=== PATIENT | female | born 1955 | race Hispanic/Latino ===

== ENCOUNTER 2017-08-10 16:08 | Inpatient (IN) | payer OTHER ==
[2017-08-10 16:08] VITALS: BMI 25.1
[2017-08-10] MEDS ORDERED: Aspirin 325 mg EC Tablets PO STA (16:49)
[2017-08-10 17:14] LABS: BASO # 0.1 K/uL (0.0-0.2); BASO % 0.9 % (0.0-2.0); EOS # 0.3 K/uL (0.0-0.7); EOS % 2.8 % (0.0-4.0); LYMPH # 1.7 K/uL (1.0-4.3); LYMPH % 15.8 % (20.0-40.0); MEAN CELL VOLUME 82.1 fL (81.0-99.0); MEAN CORPUSCULAR HEMOGLOBIN 26.8 pg (27.0-31.0); MEAN CORPUSCULAR HGB CONC 32.6 g/dL (33.0-37.0); MEAN PLATELET VOLUME 8.1 fL (7.2-11.7); MONO # 0.7 K/uL (0.0-0.8); MONO % 6.4 % (0.0-10.0); NEUT # 7.9 K/uL (1.8-7.0); NEUT % 74.1 % (50.0-75.0); NRBC % 0.4 % (0.0-2.0); RBC 4.12 Mil/uL (3.80-5.20); RED CELL DISTRIBUTION WIDTH 15.6 % (11.5-14.5); WHITE BLOOD COUNT 10.7 K/uL (4.8-10.8)
[2017-08-10 17:26] LABS: ALB/GLOB RATIO 1.1 (1.0-2.1); ALBUMIN 3.9 g/dL (3.5-5.0); ALT/SGPT 27 U/L (9-52); AST/SGOT 24 U/L (14-36); BLOOD UREA NITROGEN 12 mg/dL (7-17); CALCIUM 9.2 mg/dl (8.6-10.4); GFR AFRICAN-AMERICAN > 60; GFR NON-AFRICAN AMERICAN > 60
[2017-08-10 17:31] LABS: INR 1.3; PROTHROMBIN TIME 14.6 SECONDS (9.7-12.2)
[2017-08-10 17:37] LABS: B-TYPE NATRIURETIC PEPTIDE 214 pg/mL (0-900)
--- NOTE | 2017-08-10 18:01 | RAD ---
PROCEDURE: CHEST RADIOGRAPH, 1 VIEW HISTORY: SOB, chest pain COMPARISON: None available. FINDINGS: LUNGS: Compressive atelectasis primarily affecting both lower lobes and to lesser extent right middle lobe and lingula. PLEURA: Bilateral pleural effusions left substantially larger than right. CARDIOVASCULAR: Cardiomegaly. Venous access catheter may be coursing through at an aberrant left subclavian vein with the tip in the right subclavian vein. OSSEOUS STRUCTURES: No significant abnormalities. VISUALIZED UPPER ABDOMEN: Normal. OTHER FINDINGS: None. IMPRESSION: Recently placed venous access catheter tip identified at the junction of what may be an aberrant left subclavian vein with tip in the right subclavian vein. No pneumothorax identified. Bilateral pleural effusions left larger than right and associated compressive atelectasis.
[2017-08-10] MEDS ORDERED: Iodixanol 320 mg/ml 150 ml Bottle IV ONE (18:18)
--- NOTE | 2017-08-10 19:52 | CT ---
EXAM: CT Angiography Chest With Intravenous Contrast CLINICAL HISTORY: 61 years old, female; Pain and signs and symptoms; Shortness of breath; Chest pain; Left-sided chest pain; Additional info: Cp/sob, h/o breast ca. R/O pe TECHNIQUE: Axial computed tomographic angiography images of the chest with intravenous contrast using pulmonary embolism protocol. All CT scans at this facility use one or more dose reduction techniques, viz.: automated exposure control; ma/kV adjustment per patient size (including targeted exams where dose is matched to indication; i.e. head); or iterative reconstruction technique. MIP reconstructed images were created and reviewed. Coronal and sagittal reformatted images were created and reviewed. CONTRAST: 100 mL of visipaque 320 administered intravenously. COMPARISON: No relevant prior studies available. FINDINGS: Pulmonary arteries: Unremarkable. No pulmonary embolism. Aorta: No acute findings. No thoracic aortic aneurysm. Lungs: Complete atelectasis left lower lobe. Partial atelectasis right lower lobe. No mass. Pleural space: Large bilateral pleural effusions. No pneumothorax. Heart: Large pericardial effusion. This measures up to 3.5 CM in thickness. This may be impeding cardiac output. Bones/joints: No acute fracture. No dislocation. Soft tissues: Unremarkable. Lymph nodes: Unremarkable. No enlarged lymph nodes. Adrenals: 2.5 CM low density left adrenal mass. Tubes, lines and devices: Left chest wall port. IMPRESSION: 1. Large pericardial effusion. This measures up to 3.5 CM in thickness. This may be impeding cardiac output. 2. No acute pulmonary embolism. 3. Large bilateral pleural effusions with associated compressive atelectasis. 4. Remainder of findings as above.
--- NOTE | 2017-08-10 20:52 | C.PDOC ---
Time Seen by Provider: 08/10/17 16:40 Chief Complaint (Nursing): Shortness Of Breath History Per: Patient Onset/Duration Of Symptoms: Days (few) Current Symptoms Are (Timing): Worse Severity: Moderate Associated Symptoms: Chest Pain Additional History Per: Prior Records Past Medical History Reviewed: Historical Data, Nursing Documentation, Vital Signs Vital Signs: Last Vital Signs Temp 97.8 F 08/10/17 16:39 Pulse 107 H 08/10/17 19:17 Resp 48 H 08/10/17 19:22 BP 118/69 08/10/17 19:17 Pulse Ox 99 08/10/17 19:22 - Medical History PMH: Malignancy (Breast) Family History: States: Unknown Family Hx - Social History Hx Tobacco Use: Yes Hx Alcohol Use: No Hx Substance Use: No Review Of Systems Except As Marked, All Systems Reviewed And Found Negative. Constitutional: Negative for: Fever Cardiovascular: Positive for: Chest Pain Respiratory: Positive for: Cough, Shortness of Breath. Negative for: Hemoptysis Gastrointestinal: Negative for: Vomiting, Abdominal Pain Musculoskeletal: Negative for: Neck Pain Skin: Negative for: Rash Neurological: Negative for: Weakness, Numbness Physical Exam - Physical Exam Appears: Non-toxic, In Acute Distress (mild) Skin: Normal Color, Warm, Dry, No Rash Head: Atraumatic, Normacephalic Eye(s): bilateral: PERRL, EOMI Neck: Normal ROM, Supple Cardiovascular: Rhythm Regular Respiratory: Decreased Breath Sounds, No Accessory Muscle Use Gastrointestinal/Abdominal: Soft, No Tenderness Back: No CVA Tenderness Extremity: Normal ROM Neurological/Psych: Oriented x3, Normal Speech, Normal Motor, Normal Sensation ED Course And Treatment - Laboratory Results Result Diagrams: 08/10/17 17:09 08/10/17 17:09 Lab Interpretation: No Acute Changes ECG: Interpreted By Me, Viewed By Me ECG Rhythm: Sinus Tachycardia, Nonspecific Changes ECG Interpretation: Abnormal Rate From EC O2 Sat by Pulse Oximetry: 85 (on RA) Pulse Ox Interpretation: Abnormal Interpretation Of Abnormal: Hypoxia on RA - Radiology CXR: Viewed By Me, Read By Radiologist CXR Interpretation: Yes: Other (b/l Pleural effusions) - CT Scan/US CTA of chest Other Rad Studies (CT/US): Read By Radiologist, Radiology Report Reviewed CT/US Interpretation: IMPRESSION: 1. Large pericardial effusion. This measures up to 3.5 CM in thickness. This. may be impeding cardiac output. 2. No acute pulmonary embolism. 3. Large bilateral pleural effusions with associated compressive atelectasis. 4. Remainder of findings as above. Progress Note: I spoke to medical or surgical instrument maker Dr. Mittal. She will contact Dr. Cerda immediately for a STAT thoracic surgery consult. - Physician Consult Information Physician Contacted: Blayne Quiroz Outcome Of Conversation: He will consult. Dr. Nunez was also contacted for Cardiology consult. Progress - Interventions Interventions:: Observation, Oxygen - Data Reviewed Data Reviewed: Lab, Diagnostic imaging, EKG, Old records - Patient Status Patient status: Partially improved, Critical - Critical Care Citical Care: Excluding Proc Time Critical Care Time: 60 minutes - Continuity of Care Discussed patient case with:: Patient, Family-HIPPA compliant, ED Nurse, On- call PMD-pt unassigned Discussed pt. case with healthcare management consultant/specialty: Cardiology, Pulmonary/Crit. Care - Patient Plan Patient Plan: Admission, ICU Disposition Discussed With DrViviana: Mario Qureshi Comment: He accepted pt on his service. Doctor Will See Patient In The: Hospital Counseled Patient/Family Regarding: Studies Performed, Diagnosis - Disposition Disposition: HOSPITALIZED Disposition Time: 20:55 Condition: CRITICAL - Clinical Impression Clinical Impression: Pericardial effusion, Pleural effusion, bilateral, Hypoxia
--- NOTE | 2017-08-10 21:03 | CP.PCM.CON ---
History of Present Illness - History of Present Illness History of Present Illness: CT surgery consult note for Dr. Duncan Mittal, PGY-1 Pt S & E at bedside. 61F w/PMH sig for Right breast CA on Arimidex since Dec 2015 consulted for pericardial effusion & pleural effusions. Pt reports SOB x 1 wk. Admits to occasional Left sided chest pain, especially with deep inspiration, GERONIMO, recent wt gain of 15lbs, occasional chills, occasional emesis (food stuff, nb, nb). Denies ever having prior episodes of similar. recent illness, changes in bowel or bladder habits, other complaints. In ED- CTA positive for B/L pleural effusions, large pericardial effusion PMH: Right sided breast CA on Arimidex (12/2015), DM, HLD, Asthma PSH: Breast bx, LIJ portacath insertion, ganglion cyst excision of R hand, R knee foreign body excision All: NKDA SH: Admits to tobacco use - average is 20 yrs 1 ppd; rare ETOH use, denies illicit drug use PMD: Dr. Pastrana Outpt onc: Dr. Piyush Peoples Review of Systems - Review of Systems All systems: reviewed and no additional remarkable complaints except - Constitutional Constitutional: Headache (occasional), Weight Gain (15 lbs). absent: Chills, Fever - EENT Eyes: Blurred Vision, Change in Vision Ears: absent: Dizziness Nose/Mouth/Throat: absent: Sore Throat - Cardiovascular Cardiovascular: Chest Pain (occasional), Chest Pain with Activity, Dyspnea on Exertion. absent: Palpitations - Respiratory Respiratory: Dyspnea on Exertion. absent: Cough - Gastrointestinal Gastrointestinal: Vomiting. absent: Abdominal Pain, Change in Bowel Habits, Change in Stool Character, Constipation, Diarrhea, Nausea - Genitourinary Genitourinary: absent: Change in Urinary Stream, Difficulty Urinating, Dysuria - Musculoskeletal Musculoskeletal: absent: Back Pain, Numbness, Tingling - Neurological Neurological: absent: Numbness, Tingling - Psychiatric Psychiatric: Anxiety Past Patient History - Infectious Disease Hx of Infectious Diseases: None - Past Social History Smoking Status: Light Smoker < 10 Cigarettes Daily - HEMATOLOGICAL/ONCOLOGICAL Hx Cancer: Yes (breast) Hx Chemotherapy: Yes - PSYCHIATRIC Hx Substance Use: No - SURGICAL HISTORY Hx Surgeries: No - ANESTHESIA Hx Anesthesia: No Meds Allergies/Adverse Reactions: Allergies Allergy/AdvReac Type Severity Reaction Status Date / Time No Known Allergies Allergy Verified 08/10/17 16:22 Physical Exam - Constitutional Appears: Non-toxic, No Acute Distress - Head Exam Head Exam: ATRAUMATIC, NORMAL INSPECTION, NORMOCEPHALIC - Eye Exam Eye Exam: EOMI, Normal appearance - ENT Exam ENT Exam: Mucous Membranes Moist, Normal Exam - Neck Exam Neck exam: Positive for: Full Rom, Normal Inspection Additional comments: palpable portacath in LIJ - Respiratory Exam Respiratory Exam: Accessory Muscle Use, Decreased Breath Sounds, Wheezes, NORMAL BREATHING PATTERN. absent: Chest Wall Tenderness, Clear to Auscultation Bilateral, Rales, Rhonchi, Stridor Additional comments: B/L breath sounds absent from bases - Cardiovascular Exam Cardiovascular Exam: Tachycardia Additional comments: distant, muffled heart sounds - GI/Abdominal Exam GI & Abdominal Exam: Normal Bowel Sounds, Soft. absent: Distended, Firm, Guarding, Tenderness - Extremities Exam Extremities exam: Negative for: normal inspection (RUE with swelling), pedal edema, tenderness - Neurological Exam Neurological exam: Alert, CN II-XII Intact, Oriented x3 - Psychiatric Exam Psychiatric exam: Normal Affect, Normal Mood - Skin Skin Exam: Dry, Intact, Normal Color, Warm Results - Vital Signs Recent Vital Signs: Last Vital Signs Temp 97.8 F 08/10/17 16:39 Pulse 107 H 08/10/17 19:17 Resp 48 H 08/10/17 19:22 BP 118/69 08/10/17 19:17 Pulse Ox 99 08/10/17 19:22 - Labs Result Diagrams: 08/10/17 17:09 08/10/17 17:09 Labs: Laboratory Results - last 24 hr 08/10/17 08/10/17 08/10/17 17:09 17:09 17:09 WBC 10.7 RBC 4.12 Hgb 11.0 D Hct 33.8 L MCV 82.1 MCH 26.8 L MCHC 32.6 L RDW 15.6 H Plt Count 397 MPV 8.1 Neut % (Auto) 74.1 Lymph % (Auto) 15.8 L [place] % (Auto) 6.4 Eos % (Auto) 2.8 Baso % (Auto) 0.9 Neut # (Auto) 7.9 H Lymph # (Auto) 1.7 [place] # (Auto) 0.7 Eos # (Auto) 0.3 Baso # (Auto) 0.1 PT 14.6 H INR 1.3 APTT 29 D-Dimer, Quantitative 678 H Sodium 137 Potassium 4.3 Chloride 101 Carbon Dioxide 21 L Anion Gap 19 BUN 12 Creatinine 0.7 Est GFR ( Amer) > 60 Est GFR (Non-Af Amer) > 60 Random Glucose 268 H Calcium 9.2 Magnesium 2.0 Total Bilirubin 0.5 AST 24 ALT 27 Alkaline Phosphatase 112 Troponin I < 0.0120 NT-Pro-B Natriuret Pep 214 Total Protein 7.3 Albumin 3.9 Globulin 3.5 Albumin/Globulin Ratio 1.1 Assessment & Plan - Assessment and Plan (Free Text) Assessment: 61F w/PMH sig for breast CA on hormone therapy with B/L pleural effusions & pericardial effusion Plan: ' Respiratory support Plan for OR in AM NPO pMN Hold anticoagulation starting at 2am Consent in chart Further mgmt as per primary and ICU teams MITESH attending [place], PGY-1 - Date & Time Date: 08/10/17 Time: 23:19
--- NOTE | 2017-08-10 21:59 | CP.PCM.HP ---
Past Patient History - Infectious Disease Hx of Infectious Diseases: None - Past Social History Smoking Status: Light Smoker < 10 Cigarettes Daily - HEMATOLOGICAL/ONCOLOGICAL Hx Cancer: Yes (breast) Hx Chemotherapy: Yes - PSYCHIATRIC Hx Substance Use: No - SURGICAL HISTORY Hx Surgeries: No - ANESTHESIA Hx Anesthesia: No Meds Allergies/Adverse Reactions: Allergies Allergy/AdvReac Type Severity Reaction Status Date / Time No Known Allergies Allergy Verified 08/10/17 16:22 Physical Exam - Constitutional Appears: Well - Head Exam Head Exam: ATRAUMATIC, NORMAL INSPECTION, NORMOCEPHALIC - Eye Exam Eye Exam: EOMI, Normal appearance, PERRL Pupil Exam: NORMAL ACCOMODATION, PERRL - ENT Exam ENT Exam: Mucous Membranes Moist, Normal Exam - Neck Exam Neck exam: Positive for: Normal Inspection - Respiratory Exam Respiratory Exam: Decreased Breath Sounds - Cardiovascular Exam Cardiovascular Exam: REGULAR RHYTHM, +S1, +S2 - GI/Abdominal Exam GI & Abdominal Exam: Diminished Bowel Sounds, Soft - Rectal Exam Rectal Exam: Deferred Results - Vital Signs Recent Vital Signs: Last Vital Signs Temp 97.8 F 08/10/17 16:39 Pulse 107 H 08/10/17 19:17 Resp 48 H 08/10/17 19:22 BP 118/69 08/10/17 19:17 Pulse Ox 85 L 08/10/17 20:55 - Labs Result Diagrams: 08/10/17 17:09 08/10/17 17:09 Labs: Laboratory Results - last 24 hr 08/10/17 08/10/17 08/10/17 17:09 17:09 17:09 WBC 10.7 RBC 4.12 Hgb 11.0 D Hct 33.8 L MCV 82.1 MCH 26.8 L MCHC 32.6 L RDW 15.6 H Plt Count 397 MPV 8.1 Neut % (Auto) 74.1 Lymph % (Auto) 15.8 L [place] % (Auto) 6.4 Eos % (Auto) 2.8 Baso % (Auto) 0.9 Neut # (Auto) 7.9 H Lymph # (Auto) 1.7 [place] # (Auto) 0.7 Eos # (Auto) 0.3 Baso # (Auto) 0.1 PT 14.6 H INR 1.3 APTT 29 D-Dimer, Quantitative 678 H Sodium 137 Potassium 4.3 Chloride 101 Carbon Dioxide 21 L Anion Gap 19 BUN 12 Creatinine 0.7 Est GFR ( Amer) > 60 Est GFR (Non-Af Amer) > 60 Random Glucose 268 H Calcium 9.2 Magnesium 2.0 Total Bilirubin 0.5 AST 24 ALT 27 Alkaline Phosphatase 112 Troponin I < 0.0120 NT-Pro-B Natriuret Pep 214 Total Protein 7.3 Albumin 3.9 Globulin 3.5 Albumin/Globulin Ratio 1.1
--- NOTE | 2017-08-10 23:35 | CP.PCM.CON ---
History of Present Illness - History of Present Illness History of Present Illness: 61F with h/o Right breast CA on Arimidex since Dec 2015,DM,hyperlipidemia, asthma admitted with c/o worsening exertional difficulty breathing x 3 days and Left sided chest pain, especially with deep inspiration, recent wt gain of 15lbs In ED- CTA positive for B/L pleural effusions, large pericardial effusion Right upper extremity swelling x 1 month ,seen in [facility],had MRI done and was told to "apply ice".Not seen oncologist for about 2 months h/o Right sided breast Ca was recommended chemotherapy which patient refused. PSH: Breast bx, LIJ portacath insertion, ganglion cyst excision of R hand, R knee foreign body excision Review of Systems - Review of Systems Systems not reviewed;Unavailable: Respiratory Distress - Constitutional Constitutional: Fatigue, Weight Gain. absent: Anorexia, Chills, Fever - EENT Eyes: absent: Change in Vision, Pain Ears: absent: Decreased Hearing, Dizziness Nose/Mouth/Throat: absent: Nasal Congestion, Hoarsness, Sore Throat - Breasts Breasts: Change in Shape, Mass, Swelling - Cardiovascular Cardiovascular: Chest Pain. absent: Edema, Palpitations, Pedal Edema - Respiratory Respiratory: Cough, Dyspnea, Pain with Coughing Additional comments: dry cough - Gastrointestinal Gastrointestinal: absent: Abdominal Pain, Change in Bowel Habits, Nausea, Vomiting - Genitourinary Genitourinary: absent: Difficulty Urinating, Dysuria - Musculoskeletal Musculoskeletal: absent: Joint Swelling, Neck Pain - Integumentary Integumentary: absent: Bleeding Lesions, Jaundice - Neurological Neurological: absent: Dizziness, Focal Weakness - Endocrine Endocrine: absent: Palpitations, Polydipsia, Polyuria - Hematologic/Lymphatic Hematologic: absent: Easy Bleeding Past Patient History - Infectious Disease Hx of Infectious Diseases: None - Past Social History Smoking Status: Light Smoker < 10 Cigarettes Daily Alcohol: Social Drugs: Denies Home Situation {Lives}: With Family - HEMATOLOGICAL/ONCOLOGICAL Hx Cancer: Yes (breast) Hx Chemotherapy: Yes - PSYCHIATRIC Hx Substance Use: No - SURGICAL HISTORY Hx Surgeries: No - ANESTHESIA Hx Anesthesia: No Meds Allergies/Adverse Reactions: Allergies Allergy/AdvReac Type Severity Reaction Status Date / Time No Known Allergies Allergy Verified 08/10/17 16:22 Physical Exam - Constitutional Appears: No Acute Distress - Head Exam Head Exam: ATRAUMATIC, NORMAL INSPECTION, NORMOCEPHALIC - Eye Exam Eye Exam: EOMI, Normal appearance, PERRL - ENT Exam ENT Exam: Mucous Membranes Moist, Normal Exam - Neck Exam Neck exam: Positive for: Normal Inspection Additional comments: left neck palpable catheter - Respiratory Exam Respiratory Exam: Decreased Breath Sounds. absent: Chest Wall Tenderness Additional comments: decreased breath sounds in bases left chest portacath + - Cardiovascular Exam Cardiovascular Exam: REGULAR RHYTHM. absent: JVD - GI/Abdominal Exam GI & Abdominal Exam: Normal Bowel Sounds, Soft. absent: Tenderness - Extremities Exam Extremities exam: Positive for: pedal pulses present. Negative for: calf tenderness Additional comments: right upper extremity swelling + - Back Exam Back exam: NORMAL INSPECTION - Neurological Exam Neurological exam: Alert, CN II-XII Intact, Oriented x3 - Skin Skin Exam: Normal Color, Warm Additional comments: right breast nipple inverted ,firm,palpable mass + Results - Vital Signs Recent Vital Signs: Last Vital Signs Temp 97.8 F 08/10/17 16:39 Pulse 107 H 08/10/17 19:17 Resp 48 H 08/10/17 19:22 BP 118/69 08/10/17 19:17 Pulse Ox 85 L 08/10/17 20:55 - Labs Result Diagrams: 08/10/17 17:09 08/10/17 17:09 Labs: Laboratory Results - last 24 hr 08/10/17 08/10/17 08/10/17 17:09 17:09 17:09 WBC 10.7 RBC 4.12 Hgb 11.0 D Hct 33.8 L MCV 82.1 MCH 26.8 L MCHC 32.6 L RDW 15.6 H Plt Count 397 MPV 8.1 Neut % (Auto) 74.1 Lymph % (Auto) 15.8 L [place] % (Auto) 6.4 Eos % (Auto) 2.8 Baso % (Auto) 0.9 Neut # (Auto) 7.9 H Lymph # (Auto) 1.7 [place] # (Auto) 0.7 Eos # (Auto) 0.3 Baso # (Auto) 0.1 PT 14.6 H INR 1.3 APTT 29 D-Dimer, Quantitative 678 H Sodium 137 Potassium 4.3 Chloride 101 Carbon Dioxide 21 L Anion Gap 19 BUN 12 Creatinine 0.7 Est GFR ( Amer) > 60 Est GFR (Non-Af Amer) > 60 Random Glucose 268 H Calcium 9.2 Magnesium 2.0 Total Bilirubin 0.5 AST 24 ALT 27 Alkaline Phosphatase 112 Troponin I < 0.0120 NT-Pro-B Natriuret Pep 214 Total Protein 7.3 Albumin 3.9 Globulin 3.5 Albumin/Globulin Ratio 1.1 - EKG Data EKG Interpreted by: Myself EKG shows normal: Sinus rhythm Rate: Tachycardia - Imaging and Cardiology CT scan - chest Status: Image reviewed by me, Report reviewed by me Chest x-ray Status: Image reviewed by me, Report reviewed by me Assessment & Plan - Assessment and Plan (Free Text) Assessment: 1.Bilateral Pleural and Pericardial effusion in patient with breast carcinoma for surgical procedure O2 2.Breast Ca on meds 3.DM on meds 4.Hyperlipidemia
[2017-08-11] MEDS: Tramadol 25 mg PO PRN (00:13)
[2017-08-11] MEDS: (Novolin R) Insulin Human Regular 100 units/ml vial SC SCH ×4 (00:50→18:19)
[2017-08-11] MEDS ORDERED: DiphenhydrAMINE 50 mg/ml Inj IVP STA (02:34)
[2017-08-11 07:21] LABS: ALB/GLOB RATIO 1.1 (1.0-2.1); ALBUMIN 3.6 g/dL (3.5-5.0); ALT/SGPT 30 U/L (9-52); AST/SGOT 23 U/L (14-36); BLOOD UREA NITROGEN 15 mg/dL (7-17); GFR AFRICAN-AMERICAN > 60; GFR NON-AFRICAN AMERICAN > 60
[2017-08-11 07:33] LABS: BASO # 0.1 K/uL (0.0-0.2); BASO % 0.7 % (0.0-2.0); EOS # 0.3 K/uL (0.0-0.7); EOS % 3.3 % (0.0-4.0); HEMOGLOBIN 10.1 g/dL (11.0-16.0); LYMPH # 1.7 K/uL (1.0-4.3); MEAN CELL VOLUME 81.6 fL (81.0-99.0); MEAN CORPUSCULAR HEMOGLOBIN 26.8 pg (27.0-31.0); MEAN CORPUSCULAR HGB CONC 32.9 g/dL (33.0-37.0); MEAN PLATELET VOLUME 8.4 fL (7.2-11.7); MONO # 0.7 K/uL (0.0-0.8); MONO % 6.6 % (0.0-10.0); NEUT # 7.3 K/uL (1.8-7.0); NEUT % 72.4 % (50.0-75.0); RBC 3.77 Mil/uL (3.80-5.20); RED CELL DISTRIBUTION WIDTH 15.5 % (11.5-14.5); WHITE BLOOD COUNT 10.1 K/uL (4.8-10.8)
[2017-08-11] MEDS: Pantoprazole 40 mg EC Tab PO SCH (10:20)
[2017-08-11] MEDS ORDERED: Etomidate 20 mg/10ml Inj IV ONE (10:52)
[2017-08-11] MEDS ORDERED: Midazolam 2 MG/2 ML VIAL ONE (10:53)
[2017-08-11] MEDS ORDERED: ePHEDrine 50 mg/ml Inj ONE (10:54)
[2017-08-11] MEDS ORDERED: Phenylephrine 10 mg/ml Inj ONE (10:54)
[2017-08-11] MEDS ORDERED: Ketamine 50 mg/ml Inj (10 ml) ONE (11:00)
[2017-08-11] MEDS ORDERED: Succinylcholine Chloride 20 mg/ml Syr (5 ml) IV ONE (11:08)
[2017-08-11] MEDS ORDERED: ceFAZolin 1 gm in NS 1 GM/100 ML BAG IVPB ONE (11:16)
--- NOTE | 2017-08-11 11:37 | CP.CCUPN ---
<Brent Parker - Last Filed: 08/11/17 15:33> CCU Subjective - Physician Review Subjective (Free Text): 08/11/17 11:32 Patient seen and examined at bedside. Patient reports some pleuritic chest discomfort and some shortness of breath. No other complaints at this time. She is resting and anticipating surgery. CCU Objective - Vital Signs / Intake & Output Vital Signs (Last 4 hours): Vital Signs Temp Pulse Resp BP Pulse Ox 08/11/17 10:06 109 H 160/115 H 96 08/11/17 10:00 97.5 F L 103 H 85 L 08/11/17 09:05 98 H 112/85 90 L 08/11/17 09:00 97 H 90 L 08/11/17 08:05 100 H 31 H 98/80 L 97 08/11/17 08:00 104 H 28 H 93 L Intake and Output (Last 8hrs): Intake & Output 08/10/17 08/11/17 08/11/17 22:59 06:59 14:59 Intake Total 200 0 Output Total 300 200 Balance -100 -200 Weight 150 lb 163 lb 8 oz Intake: Oral 200 0 Output: Urine 300 200 Urine, Voided 300 200 Emesis 0 Other: Voiding Method Bedside Commode # Bowel Movements 0 - Physical Exam Head: Positive for: Atraumatic, Normocephalic Pupils: Positive for: PERRL Extroacular Muscles: Positive for: EOMI Conjunctiva: Positive for: Normal Mouth: Positive for: Dry Neck: Positive for: Normal Range of Motion Respiratory/Chest: Positive for: Decreased Breath Sounds, Other (portacath). Negative for: Wheezes, Rales, Rhonchi Cardiovascular: Positive for: Normal S1, S2, Muffled Abdomen: Positive for: Normal Bowel Sounds. Negative for: Tenderness Upper Extremity: Positive for: Edema Lower Extremity: Positive for: Normal Inspection Neurological: Positive for: GCS=15 Skin: Positive for: Warm, Dry Psychiatric: Positive for: Alert, Oriented x 3 - Medications Active Medications: Active Medications Generic Name Dose Route Start Last Admin Trade Name Freq PRN Reason Stop Dose Admin Insulin Human Regular 0 unit 08/11/17 00:15 08/11/17 05:43 Novolin R SC Not Given Q6 COUNT INCLUDES THE [facility] Protocol Pantoprazole Sodium 40 mg 08/11/17 10:00 08/11/17 10:20 Protonix Ec Tab PO Not Given DAILY NELIDA Tramadol HCl 25 mg 08/10/17 23:56 08/11/17 00:13 Ultram PO 25 mg TID PRN Administration Pain, severe (8-10) - Patient Studies Lab Studies: Lab Studies 08/11/17 08/11/17 08/11/17 Range/Units 07:21 05:37 05:30 WBC 10.1 (4.8-10.8) K/uL RBC 3.77 L (3.80-5.20) Mil/uL Hgb 10.1 L (11.0-16.0) g/dL Hct 30.8 L (34.0-47.0) % MCV 81.6 (81.0-99.0) fL MCH 26.8 L (27.0-31.0) pg MCHC 32.9 L (33.0-37.0) g/dL RDW 15.5 H (11.5-14.5) % Plt Count 331 (130-400) K/uL MPV 8.4 (7.2-11.7) fL Neut % (Auto) 72.4 (50.0-75.0) % Lymph % (Auto) 17.0 L (20.0-40.0) % Maverick % (Auto) 6.6 (0.0-10.0) % Eos % (Auto) 3.3 (0.0-4.0) % Baso % (Auto) 0.7 (0.0-2.0) % Neut # (Auto) 7.3 H (1.8-7.0) K/uL Lymph # (Auto) 1.7 (1.0-4.3) K/uL Maverick # (Auto) 0.7 (0.0-0.8) K/uL Eos # (Auto) 0.3 (0.0-0.7) K/uL Baso # (Auto) 0.1 (0.0-0.2) K/uL PT (9.7-12.2) SECONDS INR APTT (21-34) SECONDS D-Dimer, Quantitative (0-243) ng/mlDDU Sodium 140 (132-148) mmol/L Potassium 4.0 (3.6-5.2) mmol/L Chloride 103 (98-107) mmol/L Carbon Dioxide 24 (22-30) mmol/L Anion Gap 17 (10-20) BUN 15 (7-17) mg/dL Creatinine 0.7 (0.7-1.2) mg/dL Est GFR ( Amer) > 60 Est GFR (Non-Af Amer) > 60 POC Glucose (mg/dL) 181 H (65-110) mg/dL Random Glucose 176 H (65-105) mg/dL Calcium 9.0 (8.6-10.4) mg/dl Phosphorus 4.0 (2.5-4.5) mg/dL Magnesium 2.1 (1.6-2.3) mg/dL Total Bilirubin 0.5 (0.2-1.3) mg/dL AST 23 (14-36) U/L ALT 30 (9-52) U/L Alkaline Phosphatase 114 (38-126) U/L Troponin I (0.00-0.120) ng/mL NT-Pro-B Natriuret Pep (0-900) pg/mL Total Protein 7.0 (6.3-8.3) g/dL Albumin 3.6 (3.5-5.0) g/dL Globulin 3.4 (2.2-3.9) gm/dL Albumin/Globulin Ratio 1.1 (1.0-2.1) 08/11/17 08/10/17 08/10/17 Range/Units 00:05 17:09 17:09 WBC (4.8-10.8) K/uL RBC (3.80-5.20) Mil/uL Hgb (11.0-16.0) g/dL Hct (34.0-47.0) % MCV (81.0-99.0) fL MCH (27.0-31.0) pg MCHC (33.0-37.0) g/dL RDW (11.5-14.5) % Plt Count (130-400) K/uL MPV (7.2-11.7) fL Neut % (Auto) (50.0-75.0) % Lymph % (Auto) (20.0-40.0) % Maverick % (Auto) (0.0-10.0) % Eos % (Auto) (0.0-4.0) % Baso % (Auto) (0.0-2.0) % Neut # (Auto) (1.8-7.0) K/uL Lymph # (Auto) (1.0-4.3) K/uL Maverick # (Auto) (0.0-0.8) K/uL Eos # (Auto) (0.0-0.7) K/uL Baso # (Auto) (0.0-0.2) K/uL PT 14.6 H (9.7-12.2) SECONDS INR 1.3 APTT 29 (21-34) SECONDS D-Dimer, Quantitative 678 H (0-243) ng/mlDDU Sodium 137 (132-148) mmol/L Potassium 4.3 (3.6-5.2) mmol/L Chloride 101 (98-107) mmol/L Carbon Dioxide 21 L (22-30) mmol/L Anion Gap 19 (10-20) BUN 12 (7-17) mg/dL Creatinine 0.7 (0.7-1.2) mg/dL Est GFR ( Amer) > 60 Est GFR (Non-Af Amer) > 60 POC Glucose (mg/dL) 256 H (65-110) mg/dL Random Glucose 268 H (65-105) mg/dL Calcium 9.2 (8.6-10.4) mg/dl Phosphorus (2.5-4.5) mg/dL Magnesium 2.0 (1.6-2.3) mg/dL Total Bilirubin 0.5 (0.2-1.3) mg/dL AST 24 (14-36) U/L ALT 27 (9-52) U/L Alkaline Phosphatase 112 (38-126) U/L Troponin I < 0.0120 (0.00-0.120) ng/mL NT-Pro-B Natriuret Pep 214 (0-900) pg/mL Total Protein 7.3 (6.3-8.3) g/dL Albumin 3.9 (3.5-5.0) g/dL Globulin 3.5 (2.2-3.9) gm/dL Albumin/Globulin Ratio 1.1 (1.0-2.1) 08/10/17 Range/Units 17:09 WBC 10.7 (4.8-10.8) K/uL RBC 4.12 (3.80-5.20) Mil/uL Hgb 11.0 D (11.0-16.0) g/dL Hct 33.8 L (34.0-47.0) % MCV 82.1 (81.0-99.0) fL MCH 26.8 L (27.0-31.0) pg MCHC 32.6 L (33.0-37.0) g/dL RDW 15.6 H (11.5-14.5) % Plt Count 397 (130-400) K/uL MPV 8.1 (7.2-11.7) fL Neut % (Auto) 74.1 (50.0-75.0) % Lymph % (Auto) 15.8 L (20.0-40.0) % Maverick % (Auto) 6.4 (0.0-10.0) % Eos % (Auto) 2.8 (0.0-4.0) % Baso % (Auto) 0.9 (0.0-2.0) % Neut # (Auto) 7.9 H (1.8-7.0) K/uL Lymph # (Auto) 1.7 (1.0-4.3) K/uL Maverick # (Auto) 0.7 (0.0-0.8) K/uL Eos # (Auto) 0.3 (0.0-0.7) K/uL Baso # (Auto) 0.1 (0.0-0.2) K/uL PT (9.7-12.2) SECONDS INR APTT (21-34) SECONDS D-Dimer, Quantitative (0-243) ng/mlDDU Sodium (132-148) mmol/L Potassium (3.6-5.2) mmol/L Chloride (98-107) mmol/L Carbon Dioxide (22-30) mmol/L Anion Gap (10-20) BUN (7-17) mg/dL Creatinine (0.7-1.2) mg/dL Est GFR ( Amer) Est GFR (Non-Af Amer) POC Glucose (mg/dL) (65-110) mg/dL Random Glucose (65-105) mg/dL Calcium (8.6-10.4) mg/dl Phosphorus (2.5-4.5) mg/dL Magnesium (1.6-2.3) mg/dL Total Bilirubin (0.2-1.3) mg/dL AST (14-36) U/L ALT (9-52) U/L Alkaline Phosphatase (38-126) U/L Troponin I (0.00-0.120) ng/mL NT-Pro-B Natriuret Pep (0-900) pg/mL Total Protein (6.3-8.3) g/dL Albumin (3.5-5.0) g/dL Globulin (2.2-3.9) gm/dL Albumin/Globulin Ratio (1.0-2.1) Laboratory Results - last 24 hr 08/10/17 08/10/17 08/10/17 17:09 17:09 17:09 WBC 10.7 RBC 4.12 Hgb 11.0 D Hct 33.8 L MCV 82.1 MCH 26.8 L MCHC 32.6 L RDW 15.6 H Plt Count 397 MPV 8.1 Neut % (Auto) 74.1 Lymph % (Auto) 15.8 L Maverick % (Auto) 6.4 Eos % (Auto) 2.8 Baso % (Auto) 0.9 Neut # (Auto) 7.9 H Lymph # (Auto) 1.7 Maverick # (Auto) 0.7 Eos # (Auto) 0.3 Baso # (Auto) 0.1 PT 14.6 H INR 1.3 APTT 29 D-Dimer, Quantitative 678 H Sodium 137 Potassium 4.3 Chloride 101 Carbon Dioxide 21 L Anion Gap 19 BUN 12 Creatinine 0.7 Est GFR ( Amer) > 60 Est GFR (Non-Af Amer) > 60 POC Glucose (mg/dL) Random Glucose 268 H Calcium 9.2 Phosphorus Magnesium 2.0 Total Bilirubin 0.5 AST 24 ALT 27 Alkaline Phosphatase 112 Troponin I < 0.0120 NT-Pro-B Natriuret Pep 214 Total Protein 7.3 Albumin 3.9 Globulin 3.5 Albumin/Globulin Ratio 1.1 08/11/17 08/11/17 08/11/17 00:05 05:30 05:37 WBC RBC Hgb Hct MCV MCH MCHC RDW Plt Count MPV Neut % (Auto) Lymph % (Auto) Maverick % (Auto) Eos % (Auto) Baso % (Auto) Neut # (Auto) Lymph # (Auto) Maverick # (Auto) Eos # (Auto) Baso # (Auto) PT INR APTT D-Dimer, Quantitative Sodium 140 Potassium 4.0 Chloride 103 Carbon Dioxide 24 Anion Gap 17 BUN 15 Creatinine 0.7 Est GFR ( Amer) > 60 Est GFR (Non-Af Amer) > 60 POC Glucose (mg/dL) 256 H 181 H Random Glucose 176 H Calcium 9.0 Phosphorus 4.0 Magnesium 2.1 Total Bilirubin 0.5 AST 23 ALT 30 Alkaline Phosphatase 114 Troponin I NT-Pro-B Natriuret Pep Total Protein 7.0 Albumin 3.6 Globulin 3.4 Albumin/Globulin Ratio 1.1 08/11/17 07:21 WBC 10.1 RBC 3.77 L Hgb 10.1 L Hct 30.8 L MCV 81.6 MCH 26.8 L MCHC 32.9 L RDW 15.5 H Plt Count 331 MPV 8.4 Neut % (Auto) 72.4 Lymph % (Auto) 17.0 L Maverick % (Auto) 6.6 Eos % (Auto) 3.3 Baso % (Auto) 0.7 Neut # (Auto) 7.3 H Lymph # (Auto) 1.7 Maverick # (Auto) 0.7 Eos # (Auto) 0.3 Baso # (Auto) 0.1 PT INR APTT D-Dimer, Quantitative Sodium Potassium Chloride Carbon Dioxide Anion Gap BUN Creatinine Est GFR ( Amer) Est GFR (Non-Af Amer) POC Glucose (mg/dL) Random Glucose Calcium Phosphorus Magnesium Total Bilirubin AST ALT Alkaline Phosphatase Troponin I NT-Pro-B Natriuret Pep Total Protein Albumin Globulin Albumin/Globulin Ratio EKG/Cardiology Studies: Cardiology / EKG Studies 08/10/17 16:17 EKG [ELECTROCARDIOGRAM] Stat Comment: Mode Of Transportation: BED Reason For Exam: cp Critical Care Progress Note - Nutrition Nutrition: Nutrition Category Date Time Status NPO Diet [DIET] Diets 08/11/17 Breakfast Active Assessment/Plan - Assessment and Plan (Free Text) Assessment: This is a 61 year old female with PMHx breast CA presenting for shortness of breath. This is likely due to both the pericardial and the bilateral pleural effusions. Neuro Sedated on Diprivan drip Cardio Patient underwent pericardial window in the OR 4/11/18 f/u ECHO f/u fluid studies Pulm Currently intubated and sedated on PRVC FiO2 60%, PEEP 5, TV 450mL Likely for extubation tomorrow f/u fluid studies GI NPO diet Protonix 40 mg IV daily Endocrine Regular ISS Q6H Accuchecks Infectious Diseases Received Ancef in the OR Only one more dose of Ancef tonight per surgery Heme/onc Monitor H/H f/u Ultrasound for edematous arm Dispo: ICU care Seen and discussed with Dr. Quiroz <Blayne Quiroz S - Last Filed: 08/11/17 16:06> CCU Objective - Vital Signs / Intake & Output Vital Signs (Last 4 hours): Vital Signs Temp Pulse Resp BP Pulse Ox 08/11/17 15:00 98.4 F 109 H 12 100 08/11/17 14:45 109 H 14 100 08/11/17 14:39 108 H 15 105/73 100 08/11/17 14:30 98 F 108 H 13 100 08/11/17 14:24 107 H 12 108/72 100 08/11/17 14:15 107 H 14 100 08/11/17 14:09 107 H 13 108/71 100 08/11/17 14:00 98.2 F 107 H 13 100 08/11/17 13:54 106 H 14 109/68 100 08/11/17 13:45 106 H 13 100 08/11/17 13:40 97.8 F 08/11/17 13:39 108 H 14 93/69 L 100 08/11/17 13:30 111 H 12 100 08/11/17 13:25 97.6 F 08/11/17 13:24 111 H 13 110/75 100 08/11/17 13:15 109 H 14 100 08/11/17 13:10 97.6 F 08/11/17 13:09 108 H 12 109/74 100 08/11/17 13:00 105 H 14 100 08/11/17 12:55 97.6 F 08/11/17 12:54 107 H 17 94/70 L 100 08/11/17 12:49 105 H 13 97/64 L 100 08/11/17 12:46 103 H 12 Intake and Output (Last 8hrs): Intake & Output 08/11/17 08/11/17 08/11/17 06:59 14:59 22:59 Intake Total 200 802.2 Output Total 300 430 Balance -100 372.2 Weight 163 lb 8 oz Intake: IV 800 Intake, IV Amount 2.2 Left Forearm 2.2 Oral 200 0 Output: Urine 300 430 Urethral ([place]) 230 Urine, Voided 300 200 Emesis 0 Other: Voiding Method Bedside Commode # Bowel Movements 0 - Medications Active Medications: Active Medications Generic Name Dose Route Start Last Admin Trade Name Freq PRN Reason Stop Dose Admin Propofol 1,000 mg in 100 mls @ 2.225 mls/hr 08/11/17 13:30 08/11/17 13:59 Diprivan IV 5 mcg/kg/min .Q24H PRN 2.225 mls/hr TITRATE PER MD ORDER Administration Protocol 5 MCG/KG/MIN Insulin Human Regular 0 unit 08/11/17 00:15 08/11/17 05:43 Novolin R SC Not Given Q6 NELIDA Protocol Morphine Sulfate 2 mg 08/11/17 13:41 08/11/17 15:34 Morphine IV 2 mg Q4H PRN Administration Pain, moderate (4-7) Pantoprazole Sodium 40 mg 08/11/17 10:00 08/11/17 10:20 Protonix Ec Tab PO Not Given DAILY NELIDA Tramadol HCl 25 mg 08/10/17 23:56 08/11/17 00:13 Ultram PO 25 mg TID PRN Administration Pain, severe (8-10) - Patient Studies Lab Studies: Lab Studies 08/11/17 08/11/17 08/11/17 Range/Units 15:41 07:21 05:37 WBC 10.1 (4.8-10.8) K/uL RBC 3.77 L (3.80-5.20) Mil/uL Hgb 10.1 L (11.0-16.0) g/dL Hct 30.8 L (34.0-47.0) % MCV 81.6 (81.0-99.0) fL MCH 26.8 L (27.0-31.0) pg MCHC 32.9 L (33.0-37.0) g/dL RDW 15.5 H (11.5-14.5) % Plt Count 331 (130-400) K/uL MPV 8.4 (7.2-11.7) fL Neut % (Auto) 72.4 (50.0-75.0) % Lymph % (Auto) 17.0 L (20.0-40.0) % Maverick % (Auto) 6.6 (0.0-10.0) % Eos % (Auto) 3.3 (0.0-4.0) % Baso % (Auto) 0.7 (0.0-2.0) % Neut # (Auto) 7.3 H (1.8-7.0) K/uL Lymph # (Auto) 1.7 (1.0-4.3) K/uL Maverick # (Auto) 0.7 (0.0-0.8) K/uL Eos # (Auto) 0.3 (0.0-0.7) K/uL Baso # (Auto) 0.1 (0.0-0.2) K/uL PT (9.7-12.2) SECONDS INR APTT (21-34) SECONDS D-Dimer, Quantitative (0-243) ng/mlDDU Puncture Site Dede pCO2 44 (35-45) mm/Hg pO2 219 H (80-100) mm/Hg HCO3 24.4 (21-28) mmol/L ABG pH 7.36 (7.35-7.45) ABG Total CO2 26.3 (22-28) mmol/L ABG O2 Saturation 100.0 H (95-98) % ABG Base Excess -0.8 (-2.0-3.0) mmol/L Marc Test Na ABG Potassium 3.9 (3.6-5.2) mmol/L A-a O2 Difference 439.0 mm/Hg Respiratory Index 2.0 Glucose 175 H (65-105) mg/dl Lactate 0.9 (0.7-2.1) mmol/L Vent Mode Prvc Mechanical Rate 12 FiO2 100.0 % Tidal Volume 450 PEEP 5 Sodium 139.0 (132-148) mmol/L Potassium (3.6-5.2) mmol/L Chloride 107.0 (98-107) mmol/L Carbon Dioxide (22-30) mmol/L Anion Gap (10-20) BUN (7-17) mg/dL Creatinine (0.7-1.2) mg/dL Est GFR ( Amer) Est GFR (Non-Af Amer) POC Glucose (mg/dL) 181 H (65-110) mg/dL Random Glucose (65-105) mg/dL Calcium (8.6-10.4) mg/dl Phosphorus (2.5-4.5) mg/dL Magnesium (1.6-2.3) mg/dL Total Bilirubin (0.2-1.3) mg/dL AST (14-36) U/L ALT (9-52) U/L Alkaline Phosphatase (38-126) U/L Troponin I (0.00-0.120) ng/mL NT-Pro-B Natriuret Pep (0-900) pg/mL Total Protein (6.3-8.3) g/dL Albumin (3.5-5.0) g/dL Globulin (2.2-3.9) gm/dL Albumin/Globulin Ratio (1.0-2.1) Arterial Blood Potassium 3.9 (3.6-5.2) mmol/L 08/11/17 08/11/17 08/10/17 Range/Units 05:30 00:05 17:09 WBC (4.8-10.8) K/uL RBC (3.80-5.20) Mil/uL Hgb (11.0-16.0) g/dL Hct (34.0-47.0) % MCV (81.0-99.0) fL MCH (27.0-31.0) pg MCHC (33.0-37.0) g/dL RDW (11.5-14.5) % Plt Count (130-400) K/uL MPV (7.2-11.7) fL Neut % (Auto) (50.0-75.0) % Lymph % (Auto) (20.0-40.0) % Maverick % (Auto) (0.0-10.0) % Eos % (Auto) (0.0-4.0) % Baso % (Auto) (0.0-2.0) % Neut # (Auto) (1.8-7.0) K/uL Lymph # (Auto) (1.0-4.3) K/uL Maverick # (Auto) (0.0-0.8) K/uL Eos # (Auto) (0.0-0.7) K/uL Baso # (Auto) (0.0-0.2) K/uL PT (9.7-12.2) SECONDS INR APTT (21-34) SECONDS D-Dimer, Quantitative (0-243) ng/mlDDU Puncture Site pCO2 (35-45) mm/Hg pO2 (80-100) mm/Hg HCO3 (21-28) mmol/L ABG pH (7.35-7.45) ABG Total CO2 (22-28) mmol/L ABG O2 Saturation (95-98) % ABG Base Excess (-2.0-3.0) mmol/L Marc Test ABG Potassium (3.6-5.2) mmol/L A-a O2 Difference mm/Hg Respiratory Index Glucose (65-105) mg/dl Lactate (0.7-2.1) mmol/L Vent Mode Mechanical Rate FiO2 % Tidal Volume PEEP Sodium 140 137 (132-148) mmol/L Potassium 4.0 4.3 (3.6-5.2) mmol/L Chloride 103 101 (98-107) mmol/L Carbon Dioxide 24 21 L (22-30) mmol/L Anion Gap 17 19 (10-20) BUN 15 12 (7-17) mg/dL Creatinine 0.7 0.7 (0.7-1.2) mg/dL Est GFR ( Amer) > 60 > 60 Est GFR (Non-Af Amer) > 60 > 60 POC Glucose (mg/dL) 256 H (65-110) mg/dL Random Glucose 176 H 268 H (65-105) mg/dL Calcium 9.0 9.2 (8.6-10.4) mg/dl Phosphorus 4.0 (2.5-4.5) mg/dL Magnesium 2.1 2.0 (1.6-2.3) mg/dL Total Bilirubin 0.5 0.5 (0.2-1.3) mg/dL AST 23 24 (14-36) U/L ALT 30 27 (9-52) U/L Alkaline Phosphatase 114 112 (38-126) U/L Troponin I < 0.0120 (0.00-0.120) ng/mL NT-Pro-B Natriuret Pep 214 (0-900) pg/mL Total Protein 7.0 7.3 (6.3-8.3) g/dL Albumin 3.6 3.9 (3.5-5.0) g/dL Globulin 3.4 3.5 (2.2-3.9) gm/dL Albumin/Globulin Ratio 1.1 1.1 (1.0-2.1) Arterial Blood Potassium (3.6-5.2) mmol/L 08/10/17 08/10/17 Range/Units 17:09 17:09 WBC 10.7 (4.8-10.8) K/uL RBC 4.12 (3.80-5.20) Mil/uL Hgb 11.0 D (11.0-16.0) g/dL Hct 33.8 L (34.0-47.0) % MCV 82.1 (81.0-99.0) fL MCH 26.8 L (27.0-31.0) pg MCHC 32.6 L (33.0-37.0) g/dL RDW 15.6 H (11.5-14.5) % Plt Count 397 (130-400) K/uL MPV 8.1 (7.2-11.7) fL Neut % (Auto) 74.1 (50.0-75.0) % Lymph % (Auto) 15.8 L (20.0-40.0) % Maverick % (Auto) 6.4 (0.0-10.0) % Eos % (Auto) 2.8 (0.0-4.0) % Baso % (Auto) 0.9 (0.0-2.0) % Neut # (Auto) 7.9 H (1.8-7.0) K/uL Lymph # (Auto) 1.7 (1.0-4.3) K/uL [place] # (Auto) 0.7 (0.0-0.8) K/uL Eos # (Auto) 0.3 (0.0-0.7) K/uL Baso # (Auto) 0.1 (0.0-0.2) K/uL PT 14.6 H (9.7-12.2) SECONDS INR 1.3 APTT 29 (21-34) SECONDS D-Dimer, Quantitative 678 H (0-243) ng/mlDDU Puncture Site pCO2 (35-45) mm/Hg pO2 (80-100) mm/Hg HCO3 (21-28) mmol/L ABG pH (7.35-7.45) ABG Total CO2 (22-28) mmol/L ABG O2 Saturation (95-98) % ABG Base Excess (-2.0-3.0) mmol/L Marc Test ABG Potassium (3.6-5.2) mmol/L A-a O2 Difference mm/Hg Respiratory Index Glucose (65-105) mg/dl Lactate (0.7-2.1) mmol/L Vent Mode Mechanical Rate FiO2 % Tidal Volume PEEP Sodium (132-148) mmol/L Potassium (3.6-5.2) mmol/L Chloride (98-107) mmol/L Carbon Dioxide (22-30) mmol/L Anion Gap (10-20) BUN (7-17) mg/dL Creatinine (0.7-1.2) mg/dL Est GFR ( Amer) Est GFR (Non-Af Amer) POC Glucose (mg/dL) (65-110) mg/dL Random Glucose (65-105) mg/dL Calcium (8.6-10.4) mg/dl Phosphorus (2.5-4.5) mg/dL Magnesium (1.6-2.3) mg/dL Total Bilirubin (0.2-1.3) mg/dL AST (14-36) U/L ALT (9-52) U/L Alkaline Phosphatase (38-126) U/L Troponin I (0.00-0.120) ng/mL NT-Pro-B Natriuret Pep (0-900) pg/mL Total Protein (6.3-8.3) g/dL Albumin (3.5-5.0) g/dL Globulin (2.2-3.9) gm/dL Albumin/Globulin Ratio (1.0-2.1) Arterial Blood Potassium (3.6-5.2) mmol/L Laboratory Results - last 24 hr 08/10/17 08/10/17 08/10/17 17:09 17:09 17:09 WBC 10.7 RBC 4.12 Hgb 11.0 D Hct 33.8 L MCV 82.1 MCH 26.8 L MCHC 32.6 L RDW 15.6 H Plt Count 397 MPV 8.1 Neut % (Auto) 74.1 Lymph % (Auto) 15.8 L [place] % (Auto) 6.4 Eos % (Auto) 2.8 Baso % (Auto) 0.9 Neut # (Auto) 7.9 H Lymph # (Auto) 1.7 [place] # (Auto) 0.7 Eos # (Auto) 0.3 Baso # (Auto) 0.1 PT 14.6 H INR 1.3 APTT 29 D-Dimer, Quantitative 678 H Puncture Site pCO2 pO2 HCO3 ABG pH ABG Total CO2 ABG O2 Saturation ABG Base Excess Marc Test ABG Potassium A-a O2 Difference Respiratory Index Glucose Lactate Vent Mode Mechanical Rate FiO2 Tidal Volume PEEP Sodium 137 Potassium 4.3 Chloride 101 Carbon Dioxide 21 L Anion Gap 19 BUN 12 Creatinine 0.7 Est GFR ( Amer) > 60 Est GFR (Non-Af Amer) > 60 POC Glucose (mg/dL) Random Glucose 268 H Calcium 9.2 Phosphorus Magnesium 2.0 Total Bilirubin 0.5 AST 24 ALT 27 Alkaline Phosphatase 112 Troponin I < 0.0120 NT-Pro-B Natriuret Pep 214 Total Protein 7.3 Albumin 3.9 Globulin 3.5 Albumin/Globulin Ratio 1.1 Arterial Blood Potassium 08/11/17 08/11/17 08/11/17 00:05 05:30 05:37 WBC RBC Hgb Hct MCV MCH MCHC RDW Plt Count MPV Neut % (Auto) Lymph % (Auto) [place] % (Auto) Eos % (Auto) Baso % (Auto) Neut # (Auto) Lymph # (Auto) [place] # (Auto) Eos # (Auto) Baso # (Auto) PT INR APTT D-Dimer, Quantitative Puncture Site pCO2 pO2 HCO3 ABG pH ABG Total CO2 ABG O2 Saturation ABG Base Excess Marc Test ABG Potassium A-a O2 Difference Respiratory Index Glucose Lactate Vent Mode Mechanical Rate FiO2 Tidal Volume PEEP Sodium 140 Potassium 4.0 Chloride 103 Carbon Dioxide 24 Anion Gap 17 BUN 15 Creatinine 0.7 Est GFR ( Amer) > 60 Est GFR (Non-Af Amer) > 60 POC Glucose (mg/dL) 256 H 181 H Random Glucose 176 H Calcium 9.0 Phosphorus 4.0 Magnesium 2.1 Total Bilirubin 0.5 AST 23 ALT 30 Alkaline Phosphatase 114 Troponin I NT-Pro-B Natriuret Pep Total Protein 7.0 Albumin 3.6 Globulin 3.4 Albumin/Globulin Ratio 1.1 Arterial Blood Potassium 08/11/17 08/11/17 07:21 15:41 WBC 10.1 RBC 3.77 L Hgb 10.1 L Hct 30.8 L MCV 81.6 MCH 26.8 L MCHC 32.9 L RDW 15.5 H Plt Count 331 MPV 8.4 Neut % (Auto) 72.4 Lymph % (Auto) 17.0 L [place] % (Auto) 6.6 Eos % (Auto) 3.3 Baso % (Auto) 0.7 Neut # (Auto) 7.3 H Lymph # (Auto) 1.7 [place] # (Auto) 0.7 Eos # (Auto) 0.3 Baso # (Auto) 0.1 PT INR APTT D-Dimer, Quantitative Puncture Site [place] pCO2 44 pO2 219 H HCO3 24.4 ABG pH 7.36 ABG Total CO2 26.3 ABG O2 Saturation 100.0 H ABG Base Excess -0.8 Marc Test Na ABG Potassium 3.9 A-a O2 Difference 439.0 Respiratory Index 2.0 Glucose 175 H Lactate 0.9 Vent Mode Prvc Mechanical Rate 12 FiO2 100.0 Tidal Volume 450 PEEP 5 Sodium 139.0 Potassium Chloride 107.0 Carbon Dioxide Anion Gap BUN Creatinine Est GFR ( Amer) Est GFR (Non-Af Amer) POC Glucose (mg/dL) Random Glucose Calcium Phosphorus Magnesium Total Bilirubin AST ALT Alkaline Phosphatase Troponin I NT-Pro-B Natriuret Pep Total Protein Albumin Globulin Albumin/Globulin Ratio Arterial Blood Potassium 3.9 EKG/Cardiology Studies: Cardiology / EKG Studies 08/10/17 16:17 EKG [ELECTROCARDIOGRAM] Stat Comment: Mode Of Transportation: BED Reason For Exam: cp Critical Care Progress Note - Nutrition Nutrition: Nutrition Category Date Time Status NPO Diet [DIET] Diets 08/11/17 Breakfast Active Attending/Attestation - Attestation I have personally seen and examined this patient.: Yes I have fully participated in the care of the patient.: Yes I have reviewed all pertinent clinical information: Yes Notes (Text): 08/11/17 16:04 patient seen and examined in the intensive care unit. 61-year-old female with history of breast cancer admitted with shortness of breath. CAT scan of chest consistent with large pericardial and pleural effusions. Status post pericardial window and bilateral chest tube drainage of pleural effusion. Patient transferred to ICu post op on ventilator support. Continue sedation Fluid analysis including cytology Follow-up ABG wean as tolerated \Analgesics
[2017-08-11] MEDS ORDERED: Esmolol 100 mg/10ml Inj IV ONE (12:20)
--- NOTE | 2017-08-11 12:51 | PCM.SURG1 ---
Surgeon's Initial Post Op Note - Surgeon's Notes Surgeon: Dr. Cerda Tooling Specialist: Dr. Lemus PGY3; Garrett Peters OMS III Type of Anesthesia: General Endo Anesthesia Administered By: Janice Pre-Operative Diagnosis: Pericardial Effusion, B/L Pleural effusions Operative Findings: same Post-Operative Diagnosis: same Operation Performed: Anterior Thoracotomy, Pericardial Window, Insertion of B/L Chest tubes Specimen/Specimens Removed: Pericardium, Pleural Fluid Estimated Blood Loss: EBL {In ML}: 10 Blood Products Given: N/A Drains Used: Chest Tubes Post-Op Condition: Good Date of Surgery/Procedure: 08/11/17 Time of Surgery/Procedure: 12:51
--- NOTE | 2017-08-11 13:17 | RAD ---
HISTORY: post op pericardial window, b/l chest tubes COMPARISON: Chest radiograph dated 08/10/2017. FINDINGS: LUNGS: No active pulmonary disease. PLEURA: Near complete resolution of bilateral pleural effusions. No pneumothorax apparent. CARDIOVASCULAR: Cardiomediastinal silhouette stably enlarged. OSSEOUS STRUCTURES: No significant abnormalities. VISUALIZED UPPER ABDOMEN: Normal. OTHER FINDINGS: Interval left-sided thoracotomy with new bilateral large-bore chest tubes. New endotracheal tube with tip between clavicles and mayi. Left internal jugular access chest port, unchanged. IMPRESSION: Interval left-sided thoracotomy with new bilateral large bore chest tubes and near complete resolution of bilateral pleural effusions. No appreciable pneumothorax. New endotracheal tube in satisfactory position. No other significant interval change.
[2017-08-11] MEDS ORDERED: HYDROmorphone 1 mg/ml ISec IVP STA (13:23)
[2017-08-11] MEDS ORDERED: HYDROmorphone 1 mg/ml ISec IVP PRN (13:26)
[2017-08-11] MEDS ORDERED: Propofol 10 mg/ml Inj (100 ml) IV SCH (13:30)
[2017-08-11] MEDS: Propofol 10 mg/ml 1,000 MG/100 ML VIAL IV PRN ×2 (13:59→20:44)
--- NOTE | 2017-08-11 14:03 | CP.PCM.CON ---
History of Present Illness - History of Present Illness History of Present Illness: 61 y/o woman who presented with SOB and weight gain with sharp chest pains L. chest She has hx of R. breast CA : per family denies hx of chemo or radiation but has been on arimidex She was found to have large pericardial effusion on CT chest along with pleural effusion: which was drained via chest tube and pericardial window. PMHX: R. Breast Ca, smoker, DM Cardiac HX: denies any hx of CAD/cardiac problems Functional capacity: limited due to generalized weakness Review of Systems - Review of Systems Systems not reviewed;Unavailable: Acuity of Condition (hemodynamically stable, intubated, alert and responds to questions) Past Patient History - Infectious Disease Hx of Infectious Diseases: None - Past Medical History & Family History Past Medical History?: Yes - Past Social History Smoking Status: Light Smoker < 10 Cigarettes Daily Alcohol: Social Drugs: Denies Home Situation {Lives}: With Family - CARDIAC Hx Cardiac Disorders: Yes Hx Hypercholesterolemia: Yes - PULMONARY Hx Respiratory Disorders: Yes Hx Asthma: Yes - NEUROLOGICAL Hx Neurological Disorder: Yes - HEENT Hx HEENT Problems: Yes - RENAL Hx Chronic Kidney Disease: Yes - ENDOCRINE/METABOLIC Hx Endocrine Disorders: Yes Hx Diabetes Mellitus Type 2: Yes - HEMATOLOGICAL/ONCOLOGICAL Hx Cancer: Yes (breast) Hx Chemotherapy: Yes - INTEGUMENTARY Hx Dermatological Problems: No - MUSCULOSKELETAL/RHEUMATOLOGICAL Hx Falls: Yes - GASTROINTESTINAL Hx Gastrointestinal Disorders: No - GENITOURINARY/GYNECOLOGICAL Hx Genitourinary Disorders: No - PSYCHIATRIC Hx Substance Use: No - SURGICAL HISTORY Hx Surgeries: No - ANESTHESIA Hx Anesthesia: No Meds Allergies/Adverse Reactions: Allergies Allergy/AdvReac Type Severity Reaction Status Date / Time No Known Allergies Allergy Verified 08/10/17 16:22 - Medications Medications: Current Medications Propofol (Diprivan) 1,000 mg in 100 mls @ 2.225 mls/hr IV .Q24H PRN; Protocol; 5 MCG/KG/MIN PRN Reason: TITRATE PER MD ORDER Insulin Human Regular (Novolin R) 0 unit SC Q6 NELIDA PRN Reason: Protocol Last Admin: 08/11/17 05:43 Dose: Not Given Morphine Sulfate (Morphine) 2 mg IV Q4H PRN PRN Reason: Pain, moderate (4-7) Pantoprazole Sodium (Protonix Ec Tab) 40 mg PO DAILY NELIDA Last Admin: 08/11/17 10:20 Dose: Not Given Tramadol HCl (Ultram) 25 mg PO TID PRN PRN Reason: Pain, severe (8-10) Last Admin: 08/11/17 00:13 Dose: 25 mg Physical Exam - Constitutional Appears: Chronically Ill (Intubated, awke and responds to questions, follows commands) - Head Exam Head Exam: ATRAUMATIC, NORMAL INSPECTION, NORMOCEPHALIC - Eye Exam Eye Exam: EOMI, Normal appearance, PERRL - Neck Exam Neck exam: Positive for: Normal Inspection - Respiratory Exam Respiratory Exam: Decreased Breath Sounds, NORMAL BREATHING PATTERN - Cardiovascular Exam Cardiovascular Exam: absent: Systolic Murmur - GI/Abdominal Exam GI & Abdominal Exam: Soft. absent: Tenderness - Extremities Exam Extremities exam: Negative for: pedal edema - Neurological Exam Neurological exam: Alert - Skin Skin Exam: Normal Color, Warm Results - Vital Signs Recent Vital Signs: Last Vital Signs Temp 97.5 F L 08/11/17 10:00 Pulse 109 H 08/11/17 10:06 Resp 31 H 08/11/17 08:05 BP 160/115 H 08/11/17 10:06 Pulse Ox 96 08/11/17 10:06 - Labs Result Diagrams: 08/11/17 07:21 08/11/17 05:30 Labs: Laboratory Results - last 24 hr 08/10/17 08/10/17 08/10/17 17:09 17:09 17:09 WBC 10.7 RBC 4.12 Hgb 11.0 D Hct 33.8 L MCV 82.1 MCH 26.8 L MCHC 32.6 L RDW 15.6 H Plt Count 397 MPV 8.1 Neut % (Auto) 74.1 Lymph % (Auto) 15.8 L [place] % (Auto) 6.4 Eos % (Auto) 2.8 Baso % (Auto) 0.9 Neut # (Auto) 7.9 H Lymph # (Auto) 1.7 [place] # (Auto) 0.7 Eos # (Auto) 0.3 Baso # (Auto) 0.1 PT 14.6 H INR 1.3 APTT 29 D-Dimer, Quantitative 678 H Sodium 137 Potassium 4.3 Chloride 101 Carbon Dioxide 21 L Anion Gap 19 BUN 12 Creatinine 0.7 Est GFR ( Amer) > 60 Est GFR (Non-Af Amer) > 60 POC Glucose (mg/dL) Random Glucose 268 H Calcium 9.2 Phosphorus Magnesium 2.0 Total Bilirubin 0.5 AST 24 ALT 27 Alkaline Phosphatase 112 Troponin I < 0.0120 NT-Pro-B Natriuret Pep 214 Total Protein 7.3 Albumin 3.9 Globulin 3.5 Albumin/Globulin Ratio 1.1 08/11/17 08/11/17 08/11/17 00:05 05:30 05:37 WBC RBC Hgb Hct MCV MCH MCHC RDW Plt Count MPV Neut % (Auto) Lymph % (Auto) [place] % (Auto) Eos % (Auto) Baso % (Auto) Neut # (Auto) Lymph # (Auto) [place] # (Auto) Eos # (Auto) Baso # (Auto) PT INR APTT D-Dimer, Quantitative Sodium 140 Potassium 4.0 Chloride 103 Carbon Dioxide 24 Anion Gap 17 BUN 15 Creatinine 0.7 Est GFR ( Amer) > 60 Est GFR (Non-Af Amer) > 60 POC Glucose (mg/dL) 256 H 181 H Random Glucose 176 H Calcium 9.0 Phosphorus 4.0 Magnesium 2.1 Total Bilirubin 0.5 AST 23 ALT 30 Alkaline Phosphatase 114 Troponin I NT-Pro-B Natriuret Pep Total Protein 7.0 Albumin 3.6 Globulin 3.4 Albumin/Globulin Ratio 1.1 08/11/17 07:21 WBC 10.1 RBC 3.77 L Hgb 10.1 L Hct 30.8 L MCV 81.6 MCH 26.8 L MCHC 32.9 L RDW 15.5 H Plt Count 331 MPV 8.4 Neut % (Auto) 72.4 Lymph % (Auto) 17.0 L [place] % (Auto) 6.6 Eos % (Auto) 3.3 Baso % (Auto) 0.7 Neut # (Auto) 7.3 H Lymph # (Auto) 1.7 [place] # (Auto) 0.7 Eos # (Auto) 0.3 Baso # (Auto) 0.1 PT INR APTT D-Dimer, Quantitative Sodium Potassium Chloride Carbon Dioxide Anion Gap BUN Creatinine Est GFR ( Amer) Est GFR (Non-Af Amer) POC Glucose (mg/dL) Random Glucose Calcium Phosphorus Magnesium Total Bilirubin AST ALT Alkaline Phosphatase Troponin I NT-Pro-B Natriuret Pep Total Protein Albumin Globulin Albumin/Globulin Ratio - EKG Data EKG Interpreted by: Myself Rate: Tachycardia (no acute ischemic changes) Assessment & Plan - Assessment and Plan (Free Text) Assessment: SOB, hypoxia, lethargy > Large perical effusion on CT chest, B/L large pleural effusions > EKG initial: sinus tach, low voltage, non-specific ST changes > hx of R. breast CA Now s/p chest tube and pericardial window with drains: f/u cytology BP: upper 100's systolic Lab: Mild anemia, normal creat, elevated sugars Continue to monitor drainage f/u 2D echo Supportive care, DM control, DVT prophylaxis
[2017-08-11] MEDS: Morphine 4 MG/ML VIAL IV PRN (15:34)
[2017-08-11 15:44] LABS: ARTERIAL BLOOD GAS HCO3 24.4 mmol/L (21-28); ARTERIAL BLOOD GAS PCO2 44 mm/Hg (35-45); ARTERIAL BLOOD GAS PH 7.36 (7.35-7.45); ARTERIAL BLOOD GAS PO2 219 mm/Hg (80-100); ARTERIAL BLOOD GAS TCO2 26.3 mmol/L (22-28)
[2017-08-11 16:26] LABS: BODY FLUID TYPE PLEURAL
[2017-08-11 16:32] LABS: BF GROSS APPEARANCE CLOUDY (CLEAR)
[2017-08-11 18:24] LABS: BODY FLUID MONO/MACROPHAGE 5 % (0-0)
[2017-08-11 18:44] LABS: URINE BACTERIA RARE (<OCC); URINE BILIRUBIN NEGATIVE (NEGATIVE); URINE BLOOD NEGATIVE (NEGATIVE); URINE CLARITY Clear (Clear); URINE COLOR Yellow (YELLOW); URINE GLUCOSE (UA) 1+ mg/dL (Normal); URINE LEUKOCYTE ESTERASE NEG Leu/uL (Negative); URINE PROTEIN 2+ mg/dL (NEGATIVE); URINE UROBILINOGEN NORMAL mg/dL (0.2-1.0)
[2017-08-11] MEDS ORDERED: ceFAZolin IV 1 gm in Dextrose 1 GM/50 ML BAG IVPB ONE (19:00)
[2017-08-11] MEDS: ceFAZolin IV 1 gm in Dextrose 1 GM/50 ML BAG IVPB ONE (19:00)
--- NOTE | 2017-08-11 19:13 | CP.PCM.PN ---
Subjective - Date & Time of Evaluation Date of Evaluation: 08/11/17 Time of Evaluation: 10:00 - Subjective Subjective: clinically same Objective - Vital Signs/Intake and Output Vital Signs (last 24 hours): Temp Pulse Resp BP Pulse Ox 98.4 F 105 H 13 89/60 L 99 08/11/17 15:00 08/11/17 18:43 08/11/17 18:43 08/11/17 18:43 08/11/17 18:43 Intake and Output: 08/11/17 08/12/17 18:59 06:59 Intake Total 872.1 Output Total 2150 Balance -1277.9 - Medications Medications: Current Medications Propofol (Diprivan) 1,000 mg in 100 mls @ 2.225 mls/hr IV .Q24H PRN; Protocol; 5 MCG/KG/MIN PRN Reason: TITRATE PER MD ORDER Last Titration: 08/11/17 15:35 Dose: 30 mcg/kg/min, 13.349 mls/hr Cefazolin Sodium/Dextrose (Ancef Iv 1 Gm Duplex) 1 gm in 50 mls @ 100 mls/hr IVPB ONCE ONE PRN Reason: Protocol Stop: 08/11/17 19:29 Insulin Human Regular (Novolin R) 0 unit SC Q6 NELIDA PRN Reason: Protocol Last Admin: 08/11/17 18:19 Dose: Not Given Morphine Sulfate (Morphine) 2 mg IV Q4H PRN PRN Reason: Pain, moderate (4-7) Last Admin: 08/11/17 15:34 Dose: 2 mg Pantoprazole Sodium (Protonix Ec Tab) 40 mg PO DAILY [facility] Last Admin: 08/11/17 10:20 Dose: Not Given Tramadol HCl (Ultram) 25 mg PO TID PRN PRN Reason: Pain, severe (8-10) Last Admin: 08/11/17 00:13 Dose: 25 mg - Labs Labs: 08/11/17 07:21 08/11/17 05:30 PT 14.6 SECONDS (9.7-12.2) H 08/10/17 17:09 INR 1.3 08/10/17 17:09 APTT 29 SECONDS (21-34) 08/10/17 17:09 - Constitutional Appears: Well - Head Exam Head Exam: ATRAUMATIC, NORMAL INSPECTION, NORMOCEPHALIC - Eye Exam Eye Exam: EOMI, Normal appearance, PERRL Pupil Exam: NORMAL ACCOMODATION, PERRL - ENT Exam ENT Exam: Mucous Membranes Moist, Normal Exam - Neck Exam Neck Exam: Full ROM, Normal Inspection. absent: Lymphadenopathy - Respiratory Exam Respiratory Exam: Decreased Breath Sounds - Cardiovascular Exam Cardiovascular Exam: REGULAR RHYTHM, +S1, +S2 - GI/Abdominal Exam GI & Abdominal Exam: Soft, Diminished Bowel Sounds - Rectal Exam Rectal Exam: Deferred
[2017-08-11] MEDS: Sodium Chloride 0.9% 1,000 ML IV SCH (20:48)
--- NOTE | 2017-08-11 20:50 | CARD ---
APPROVED REPORT EKG Measurement Heart [id number] <Conclusion> Sinus tachycardia with premature supraventricular complexes Low voltage QRS Nonspecific T wave abnormality Abnormal ECG
--- NOTE | 2017-08-11 23:20 | OP ---
PROCEDURE DATE: 08/11/2017 PREOPERATIVE DIAGNOSIS: Pericardial effusion and tamponade, also pleural effusion. PROCEDURE: Left thoracotomy and pericardial window, drainage of pleural fluid and pericardial fluid. ANESTHESIA: General. BUSINESS RISK CONSULTANT: Haritha Lemus. REFERRING DOCTOR: Dr. Sean Qureshi. INDICATIONS FOR SURGERY: This is a 61-year-old who came into the emergency room with shortness of breath. She had a history of breast cancer from about a year and half earlier. CAT scan demonstrated a large pericardial effusion, early tamponade, large bilateral pleural effusion. I had a long discussion with her and her family to improve her shortness of breath. She opted for surgery and agreed. FINDINGS: She had about a 1100 mL of left and right pleural fluids, each individually and about 600 mL of bloody pericardial fluid. All of this was sent for cytology culture and gram stain. DESCRIPTION OF PROCEDURE: Upon induction, we draped and prepped and then induced the patient with anesthesia in order to avoid severe hypertension. At the time of the induction after draping, we made a small left anterior thoracotomy, entered the chest under direct vision and then opened up the pericardium, evacuated about 600 mL of blood. The blood pressure improved at that time. We took out probably 3 x 3 cm portion of pericardium with good hemostasis, about 1100 mL of pleural fluid. Once the hemostasis was under control, chest tube was placed in the left and then we also placed a separate chest tube in the right under direct vision. The wound was closed in three layers, and the patient was sent to recovery room. Christopher Cerda MD MTDNorman
[2017-08-12] MEDS: (Novolin R) Insulin Human Regular 100 units/ml vial SC SCH ×5 (00:01→23:47)
[2017-08-12 00:32] LABS: BASO % 0.5 % (0.0-2.0); EOS % 0.2 % (0.0-4.0); HEMOGLOBIN 9.5 g/dL (11.0-16.0); LYMPH # 0.9 K/uL (1.0-4.3); MEAN CELL VOLUME 81.1 fL (81.0-99.0); MEAN CORPUSCULAR HEMOGLOBIN 27.2 pg (27.0-31.0); MEAN CORPUSCULAR HGB CONC 33.5 g/dL (33.0-37.0); MEAN PLATELET VOLUME 8.4 fL (7.2-11.7); MONO # 0.5 K/uL (0.0-0.8); MONO % 5.3 % (0.0-10.0); NEUT # 8.3 K/uL (1.8-7.0); PLATELET COUNT 304 K/uL (130-400); RBC 3.49 Mil/uL (3.80-5.20); RED CELL DISTRIBUTION WIDTH 15.4 % (11.5-14.5); WHITE BLOOD COUNT 9.8 K/uL (4.8-10.8)
[2017-08-12 00:55] LABS: ALBUMIN 2.8 g/dL (3.5-5.0); ALT/SGPT 22 U/L (9-52); AST/SGOT 21 U/L (14-36); BLOOD UREA NITROGEN 12 mg/dL (7-17); GFR AFRICAN-AMERICAN > 60; GFR NON-AFRICAN AMERICAN > 60
[2017-08-12 01:17] LABS: BANDS 3 % (0-2); LYMPHOCYTE 8 % (20-40); MONOCYTE 8 % (0-10); NEUTROPHIL 81 % (50-75); PLATELET ESTIMATE NORMAL (NORMAL); TOTAL CELLS COUNTED 100
[2017-08-12] MEDS: Propofol 10 mg/ml 1,000 MG/100 ML VIAL IV PRN ×2 (03:26→08:05)
[2017-08-12 04:13] LABS: URINE AMORPHOUS SEDIMENT OCC /ul (<OCC); URINE BILIRUBIN NEGATIVE (NEGATIVE); URINE BLOOD NEGATIVE (NEGATIVE); URINE CLARITY Turbid (Clear); URINE COLOR Yellow (YELLOW); URINE GLUCOSE (UA) NORMAL (Normal); URINE LEUKOCYTE ESTERASE TRACE Leu/uL (Negative); URINE PROTEIN NEGATIVE (NEGATIVE); URINE UROBILINOGEN NORMAL mg/dL (0.2-1.0)
[2017-08-12 05:44] LABS: ARTERIAL BLOOD GAS HCO3 26.4 mmol/L (21-28); ARTERIAL BLOOD GAS HEMOGLOBIN 9.9 g/dL (11.7-17.4); ARTERIAL BLOOD GAS O2 SAT 99.1 % (95-98); ARTERIAL BLOOD GAS PCO2 35 mm/Hg (35-45); ARTERIAL BLOOD GAS PH 7.47 (7.35-7.45); ARTERIAL BLOOD GAS PO2 94 mm/Hg (80-100); ARTERIAL BLOOD GAS TCO2 26.6 mmol/L (22-28)
[2017-08-12 06:08] LABS: BASO # 0.1 K/uL (0.0-0.2); BASO % 0.6 % (0.0-2.0); EOS # 0.1 K/uL (0.0-0.7); EOS % 1.1 % (0.0-4.0); HEMOGLOBIN 9.6 g/dL (11.0-16.0); LYMPH # 1.5 K/uL (1.0-4.3); LYMPH % 15.3 % (20.0-40.0); MEAN CELL VOLUME 81.3 fL (81.0-99.0); MEAN CORPUSCULAR HEMOGLOBIN 26.4 pg (27.0-31.0); MEAN CORPUSCULAR HGB CONC 32.4 g/dL (33.0-37.0); MEAN PLATELET VOLUME 8.4 fL (7.2-11.7); MONO # 0.7 K/uL (0.0-0.8); MONO % 6.5 % (0.0-10.0); NEUT # 7.8 K/uL (1.8-7.0); NEUT % 76.5 % (50.0-75.0); RBC 3.64 Mil/uL (3.80-5.20); RED CELL DISTRIBUTION WIDTH 15.6 % (11.5-14.5); WHITE BLOOD COUNT 10.2 K/uL (4.8-10.8)
[2017-08-12 06:31] LABS: ALBUMIN 2.8 g/dL (3.5-5.0); ALT/SGPT 27 U/L (9-52); AST/SGOT 21 U/L (14-36); BLOOD UREA NITROGEN 11 mg/dL (7-17); CALCIUM 8.2 mg/dl (8.6-10.4); GFR AFRICAN-AMERICAN > 60; GFR NON-AFRICAN AMERICAN > 60
[2017-08-12] MEDS: Sodium Chloride 0.9% 1,000 ML IV SCH ×3 (06:42→21:53)
--- NOTE | 2017-08-12 07:57 | CP.PCM.PN ---
Subjective - Date & Time of Evaluation Date of Evaluation: 08/12/17 Time of Evaluation: 07:20 - Subjective Subjective: CT surgery progress note for Dr. Duncan Mittal, PGY-1 Pt S & E at bedside. Pt intubated, sedated. PRVC RR 12, TV 450, PEEP 5, 60% FiO2. Per nursing, pt with temp overnight, Tmax 102.3- was berrios cultured. CT with 2L out serosanguinous output since placement. Objective - Vital Signs/Intake and Output Vital Signs (last 24 hours): Temp Pulse Resp BP Pulse Ox 100.2 F H 95 H 12 107/56 L 99 08/12/17 05:00 08/12/17 07:00 08/12/17 07:00 08/12/17 07:00 08/12/17 07:00 Intake and Output: 08/12/17 08/12/17 06:59 18:59 Intake Total 1418.2 117.8 Output Total 940 60 Balance 478.2 57.8 - Medications Medications: Current Medications Propofol (Diprivan) 1,000 mg in 100 mls @ 2.225 mls/hr IV .Q24H PRN; Protocol; 5 MCG/KG/MIN PRN Reason: TITRATE PER MD ORDER Last Titration: 08/12/17 06:19 Dose: 40 mcg/kg/min, 17.799 mls/hr Sodium Chloride (Sodium Chloride 0.9%) 1,000 mls @ 100 mls/hr IV .Q10H [facility] Last Admin: 08/12/17 06:42 Dose: 100 mls/hr Insulin Human Regular (Novolin R) 0 unit SC Q6 NELIDA PRN Reason: Protocol Last Admin: 08/12/17 06:02 Dose: Not Given Morphine Sulfate (Morphine) 2 mg IV Q4H PRN PRN Reason: Pain, moderate (4-7) Last Admin: 08/11/17 15:34 Dose: 2 mg Pantoprazole Sodium (Protonix Ec Tab) 40 mg PO DAILY [facility] Last Admin: 08/11/17 10:20 Dose: Not Given Pantoprazole Sodium (Protonix Inj) 40 mg IVP DAILY [facility] Tramadol HCl (Ultram) 25 mg PO TID PRN PRN Reason: Pain, severe (8-10) Last Admin: 08/11/17 00:13 Dose: 25 mg - Labs Labs: 08/12/17 06:04 08/12/17 06:03 PT 14.6 SECONDS (9.7-12.2) H 08/10/17 17:09 INR 1.3 08/10/17 17:09 APTT 29 SECONDS (21-34) 08/10/17 17:09 - Constitutional Appears: Non-toxic, No Acute Distress - Head Exam Head Exam: ATRAUMATIC, NORMAL INSPECTION, NORMOCEPHALIC - Eye Exam Eye Exam: EOMI - ENT Exam ENT Exam: Mucous Membranes Dry (ET tube in place) - Neck Exam Neck Exam: Full ROM - Respiratory Exam Respiratory Exam: NORMAL BREATHING PATTERN. absent: Respiratory Distress Additional comments: B/L chest tubes in place, Left sided chest tube dressing saturated with sanguinous strike through. Hsaran in place in inframammary line of left breast - Cardiovascular Exam Cardiovascular Exam: REGULAR RHYTHM, +S1, +S2 - GI/Abdominal Exam GI & Abdominal Exam: Soft - Extremities Exam Extremities Exam: Normal Inspection - Neurological Exam Neurological Exam: absent: Alert, Awake, Oriented x3 Additional comments: intubated, sedated - Psychiatric Exam Additional comments: unable to assess - Skin Skin Exam: Dry, Intact, Normal Color, Warm Assessment and Plan - Assessment and Plan (Free Text) Assessment: 61F POD #1 s/p Anterior Thoracotomy, Pericardial Window, Insertion of B/L Chest tubes Plan: Monitor CT output Dressing changed FU berrios cultures Extubate when meets criteria DW attending [place], PGY-1
[2017-08-12] MEDS: Morphine 4 MG/ML VIAL IV PRN ×3 (08:05→19:35)
--- NOTE | 2017-08-12 08:48 | RAD ---
Chest x-ray single frontal view History: Intubation. Comparison: 08/11/2017 Findings: Endotracheal tube extending into the mid thoracic trachea. Left central venous catheter tip extending to the confluence of the right SVC/brachiocephalic junction. Surgical clips project over the left upper abdomen. Tubing projects over medial left alex thorax and at lateral aspect of the right lung base. Small left pleural effusion with adjacent left basilar consolidative changes. Mild venous congestion. Biapical pleural thickening. Degenerative changes in the spine. Impression: Endotracheal tube extending into the mid thoracic trachea. Left central venous catheter tip extending to the confluence of the right SVC/brachiocephalic junction. Surgical clips project over the left upper abdomen. Tubing projects over medial left alex thorax and at lateral aspect of the right lung base. Small left pleural effusion with adjacent left basilar consolidative changes. Mild venous congestion. Biapical pleural thickening. Degenerative changes in the spine.
[2017-08-12] MEDS ORDERED: Dexmedetomidine Hydrochloride 200 MCG in Sodium Chloride 0.9% 48 ML IV PRN ×2 (08:57→08:59)
[2017-08-12] MEDS: Pantoprazole 40 mg EC Tab PO SCH (11:24)
--- NOTE | 2017-08-12 11:32 | CP.CCUPN ---
<Brent Parker - Last Filed: 08/12/17 16:04> CCU Subjective - Physician Review Subjective (Free Text): 08/11/17 11:32 Patient seen and examined at bedside. Patient reports some pleuritic chest discomfort and some shortness of breath. No other complaints at this time. She is resting and anticipating surgery. 08/12/17 11:29 Patient seen and examined. Patient is intubated and sedated on Diprivan early this morning. Per staff, overnight the patient was febrile with Tmax 102.3. CCU Objective - Vital Signs / Intake & Output Vital Signs (Last 4 hours): Vital Signs Temp Pulse Resp BP Pulse Ox 08/12/17 11:00 101 H 27 H 97 08/12/17 10:00 99 H 12 99 08/12/17 09:00 108 H 35 H 97 08/12/17 08:00 104 H 43 H 98 08/12/17 07:45 122/61 08/12/17 07:30 100.3 F H Intake and Output (Last 8hrs): Intake & Output 08/11/17 08/12/17 08/12/17 22:59 06:59 14:59 Intake Total 416.9 1064.0 550.8 Output Total 2180 545 360 Balance -1763.1 519.0 190.8 Weight 160 lb 6.4 oz Intake: IV 115 140 40 Intake, IV Amount 301.9 924.0 510.8 Left Antecubital 7.4 Left Forearm 101.9 124.0 53.4 Left Forearm Y site 200 800 450 Oral 0 0 Output: Chest Tube Drainage 1580 140 80 Bilateral Upper Anterior 1580 140 80 Chest Urine 600 405 280 Urethral ([place]) 600 405 280 Stool 0 0 0 Emesis 0 0 Other: # Bowel Movements 0 - Physical Exam Head: Positive for: Atraumatic, Normocephalic Pupils: Positive for: PERRL Conjunctiva: Positive for: Normal Mouth: Positive for: Moist Mucous Membranes Neck: Positive for: Normal Range of Motion, Other (Intubated) Respiratory/Chest: Positive for: Clear to Auscultation, Other (Intubated. portacath in place. Two chest tubes). Negative for: Wheezes, Rales, Rhonchi Cardiovascular: Positive for: Normal S1, S2, Muffled Abdomen: Positive for: Normal Bowel Sounds. Negative for: Tenderness Upper Extremity: Positive for: Edema Lower Extremity: Positive for: Normal Inspection Neurological: Positive for: Other (Intubated and sedated) Skin: Positive for: Warm, Dry Psychiatric: Positive for: Alert, Oriented x 3 - Medications Active Medications: Active Medications Generic Name Dose Route Start Last Admin Trade Name Freq PRN Reason Stop Dose Admin Dexmedetomidine HCl 200 mcg/ 50 mls @ 3.63 mls/hr 08/12/17 08:57 08/12/17 09: 35 Sodium Chloride IV 0.2 mcg/kg/hr TITR PRN 3.63 mls/hr Until an adequate response is Administration Protocol 0.2 MCG/KG/HR Sodium Chloride 1,000 mls @ 50 mls/hr 08/12/17 09:00 Sodium Chloride 0.9% IV .Q20H [facility] Insulin Human Regular 0 unit 08/11/17 00:15 08/12/17 06:02 Novolin R SC Not Given Q6 [facility] Protocol Morphine Sulfate 2 mg 08/11/17 13:41 08/12/17 08:05 Morphine IV 2 mg Q4H PRN Administration Pain, moderate (4-7) Pantoprazole Sodium 40 mg 08/11/17 10:00 08/11/17 10:20 Protonix Ec Tab PO Not Given DAILY [facility] Pantoprazole Sodium 40 mg 08/12/17 10:00 Protonix Inj IVP DAILY [facility] Tramadol HCl 25 mg 08/10/17 23:56 08/11/17 00:13 Ultram PO 25 mg TID PRN Administration Pain, severe (8-10) - Patient Studies Lab Studies: Microbiology Studies 08/11/17 10:10 Gram Stain - Final Pleural Fluid Body Fluid Culture - Preliminary NO GROWTH AFTER 24 HOURS 08/11/17 13:41 Urine Culture - Final Urine,[place] No Growth (<1,000 CFU/ML) Lab Studies 08/12/17 08/12/17 08/12/17 Range/Units 06:04 06:03 05:41 WBC 10.2 (4.8-10.8) K/uL RBC 3.64 L (3.80-5.20) Mil/uL Hgb 9.6 L (11.0-16.0) g/dL Hct 29.6 L (34.0-47.0) % MCV 81.3 (81.0-99.0) fL MCH 26.4 L (27.0-31.0) pg MCHC 32.4 L (33.0-37.0) g/dL RDW 15.6 H (11.5-14.5) % Plt Count 299 (130-400) K/uL MPV 8.4 (7.2-11.7) fL Neut % (Auto) 76.5 H (50.0-75.0) % Lymph % (Auto) 15.3 L (20.0-40.0) % [place] % (Auto) 6.5 (0.0-10.0) % Eos % (Auto) 1.1 (0.0-4.0) % Baso % (Auto) 0.6 (0.0-2.0) % Neut # (Auto) 7.8 H (1.8-7.0) K/uL Lymph # (Auto) 1.5 (1.0-4.3) K/uL [place] # (Auto) 0.7 (0.0-0.8) K/uL Eos # (Auto) 0.1 (0.0-0.7) K/uL Baso # (Auto) 0.1 (0.0-0.2) K/uL Neutrophils % (Manual) (50-75) % Band Neutrophils % (0-2) % Lymphocytes % (Manual) (20-40) % Monocytes % (Manual) (0-10) % Platelet Estimate (NORMAL) Puncture Site pCO2 (35-45) mm/Hg pO2 (80-100) mm/Hg HCO3 (21-28) mmol/L ABG pH (7.35-7.45) ABG Total CO2 (22-28) mmol/L ABG O2 Saturation (95-98) % ABG Base Excess (-2.0-3.0) mmol/L ABG Hemoglobin (11.7-17.4) g/dL ABG Carboxyhemoglobin (0.5-1.5) % POC ABG HHb (Measured) (0.0-5.0) % ABG Methemoglobin (0.0-3.0) % Marc Test ABG Potassium (3.6-5.2) mmol/L A-a O2 Difference mm/Hg Respiratory Index Hgb O2 Saturation (95.0-98.0) % Sodium 140 (132-148) mmol/l Chloride 106 (98-107) mmol/L Glucose (65-105) mg/dl Lactate (0.7-2.1) mmol/L Vent Mode Mechanical Rate FiO2 % Tidal Volume PEEP Potassium 3.9 (3.6-5.2) mmol/L Carbon Dioxide 24 (22-30) mmol/L Anion Gap 14 (10-20) BUN 11 (7-17) mg/dL Creatinine 0.6 L (0.7-1.2) mg/dL Est GFR ( Amer) > 60 Est GFR (Non-Af Amer) > 60 POC Glucose (mg/dL) 116 H (65-110) mg/dL Random Glucose 124 H (65-105) mg/dL Calcium 8.2 L (8.6-10.4) mg/dl Phosphorus 3.9 (2.5-4.5) mg/dL Magnesium 2.0 (1.6-2.3) mg/dL Total Bilirubin 0.6 (0.2-1.3) mg/dL AST 21 (14-36) U/L ALT 27 (9-52) U/L Alkaline Phosphatase 91 (38-126) U/L Total Protein 5.7 L (6.3-8.3) g/dL Albumin 2.8 L (3.5-5.0) g/dL Globulin 2.9 (2.2-3.9) gm/dL Albumin/Globulin Ratio 1.0 (1.0-2.1) Arterial Blood Potassium (3.6-5.2) mmol/L Urine Color (YELLOW) Urine Clarity (Clear) Urine pH (5.0-8.0) Ur Specific [place] (1.003-1.030) Urine Protein (NEGATIVE) mg/dL Urine Glucose (UA) (Normal) mg/dL Urine Ketones (NEGATIVE) mg/dL Urine Blood (NEGATIVE) Urine Nitrate (NEGATIVE) Urine Bilirubin (NEGATIVE) Urine Urobilinogen (0.2-1.0) mg/dL Ur Leukocyte Esterase (Negative) [place]/uL Urine WBC (Auto) (0-5) /hpf Urine RBC (Auto) (0-3) /hpf Amorphous Sediment (<OCC) /ul Urine Bacteria (<OCC) Fluid Source Fluid Appearance (CLEAR) Fluid WBC (0.0-300.0) /mm3 Fluid RBC (0.0-0.0) /mm3 Fluid Tot Cell Count Fluid Neutrophils (0-0) % Fluid Lymphocytes (0-0) % Fld Monocyte/Macrophag (0-0) % Fluid Comment 08/12/17 08/12/17 08/12/17 Range/Units 05:33 04:04 00:15 WBC (4.8-10.8) K/uL RBC (3.80-5.20) Mil/uL Hgb (11.0-16.0) g/dL Hct (34.0-47.0) % MCV (81.0-99.0) fL MCH (27.0-31.0) pg MCHC (33.0-37.0) g/dL RDW (11.5-14.5) % Plt Count (130-400) K/uL MPV (7.2-11.7) fL Neut % (Auto) (50.0-75.0) % Lymph % (Auto) (20.0-40.0) % [place] % (Auto) (0.0-10.0) % Eos % (Auto) (0.0-4.0) % Baso % (Auto) (0.0-2.0) % Neut # (Auto) (1.8-7.0) K/uL Lymph # (Auto) (1.0-4.3) K/uL [place] # (Auto) (0.0-0.8) K/uL Eos # (Auto) (0.0-0.7) K/uL Baso # (Auto) (0.0-0.2) K/uL Neutrophils % (Manual) (50-75) % Band Neutrophils % (0-2) % Lymphocytes % (Manual) (20-40) % Monocytes % (Manual) (0-10) % Platelet Estimate (NORMAL) Puncture Site [place] pCO2 35 (35-45) mm/Hg pO2 94 (80-100) mm/Hg HCO3 26.4 (21-28) mmol/L ABG pH 7.47 H (7.35-7.45) ABG Total CO2 26.6 (22-28) mmol/L ABG O2 Saturation 99.1 H (95-98) % ABG Base Excess 1.9 (-2.0-3.0) mmol/L ABG Hemoglobin 9.9 L (11.7-17.4) g/dL ABG Carboxyhemoglobin 2.0 H (0.5-1.5) % POC ABG HHb (Measured) 0.9 (0.0-5.0) % ABG Methemoglobin 1.1 (0.0-3.0) % Marc Test Na ABG Potassium (3.6-5.2) mmol/L A-a O2 Difference 290.0 mm/Hg Respiratory Index 3.1 Hgb O2 Saturation 96.0 (95.0-98.0) % Sodium 140 (132-148) mmol/l Chloride 106 (98-107) mmol/L Glucose (65-105) mg/dl Lactate (0.7-2.1) mmol/L Vent Mode Prvc Mechanical Rate 12 FiO2 60.0 % Tidal Volume 450 PEEP 5 Potassium 3.9 (3.6-5.2) mmol/L Carbon Dioxide 25 (22-30) mmol/L Anion Gap 13 (10-20) BUN 12 (7-17) mg/dL Creatinine 0.6 L (0.7-1.2) mg/dL Est GFR ( Amer) > 60 Est GFR (Non-Af Amer) > 60 POC Glucose (mg/dL) (65-110) mg/dL Random Glucose 137 H (65-105) mg/dL Calcium 8.0 L (8.6-10.4) mg/dl Phosphorus 4.0 (2.5-4.5) mg/dL Magnesium 1.9 (1.6-2.3) mg/dL Total Bilirubin 0.5 (0.2-1.3) mg/dL AST 21 (14-36) U/L ALT 22 (9-52) U/L Alkaline Phosphatase 97 (38-126) U/L Total Protein 5.6 L (6.3-8.3) g/dL Albumin 2.8 L D (3.5-5.0) g/dL Globulin 2.8 (2.2-3.9) gm/dL Albumin/Globulin Ratio 1.0 (1.0-2.1) Arterial Blood Potassium (3.6-5.2) mmol/L Urine Color Yellow (YELLOW) Urine Clarity Turbid (Clear) Urine pH 5.0 (5.0-8.0) Ur Specific [place] 1.023 (1.003-1.030) Urine Protein Negative (NEGATIVE) mg/dL Urine Glucose (UA) Normal (Normal) mg/dL Urine Ketones Trace (NEGATIVE) mg/dL Urine Blood Negative (NEGATIVE) Urine Nitrate Negative (NEGATIVE) Urine Bilirubin Negative (NEGATIVE) Urine Urobilinogen Normal (0.2-1.0) mg/dL Ur Leukocyte Esterase Trace (Negative) [place]/uL Urine WBC (Auto) 3 (0-5) /hpf Urine RBC (Auto) 2 (0-3) /hpf Amorphous Sediment Occ H (<OCC) /ul Urine Bacteria (<OCC) Fluid Source Fluid Appearance (CLEAR) Fluid WBC (0.0-300.0) /mm3 Fluid RBC (0.0-0.0) /mm3 Fluid Tot Cell Count Fluid Neutrophils (0-0) % Fluid Lymphocytes (0-0) % Fld Monocyte/Macrophag (0-0) % Fluid Comment 08/12/17 08/11/17 08/11/17 Range/Units 00:15 23:35 23:33 WBC 9.8 (4.8-10.8) K/uL RBC 3.49 L (3.80-5.20) Mil/uL Hgb 9.5 L (11.0-16.0) g/dL Hct 28.3 L (34.0-47.0) % MCV 81.1 (81.0-99.0) fL MCH 27.2 (27.0-31.0) pg MCHC 33.5 (33.0-37.0) g/dL RDW 15.4 H (11.5-14.5) % Plt Count 304 (130-400) K/uL MPV 8.4 (7.2-11.7) fL Neut % (Auto) 85.0 H (50.0-75.0) % Lymph % (Auto) 9.0 L (20.0-40.0) % [place] % (Auto) 5.3 (0.0-10.0) % Eos % (Auto) 0.2 (0.0-4.0) % Baso % (Auto) 0.5 (0.0-2.0) % Neut # (Auto) 8.3 H (1.8-7.0) K/uL Lymph # (Auto) 0.9 L (1.0-4.3) K/uL [place] # (Auto) 0.5 (0.0-0.8) K/uL Eos # (Auto) 0.0 (0.0-0.7) K/uL Baso # (Auto) 0.0 (0.0-0.2) K/uL Neutrophils % (Manual) 81 H (50-75) % Band Neutrophils % 3 H (0-2) % Lymphocytes % (Manual) 8 L (20-40) % Monocytes % (Manual) 8 (0-10) % Platelet Estimate Normal (NORMAL) Puncture Site pCO2 (35-45) mm/Hg pO2 (80-100) mm/Hg HCO3 (21-28) mmol/L ABG pH (7.35-7.45) ABG Total CO2 (22-28) mmol/L ABG O2 Saturation (95-98) % ABG Base Excess (-2.0-3.0) mmol/L ABG Hemoglobin (11.7-17.4) g/dL ABG Carboxyhemoglobin (0.5-1.5) % POC ABG HHb (Measured) (0.0-5.0) % ABG Methemoglobin (0.0-3.0) % Marc Test ABG Potassium (3.6-5.2) mmol/L A-a O2 Difference mm/Hg Respiratory Index Hgb O2 Saturation (95.0-98.0) % Sodium (132-148) mmol/l Chloride (98-107) mmol/L Glucose (65-105) mg/dl Lactate (0.7-2.1) mmol/L Vent Mode Mechanical Rate FiO2 % Tidal Volume PEEP Potassium (3.6-5.2) mmol/L Carbon Dioxide (22-30) mmol/L Anion Gap (10-20) BUN (7-17) mg/dL Creatinine (0.7-1.2) mg/dL Est GFR ( Amer) Est GFR (Non-Af Amer) POC Glucose (mg/dL) 154 H 56 L (65-110) mg/dL Random Glucose (65-105) mg/dL Calcium (8.6-10.4) mg/dl Phosphorus (2.5-4.5) mg/dL Magnesium (1.6-2.3) mg/dL Total Bilirubin (0.2-1.3) mg/dL AST (14-36) U/L ALT (9-52) U/L Alkaline Phosphatase (38-126) U/L Total Protein (6.3-8.3) g/dL Albumin (3.5-5.0) g/dL Globulin (2.2-3.9) gm/dL Albumin/Globulin Ratio (1.0-2.1) Arterial Blood Potassium (3.6-5.2) mmol/L Urine Color (YELLOW) Urine Clarity (Clear) Urine pH (5.0-8.0) Ur Specific [place] (1.003-1.030) Urine Protein (NEGATIVE) mg/dL Urine Glucose (UA) (Normal) mg/dL Urine Ketones (NEGATIVE) mg/dL Urine Blood (NEGATIVE) Urine Nitrate (NEGATIVE) Urine Bilirubin (NEGATIVE) Urine Urobilinogen (0.2-1.0) mg/dL Ur Leukocyte Esterase (Negative) [place]/uL Urine WBC (Auto) (0-5) /hpf Urine RBC (Auto) (0-3) /hpf Amorphous Sediment (<OCC) /ul Urine Bacteria (<OCC) Fluid Source Fluid Appearance (CLEAR) Fluid WBC (0.0-300.0) /mm3 Fluid RBC (0.0-0.0) /mm3 Fluid Tot Cell Count Fluid Neutrophils (0-0) % Fluid Lymphocytes (0-0) % Fld Monocyte/Macrophag (0-0) % Fluid Comment 08/11/17 08/11/17 08/11/17 Range/Units 18:25 17:39 16:26 WBC (4.8-10.8) K/uL RBC (3.80-5.20) Mil/uL Hgb (11.0-16.0) g/dL Hct (34.0-47.0) % MCV (81.0-99.0) fL MCH (27.0-31.0) pg MCHC (33.0-37.0) g/dL RDW (11.5-14.5) % Plt Count (130-400) K/uL MPV (7.2-11.7) fL Neut % (Auto) (50.0-75.0) % Lymph % (Auto) (20.0-40.0) % [place] % (Auto) (0.0-10.0) % Eos % (Auto) (0.0-4.0) % Baso % (Auto) (0.0-2.0) % Neut # (Auto) (1.8-7.0) K/uL Lymph # (Auto) (1.0-4.3) K/uL [place] # (Auto) (0.0-0.8) K/uL Eos # (Auto) (0.0-0.7) K/uL Baso # (Auto) (0.0-0.2) K/uL Neutrophils % (Manual) (50-75) % Band Neutrophils % (0-2) % Lymphocytes % (Manual) (20-40) % Monocytes % (Manual) (0-10) % Platelet Estimate (NORMAL) Puncture Site pCO2 (35-45) mm/Hg pO2 (80-100) mm/Hg HCO3 (21-28) mmol/L ABG pH (7.35-7.45) ABG Total CO2 (22-28) mmol/L ABG O2 Saturation (95-98) % ABG Base Excess (-2.0-3.0) mmol/L ABG Hemoglobin (11.7-17.4) g/dL ABG Carboxyhemoglobin (0.5-1.5) % POC ABG HHb (Measured) (0.0-5.0) % ABG Methemoglobin (0.0-3.0) % Marc Test ABG Potassium (3.6-5.2) mmol/L A-a O2 Difference mm/Hg Respiratory Index Hgb O2 Saturation (95.0-98.0) % Sodium (132-148) mmol/l Chloride (98-107) mmol/L Glucose (65-105) mg/dl Lactate (0.7-2.1) mmol/L Vent Mode Mechanical Rate FiO2 % Tidal Volume PEEP Potassium (3.6-5.2) mmol/L Carbon Dioxide (22-30) mmol/L Anion Gap (10-20) BUN (7-17) mg/dL Creatinine (0.7-1.2) mg/dL Est GFR ( Amer) Est GFR (Non-Af Amer) POC Glucose (mg/dL) 158 H (65-110) mg/dL Random Glucose (65-105) mg/dL Calcium (8.6-10.4) mg/dl Phosphorus (2.5-4.5) mg/dL Magnesium (1.6-2.3) mg/dL Total Bilirubin (0.2-1.3) mg/dL AST (14-36) U/L ALT (9-52) U/L Alkaline Phosphatase (38-126) U/L Total Protein (6.3-8.3) g/dL Albumin (3.5-5.0) g/dL Globulin (2.2-3.9) gm/dL Albumin/Globulin Ratio (1.0-2.1) Arterial Blood Potassium (3.6-5.2) mmol/L Urine Color Yellow (YELLOW) Urine Clarity Clear (Clear) Urine pH 5.0 (5.0-8.0) Ur Specific [place] 1.041 H (1.003-1.030) Urine Protein 2+ H (NEGATIVE) mg/dL Urine Glucose (UA) 1+ (Normal) mg/dL Urine Ketones Negative (NEGATIVE) mg/dL Urine Blood Negative (NEGATIVE) Urine Nitrate Negative (NEGATIVE) Urine Bilirubin Negative (NEGATIVE) Urine Urobilinogen Normal (0.2-1.0) mg/dL Ur Leukocyte Esterase Neg (Negative) [place]/uL Urine WBC (Auto) 1 (0-5) /hpf Urine RBC (Auto) 2 (0-3) /hpf Amorphous Sediment (<OCC) /ul Urine Bacteria Rare (<OCC) Fluid Source Pleural Fluid Appearance Cloudy (CLEAR) Fluid WBC 2435.0 H (0.0-300.0) /mm3 Fluid RBC 57455.0 H (0.0-0.0) /mm3 Fluid Tot Cell Count TEST NOT PERFORMED Fluid Neutrophils 68.0 H (0-0) % Fluid Lymphocytes 27.0 H (0-0) % Fld Monocyte/Macrophag 5 H (0-0) % Fluid Comment 08/11/17 Range/Units 15:41 WBC (4.8-10.8) K/uL RBC (3.80-5.20) Mil/uL Hgb (11.0-16.0) g/dL Hct (34.0-47.0) % MCV (81.0-99.0) fL MCH (27.0-31.0) pg MCHC (33.0-37.0) g/dL RDW (11.5-14.5) % Plt Count (130-400) K/uL MPV (7.2-11.7) fL Neut % (Auto) (50.0-75.0) % Lymph % (Auto) (20.0-40.0) % [place] % (Auto) (0.0-10.0) % Eos % (Auto) (0.0-4.0) % Baso % (Auto) (0.0-2.0) % Neut # (Auto) (1.8-7.0) K/uL Lymph # (Auto) (1.0-4.3) K/uL [place] # (Auto) (0.0-0.8) K/uL Eos # (Auto) (0.0-0.7) K/uL Baso # (Auto) (0.0-0.2) K/uL Neutrophils % (Manual) (50-75) % Band Neutrophils % (0-2) % Lymphocytes % (Manual) (20-40) % Monocytes % (Manual) (0-10) % Platelet Estimate (NORMAL) Puncture Site [place] pCO2 44 (35-45) mm/Hg pO2 219 H (80-100) mm/Hg HCO3 24.4 (21-28) mmol/L ABG pH 7.36 (7.35-7.45) ABG Total CO2 26.3 (22-28) mmol/L ABG O2 Saturation 100.0 H (95-98) % ABG Base Excess -0.8 (-2.0-3.0) mmol/L ABG Hemoglobin (11.7-17.4) g/dL ABG Carboxyhemoglobin (0.5-1.5) % POC ABG HHb (Measured) (0.0-5.0) % ABG Methemoglobin (0.0-3.0) % Marc Test Na ABG Potassium 3.9 (3.6-5.2) mmol/L A-a O2 Difference 439.0 mm/Hg Respiratory Index 2.0 Hgb O2 Saturation (95.0-98.0) % Sodium 139.0 (132-148) mmol/l Chloride 107.0 (98-107) mmol/L Glucose 175 H (65-105) mg/dl Lactate 0.9 (0.7-2.1) mmol/L Vent Mode Prvc Mechanical Rate 12 FiO2 100.0 % Tidal Volume 450 PEEP 5 Potassium (3.6-5.2) mmol/L Carbon Dioxide (22-30) mmol/L Anion Gap (10-20) BUN (7-17) mg/dL Creatinine (0.7-1.2) mg/dL Est GFR ( Amer) Est GFR (Non-Af Amer) POC Glucose (mg/dL) (65-110) mg/dL Random Glucose (65-105) mg/dL Calcium (8.6-10.4) mg/dl Phosphorus (2.5-4.5) mg/dL Magnesium (1.6-2.3) mg/dL Total Bilirubin (0.2-1.3) mg/dL AST (14-36) U/L ALT (9-52) U/L Alkaline Phosphatase (38-126) U/L Total Protein (6.3-8.3) g/dL Albumin (3.5-5.0) g/dL Globulin (2.2-3.9) gm/dL Albumin/Globulin Ratio (1.0-2.1) Arterial Blood Potassium 3.9 (3.6-5.2) mmol/L Urine Color (YELLOW) Urine Clarity (Clear) Urine pH (5.0-8.0) Ur Specific [place] (1.003-1.030) Urine Protein (NEGATIVE) mg/dL Urine Glucose (UA) (Normal) mg/dL Urine Ketones (NEGATIVE) mg/dL Urine Blood (NEGATIVE) Urine Nitrate (NEGATIVE) Urine Bilirubin (NEGATIVE) Urine Urobilinogen (0.2-1.0) mg/dL Ur Leukocyte Esterase (Negative) [place]/uL Urine WBC (Auto) (0-5) /hpf Urine RBC (Auto) (0-3) /hpf Amorphous Sediment (<OCC) /ul Urine Bacteria (<OCC) Fluid Source Fluid Appearance (CLEAR) Fluid WBC (0.0-300.0) /mm3 Fluid RBC (0.0-0.0) /mm3 Fluid Tot Cell Count Fluid Neutrophils (0-0) % Fluid Lymphocytes (0-0) % Fld Monocyte/Macrophag (0-0) % Fluid Comment Laboratory Results - last 24 hr 08/11/17 08/11/17 08/11/17 15:41 16:26 17:39 WBC RBC Hgb Hct MCV MCH MCHC RDW Plt Count MPV Neut % (Auto) Lymph % (Auto) [place] % (Auto) Eos % (Auto) Baso % (Auto) Neut # (Auto) Lymph # (Auto) [place] # (Auto) Eos # (Auto) Baso # (Auto) Neutrophils % (Manual) Band Neutrophils % Lymphocytes % (Manual) Monocytes % (Manual) Platelet Estimate Puncture Site [place] pCO2 44 pO2 219 H HCO3 24.4 ABG pH 7.36 ABG Total CO2 26.3 ABG O2 Saturation 100.0 H ABG Base Excess -0.8 ABG Hemoglobin ABG Carboxyhemoglobin POC ABG HHb (Measured) ABG Methemoglobin Marc Test Na ABG Potassium 3.9 A-a O2 Difference 439.0 Respiratory Index 2.0 Hgb O2 Saturation Sodium 139.0 Chloride 107.0 Glucose 175 H Lactate 0.9 Vent Mode Prvc Mechanical Rate 12 FiO2 100.0 Tidal Volume 450 PEEP 5 Potassium Carbon Dioxide Anion Gap BUN Creatinine Est GFR ( Amer) Est GFR (Non-Af Amer) POC Glucose (mg/dL) 158 H Random Glucose Calcium Phosphorus Magnesium Total Bilirubin AST ALT Alkaline Phosphatase Total Protein Albumin Globulin Albumin/Globulin Ratio Arterial Blood Potassium 3.9 Urine Color Urine Clarity Urine pH Ur Specific [place] Urine Protein Urine Glucose (UA) Urine Ketones Urine Blood Urine Nitrate Urine Bilirubin Urine Urobilinogen Ur Leukocyte Esterase Urine WBC (Auto) Urine RBC (Auto) Amorphous Sediment Urine Bacteria Fluid Source Pleural Fluid Appearance Cloudy Fluid WBC 2435.0 H Fluid [place] 41046.0 H Fluid Tot Cell Count TEST NOT PERFORMED Fluid Neutrophils 68.0 H Fluid Lymphocytes 27.0 H Fld Monocyte/Macrophag 5 H Fluid Comment 08/11/17 08/11/17 08/11/17 18:25 23:33 23:35 WBC RBC Hgb Hct MCV MCH MCHC RDW Plt Count MPV Neut % (Auto) Lymph % (Auto) [place] % (Auto) Eos % (Auto) Baso % (Auto) Neut # (Auto) Lymph # (Auto) [place] # (Auto) Eos # (Auto) Baso # (Auto) Neutrophils % (Manual) Band Neutrophils % Lymphocytes % (Manual) Monocytes % (Manual) Platelet Estimate Puncture Site pCO2 pO2 HCO3 ABG pH ABG Total CO2 ABG O2 Saturation ABG Base Excess ABG Hemoglobin ABG Carboxyhemoglobin POC ABG HHb (Measured) ABG Methemoglobin Marc Test ABG Potassium A-a O2 Difference Respiratory Index Hgb O2 Saturation Sodium Chloride Glucose Lactate Vent Mode Mechanical Rate FiO2 Tidal Volume PEEP Potassium Carbon Dioxide Anion Gap BUN Creatinine Est GFR ( Amer) Est GFR (Non-Af Amer) POC Glucose (mg/dL) 56 L 154 H Random Glucose Calcium Phosphorus Magnesium Total Bilirubin AST ALT Alkaline Phosphatase Total Protein Albumin Globulin Albumin/Globulin Ratio Arterial Blood Potassium Urine Color Yellow Urine Clarity Clear Urine pH 5.0 Ur Specific [place] 1.041 H Urine Protein 2+ H Urine Glucose (UA) 1+ Urine Ketones Negative Urine Blood Negative Urine Nitrate Negative Urine Bilirubin Negative Urine Urobilinogen Normal Ur Leukocyte Esterase Neg Urine WBC (Auto) 1 Urine RBC (Auto) 2 Amorphous Sediment Urine Bacteria Rare Fluid Source Fluid Appearance Fluid WBC Fluid RBC Fluid Tot Cell Count Fluid Neutrophils Fluid Lymphocytes Fld Monocyte/Macrophag Fluid Comment 08/12/17 08/12/17 08/12/17 00:15 00:15 04:04 WBC 9.8 RBC 3.49 L Hgb 9.5 L Hct 28.3 L MCV 81.1 MCH 27.2 MCHC 33.5 RDW 15.4 H Plt Count 304 MPV 8.4 Neut % (Auto) 85.0 H Lymph % (Auto) 9.0 L [place] % (Auto) 5.3 Eos % (Auto) 0.2 Baso % (Auto) 0.5 Neut # (Auto) 8.3 H Lymph # (Auto) 0.9 L [place] # (Auto) 0.5 Eos # (Auto) 0.0 Baso # (Auto) 0.0 Neutrophils % (Manual) 81 H Band Neutrophils % 3 H Lymphocytes % (Manual) 8 L Monocytes % (Manual) 8 Platelet Estimate Normal Puncture Site pCO2 pO2 HCO3 ABG pH ABG Total CO2 ABG O2 Saturation ABG Base Excess ABG Hemoglobin ABG Carboxyhemoglobin POC ABG HHb (Measured) ABG Methemoglobin Marc Test ABG Potassium A-a O2 Difference Respiratory Index Hgb O2 Saturation Sodium 140 Chloride 106 Glucose Lactate Vent Mode Mechanical Rate FiO2 Tidal Volume PEEP Potassium 3.9 Carbon Dioxide 25 Anion Gap 13 BUN 12 Creatinine 0.6 L Est GFR ( Amer) > 60 Est GFR (Non-Af Amer) > 60 POC Glucose (mg/dL) Random Glucose 137 H Calcium 8.0 L Phosphorus 4.0 Magnesium 1.9 Total Bilirubin 0.5 AST 21 ALT 22 Alkaline Phosphatase 97 Total Protein 5.6 L Albumin 2.8 L D Globulin 2.8 Albumin/Globulin Ratio 1.0 Arterial Blood Potassium Urine Color Yellow Urine Clarity Turbid Urine pH 5.0 Ur Specific [place] 1.023 Urine Protein Negative Urine Glucose (UA) Normal Urine Ketones Trace Urine Blood Negative Urine Nitrate Negative Urine Bilirubin Negative Urine Urobilinogen Normal Ur Leukocyte Esterase Trace Urine WBC (Auto) 3 Urine RBC (Auto) 2 Amorphous Sediment Occ H Urine Bacteria Fluid Source Fluid Appearance Fluid WBC Fluid RBC Fluid Tot Cell Count Fluid Neutrophils Fluid Lymphocytes Fld Monocyte/Macrophag Fluid Comment 08/12/17 08/12/17 08/12/17 05:33 05:41 06:03 WBC RBC Hgb Hct MCV MCH MCHC RDW Plt Count MPV Neut % (Auto) Lymph % (Auto) [place] % (Auto) Eos % (Auto) Baso % (Auto) Neut # (Auto) Lymph # (Auto) [place] # (Auto) Eos # (Auto) Baso # (Auto) Neutrophils % (Manual) Band Neutrophils % Lymphocytes % (Manual) Monocytes % (Manual) Platelet Estimate Puncture Site Dede pCO2 35 pO2 94 HCO3 26.4 ABG pH 7.47 H ABG Total CO2 26.6 ABG O2 Saturation 99.1 H ABG Base Excess 1.9 ABG Hemoglobin 9.9 L ABG Carboxyhemoglobin 2.0 H POC ABG HHb (Measured) 0.9 ABG Methemoglobin 1.1 Marc Test Na ABG Potassium A-a O2 Difference 290.0 Respiratory Index 3.1 Hgb O2 Saturation 96.0 Sodium 140 Chloride 106 Glucose Lactate Vent Mode Prvc Mechanical Rate 12 FiO2 60.0 Tidal Volume 450 PEEP 5 Potassium 3.9 Carbon Dioxide 24 Anion Gap 14 BUN 11 Creatinine 0.6 L Est GFR ( Amer) > 60 Est GFR (Non-Af Amer) > 60 POC Glucose (mg/dL) 116 H Random Glucose 124 H Calcium 8.2 L Phosphorus 3.9 Magnesium 2.0 Total Bilirubin 0.6 AST 21 ALT 27 Alkaline Phosphatase 91 Total Protein 5.7 L Albumin 2.8 L Globulin 2.9 Albumin/Globulin Ratio 1.0 Arterial Blood Potassium Urine Color Urine Clarity Urine pH Ur Specific [place] Urine Protein Urine Glucose (UA) Urine Ketones Urine Blood Urine Nitrate Urine Bilirubin Urine Urobilinogen Ur Leukocyte Esterase Urine WBC (Auto) Urine RBC (Auto) Amorphous Sediment Urine Bacteria Fluid Source Fluid Appearance Fluid WBC Fluid RBC Fluid Tot Cell Count Fluid Neutrophils Fluid Lymphocytes Fld Monocyte/Macrophag Fluid Comment 08/12/17 06:04 WBC 10.2 RBC 3.64 L Hgb 9.6 L Hct 29.6 L MCV 81.3 MCH 26.4 L MCHC 32.4 L RDW 15.6 H Plt Count 299 MPV 8.4 Neut % (Auto) 76.5 H Lymph % (Auto) 15.3 L [place] % (Auto) 6.5 Eos % (Auto) 1.1 Baso % (Auto) 0.6 Neut # (Auto) 7.8 H Lymph # (Auto) 1.5 [place] # (Auto) 0.7 Eos # (Auto) 0.1 Baso # (Auto) 0.1 Neutrophils % (Manual) Band Neutrophils % Lymphocytes % (Manual) Monocytes % (Manual) Platelet Estimate Puncture Site pCO2 pO2 HCO3 ABG pH ABG Total CO2 ABG O2 Saturation ABG Base Excess ABG Hemoglobin ABG Carboxyhemoglobin POC ABG HHb (Measured) ABG Methemoglobin Marc Test ABG Potassium A-a O2 Difference Respiratory Index Hgb O2 Saturation Sodium Chloride Glucose Lactate Vent Mode Mechanical Rate FiO2 Tidal Volume PEEP Potassium Carbon Dioxide Anion Gap BUN Creatinine Est GFR ( Amer) Est GFR (Non-Af Amer) POC Glucose (mg/dL) Random Glucose Calcium Phosphorus Magnesium Total Bilirubin AST ALT Alkaline Phosphatase Total Protein Albumin Globulin Albumin/Globulin Ratio Arterial Blood Potassium Urine Color Urine Clarity Urine pH Ur Specific [place] Urine Protein Urine Glucose (UA) Urine Ketones Urine Blood Urine Nitrate Urine Bilirubin Urine Urobilinogen Ur Leukocyte Esterase Urine WBC (Auto) Urine RBC (Auto) Amorphous Sediment Urine Bacteria Fluid Source Fluid Appearance Fluid WBC Fluid RBC Fluid Tot Cell Count Fluid Neutrophils Fluid Lymphocytes Fld Monocyte/Macrophag Fluid Comment Fingerstick Blood Sugar Results: 156 Critical Care Progress Note - Nutrition Nutrition: Nutrition Category Date Time Status NPO Diet [DIET] Diets 08/11/17 Breakfast Active Assessment/Plan - Assessment and Plan (Free Text) Assessment: This is a 61 year old female with PMHx breast CA presenting for shortness of breath. This is likely due to both the pericardial and the bilateral pleural effusions. Patient is POD #1 from pericardial window. Neuro Sedated. Propofol discontinued and replaced with Precedex drip. Team was weaning off of sedation for hopeful extubation later in the day; however, the patient self extubated. Cardio Patient underwent pericardial window in the OR 08/11/17 f/u ECHO Pulm Intubated and sedated on PRVC FiO2 60%, PEEP 5, TV 450mL Self extubated today f/u fluid studies GI NPO diet Protonix 40 mg IV daily Endocrine Regular ISS Q6H Accuchecks Infectious Diseases Fevers likely inflammatory from post op Cultures negative so far Heme/onc Monitor H/H Ultrasound for edematous arm negative Psychiatry Psychiatry consulted for severe agitation Per recommendations, the following was started: Haldol 2 mg IM Q6 and Benadryl 25 mg IM Q6 prn agitation 1:1 sitter Seen and discussed with Dr. Worthington <Devon Worthington - Last Filed: 08/12/17 18:46> CCU Objective - Vital Signs / Intake & Output Vital Signs (Last 4 hours): Vital Signs Temp Pulse Resp BP Pulse Ox 08/12/17 17:00 107 H 25 H 97 08/12/17 16:51 100 H 28 H 86/45 L 96 08/12/17 16:37 142 H 25 H 96 08/12/17 16:35 123 H 26 H 96 08/12/17 16:33 109 H 33 H 91/43 L 08/12/17 16:31 119 H 30 H 95/41 L 96 08/12/17 16:30 105 H 31 H 100 08/12/17 16:00 105 H 19 96/58 L 96 08/12/17 15:54 111 H 26 H 96/58 L 97 08/12/17 15:45 113 H 23 84/46 L 96 08/12/17 15:30 118 H 22 94 L 08/12/17 15:00 99.4 F 119 H 18 94 L 08/12/17 14:47 114 H 22 126/73 96 08/12/17 14:30 114 H 40 H 99 Intake and Output (Last 8hrs): Intake & Output 08/12/17 08/12/17 08/12/17 06:59 14:59 22:59 Intake Total 1064.0 725.6 155.6 Output Total 545 330 135 Balance 519.0 395.6 20.6 Weight 160 lb 6.4 oz Intake: IV 140 48 Intake, IV Amount 924.0 677.6 155.6 Left Antecubital 24.2 5.6 Left Forearm 124.0 53.4 0 Left Forearm Y site 800 600 150 Oral 0 0 Output: Chest Tube Drainage 140 80 Bilateral Upper Anterior 140 80 Chest Urine 405 250 135 Urethral ([place]) 405 250 135 Stool 0 0 0 Emesis 0 0 - Medications Active Medications: Active Medications Generic Name Dose Route Start Last Admin Trade Name Freq PRN Reason Stop Dose Admin Acetaminophen 650 mg 08/12/17 11:42 08/12/17 12:17 Tylenol 650 Mg Supp NC 650 mg Q6 PRN Administration Fever >100.4 F Diphenhydramine HCl 25 mg 08/12/17 15:50 Benadryl IM Q6H PRN Agitation Haloperidol Lactate 2 mg 08/12/17 15:50 08/12/17 16:25 Haldol IM 2 mg Q6H PRN Administration Agitation Dexmedetomidine HCl 200 mcg/ 50 mls @ 3.63 mls/hr 08/12/17 08:57 08/12/17 11: 20 Sodium Chloride IV 0.3 mcg/kg/hr TITR PRN 5.45 mls/hr Until an adequate response is Titration Protocol 0.2 MCG/KG/HR Sodium Chloride 1,000 mls @ 50 mls/hr 08/12/17 09:00 08/12/17 11:00 Sodium Chloride 0.9% IV 50 mls/hr .Q20H NELIDA Administration Insulin Human Regular 0 unit 08/11/17 00:15 08/12/17 18:02 Novolin R SC Not Given Q6 NELIDA Protocol Morphine Sulfate 2 mg 08/11/17 13:41 08/12/17 11:49 Morphine IV 2 mg Q4H PRN Administration Pain, moderate (4-7) Pantoprazole Sodium 40 mg 08/13/17 10:00 Protonix Inj IVP DAILY NELIDA Tramadol HCl 25 mg 08/10/17 23:56 08/11/17 00:13 Ultram PO 25 mg TID PRN Administration Pain, severe (8-10) - Patient Studies Lab Studies: Microbiology Studies 08/10/17 23:18 MRSA Culture (Admit) - Final [place] MRSA NOT DETECTED 08/11/17 10:10 Gram Stain - Final Pleural Fluid Body Fluid Culture - Preliminary NO GROWTH AFTER 24 HOURS 08/11/17 13:41 Urine Culture - Final Urine,[place] No Growth (<1,000 CFU/ML) Lab Studies 08/12/17 08/12/17 08/12/17 Range/Units 17:59 15:20 11:33 WBC (4.8-10.8) K/uL RBC (3.80-5.20) Mil/uL Hgb (11.0-16.0) g/dL Hct (34.0-47.0) % MCV (81.0-99.0) fL MCH (27.0-31.0) pg MCHC (33.0-37.0) g/dL RDW (11.5-14.5) % Plt Count (130-400) K/uL MPV (7.2-11.7) fL Neut % (Auto) (50.0-75.0) % Lymph % (Auto) (20.0-40.0) % [place] % (Auto) (0.0-10.0) % Eos % (Auto) (0.0-4.0) % Baso % (Auto) (0.0-2.0) % Neut # (Auto) (1.8-7.0) K/uL Lymph # (Auto) (1.0-4.3) K/uL [place] # (Auto) (0.0-0.8) K/uL Eos # (Auto) (0.0-0.7) K/uL Baso # (Auto) (0.0-0.2) K/uL Neutrophils % (Manual) (50-75) % Band Neutrophils % (0-2) % Lymphocytes % (Manual) (20-40) % Monocytes % (Manual) (0-10) % Platelet Estimate (NORMAL) Puncture Site [place] pCO2 29 L (35-45) mm/Hg pO2 82 (80-100) mm/Hg HCO3 23.3 (21-28) mmol/L ABG pH 7.46 H (7.35-7.45) ABG Total CO2 21.5 L (22-28) mmol/L ABG O2 Saturation 98.4 H (95-98) % ABG Base Excess -2.1 L (-2.0-3.0) mmol/L ABG Hemoglobin (11.7-17.4) g/dL ABG Carboxyhemoglobin (0.5-1.5) % POC ABG HHb (Measured) (0.0-5.0) % ABG Methemoglobin (0.0-3.0) % Marc Test Na ABG Potassium 3.3 L (3.6-5.2) mmol/L A-a O2 Difference 238.0 mm/Hg Respiratory Index 2.9 Hgb O2 Saturation (95.0-98.0) % Glucose 125 H (65-105) mg/dl Lactate 1.3 (0.7-2.1) mmol/L Vent Mode Mechanical Rate FiO2 50.0 % Tidal Volume PEEP Sodium 141.0 (132-148) mmol/L Potassium (3.6-5.2) mmol/L Chloride 112.0 H (98-107) mmol/L Carbon Dioxide (22-30) mmol/L Anion Gap (10-20) BUN (7-17) mg/dL Creatinine (0.7-1.2) mg/dL Est GFR ( Amer) Est GFR (Non-Af Amer) POC Glucose (mg/dL) 131 H 124 H (65-110) mg/dL Random Glucose (65-105) mg/dL Calcium (8.6-10.4) mg/dl Phosphorus (2.5-4.5) mg/dL Magnesium (1.6-2.3) mg/dL Total Bilirubin (0.2-1.3) mg/dL AST (14-36) U/L ALT (9-52) U/L Alkaline Phosphatase (38-126) U/L Total Protein (6.3-8.3) g/dL Albumin (3.5-5.0) g/dL Globulin (2.2-3.9) gm/dL Albumin/Globulin Ratio (1.0-2.1) Procalcitonin (0.19-0.49) NG/ML Arterial Blood Potassium 3.3 L (3.6-5.2) mmol/L Urine Color (YELLOW) Urine Clarity (Clear) Urine pH (5.0-8.0) Ur Specific [place] (1.003-1.030) Urine Protein (NEGATIVE) mg/dL Urine Glucose (UA) (Normal) mg/dL Urine Ketones (NEGATIVE) mg/dL Urine Blood (NEGATIVE) Urine Nitrate (NEGATIVE) Urine Bilirubin (NEGATIVE) Urine Urobilinogen (0.2-1.0) mg/dL Ur Leukocyte Esterase (Negative) [place]ana/uL Urine WBC (Auto) (0-5) /hpf Urine RBC (Auto) (0-3) /hpf Amorphous Sediment (<OCC) /ul Urine Bacteria (<OCC) Fluid Tot Cell Count Fluid Neutrophils (0-0) % Fluid Lymphocytes (0-0) % Fld Monocyte/Macrophag (0-0) % Fluid Comment 08/12/17 08/12/17 08/12/17 Range/Units 06:04 06:03 05:41 WBC 10.2 (4.8-10.8) K/uL RBC 3.64 L (3.80-5.20) Mil/uL Hgb 9.6 L (11.0-16.0) g/dL Hct 29.6 L (34.0-47.0) % MCV 81.3 (81.0-99.0) fL MCH 26.4 L (27.0-31.0) pg MCHC 32.4 L (33.0-37.0) g/dL RDW 15.6 H (11.5-14.5) % Plt Count 299 (130-400) K/uL MPV 8.4 (7.2-11.7) fL Neut % (Auto) 76.5 H (50.0-75.0) % Lymph % (Auto) 15.3 L (20.0-40.0) % [place] % (Auto) 6.5 (0.0-10.0) % Eos % (Auto) 1.1 (0.0-4.0) % Baso % (Auto) 0.6 (0.0-2.0) % Neut # (Auto) 7.8 H (1.8-7.0) K/uL Lymph # (Auto) 1.5 (1.0-4.3) K/uL [place] # (Auto) 0.7 (0.0-0.8) K/uL Eos # (Auto) 0.1 (0.0-0.7) K/uL Baso # (Auto) 0.1 (0.0-0.2) K/uL Neutrophils % (Manual) (50-75) % Band Neutrophils % (0-2) % Lymphocytes % (Manual) (20-40) % Monocytes % (Manual) (0-10) % Platelet Estimate (NORMAL) Puncture Site pCO2 (35-45) mm/Hg pO2 (80-100) mm/Hg HCO3 (21-28) mmol/L ABG pH (7.35-7.45) ABG Total CO2 (22-28) mmol/L ABG O2 Saturation (95-98) % ABG Base Excess (-2.0-3.0) mmol/L ABG Hemoglobin (11.7-17.4) g/dL ABG Carboxyhemoglobin (0.5-1.5) % POC ABG HHb (Measured) (0.0-5.0) % ABG Methemoglobin (0.0-3.0) % Marc Test ABG Potassium (3.6-5.2) mmol/L A-a O2 Difference mm/Hg Respiratory Index Hgb O2 Saturation (95.0-98.0) % Glucose (65-105) mg/dl Lactate (0.7-2.1) mmol/L Vent Mode Mechanical Rate FiO2 % Tidal Volume PEEP Sodium 140 (132-148) mmol/L Potassium 3.9 (3.6-5.2) mmol/L Chloride 106 (98-107) mmol/L Carbon Dioxide 24 (22-30) mmol/L Anion Gap 14 (10-20) BUN 11 (7-17) mg/dL Creatinine 0.6 L (0.7-1.2) mg/dL Est GFR ( Amer) > 60 Est GFR (Non-Af Amer) > 60 POC Glucose (mg/dL) 116 H (65-110) mg/dL Random Glucose 124 H (65-105) mg/dL Calcium 8.2 L (8.6-10.4) mg/dl Phosphorus 3.9 (2.5-4.5) mg/dL Magnesium 2.0 (1.6-2.3) mg/dL Total Bilirubin 0.6 (0.2-1.3) mg/dL AST 21 (14-36) U/L ALT 27 (9-52) U/L Alkaline Phosphatase 91 (38-126) U/L Total Protein 5.7 L (6.3-8.3) g/dL Albumin 2.8 L (3.5-5.0) g/dL Globulin 2.9 (2.2-3.9) gm/dL Albumin/Globulin Ratio 1.0 (1.0-2.1) Procalcitonin (0.19-0.49) NG/ML Arterial Blood Potassium (3.6-5.2) mmol/L Urine Color (YELLOW) Urine Clarity (Clear) Urine pH (5.0-8.0) Ur Specific [place] (1.003-1.030) Urine Protein (NEGATIVE) mg/dL Urine Glucose (UA) (Normal) mg/dL Urine Ketones (NEGATIVE) mg/dL Urine Blood (NEGATIVE) Urine Nitrate (NEGATIVE) Urine Bilirubin (NEGATIVE) Urine Urobilinogen (0.2-1.0) mg/dL Ur Leukocyte Esterase (Negative) [place]/uL Urine WBC (Auto) (0-5) /hpf Urine RBC (Auto) (0-3) /hpf Amorphous Sediment (<OCC) /ul Urine Bacteria (<OCC) Fluid Tot Cell Count Fluid Neutrophils (0-0) % Fluid Lymphocytes (0-0) % Fld Monocyte/Macrophag (0-0) % Fluid Comment 08/12/17 08/12/17 08/12/17 Range/Units 05:33 04:04 00:15 WBC (4.8-10.8) K/uL RBC (3.80-5.20) Mil/uL Hgb (11.0-16.0) g/dL Hct (34.0-47.0) % MCV (81.0-99.0) fL MCH (27.0-31.0) pg MCHC (33.0-37.0) g/dL RDW (11.5-14.5) % Plt Count (130-400) K/uL MPV (7.2-11.7) fL Neut % (Auto) (50.0-75.0) % Lymph % (Auto) (20.0-40.0) % [place] % (Auto) (0.0-10.0) % Eos % (Auto) (0.0-4.0) % Baso % (Auto) (0.0-2.0) % Neut # (Auto) (1.8-7.0) K/uL Lymph # (Auto) (1.0-4.3) K/uL [place] # (Auto) (0.0-0.8) K/uL Eos # (Auto) (0.0-0.7) K/uL Baso # (Auto) (0.0-0.2) K/uL Neutrophils % (Manual) (50-75) % Band Neutrophils % (0-2) % Lymphocytes % (Manual) (20-40) % Monocytes % (Manual) (0-10) % Platelet Estimate (NORMAL) Puncture Site [place] pCO2 35 (35-45) mm/Hg pO2 94 (80-100) mm/Hg HCO3 26.4 (21-28) mmol/L ABG pH 7.47 H (7.35-7.45) ABG Total CO2 26.6 (22-28) mmol/L ABG O2 Saturation 99.1 H (95-98) % ABG Base Excess 1.9 (-2.0-3.0) mmol/L ABG Hemoglobin 9.9 L (11.7-17.4) g/dL ABG Carboxyhemoglobin 2.0 H (0.5-1.5) % POC ABG HHb (Measured) 0.9 (0.0-5.0) % ABG Methemoglobin 1.1 (0.0-3.0) % Marc Test Na ABG Potassium (3.6-5.2) mmol/L A-a O2 Difference 290.0 mm/Hg Respiratory Index 3.1 Hgb O2 Saturation 96.0 (95.0-98.0) % Glucose (65-105) mg/dl Lactate (0.7-2.1) mmol/L Vent Mode Prvc Mechanical Rate 12 FiO2 60.0 % Tidal Volume 450 PEEP 5 Sodium 140 (132-148) mmol/L Potassium 3.9 (3.6-5.2) mmol/L Chloride 106 (98-107) mmol/L Carbon Dioxide 25 (22-30) mmol/L Anion Gap 13 (10-20) BUN 12 (7-17) mg/dL Creatinine 0.6 L (0.7-1.2) mg/dL Est GFR ( Amer) > 60 Est GFR (Non-Af Amer) > 60 POC Glucose (mg/dL) (65-110) mg/dL Random Glucose 137 H (65-105) mg/dL Calcium 8.0 L (8.6-10.4) mg/dl Phosphorus 4.0 (2.5-4.5) mg/dL Magnesium 1.9 (1.6-2.3) mg/dL Total Bilirubin 0.5 (0.2-1.3) mg/dL AST 21 (14-36) U/L ALT 22 (9-52) U/L Alkaline Phosphatase 97 (38-126) U/L Total Protein 5.6 L (6.3-8.3) g/dL Albumin 2.8 L D (3.5-5.0) g/dL Globulin 2.8 (2.2-3.9) gm/dL Albumin/Globulin Ratio 1.0 (1.0-2.1) Procalcitonin (0.19-0.49) NG/ML Arterial Blood Potassium (3.6-5.2) mmol/L Urine Color Yellow (YELLOW) Urine Clarity Turbid (Clear) Urine pH 5.0 (5.0-8.0) Ur Specific [place] 1.023 (1.003-1.030) Urine Protein Negative (NEGATIVE) mg/dL Urine Glucose (UA) Normal (Normal) mg/dL Urine Ketones Trace (NEGATIVE) mg/dL Urine Blood Negative (NEGATIVE) Urine Nitrate Negative (NEGATIVE) Urine Bilirubin Negative (NEGATIVE) Urine Urobilinogen Normal (0.2-1.0) mg/dL Ur Leukocyte Esterase Trace (Negative) [place]/uL Urine WBC (Auto) 3 (0-5) /hpf Urine RBC (Auto) 2 (0-3) /hpf Amorphous Sediment Occ H (<OCC) /ul Urine Bacteria (<OCC) Fluid Tot Cell Count Fluid Neutrophils (0-0) % Fluid Lymphocytes (0-0) % Fld Monocyte/Macrophag (0-0) % Fluid Comment 08/12/17 08/12/17 08/11/17 Range/Units 00:15 00:15 23:35 WBC 9.8 (4.8-10.8) K/uL RBC 3.49 L (3.80-5.20) Mil/uL Hgb 9.5 L (11.0-16.0) g/dL Hct 28.3 L (34.0-47.0) % MCV 81.1 (81.0-99.0) fL MCH 27.2 (27.0-31.0) pg MCHC 33.5 (33.0-37.0) g/dL RDW 15.4 H (11.5-14.5) % Plt Count 304 (130-400) K/uL MPV 8.4 (7.2-11.7) fL Neut % (Auto) 85.0 H (50.0-75.0) % Lymph % (Auto) 9.0 L (20.0-40.0) % [place] % (Auto) 5.3 (0.0-10.0) % Eos % (Auto) 0.2 (0.0-4.0) % Baso % (Auto) 0.5 (0.0-2.0) % Neut # (Auto) 8.3 H (1.8-7.0) K/uL Lymph # (Auto) 0.9 L (1.0-4.3) K/uL [place] # (Auto) 0.5 (0.0-0.8) K/uL Eos # (Auto) 0.0 (0.0-0.7) K/uL Baso # (Auto) 0.0 (0.0-0.2) K/uL Neutrophils % (Manual) 81 H (50-75) % Band Neutrophils % 3 H (0-2) % Lymphocytes % (Manual) 8 L (20-40) % Monocytes % (Manual) 8 (0-10) % Platelet Estimate Normal (NORMAL) Puncture Site pCO2 (35-45) mm/Hg pO2 (80-100) mm/Hg HCO3 (21-28) mmol/L ABG pH (7.35-7.45) ABG Total CO2 (22-28) mmol/L ABG O2 Saturation (95-98) % ABG Base Excess (-2.0-3.0) mmol/L ABG Hemoglobin (11.7-17.4) g/dL ABG Carboxyhemoglobin (0.5-1.5) % POC ABG HHb (Measured) (0.0-5.0) % ABG Methemoglobin (0.0-3.0) % Marc Test ABG Potassium (3.6-5.2) mmol/L A-a O2 Difference mm/Hg Respiratory Index Hgb O2 Saturation (95.0-98.0) % Glucose (65-105) mg/dl Lactate (0.7-2.1) mmol/L Vent Mode Mechanical Rate FiO2 % Tidal Volume PEEP Sodium (132-148) mmol/L Potassium (3.6-5.2) mmol/L Chloride (98-107) mmol/L Carbon Dioxide (22-30) mmol/L Anion Gap (10-20) BUN (7-17) mg/dL Creatinine (0.7-1.2) mg/dL Est GFR ( Amer) Est GFR (Non-Af Amer) POC Glucose (mg/dL) 154 H (65-110) mg/dL Random Glucose (65-105) mg/dL Calcium (8.6-10.4) mg/dl Phosphorus (2.5-4.5) mg/dL Magnesium (1.6-2.3) mg/dL Total Bilirubin (0.2-1.3) mg/dL AST (14-36) U/L ALT (9-52) U/L Alkaline Phosphatase (38-126) U/L Total Protein (6.3-8.3) g/dL Albumin (3.5-5.0) g/dL Globulin (2.2-3.9) gm/dL Albumin/Globulin Ratio (1.0-2.1) Procalcitonin < 0.05 L (0.19-0.49) NG/ML Arterial Blood Potassium (3.6-5.2) mmol/L Urine Color (YELLOW) Urine Clarity (Clear) Urine pH (5.0-8.0) Ur Specific [place] (1.003-1.030) Urine Protein (NEGATIVE) mg/dL Urine Glucose (UA) (Normal) mg/dL Urine Ketones (NEGATIVE) mg/dL Urine Blood (NEGATIVE) Urine Nitrate (NEGATIVE) Urine Bilirubin (NEGATIVE) Urine Urobilinogen (0.2-1.0) mg/dL Ur Leukocyte Esterase (Negative) [place]/uL Urine WBC (Auto) (0-5) /hpf Urine RBC (Auto) (0-3) /hpf Amorphous Sediment (<OCC) /ul Urine Bacteria (<OCC) Fluid Tot Cell Count Fluid Neutrophils (0-0) % Fluid Lymphocytes (0-0) % Fld Monocyte/Macrophag (0-0) % Fluid Comment 08/11/17 08/11/17 08/11/17 Range/Units 23:33 18:25 16:26 WBC (4.8-10.8) K/uL RBC (3.80-5.20) Mil/uL Hgb (11.0-16.0) g/dL Hct (34.0-47.0) % MCV (81.0-99.0) fL MCH (27.0-31.0) pg MCHC (33.0-37.0) g/dL RDW (11.5-14.5) % Plt Count (130-400) K/uL MPV (7.2-11.7) fL Neut % (Auto) (50.0-75.0) % Lymph % (Auto) (20.0-40.0) % [place] % (Auto) (0.0-10.0) % Eos % (Auto) (0.0-4.0) % Baso % (Auto) (0.0-2.0) % Neut # (Auto) (1.8-7.0) K/uL Lymph # (Auto) (1.0-4.3) K/uL [place] # (Auto) (0.0-0.8) K/uL Eos # (Auto) (0.0-0.7) K/uL Baso # (Auto) (0.0-0.2) K/uL Neutrophils % (Manual) (50-75) % Band Neutrophils % (0-2) % Lymphocytes % (Manual) (20-40) % Monocytes % (Manual) (0-10) % Platelet Estimate (NORMAL) Puncture Site pCO2 (35-45) mm/Hg pO2 (80-100) mm/Hg HCO3 (21-28) mmol/L ABG pH (7.35-7.45) ABG Total CO2 (22-28) mmol/L ABG O2 Saturation (95-98) % ABG Base Excess (-2.0-3.0) mmol/L ABG Hemoglobin (11.7-17.4) g/dL ABG Carboxyhemoglobin (0.5-1.5) % POC ABG HHb (Measured) (0.0-5.0) % ABG Methemoglobin (0.0-3.0) % Marc Test ABG Potassium (3.6-5.2) mmol/L A-a O2 Difference mm/Hg Respiratory Index Hgb O2 Saturation (95.0-98.0) % Glucose (65-105) mg/dl Lactate (0.7-2.1) mmol/L Vent Mode Mechanical Rate FiO2 % Tidal Volume PEEP Sodium (132-148) mmol/L Potassium (3.6-5.2) mmol/L Chloride (98-107) mmol/L Carbon Dioxide (22-30) mmol/L Anion Gap (10-20) BUN (7-17) mg/dL Creatinine (0.7-1.2) mg/dL Est GFR ( Amer) Est GFR (Non-Af Amer) POC Glucose (mg/dL) 56 L (65-110) mg/dL Random Glucose (65-105) mg/dL Calcium (8.6-10.4) mg/dl Phosphorus (2.5-4.5) mg/dL Magnesium (1.6-2.3) mg/dL Total Bilirubin (0.2-1.3) mg/dL AST (14-36) U/L ALT (9-52) U/L Alkaline Phosphatase (38-126) U/L Total Protein (6.3-8.3) g/dL Albumin (3.5-5.0) g/dL Globulin (2.2-3.9) gm/dL Albumin/Globulin Ratio (1.0-2.1) Procalcitonin (0.19-0.49) NG/ML Arterial Blood Potassium (3.6-5.2) mmol/L Urine Color Yellow (YELLOW) Urine Clarity Clear (Clear) Urine pH 5.0 (5.0-8.0) Ur Specific [place] 1.041 H (1.003-1.030) Urine Protein 2+ H (NEGATIVE) mg/dL Urine Glucose (UA) 1+ (Normal) mg/dL Urine Ketones Negative (NEGATIVE) mg/dL Urine Blood Negative (NEGATIVE) Urine Nitrate Negative (NEGATIVE) Urine Bilirubin Negative (NEGATIVE) Urine Urobilinogen Normal (0.2-1.0) mg/dL Ur Leukocyte Esterase Neg (Negative) [place]/uL Urine WBC (Auto) 1 (0-5) /hpf Urine RBC (Auto) 2 (0-3) /hpf Amorphous Sediment (<OCC) /ul Urine Bacteria Rare (<OCC) Fluid Tot Cell Count TEST NOT PERFORMED Fluid Neutrophils 68.0 H (0-0) % Fluid Lymphocytes 27.0 H (0-0) % Fld Monocyte/Macrophag 5 H (0-0) % Fluid Comment Laboratory Results - last 24 hr 08/11/17 08/11/17 08/11/17 16:26 18:25 23:33 WBC RBC Hgb Hct MCV MCH MCHC RDW Plt Count MPV Neut % (Auto) Lymph % (Auto) [place] % (Auto) Eos % (Auto) Baso % (Auto) Neut # (Auto) Lymph # (Auto) [place] # (Auto) Eos # (Auto) Baso # (Auto) Neutrophils % (Manual) Band Neutrophils % Lymphocytes % (Manual) Monocytes % (Manual) Platelet Estimate Puncture Site pCO2 pO2 HCO3 ABG pH ABG Total CO2 ABG O2 Saturation ABG Base Excess ABG Hemoglobin ABG Carboxyhemoglobin POC ABG HHb (Measured) ABG Methemoglobin Marc Test ABG Potassium A-a O2 Difference Respiratory Index Hgb O2 Saturation Glucose Lactate Vent Mode Mechanical Rate FiO2 Tidal Volume PEEP Sodium Potassium Chloride Carbon Dioxide Anion Gap BUN Creatinine Est GFR ( Amer) Est GFR (Non-Af Amer) POC Glucose (mg/dL) 56 L Random Glucose Calcium Phosphorus Magnesium Total Bilirubin AST ALT Alkaline Phosphatase Total Protein Albumin Globulin Albumin/Globulin Ratio Procalcitonin Arterial Blood Potassium Urine Color Yellow Urine Clarity Clear Urine pH 5.0 Ur Specific [place] 1.041 H Urine Protein 2+ H Urine Glucose (UA) 1+ Urine Ketones Negative Urine Blood Negative Urine Nitrate Negative Urine Bilirubin Negative Urine Urobilinogen Normal Ur Leukocyte Esterase Neg Urine WBC (Auto) 1 Urine RBC (Auto) 2 Amorphous Sediment Urine Bacteria Rare Fluid Tot Cell Count TEST NOT PERFORMED Fluid Neutrophils 68.0 H Fluid Lymphocytes 27.0 H Fld Monocyte/Macrophag 5 H Fluid Comment 08/11/17 08/12/17 08/12/17 23:35 00:15 00:15 WBC 9.8 RBC 3.49 L Hgb 9.5 L Hct 28.3 L MCV 81.1 MCH 27.2 MCHC 33.5 RDW 15.4 H Plt Count 304 MPV 8.4 Neut % (Auto) 85.0 H Lymph % (Auto) 9.0 L [place] % (Auto) 5.3 Eos % (Auto) 0.2 Baso % (Auto) 0.5 Neut # (Auto) 8.3 H Lymph # (Auto) 0.9 L [place] # (Auto) 0.5 Eos # (Auto) 0.0 Baso # (Auto) 0.0 Neutrophils % (Manual) 81 H Band Neutrophils % 3 H Lymphocytes % (Manual) 8 L Monocytes % (Manual) 8 Platelet Estimate Normal Puncture Site pCO2 pO2 HCO3 ABG pH ABG Total CO2 ABG O2 Saturation ABG Base Excess ABG Hemoglobin ABG Carboxyhemoglobin POC ABG HHb (Measured) ABG Methemoglobin Marc Test ABG Potassium A-a O2 Difference Respiratory Index Hgb O2 Saturation Glucose Lactate Vent Mode Mechanical Rate FiO2 Tidal Volume PEEP Sodium Potassium Chloride Carbon Dioxide Anion Gap BUN Creatinine Est GFR ( Amer) Est GFR (Non-Af Amer) POC Glucose (mg/dL) 154 H Random Glucose Calcium Phosphorus Magnesium Total Bilirubin AST ALT Alkaline Phosphatase Total Protein Albumin Globulin Albumin/Globulin Ratio Procalcitonin < 0.05 L Arterial Blood Potassium Urine Color Urine Clarity Urine pH Ur Specific [place] Urine Protein Urine Glucose (UA) Urine Ketones Urine Blood Urine Nitrate Urine Bilirubin Urine Urobilinogen Ur Leukocyte Esterase Urine WBC (Auto) Urine RBC (Auto) Amorphous Sediment Urine Bacteria Fluid Tot Cell Count Fluid Neutrophils Fluid Lymphocytes Fld Monocyte/Macrophag Fluid Comment 08/12/17 08/12/17 08/12/17 00:15 04:04 05:33 WBC RBC Hgb Hct MCV MCH MCHC RDW Plt Count MPV Neut % (Auto) Lymph % (Auto) [place] % (Auto) Eos % (Auto) Baso % (Auto) Neut # (Auto) Lymph # (Auto) [place] # (Auto) Eos # (Auto) Baso # (Auto) Neutrophils % (Manual) Band Neutrophils % Lymphocytes % (Manual) Monocytes % (Manual) Platelet Estimate Puncture Site Dede pCO2 35 pO2 94 HCO3 26.4 ABG pH 7.47 H ABG Total CO2 26.6 ABG O2 Saturation 99.1 H ABG Base Excess 1.9 ABG Hemoglobin 9.9 L ABG Carboxyhemoglobin 2.0 H POC ABG HHb (Measured) 0.9 ABG Methemoglobin 1.1 Marc Test Na ABG Potassium A-a O2 Difference 290.0 Respiratory Index 3.1 Hgb O2 Saturation 96.0 Glucose Lactate Vent Mode Prvc Mechanical Rate 12 FiO2 60.0 Tidal Volume 450 PEEP 5 Sodium 140 Potassium 3.9 Chloride 106 Carbon Dioxide 25 Anion Gap 13 BUN 12 Creatinine 0.6 L Est GFR ( Amer) > 60 Est GFR (Non-Af Amer) > 60 POC Glucose (mg/dL) Random Glucose 137 H Calcium 8.0 L Phosphorus 4.0 Magnesium 1.9 Total Bilirubin 0.5 AST 21 ALT 22 Alkaline Phosphatase 97 Total Protein 5.6 L Albumin 2.8 L D Globulin 2.8 Albumin/Globulin Ratio 1.0 Procalcitonin Arterial Blood Potassium Urine Color Yellow Urine Clarity Turbid Urine pH 5.0 Ur Specific [place] 1.023 Urine Protein Negative Urine Glucose (UA) Normal Urine Ketones Trace Urine Blood Negative Urine Nitrate Negative Urine Bilirubin Negative Urine Urobilinogen Normal Ur Leukocyte Esterase Trace Urine WBC (Auto) 3 Urine RBC (Auto) 2 Amorphous Sediment Occ H Urine Bacteria Fluid Tot Cell Count Fluid Neutrophils Fluid Lymphocytes Fld Monocyte/Macrophag Fluid Comment 08/12/17 08/12/17 08/12/17 05:41 06:03 06:04 WBC 10.2 RBC 3.64 L Hgb 9.6 L Hct 29.6 L MCV 81.3 MCH 26.4 L MCHC 32.4 L RDW 15.6 H Plt Count 299 MPV 8.4 Neut % (Auto) 76.5 H Lymph % (Auto) 15.3 L [place] % (Auto) 6.5 Eos % (Auto) 1.1 Baso % (Auto) 0.6 Neut # (Auto) 7.8 H Lymph # (Auto) 1.5 [place] # (Auto) 0.7 Eos # (Auto) 0.1 Baso # (Auto) 0.1 Neutrophils % (Manual) Band Neutrophils % Lymphocytes % (Manual) Monocytes % (Manual) Platelet Estimate Puncture Site pCO2 pO2 HCO3 ABG pH ABG Total CO2 ABG O2 Saturation ABG Base Excess ABG Hemoglobin ABG Carboxyhemoglobin POC ABG HHb (Measured) ABG Methemoglobin Marc Test ABG Potassium A-a O2 Difference Respiratory Index Hgb O2 Saturation Glucose Lactate Vent Mode Mechanical Rate FiO2 Tidal Volume PEEP Sodium 140 Potassium 3.9 Chloride 106 Carbon Dioxide 24 Anion Gap 14 BUN 11 Creatinine 0.6 L Est GFR ( Amer) > 60 Est GFR (Non-Af Amer) > 60 POC Glucose (mg/dL) 116 H Random Glucose 124 H Calcium 8.2 L Phosphorus 3.9 Magnesium 2.0 Total Bilirubin 0.6 AST 21 ALT 27 Alkaline Phosphatase 91 Total Protein 5.7 L Albumin 2.8 L Globulin 2.9 Albumin/Globulin Ratio 1.0 Procalcitonin Arterial Blood Potassium Urine Color Urine Clarity Urine pH Ur Specific [place] Urine Protein Urine Glucose (UA) Urine Ketones Urine Blood Urine Nitrate Urine Bilirubin Urine Urobilinogen Ur Leukocyte Esterase Urine WBC (Auto) Urine RBC (Auto) Amorphous Sediment Urine Bacteria Fluid Tot Cell Count Fluid Neutrophils Fluid Lymphocytes Fld Monocyte/Macrophag Fluid Comment 08/12/17 08/12/17 08/12/17 11:33 15:20 17:59 WBC RBC Hgb Hct MCV MCH MCHC RDW Plt Count MPV Neut % (Auto) Lymph % (Auto) [place] % (Auto) Eos % (Auto) Baso % (Auto) Neut # (Auto) Lymph # (Auto) [place] # (Auto) Eos # (Auto) Baso # (Auto) Neutrophils % (Manual) Band Neutrophils % Lymphocytes % (Manual) Monocytes % (Manual) Platelet Estimate Puncture Site Dede pCO2 29 L pO2 82 HCO3 23.3 ABG pH 7.46 H ABG Total CO2 21.5 L ABG O2 Saturation 98.4 H ABG Base Excess -2.1 L ABG Hemoglobin ABG Carboxyhemoglobin POC ABG HHb (Measured) ABG Methemoglobin Marc Test Na ABG Potassium 3.3 L A-a O2 Difference 238.0 Respiratory Index 2.9 Hgb O2 Saturation Glucose 125 H Lactate 1.3 Vent Mode Mechanical Rate FiO2 50.0 Tidal Volume PEEP Sodium 141.0 Potassium Chloride 112.0 H Carbon Dioxide Anion Gap BUN Creatinine Est GFR ( Amer) Est GFR (Non-Af Amer) POC Glucose (mg/dL) 124 H 131 H Random Glucose Calcium Phosphorus Magnesium Total Bilirubin AST ALT Alkaline Phosphatase Total Protein Albumin Globulin Albumin/Globulin Ratio Procalcitonin Arterial Blood Potassium 3.3 L Urine Color Urine Clarity Urine pH Ur Specific [place] Urine Protein Urine Glucose (UA) Urine Ketones Urine Blood Urine Nitrate Urine Bilirubin Urine Urobilinogen Ur Leukocyte Esterase Urine WBC (Auto) Urine RBC (Auto) Amorphous Sediment Urine Bacteria Fluid Tot Cell Count Fluid Neutrophils Fluid Lymphocytes Fld Monocyte/Macrophag Fluid Comment Critical Care Progress Note - Nutrition Nutrition: Nutrition Category Date Time Status NPO Diet [DIET] Diets 08/11/17 Breakfast Active Attending/Attestation - Attestation I have personally seen and examined this patient.: Yes I have fully participated in the care of the patient.: Yes I have reviewed all pertinent clinical information: Yes Notes (Text): 08/12/17 18:23 Today: , August 12, 2017 The Patient was seen and examined at the bedside, Medical records reviewed, and management issues were discussed and formulated with the house staff. I have reviewed all the relevant clinical, laboratory, hemodynamic, radiographic data and medications Events reviewed Pain issues, skin care, head of the bed elevation, glycemic control were addressed. Agree with above resident's assessment and treatment plans of care as transcribed in Dr. Parker note. 61-year-old female with right breast Carcinoma, admitted to ICU yesterday following Anterior Thoracotomy, Pericardial Window, Insertion of B/L Chest tubes , was successfully extubated today, very anxious started on PRN Halodol and PRN Benadryl as per Psych recommendations Full code, GI/DVT PPX, monitor CT output. Total critical care time 41 minutes
[2017-08-12] MEDS ORDERED: Albuterol-Ipratrop 3 mg / 0.5 (3 ml) UD INH STA (14:52)
[2017-08-12 15:23] LABS: ARTERIAL BLOOD GAS HCO3 23.3 mmol/L (21-28); ARTERIAL BLOOD GAS O2 SAT 98.4 % (95-98); ARTERIAL BLOOD GAS PCO2 29 mm/Hg (35-45); ARTERIAL BLOOD GAS PH 7.46 (7.35-7.45); ARTERIAL BLOOD GAS PO2 82 mm/Hg (80-100); ARTERIAL BLOOD GAS TCO2 21.5 mmol/L (22-28)
[2017-08-12] MEDS ORDERED: DiphenhydrAMINE 50 mg/ml Inj IM PRN (15:50)
--- NOTE | 2017-08-12 17:50 | CP.PCM.CON ---
History of Present Illness - History of Present Illness History of Present Illness: reason for consultation: shortness of breath and bilateral pleural effusion 61-year-old female with right breast CA presented with one-week history off progressively worsening shortness of breath. CAT scan of the chest showed bilateral large pleural and pericardial effusion. Patient status post pericardial window and insertion off bilateral chest tubes. Postop patient was intubated and self extubated today. PMH: Right sided breast CA on Arimidex (12/2015), DM, HLD, Asthma PSH: Breast bx, LIJ portacath insertion, ganglion cyst excision of R hand, R knee foreign body excision All: NKDA SH: Admits to tobacco use - average is 20 yrs 1 ppd; rare ETOH use, denies illicit drug use Past Patient History - Infectious Disease Hx of Infectious Diseases: None - Past Medical History & Family History Past Medical History?: Yes - Past Social History Smoking Status: Light Smoker < 10 Cigarettes Daily Alcohol: Social Drugs: Denies Home Situation {Lives}: With Family - CARDIAC Hx Cardiac Disorders: Yes Hx Hypercholesterolemia: Yes - PULMONARY Hx Respiratory Disorders: Yes Hx Asthma: Yes - NEUROLOGICAL Hx Neurological Disorder: Yes - HEENT Hx HEENT Problems: Yes - RENAL Hx Chronic Kidney Disease: Yes - ENDOCRINE/METABOLIC Hx Endocrine Disorders: Yes Hx Diabetes Mellitus Type 2: Yes - HEMATOLOGICAL/ONCOLOGICAL Hx Cancer: Yes (breast) Hx Chemotherapy: Yes - INTEGUMENTARY Hx Dermatological Problems: No - MUSCULOSKELETAL/RHEUMATOLOGICAL Hx Falls: Yes - GASTROINTESTINAL Hx Gastrointestinal Disorders: No - GENITOURINARY/GYNECOLOGICAL Hx Genitourinary Disorders: No - PSYCHIATRIC Hx Substance Use: No - SURGICAL HISTORY Hx Surgeries: No - ANESTHESIA Hx Anesthesia: No Meds Allergies/Adverse Reactions: Allergies Allergy/AdvReac Type Severity Reaction Status Date / Time No Known Allergies Allergy Verified 08/10/17 16:22 - Medications Medications: Current Medications Acetaminophen (Tylenol 650 Mg Supp) 650 mg PA Q6 PRN PRN Reason: Fever >100.4 F Last Admin: 08/12/17 12:17 Dose: 650 mg Diphenhydramine HCl (Benadryl) 25 mg IM Q6H PRN PRN Reason: Agitation Haloperidol Lactate (Haldol) 2 mg IM Q6H PRN PRN Reason: Agitation Last Admin: 08/12/17 16:25 Dose: 2 mg Dexmedetomidine HCl 200 mcg/ (Sodium Chloride) 50 mls @ 3.63 mls/hr IV TITR PRN ; Protocol; 0.2 MCG/KG/HR PRN Reason: Until an adequate response is Last Titration: 08/12/17 11:20 Dose: 0.3 mcg/kg/hr, 5.45 mls/hr Sodium Chloride (Sodium Chloride 0.9%) 1,000 mls @ 50 mls/hr IV .Q20H NELIDA Last Admin: 08/12/17 11:00 Dose: 50 mls/hr Insulin Human Regular (Novolin R) 0 unit SC Q6 NELIDA PRN Reason: Protocol Last Admin: 08/12/17 11:52 Dose: Not Given Morphine Sulfate (Morphine) 2 mg IV Q4H PRN PRN Reason: Pain, moderate (4-7) Last Admin: 08/12/17 11:49 Dose: 2 mg Pantoprazole Sodium (Protonix Inj) 40 mg IVP DAILY NELIDA Tramadol HCl (Ultram) 25 mg PO TID PRN PRN Reason: Pain, severe (8-10) Last Admin: 08/11/17 00:13 Dose: 25 mg Physical Exam - Head Exam Head Exam: ATRAUMATIC, NORMOCEPHALIC - ENT Exam ENT Exam: Mucous Membranes Moist - Respiratory Exam Respiratory Exam: Decreased Breath Sounds - Cardiovascular Exam Cardiovascular Exam: REGULAR RHYTHM Results - Vital Signs Recent Vital Signs: Last Vital Signs Temp 99.4 F 08/12/17 15:00 Pulse 107 H 08/12/17 17:00 Resp 25 H 08/12/17 17:00 BP 86/45 L 08/12/17 16:51 Pulse Ox 97 08/12/17 17:00 - Labs Result Diagrams: 08/12/17 06:04 08/12/17 06:03 Labs: Laboratory Results - last 24 hr 08/11/17 08/11/17 08/11/17 16:26 18:25 23:33 WBC RBC Hgb Hct MCV MCH MCHC RDW Plt Count MPV Neut % (Auto) Lymph % (Auto) [place] % (Auto) Eos % (Auto) Baso % (Auto) Neut # (Auto) Lymph # (Auto) [place] # (Auto) Eos # (Auto) Baso # (Auto) Neutrophils % (Manual) Band Neutrophils % Lymphocytes % (Manual) Monocytes % (Manual) Platelet Estimate Puncture Site pCO2 pO2 HCO3 ABG pH ABG Total CO2 ABG O2 Saturation ABG Base Excess ABG Hemoglobin ABG Carboxyhemoglobin POC ABG HHb (Measured) ABG Methemoglobin Marc Test ABG Potassium A-a O2 Difference Respiratory Index Hgb O2 Saturation Glucose Lactate Vent Mode Mechanical Rate FiO2 Tidal Volume PEEP Sodium Potassium Chloride Carbon Dioxide Anion Gap BUN Creatinine Est GFR ( Amer) Est GFR (Non-Af Amer) POC Glucose (mg/dL) 56 L Random Glucose Calcium Phosphorus Magnesium Total Bilirubin AST ALT Alkaline Phosphatase Total Protein Albumin Globulin Albumin/Globulin Ratio Procalcitonin Arterial Blood Potassium Urine Color Yellow Urine Clarity Clear Urine pH 5.0 Ur Specific [place] 1.041 H Urine Protein 2+ H Urine Glucose (UA) 1+ Urine Ketones Negative Urine Blood Negative Urine Nitrate Negative Urine Bilirubin Negative Urine Urobilinogen Normal Ur Leukocyte Esterase Neg Urine WBC (Auto) 1 Urine RBC (Auto) 2 Amorphous Sediment Urine Bacteria Rare Fluid Tot Cell Count TEST NOT PERFORMED Fluid Neutrophils 68.0 H Fluid Lymphocytes 27.0 H Fld Monocyte/Macrophag 5 H Fluid Comment 08/11/17 08/12/17 08/12/17 23:35 00:15 00:15 WBC 9.8 RBC 3.49 L Hgb 9.5 L Hct 28.3 L MCV 81.1 MCH 27.2 MCHC 33.5 RDW 15.4 H Plt Count 304 MPV 8.4 Neut % (Auto) 85.0 H Lymph % (Auto) 9.0 L [place] % (Auto) 5.3 Eos % (Auto) 0.2 Baso % (Auto) 0.5 Neut # (Auto) 8.3 H Lymph # (Auto) 0.9 L [place] # (Auto) 0.5 Eos # (Auto) 0.0 Baso # (Auto) 0.0 Neutrophils % (Manual) 81 H Band Neutrophils % 3 H Lymphocytes % (Manual) 8 L Monocytes % (Manual) 8 Platelet Estimate Normal Puncture Site pCO2 pO2 HCO3 ABG pH ABG Total CO2 ABG O2 Saturation ABG Base Excess ABG Hemoglobin ABG Carboxyhemoglobin POC ABG HHb (Measured) ABG Methemoglobin Marc Test ABG Potassium A-a O2 Difference Respiratory Index Hgb O2 Saturation Glucose Lactate Vent Mode Mechanical Rate FiO2 Tidal Volume PEEP Sodium Potassium Chloride Carbon Dioxide Anion Gap BUN Creatinine Est GFR ( Amer) Est GFR (Non-Af Amer) POC Glucose (mg/dL) 154 H Random Glucose Calcium Phosphorus Magnesium Total Bilirubin AST ALT Alkaline Phosphatase Total Protein Albumin Globulin Albumin/Globulin Ratio Procalcitonin < 0.05 L Arterial Blood Potassium Urine Color Urine Clarity Urine pH Ur Specific [place] Urine Protein Urine Glucose (UA) Urine Ketones Urine Blood Urine Nitrate Urine Bilirubin Urine Urobilinogen Ur Leukocyte Esterase Urine WBC (Auto) Urine RBC (Auto) Amorphous Sediment Urine Bacteria Fluid Tot Cell Count Fluid Neutrophils Fluid Lymphocytes Fld Monocyte/Macrophag Fluid Comment 08/12/17 08/12/17 08/12/17 00:15 04:04 05:33 WBC RBC Hgb Hct MCV MCH MCHC RDW Plt Count MPV Neut % (Auto) Lymph % (Auto) [place] % (Auto) Eos % (Auto) Baso % (Auto) Neut # (Auto) Lymph # (Auto) [place] # (Auto) Eos # (Auto) Baso # (Auto) Neutrophils % (Manual) Band Neutrophils % Lymphocytes % (Manual) Monocytes % (Manual) Platelet Estimate Puncture Site Dede pCO2 35 pO2 94 HCO3 26.4 ABG pH 7.47 H ABG Total CO2 26.6 ABG O2 Saturation 99.1 H ABG Base Excess 1.9 ABG Hemoglobin 9.9 L ABG Carboxyhemoglobin 2.0 H POC ABG HHb (Measured) 0.9 ABG Methemoglobin 1.1 Marc Test Na ABG Potassium A-a O2 Difference 290.0 Respiratory Index 3.1 Hgb O2 Saturation 96.0 Glucose Lactate Vent Mode Prvc Mechanical Rate 12 FiO2 60.0 Tidal Volume 450 PEEP 5 Sodium 140 Potassium 3.9 Chloride 106 Carbon Dioxide 25 Anion Gap 13 BUN 12 Creatinine 0.6 L Est GFR ( Amer) > 60 Est GFR (Non-Af Amer) > 60 POC Glucose (mg/dL) Random Glucose 137 H Calcium 8.0 L Phosphorus 4.0 Magnesium 1.9 Total Bilirubin 0.5 AST 21 ALT 22 Alkaline Phosphatase 97 Total Protein 5.6 L Albumin 2.8 L D Globulin 2.8 Albumin/Globulin Ratio 1.0 Procalcitonin Arterial Blood Potassium Urine Color Yellow Urine Clarity Turbid Urine pH 5.0 Ur Specific [place] 1.023 Urine Protein Negative Urine Glucose (UA) Normal Urine Ketones Trace Urine Blood Negative Urine Nitrate Negative Urine Bilirubin Negative Urine Urobilinogen Normal Ur Leukocyte Esterase Trace Urine WBC (Auto) 3 Urine RBC (Auto) 2 Amorphous Sediment Occ H Urine Bacteria Fluid Tot Cell Count Fluid Neutrophils Fluid Lymphocytes Fld Monocyte/Macrophag Fluid Comment 08/12/17 08/12/17 08/12/17 05:41 06:03 06:04 WBC 10.2 RBC 3.64 L Hgb 9.6 L Hct 29.6 L MCV 81.3 MCH 26.4 L MCHC 32.4 L RDW 15.6 H Plt Count 299 MPV 8.4 Neut % (Auto) 76.5 H Lymph % (Auto) 15.3 L [place] % (Auto) 6.5 Eos % (Auto) 1.1 Baso % (Auto) 0.6 Neut # (Auto) 7.8 H Lymph # (Auto) 1.5 [place] # (Auto) 0.7 Eos # (Auto) 0.1 Baso # (Auto) 0.1 Neutrophils % (Manual) Band Neutrophils % Lymphocytes % (Manual) Monocytes % (Manual) Platelet Estimate Puncture Site pCO2 pO2 HCO3 ABG pH ABG Total CO2 ABG O2 Saturation ABG Base Excess ABG Hemoglobin ABG Carboxyhemoglobin POC ABG HHb (Measured) ABG Methemoglobin Marc Test ABG Potassium A-a O2 Difference Respiratory Index Hgb O2 Saturation Glucose Lactate Vent Mode Mechanical Rate FiO2 Tidal Volume PEEP Sodium 140 Potassium 3.9 Chloride 106 Carbon Dioxide 24 Anion Gap 14 BUN 11 Creatinine 0.6 L Est GFR ( Amer) > 60 Est GFR (Non-Af Amer) > 60 POC Glucose (mg/dL) 116 H Random Glucose 124 H Calcium 8.2 L Phosphorus 3.9 Magnesium 2.0 Total Bilirubin 0.6 AST 21 ALT 27 Alkaline Phosphatase 91 Total Protein 5.7 L Albumin 2.8 L Globulin 2.9 Albumin/Globulin Ratio 1.0 Procalcitonin Arterial Blood Potassium Urine Color Urine Clarity Urine pH Ur Specific [place] Urine Protein Urine Glucose (UA) Urine Ketones Urine Blood Urine Nitrate Urine Bilirubin Urine Urobilinogen Ur Leukocyte Esterase Urine WBC (Auto) Urine RBC (Auto) Amorphous Sediment Urine Bacteria Fluid Tot Cell Count Fluid Neutrophils Fluid Lymphocytes Fld Monocyte/Macrophag Fluid Comment 08/12/17 08/12/17 11:33 15:20 WBC RBC Hgb Hct MCV MCH MCHC RDW Plt Count MPV Neut % (Auto) Lymph % (Auto) [place] % (Auto) Eos % (Auto) Baso % (Auto) Neut # (Auto) Lymph # (Auto) [place] # (Auto) Eos # (Auto) Baso # (Auto) Neutrophils % (Manual) Band Neutrophils % Lymphocytes % (Manual) Monocytes % (Manual) Platelet Estimate Puncture Site [place] pCO2 29 L pO2 82 HCO3 23.3 ABG pH 7.46 H ABG Total CO2 21.5 L ABG O2 Saturation 98.4 H ABG Base Excess -2.1 L ABG Hemoglobin ABG Carboxyhemoglobin POC ABG HHb (Measured) ABG Methemoglobin Marc Test Na ABG Potassium 3.3 L A-a O2 Difference 238.0 Respiratory Index 2.9 Hgb O2 Saturation Glucose 125 H Lactate 1.3 Vent Mode Mechanical Rate FiO2 50.0 Tidal Volume PEEP Sodium 141.0 Potassium Chloride 112.0 H Carbon Dioxide Anion Gap BUN Creatinine Est GFR ( Amer) Est GFR (Non-Af Amer) POC Glucose (mg/dL) 124 H Random Glucose Calcium Phosphorus Magnesium Total Bilirubin AST ALT Alkaline Phosphatase Total Protein Albumin Globulin Albumin/Globulin Ratio Procalcitonin Arterial Blood Potassium 3.3 L Urine Color Urine Clarity Urine pH Ur Specific [place] Urine Protein Urine Glucose (UA) Urine Ketones Urine Blood Urine Nitrate Urine Bilirubin Urine Urobilinogen Ur Leukocyte Esterase Urine WBC (Auto) Urine RBC (Auto) Amorphous Sediment Urine Bacteria Fluid Tot Cell Count Fluid Neutrophils Fluid Lymphocytes Fld Monocyte/Macrophag Fluid Comment Assessment & Plan (1) Pleural effusion, bilateral Status: Acute Comment: status post drainage of bilateral pleural effusion and pericardial window. Followup culture and sensitivity and cytology of fluid. Continue to monitor in ICU. Will follow (2) Pericardial effusion Status: Acute
--- NOTE | 2017-08-12 18:44 | CP.PCM.PN ---
Subjective - Date & Time of Evaluation Date of Evaluation: 08/12/17 Time of Evaluation: 12:00 - Subjective Subjective: clinically same Objective - Vital Signs/Intake and Output Vital Signs (last 24 hours): Temp Pulse Resp BP Pulse Ox 99.4 F 107 H 25 H 86/45 L 97 08/12/17 15:00 08/12/17 17:00 08/12/17 17:00 08/12/17 16:51 08/12/17 17:00 Intake and Output: 08/12/17 08/12/17 06:59 18:59 Intake Total 1418.2 881.2 Output Total 940 465 Balance 478.2 416.2 - Medications Medications: Current Medications Acetaminophen (Tylenol 650 Mg Supp) 650 mg [place] Q6 PRN PRN Reason: Fever >100.4 F Last Admin: 08/12/17 12:17 Dose: 650 mg Diphenhydramine HCl (Benadryl) 25 mg IM Q6H PRN PRN Reason: Agitation Haloperidol Lactate (Haldol) 2 mg IM Q6H PRN PRN Reason: Agitation Last Admin: 08/12/17 16:25 Dose: 2 mg Dexmedetomidine HCl 200 mcg/ (Sodium Chloride) 50 mls @ 3.63 mls/hr IV TITR PRN ; Protocol; 0.2 MCG/KG/HR PRN Reason: Until an adequate response is Last Titration: 08/12/17 11:20 Dose: 0.3 mcg/kg/hr, 5.45 mls/hr Sodium Chloride (Sodium Chloride 0.9%) 1,000 mls @ 50 mls/hr IV .Q20H NELIDA Last Admin: 08/12/17 11:00 Dose: 50 mls/hr Insulin Human Regular (Novolin R) 0 unit SC Q6 NELIDA PRN Reason: Protocol Last Admin: 08/12/17 18:02 Dose: Not Given Morphine Sulfate (Morphine) 2 mg IV Q4H PRN PRN Reason: Pain, moderate (4-7) Last Admin: 08/12/17 11:49 Dose: 2 mg Pantoprazole Sodium (Protonix Inj) 40 mg IVP DAILY NELIDA Tramadol HCl (Ultram) 25 mg PO TID PRN PRN Reason: Pain, severe (8-10) Last Admin: 08/11/17 00:13 Dose: 25 mg - Labs Labs: 08/12/17 06:04 08/12/17 06:03 PT 14.6 SECONDS (9.7-12.2) H 08/10/17 17:09 INR 1.3 08/10/17 17:09 APTT 29 SECONDS (21-34) 08/10/17 17:09 - Constitutional Appears: Well - Head Exam Head Exam: ATRAUMATIC, NORMAL INSPECTION, NORMOCEPHALIC - Eye Exam Eye Exam: EOMI, Normal appearance, PERRL Pupil Exam: NORMAL ACCOMODATION, PERRL - ENT Exam ENT Exam: Mucous Membranes Moist, Normal Exam - Neck Exam Neck Exam: Full ROM, Normal Inspection. absent: Lymphadenopathy - Respiratory Exam Respiratory Exam: Decreased Breath Sounds - Cardiovascular Exam Cardiovascular Exam: REGULAR RHYTHM, +S1, +S2 - GI/Abdominal Exam GI & Abdominal Exam: Soft, Diminished Bowel Sounds - Rectal Exam Rectal Exam: Deferred
--- NOTE | 2017-08-12 19:23 | CP.PCM.PN ---
Subjective - Date & Time of Evaluation Date of Evaluation: 08/12/17 Time of Evaluation: 19:25 - Subjective Subjective: Awake, alert and oriented slight lethargy Extubated: s/p large pericardial effusion and large pleural effusion seen on CT chest --> s /p pericardial window and chest tube 08/11/17 No acute distress drains in place TELE: mild sinus tach BP: mild hypotension: ASX Objective - Vital Signs/Intake and Output Vital Signs (last 24 hours): Temp Pulse Resp BP Pulse Ox 99.8 F H 97 H 16 82/52 L 96 08/12/17 19:00 08/12/17 19:00 08/12/17 19:00 08/12/17 18:38 08/12/17 19:00 Intake and Output: 08/12/17 08/13/17 18:59 06:59 Intake Total 881.2 110 Output Total 465 180 Balance 416.2 -70 - Medications Medications: Current Medications Acetaminophen (Tylenol 650 Mg Supp) 650 mg NE Q6 PRN PRN Reason: Fever >100.4 F Last Admin: 08/12/17 12:17 Dose: 650 mg Diphenhydramine HCl (Benadryl) 25 mg IM Q6H PRN PRN Reason: Agitation Haloperidol Lactate (Haldol) 2 mg IM Q6H PRN PRN Reason: Agitation Last Admin: 08/12/17 16:25 Dose: 2 mg Dexmedetomidine HCl 200 mcg/ (Sodium Chloride) 50 mls @ 3.63 mls/hr IV TITR PRN ; Protocol; 0.2 MCG/KG/HR PRN Reason: Until an adequate response is Last Titration: 08/12/17 11:20 Dose: 0.3 mcg/kg/hr, 5.45 mls/hr Sodium Chloride (Sodium Chloride 0.9%) 1,000 mls @ 50 mls/hr IV .Q20H NELIDA Last Admin: 08/12/17 11:00 Dose: 50 mls/hr Insulin Human Regular (Novolin R) 0 unit SC Q6 NELIDA PRN Reason: Protocol Last Admin: 08/12/17 18:02 Dose: Not Given Morphine Sulfate (Morphine) 2 mg IV Q4H PRN PRN Reason: Pain, moderate (4-7) Last Admin: 08/12/17 11:49 Dose: 2 mg Pantoprazole Sodium (Protonix Inj) 40 mg IVP DAILY NELIDA Tramadol HCl (Ultram) 25 mg PO TID PRN PRN Reason: Pain, severe (8-10) Last Admin: 08/11/17 00:13 Dose: 25 mg - Labs Labs: 08/12/17 06:04 08/12/17 06:03 PT 14.6 SECONDS (9.7-12.2) H 08/10/17 17:09 INR 1.3 08/10/17 17:09 APTT 29 SECONDS (21-34) 08/10/17 17:09 - Constitutional Appears: No Acute Distress - Head Exam Head Exam: ATRAUMATIC, NORMAL INSPECTION, NORMOCEPHALIC - Eye Exam Eye Exam: EOMI, Normal appearance, PERRL - Respiratory Exam Respiratory Exam: NORMAL BREATHING PATTERN. absent: Wheezes - Cardiovascular Exam Cardiovascular Exam: Tachycardia, +S1, +S2. absent: JVD, Rubs, +S4, Murmur - Extremities Exam Extremities Exam: absent: Calf Tenderness, Pedal Edema Assessment and Plan - Assessment and Plan (Free Text) Assessment: Hx of R. Breast CA SOB, hypoxia, lethargy > Large perical effusion on CT chest, B/L large pleural effusions > EKG initial: sinus tach, low voltage, non-specific ST changes > hx of R. breast CA Now s/p chest tube and pericardial window with drains: f/u cytology BP: ASX mild hypotension Lab: Mild anemia, normal creat, elevated sugars Continue to monitor drainage f/u 2D echo Supportive care, DM control, DVT prophylaxis
[2017-08-12] MEDS: Vancomycin 1 gm/NS 200 ml 1 GM/200 ML BAG IVPB SCH (21:52)
[2017-08-12] MEDS ORDERED: Sodium Chloride 0.9% 1,000 ML IV ONE (22:07)
[2017-08-13] MEDS: Albuterol-Ipratrop 3 mg / 0.5 (3 ml) UD INH SCH ×2 (00:12→04:16)
[2017-08-13] MEDS ORDERED: Sodium Chloride 0.9% 1,000 ML IV ONE (00:50)
[2017-08-13] MEDS ORDERED: Metoprolol 1 mg/ml Inj IVP ONE (01:01)
[2017-08-13 01:20] LABS: VENOUS BLOOD GAS PCO2 40 mmHg (40-60); VENOUS BLOOD GAS PO2 35 mm/Hg (30-55); VENOUS BLOOD PH 7.37 (7.32-7.43)
[2017-08-13 01:40] LABS: BASO # 0.1 K/uL (0.0-0.2); BASO % 0.8 % (0.0-2.0); EOS # 0.1 K/uL (0.0-0.7); EOS % 1.7 % (0.0-4.0); HEMOGLOBIN 8.5 g/dL (11.0-16.0); LYMPH # 1.3 K/uL (1.0-4.3); LYMPH % 16.2 % (20.0-40.0); MEAN CELL VOLUME 81.8 fL (81.0-99.0); MEAN CORPUSCULAR HEMOGLOBIN 26.8 pg (27.0-31.0); MEAN CORPUSCULAR HGB CONC 32.7 g/dL (33.0-37.0); MEAN PLATELET VOLUME 8.3 fL (7.2-11.7); MONO # 0.6 K/uL (0.0-0.8); MONO % 7.8 % (0.0-10.0); NEUT # 5.9 K/uL (1.8-7.0); NEUT % 73.5 % (50.0-75.0); RBC 3.18 Mil/uL (3.80-5.20)
[2017-08-13 02:10] LABS: ALB/GLOB RATIO 0.9 (1.0-2.1); ALBUMIN 2.4 g/dL (3.5-5.0); ALT/SGPT 22 U/L (9-52); AST/SGOT 21 U/L (14-36); BLOOD UREA NITROGEN 10 mg/dL (7-17); CALCIUM 7.6 mg/dl (8.6-10.4); GFR AFRICAN-AMERICAN > 60; GFR NON-AFRICAN AMERICAN > 60
[2017-08-13] MEDS: Sodium Chloride 0.9% 1,000 ML IV SCH ×2 (04:02→21:02)
[2017-08-13] MEDS: Tramadol 25 mg PO PRN ×3 (04:42→19:19)
[2017-08-13] MEDS: (Novolin R) Insulin Human Regular 100 units/ml vial SC SCH ×5 (05:23→21:11)
[2017-08-13] MEDS ORDERED: Albumin Human 25% (12.5 gm/50 ml) IV ONE (05:39)
--- NOTE | 2017-08-13 06:00 | CP.PCM.PN ---
Subjective - Date & Time of Evaluation Date of Evaluation: 08/13/17 Time of Evaluation: 05:53 - Subjective Subjective: Patient had episode of tachycardia in range of 180-190 irregular, narrow complex without p waves, clinical diagnosis of afib with rvr, patient haldol, benadryl, duoneb discontinued. Started given clonazepam has h/o being on bzd for long time, and 2.5mg of metoprolol iv to reduce perioperative catecholamine release. Patient even prior to that has been having low output about 20ml/hr, BP has been range of 90/60, normal lactate, but febrile, has been started on empiric abx last evening, patient overnight received 3 lit ivf, albumin 25 gm ordered now. Objective - Vital Signs/Intake and Output Vital Signs (last 24 hours): Temp Pulse Resp BP Pulse Ox 98.4 F 89 22 94/55 L 98 08/13/17 00:08 08/13/17 05:00 08/13/17 05:00 08/13/17 05:00 08/13/17 05:00 Intake and Output: 08/12/17 08/13/17 18:59 06:59 Intake Total 881.2 2710 Output Total 465 480 Balance 416.2 2230 - Medications Medications: Current Medications Acetaminophen (Tylenol 650 Mg Supp) 650 mg [place] Q6 PRN PRN Reason: Fever >100.4 F Last Admin: 08/12/17 12:17 Dose: 650 mg Sodium Chloride (Sodium Chloride 0.9%) 1,000 mls @ 50 mls/hr IV .Q20H NELIDA Last Admin: 08/13/17 04:02 Dose: Not Given Ceftriaxone Sodium 1 gm/ (Sodium Chloride) 100 mls @ 100 mls/hr IVPB DAILY NELIDA PRN Reason: Protocol Vancomycin/Sodium Chloride (Vancomycin 1 Gm/Ns 200 Ml) 1 gm in 200 mls @ 133 mls/hr IVPB Q12H NELIDA PRN Reason: Protocol Stop: 08/17/17 21:31 Last Admin: 08/12/17 21:52 Dose: 133 mls/hr Insulin Human Regular (Novolin R) 0 unit SC ACHS NELIDA PRN Reason: Protocol Morphine Sulfate (Morphine) 2 mg IV Q4H PRN PRN Reason: Pain, moderate (4-7) Last Admin: 08/12/17 19:35 Dose: 2 mg Pantoprazole Sodium (Protonix Inj) 40 mg IVP DAILY NELIDA Tramadol HCl (Ultram) 25 mg PO TID PRN PRN Reason: Pain, severe (8-10) Last Admin: 08/13/17 04:42 Dose: 25 mg - Labs Labs: 08/13/17 01:33 08/13/17 01:33 PT 14.6 SECONDS (9.7-12.2) H 08/10/17 17:09 INR 1.3 08/10/17 17:09 APTT 29 SECONDS (21-34) 08/10/17 17:09
--- NOTE | 2017-08-13 07:57 | RAD ---
Chest x-ray single frontal view History: Postoperative evaluation. Comparison: 08/12/2017 Findings: Left chest wall port with tip extending to the confluence of the right brachiocephalic and SVC junction. Catheter tubing projects over the medial left mid lung zone and right lung base. Moderate left loculated pleural effusion. Confluent consolidative changes seen in the left mid to lower lung zone as well as the right lung base. Biapical pleural thickening with upper lobe granulomatous changes. Moderate to severe venous congestion. Right infrahilar consolidative changes. Surgical clips project over the upper abdomen. Cardiomegaly. Interval removal of an endotracheal tube. Right paratracheal prominence may represent prominent vasculature. Impression: Left chest wall port with tip extending to the confluence of the right brachiocephalic and SVC junction. Catheter tubing projects over the medial left mid lung zone and right lung base. Moderate left loculated pleural effusion. Confluent consolidative changes seen in the left mid to lower lung zone as well as the right lung base. Biapical pleural thickening with upper lobe granulomatous changes. Moderate to severe venous congestion. Right infrahilar consolidative changes. Surgical clips project over the upper abdomen. Cardiomegaly. Interval removal of an endotracheal tube. Right paratracheal prominence may represent prominent vasculature.
--- NOTE | 2017-08-13 09:11 | CP.PCM.PN ---
Subjective - Date & Time of Evaluation Date of Evaluation: 08/13/17 Time of Evaluation: 09:07 - Subjective Subjective: Thoracic Surgery - Dr. Cerda Pt S&E. Overnight pt had some confusion and was trying to remove tubes/lines so was placed on 1:1. She also had little-no urine output overnight in the [facility], nursing is going to bladder scan. This morning pt is AAOx3 and answering questions appropriately. She denies any SOB, admits to some pain from the incision/chest tubes. B/L CT in place to wall suction w/ 500cc/24hrs. Objective - Vital Signs/Intake and Output Vital Signs (last 24 hours): Temp Pulse Resp BP Pulse Ox 98.5 F 94 H 15 96/42 L 96 08/13/17 08:00 08/13/17 08:30 08/13/17 08:30 08/13/17 07:58 08/13/17 08:30 Intake and Output: 08/13/17 08/13/17 06:59 18:59 Intake Total 2760 350 Output Total 495 50 Balance 2265 300 - Medications Medications: Current Medications Acetaminophen (Tylenol 650 Mg Supp) 650 mg FL Q6 PRN PRN Reason: Fever >100.4 F Last Admin: 08/12/17 12:17 Dose: 650 mg Sodium Chloride (Sodium Chloride 0.9%) 1,000 mls @ 50 mls/hr IV .Q20H NELIDA Last Admin: 08/13/17 04:02 Dose: Not Given Ceftriaxone Sodium 1 gm/ (Sodium Chloride) 100 mls @ 100 mls/hr IVPB DAILY NELIDA PRN Reason: Protocol Vancomycin/Sodium Chloride (Vancomycin 1 Gm/Ns 200 Ml) 1 gm in 200 mls @ 133 mls/hr IVPB Q12H NELIDA PRN Reason: Protocol Stop: 08/17/17 21:31 Last Admin: 08/12/17 21:52 Dose: 133 mls/hr Insulin Human Regular (Novolin R) 0 unit SC ACHS NELIDA PRN Reason: Protocol Last Admin: 08/13/17 08:15 Dose: Not Given Morphine Sulfate (Morphine) 2 mg IV Q4H PRN PRN Reason: Pain, moderate (4-7) Last Admin: 08/12/17 19:35 Dose: 2 mg Pantoprazole Sodium (Protonix Inj) 40 mg IVP DAILY NELIDA Tramadol HCl (Ultram) 25 mg PO TID PRN PRN Reason: Pain, severe (8-10) Last Admin: 08/13/17 08:56 Dose: 25 mg - Labs Labs: 08/13/17 01:33 08/13/17 01:33 PT 14.6 SECONDS (9.7-12.2) H 08/10/17 17:09 INR 1.3 08/10/17 17:09 APTT 29 SECONDS (21-34) 08/10/17 17:09 - Constitutional Appears: No Acute Distress - Head Exam Head Exam: ATRAUMATIC, NORMAL INSPECTION, NORMOCEPHALIC - Eye Exam Eye Exam: Normal appearance - Respiratory Exam Respiratory Exam: NORMAL BREATHING PATTERN. absent: Respiratory Distress Additional comments: b/l CT in place to wall suction, 500cc serosanguinous drainage, Dressings changed C/D/I - Neurological Exam Neurological Exam: Alert, Oriented x3 - Psychiatric Exam Psychiatric exam: Normal Affect, Normal Mood - Skin Skin Exam: Dry, Intact Assessment and Plan - Assessment and Plan (Free Text) Assessment: 61F POD #2 s/p Anterior Thoracotomy, Pericardial Window, Insertion of B/L Chest tubes Plan: Monitor CT output Dressing changed Pain control F/U Bladder scan/Urine output Consider Lasix given venous congestion seen on CXR DW attending
[2017-08-13] MEDS ORDERED: Potassium Chloride 20 mEq ER Tab PO ONE (09:45)
[2017-08-13] MEDS: Enoxaparin 40 mg Syringe SC SCH (09:45)
[2017-08-13] MEDS: Vancomycin 1 gm/NS 200 ml 1 GM/200 ML BAG IVPB SCH ×2 (09:46→20:58)
[2017-08-13] MEDS ORDERED: Oxycodone/Acetaminophen 5/325 mg Tab PO ONE (11:21)
--- NOTE | 2017-08-13 11:37 | CP.CCUPN ---
<Brent Parker - Last Filed: 08/13/17 11:29> CCU Subjective - Physician Review Subjective (Free Text): 08/11/17 11:32 Patient seen and examined at bedside. Patient reports some pleuritic chest discomfort and some shortness of breath. No other complaints at this time. She is resting and anticipating surgery. 08/12/17 11:29 Patient seen and examined. Patient is intubated and sedated on Diprivan early this morning. Per staff, overnight the patient was febrile with Tmax 102.3. 08/13/17 11:29 Patient seen and examined. Patient reports feeling better this morning. Patient is not currently agitated. She does have some pleuritic chest pain that prevents her from taking a deep breath. Patient had episode of Afib with RVR overnight and was briefly hypotensive. She was given fluid resuscitation 3 liters and dose of albumin which improved her blood pressure. CCU Objective - Vital Signs / Intake & Output Vital Signs (Last 4 hours): Vital Signs Temp Pulse Resp BP Pulse Ox 08/13/17 10:32 95 H 12 93/51 L 97 08/13/17 10:30 96 H 20 08/13/17 10:00 95 H 22 97 08/13/17 09:55 93 H 21 93/39 L 97 08/13/17 09:30 97 H 30 H 98 08/13/17 09:00 99 H 33 H 97 08/13/17 08:55 99 H 22 105/44 L 97 08/13/17 08:30 94 H 15 96 08/13/17 08:00 98.5 F 92 H 38 H 90 L 08/13/17 07:58 94 H 19 96/42 L 89 L Intake and Output (Last 8hrs): Intake & Output 08/12/17 08/13/17 08/13/17 22:59 06:59 14:59 Intake Total 615.6 2300 950 Output Total 455 175 105 Balance 160.6 2125 845 Weight 165 lb 3.2 oz Intake: Intake, IV Amount 555.6 2300 500 Left Antecubital 5.6 300 Left Forearm 200 Left Forearm Y site 350 2300 200 Oral 60 450 Output: Chest Tube Drainage 180 Bilateral Upper Anterior 180 Chest Urine 275 175 105 Urethral ([place]) 275 175 105 Stool 0 Emesis 0 Other: # Bowel Movements 0 - Physical Exam Head: Positive for: Atraumatic, Normocephalic Pupils: Positive for: PERRL Extroacular Muscles: Positive for: EOMI Conjunctiva: Positive for: Normal Mouth: Positive for: Moist Mucous Membranes Neck: Positive for: Normal Range of Motion Respiratory/Chest: Positive for: Clear to Auscultation, Other (portacath in place. Two chest tubes). Negative for: Wheezes, Rales, Rhonchi Cardiovascular: Positive for: Regular Rate and Rhythm, Normal S1, S2 Abdomen: Positive for: Normal Bowel Sounds. Negative for: Tenderness Upper Extremity: Positive for: Edema Lower Extremity: Positive for: Normal Inspection Neurological: Positive for: GCS=15 Skin: Positive for: Warm, Dry Psychiatric: Positive for: Alert, Oriented x 3 - Medications Active Medications: Active Medications Generic Name Dose Route Start Last Admin Trade Name Freq PRN Reason Stop Dose Admin Acetaminophen 650 mg 08/12/17 11:42 08/12/17 12:17 Tylenol 650 Mg Supp NE 650 mg Q6 PRN Administration Fever >100.4 F Enoxaparin Sodium 40 mg 08/13/17 10:00 08/13/17 09:45 Lovenox SC 40 mg DAILY NELIDA Administration Sodium Chloride 1,000 mls @ 50 mls/hr 08/12/17 09:00 08/13/17 04:02 Sodium Chloride 0.9% IV Not Given .Q20H NELIDA Ceftriaxone Sodium 1 gm/ 100 mls @ 100 mls/hr 08/13/17 10:00 08/13/17 09:45 Sodium Chloride IVPB 100 mls/hr DAILY NELIDA Administration Protocol Vancomycin/Sodium Chloride 1 gm in 200 mls @ 133 mls/hr 08/12/17 21:30 09:46 Vancomycin 1 Gm/Ns 200 Ml IVPB 08/17/17 21:31 133 mls/hr Q12H NELIDA Administration Protocol Insulin Human Regular 0 unit 08/13/17 07:30 08/13/17 11:17 Novolin R SC Not Given ACHS NELIDA Protocol Morphine Sulfate 2 mg 08/11/17 13:41 08/12/17 19:35 Morphine IV 2 mg Q4H PRN Administration Pain, moderate (4-7) Tramadol HCl 25 mg 08/10/17 23:56 08/13/17 08:56 Ultram PO 25 mg TID PRN Administration Pain, severe (8-10) - Patient Studies Lab Studies: Microbiology Studies 08/11/17 23:17 Urine Culture - Final Urine,Catheterized No Growth (<1,000 CFU/ML) 08/11/17 23:15 Blood Culture - Preliminary Blood-Venous NO GROWTH AFTER 24 HOURS 08/11/17 23:15 Blood Culture - Preliminary Blood-Venous NO GROWTH AFTER 24 HOURS 08/11/17 23:17 Gram Stain - Final Trachasp 08/10/17 23:18 MRSA Culture (Admit) - Final Naris MRSA NOT DETECTED 08/11/17 10:10 Gram Stain - Final Pleural Fluid Body Fluid Culture - Preliminary NO GROWTH AFTER 24 HOURS 08/11/17 13:41 Urine Culture - Final Urine,[place] No Growth (<1,000 CFU/ML) Lab Studies 08/13/17 08/13/17 08/13/17 Range/Units 10:57 07:54 05:23 WBC (4.8-10.8) K/uL RBC (3.80-5.20) Mil/uL Hgb (11.0-16.0) g/dL Hct (34.0-47.0) % MCV (81.0-99.0) fL MCH (27.0-31.0) pg MCHC (33.0-37.0) g/dL RDW (11.5-14.5) % Plt Count (130-400) K/uL MPV (7.2-11.7) fL Neut % (Auto) (50.0-75.0) % Lymph % (Auto) (20.0-40.0) % [place] % (Auto) (0.0-10.0) % Eos % (Auto) (0.0-4.0) % Baso % (Auto) (0.0-2.0) % Neut # (Auto) (1.8-7.0) K/uL Lymph # (Auto) (1.0-4.3) K/uL [place] # (Auto) (0.0-0.8) K/uL Eos # (Auto) (0.0-0.7) K/uL Baso # (Auto) (0.0-0.2) K/uL Puncture Site pCO2 (35-45) mm/Hg pO2 (80-100) mm/Hg HCO3 (21-28) mmol/L ABG pH (7.35-7.45) ABG Total CO2 (22-28) mmol/L ABG O2 Saturation (95-98) % ABG Base Excess (-2.0-3.0) mmol/L Marc Test ABG Potassium (3.6-5.2) mmol/L VBG pH (7.32-7.43) VBG pCO2 (40-60) mmHg VBG HCO3 mmol/L VBG Total CO2 (22-28) mmol/L VBG O2 Sat (Calc) (40-65) % VBG Base Excess (0.0-2.0) mmol/L VBG Potassium (3.6-5.2) mmol/L A-a O2 Difference mm/Hg Respiratory Index Sodium (132-148) mmol/l Chloride (98-107) mmol/L Glucose (65-105) mg/dl Lactate (0.7-2.1) mmol/L Liter Flow FiO2 % Crit Value Called To Crit Value Called By Crit Value Read Back Blood Gas Notified Time Potassium (3.6-5.2) mmol/L Carbon Dioxide (22-30) mmol/L Anion Gap (10-20) BUN (7-17) mg/dL Creatinine (0.7-1.2) mg/dL Est GFR ( Amer) Est GFR (Non-Af Amer) POC Glucose (mg/dL) 133 H 135 H 88 (65-110) mg/dL Random Glucose (65-105) mg/dL Calcium (8.6-10.4) mg/dl Phosphorus (2.5-4.5) mg/dL Magnesium (1.6-2.3) mg/dL Total Bilirubin (0.2-1.3) mg/dL AST (14-36) U/L ALT (9-52) U/L Alkaline Phosphatase (38-126) U/L Total Protein (6.3-8.3) g/dL Albumin (3.5-5.0) g/dL Globulin (2.2-3.9) gm/dL Albumin/Globulin Ratio (1.0-2.1) Procalcitonin (0.19-0.49) NG/ML Cortisol AM Sample (4.46-22.7) ug/dL Arterial Blood Potassium (3.6-5.2) mmol/L Venous Blood Potassium (3.6-5.2) mmol/L 08/13/17 08/13/17 08/13/17 Range/Units 02:11 01:33 01:33 WBC 8.0 (4.8-10.8) K/uL RBC 3.18 L (3.80-5.20) Mil/uL Hgb 8.5 L (11.0-16.0) g/dL Hct 26.0 L (34.0-47.0) % MCV 81.8 (81.0-99.0) fL MCH 26.8 L (27.0-31.0) pg MCHC 32.7 L (33.0-37.0) g/dL RDW 15.0 H (11.5-14.5) % Plt Count 233 (130-400) K/uL MPV 8.3 (7.2-11.7) fL Neut % (Auto) 73.5 (50.0-75.0) % Lymph % (Auto) 16.2 L (20.0-40.0) % [place] % (Auto) 7.8 (0.0-10.0) % Eos % (Auto) 1.7 (0.0-4.0) % Baso % (Auto) 0.8 (0.0-2.0) % Neut # (Auto) 5.9 (1.8-7.0) K/uL Lymph # (Auto) 1.3 (1.0-4.3) K/uL [place] # (Auto) 0.6 (0.0-0.8) K/uL Eos # (Auto) 0.1 (0.0-0.7) K/uL Baso # (Auto) 0.1 (0.0-0.2) K/uL Puncture Site pCO2 (35-45) mm/Hg pO2 (80-100) mm/Hg HCO3 (21-28) mmol/L ABG pH (7.35-7.45) ABG Total CO2 (22-28) mmol/L ABG O2 Saturation (95-98) % ABG Base Excess (-2.0-3.0) mmol/L Marc Test ABG Potassium (3.6-5.2) mmol/L VBG pH (7.32-7.43) VBG pCO2 (40-60) mmHg VBG HCO3 mmol/L VBG Total CO2 (22-28) mmol/L VBG O2 Sat (Calc) (40-65) % VBG Base Excess (0.0-2.0) mmol/L VBG Potassium (3.6-5.2) mmol/L A-a O2 Difference mm/Hg Respiratory Index Sodium 144 (132-148) mmol/l Chloride 110 H (98-107) mmol/L Glucose (65-105) mg/dl Lactate (0.7-2.1) mmol/L Liter Flow FiO2 % Crit Value Called To Crit Value Called By Crit Value Read Back Blood Gas Notified Time Potassium 3.6 (3.6-5.2) mmol/L Carbon Dioxide 22 (22-30) mmol/L Anion Gap 15 (10-20) BUN 10 (7-17) mg/dL Creatinine 0.7 (0.7-1.2) mg/dL Est GFR ( Amer) > 60 Est GFR (Non-Af Amer) > 60 POC Glucose (mg/dL) (65-110) mg/dL Random Glucose 84 (65-105) mg/dL Calcium 7.6 L (8.6-10.4) mg/dl Phosphorus 2.8 (2.5-4.5) mg/dL Magnesium 2.0 (1.6-2.3) mg/dL Total Bilirubin 0.6 (0.2-1.3) mg/dL AST 21 (14-36) U/L ALT 22 (9-52) U/L Alkaline Phosphatase 80 (38-126) U/L Total Protein 5.1 L (6.3-8.3) g/dL Albumin 2.4 L (3.5-5.0) g/dL Globulin 2.7 (2.2-3.9) gm/dL Albumin/Globulin Ratio 0.9 L (1.0-2.1) Procalcitonin (0.19-0.49) NG/ML Cortisol AM Sample 12.8 (4.46-22.7) ug/dL Arterial Blood Potassium (3.6-5.2) mmol/L Venous Blood Potassium (3.6-5.2) mmol/L 08/13/17 08/12/17 08/12/17 Range/Units 01:12 23:31 22:38 WBC (4.8-10.8) K/uL RBC (3.80-5.20) Mil/uL Hgb (11.0-16.0) g/dL Hct (34.0-47.0) % MCV (81.0-99.0) fL MCH (27.0-31.0) pg MCHC (33.0-37.0) g/dL RDW (11.5-14.5) % Plt Count (130-400) K/uL MPV (7.2-11.7) fL Neut % (Auto) (50.0-75.0) % Lymph % (Auto) (20.0-40.0) % [place] % (Auto) (0.0-10.0) % Eos % (Auto) (0.0-4.0) % Baso % (Auto) (0.0-2.0) % Neut # (Auto) (1.8-7.0) K/uL Lymph # (Auto) (1.0-4.3) K/uL [place] # (Auto) (0.0-0.8) K/uL Eos # (Auto) (0.0-0.7) K/uL Baso # (Auto) (0.0-0.2) K/uL Puncture Site pCO2 (35-45) mm/Hg pO2 35 (80-100) mm/Hg HCO3 (21-28) mmol/L ABG pH (7.35-7.45) ABG Total CO2 (22-28) mmol/L ABG O2 Saturation (95-98) % ABG Base Excess (-2.0-3.0) mmol/L Marc Test ABG Potassium (3.6-5.2) mmol/L VBG pH 7.37 (7.32-7.43) VBG pCO2 40 (40-60) mmHg VBG HCO3 22.5 mmol/L VBG Total CO2 24.3 (22-28) mmol/L VBG O2 Sat (Calc) 72.0 H (40-65) % VBG Base Excess -2.0 L (0.0-2.0) mmol/L VBG Potassium 3.6 (3.6-5.2) mmol/L A-a O2 Difference mm/Hg Respiratory Index Sodium 141.0 (132-148) mmol/l Chloride 111.0 H (98-107) mmol/L Glucose 89 (65-105) mg/dl Lactate 1.1 (0.7-2.1) mmol/L Liter Flow 4.0 FiO2 % Crit Value Called To Dyan ruiz vocational horticulture instructor Crit Value Called By Dulce jones rt Crit Value Read Back Y Blood Gas Notified Time 120 Potassium (3.6-5.2) mmol/L Carbon Dioxide (22-30) mmol/L Anion Gap (10-20) BUN (7-17) mg/dL Creatinine (0.7-1.2) mg/dL Est GFR ( Amer) Est GFR (Non-Af Amer) POC Glucose (mg/dL) 86 90 (65-110) mg/dL Random Glucose (65-105) mg/dL Calcium (8.6-10.4) mg/dl Phosphorus (2.5-4.5) mg/dL Magnesium (1.6-2.3) mg/dL Total Bilirubin (0.2-1.3) mg/dL AST (14-36) U/L ALT (9-52) U/L Alkaline Phosphatase (38-126) U/L Total Protein (6.3-8.3) g/dL Albumin (3.5-5.0) g/dL Globulin (2.2-3.9) gm/dL Albumin/Globulin Ratio (1.0-2.1) Procalcitonin (0.19-0.49) NG/ML Cortisol AM Sample (4.46-22.7) ug/dL Arterial Blood Potassium (3.6-5.2) mmol/L Venous Blood Potassium 3.6 (3.6-5.2) mmol/L 08/12/17 08/12/17 08/12/17 Range/Units 17:59 15:20 11:33 WBC (4.8-10.8) K/uL RBC (3.80-5.20) Mil/uL Hgb (11.0-16.0) g/dL Hct (34.0-47.0) % MCV (81.0-99.0) fL MCH (27.0-31.0) pg MCHC (33.0-37.0) g/dL RDW (11.5-14.5) % Plt Count (130-400) K/uL MPV (7.2-11.7) fL Neut % (Auto) (50.0-75.0) % Lymph % (Auto) (20.0-40.0) % [place] % (Auto) (0.0-10.0) % Eos % (Auto) (0.0-4.0) % Baso % (Auto) (0.0-2.0) % Neut # (Auto) (1.8-7.0) K/uL Lymph # (Auto) (1.0-4.3) K/uL [place] # (Auto) (0.0-0.8) K/uL Eos # (Auto) (0.0-0.7) K/uL Baso # (Auto) (0.0-0.2) K/uL Puncture Site Olga pCO2 29 L (35-45) mm/Hg pO2 82 (80-100) mm/Hg HCO3 23.3 (21-28) mmol/L ABG pH 7.46 H (7.35-7.45) ABG Total CO2 21.5 L (22-28) mmol/L ABG O2 Saturation 98.4 H (95-98) % ABG Base Excess -2.1 L (-2.0-3.0) mmol/L Marc Test Na ABG Potassium 3.3 L (3.6-5.2) mmol/L VBG pH (7.32-7.43) VBG pCO2 (40-60) mmHg VBG HCO3 mmol/L VBG Total CO2 (22-28) mmol/L VBG O2 Sat (Calc) (40-65) % VBG Base Excess (0.0-2.0) mmol/L VBG Potassium (3.6-5.2) mmol/L A-a O2 Difference 238.0 mm/Hg Respiratory Index 2.9 Sodium 141.0 (132-148) mmol/l Chloride 112.0 H (98-107) mmol/L Glucose 125 H (65-105) mg/dl Lactate 1.3 (0.7-2.1) mmol/L Liter Flow FiO2 50.0 % Crit Value Called To Crit Value Called By Crit Value Read Back Blood Gas Notified Time Potassium (3.6-5.2) mmol/L Carbon Dioxide (22-30) mmol/L Anion Gap (10-20) BUN (7-17) mg/dL Creatinine (0.7-1.2) mg/dL Est GFR ( Amer) Est GFR (Non-Af Amer) POC Glucose (mg/dL) 131 H 124 H (65-110) mg/dL Random Glucose (65-105) mg/dL Calcium (8.6-10.4) mg/dl Phosphorus (2.5-4.5) mg/dL Magnesium (1.6-2.3) mg/dL Total Bilirubin (0.2-1.3) mg/dL AST (14-36) U/L ALT (9-52) U/L Alkaline Phosphatase (38-126) U/L Total Protein (6.3-8.3) g/dL Albumin (3.5-5.0) g/dL Globulin (2.2-3.9) gm/dL Albumin/Globulin Ratio (1.0-2.1) Procalcitonin (0.19-0.49) NG/ML Cortisol AM Sample (4.46-22.7) ug/dL Arterial Blood Potassium 3.3 L (3.6-5.2) mmol/L Venous Blood Potassium (3.6-5.2) mmol/L 08/12/17 Range/Units 00:15 WBC (4.8-10.8) K/uL RBC (3.80-5.20) Mil/uL Hgb (11.0-16.0) g/dL Hct (34.0-47.0) % MCV (81.0-99.0) fL MCH (27.0-31.0) pg MCHC (33.0-37.0) g/dL RDW (11.5-14.5) % Plt Count (130-400) K/uL MPV (7.2-11.7) fL Neut % (Auto) (50.0-75.0) % Lymph % (Auto) (20.0-40.0) % [place] % (Auto) (0.0-10.0) % Eos % (Auto) (0.0-4.0) % Baso % (Auto) (0.0-2.0) % Neut # (Auto) (1.8-7.0) K/uL Lymph # (Auto) (1.0-4.3) K/uL [place] # (Auto) (0.0-0.8) K/uL Eos # (Auto) (0.0-0.7) K/uL Baso # (Auto) (0.0-0.2) K/uL Puncture Site pCO2 (35-45) mm/Hg pO2 (80-100) mm/Hg HCO3 (21-28) mmol/L ABG pH (7.35-7.45) ABG Total CO2 (22-28) mmol/L ABG O2 Saturation (95-98) % ABG Base Excess (-2.0-3.0) mmol/L Marc Test ABG Potassium (3.6-5.2) mmol/L VBG pH (7.32-7.43) VBG pCO2 (40-60) mmHg VBG HCO3 mmol/L VBG Total CO2 (22-28) mmol/L VBG O2 Sat (Calc) (40-65) % VBG Base Excess (0.0-2.0) mmol/L VBG Potassium (3.6-5.2) mmol/L A-a O2 Difference mm/Hg Respiratory Index Sodium (132-148) mmol/l Chloride (98-107) mmol/L Glucose (65-105) mg/dl Lactate (0.7-2.1) mmol/L Liter Flow FiO2 % Crit Value Called To Crit Value Called By Crit Value Read Back Blood Gas Notified Time Potassium (3.6-5.2) mmol/L Carbon Dioxide (22-30) mmol/L Anion Gap (10-20) BUN (7-17) mg/dL Creatinine (0.7-1.2) mg/dL Est GFR ( Amer) Est GFR (Non-Af Amer) POC Glucose (mg/dL) (65-110) mg/dL Random Glucose (65-105) mg/dL Calcium (8.6-10.4) mg/dl Phosphorus (2.5-4.5) mg/dL Magnesium (1.6-2.3) mg/dL Total Bilirubin (0.2-1.3) mg/dL AST (14-36) U/L ALT (9-52) U/L Alkaline Phosphatase (38-126) U/L Total Protein (6.3-8.3) g/dL Albumin (3.5-5.0) g/dL Globulin (2.2-3.9) gm/dL Albumin/Globulin Ratio (1.0-2.1) Procalcitonin < 0.05 L (0.19-0.49) NG/ML Cortisol AM Sample (4.46-22.7) ug/dL Arterial Blood Potassium (3.6-5.2) mmol/L Venous Blood Potassium (3.6-5.2) mmol/L Laboratory Results - last 24 hr 08/12/17 08/12/17 08/12/17 00:15 11:33 15:20 WBC RBC Hgb Hct MCV MCH MCHC RDW Plt Count MPV Neut % (Auto) Lymph % (Auto) [place] % (Auto) Eos % (Auto) Baso % (Auto) Neut # (Auto) Lymph # (Auto) [place] # (Auto) Eos # (Auto) Baso # (Auto) Puncture Site Olga pCO2 29 L pO2 82 HCO3 23.3 ABG pH 7.46 H ABG Total CO2 21.5 L ABG O2 Saturation 98.4 H ABG Base Excess -2.1 L Marc Test Na ABG Potassium 3.3 L VBG pH VBG pCO2 VBG HCO3 VBG Total CO2 VBG O2 Sat (Calc) VBG Base Excess VBG Potassium A-a O2 Difference 238.0 Respiratory Index 2.9 Sodium 141.0 Chloride 112.0 H Glucose 125 H Lactate 1.3 Liter Flow FiO2 50.0 Crit Value Called To Crit Value Called By Crit Value Read Back Blood Gas Notified Time Potassium Carbon Dioxide Anion Gap BUN Creatinine Est GFR ( Amer) Est GFR (Non-Af Amer) POC Glucose (mg/dL) 124 H Random Glucose Calcium Phosphorus Magnesium Total Bilirubin AST ALT Alkaline Phosphatase Total Protein Albumin Globulin Albumin/Globulin Ratio Procalcitonin < 0.05 L Cortisol AM Sample Arterial Blood Potassium 3.3 L Venous Blood Potassium 08/12/17 08/12/17 08/12/17 17:59 22:38 23:31 WBC RBC Hgb Hct MCV MCH MCHC RDW Plt Count MPV Neut % (Auto) Lymph % (Auto) [place] % (Auto) Eos % (Auto) Baso % (Auto) Neut # (Auto) Lymph # (Auto) [place] # (Auto) Eos # (Auto) Baso # (Auto) Puncture Site pCO2 pO2 HCO3 ABG pH ABG Total CO2 ABG O2 Saturation ABG Base Excess Marc Test ABG Potassium VBG pH VBG pCO2 VBG HCO3 VBG Total CO2 VBG O2 Sat (Calc) VBG Base Excess VBG Potassium A-a O2 Difference Respiratory Index Sodium Chloride Glucose Lactate Liter Flow FiO2 Crit Value Called To Crit Value Called By Crit Value Read Back Blood Gas Notified Time Potassium Carbon Dioxide Anion Gap BUN Creatinine Est GFR ( Amer) Est GFR (Non-Af Amer) POC Glucose (mg/dL) 131 H 90 86 Random Glucose Calcium Phosphorus Magnesium Total Bilirubin AST ALT Alkaline Phosphatase Total Protein Albumin Globulin Albumin/Globulin Ratio Procalcitonin Cortisol AM Sample Arterial Blood Potassium Venous Blood Potassium 08/13/17 08/13/17 08/13/17 01:12 01:33 01:33 WBC 8.0 RBC 3.18 L Hgb 8.5 L Hct 26.0 L MCV 81.8 MCH 26.8 L MCHC 32.7 L RDW 15.0 H Plt Count 233 MPV 8.3 Neut % (Auto) 73.5 Lymph % (Auto) 16.2 L [place] % (Auto) 7.8 Eos % (Auto) 1.7 Baso % (Auto) 0.8 Neut # (Auto) 5.9 Lymph # (Auto) 1.3 [place] # (Auto) 0.6 Eos # (Auto) 0.1 Baso # (Auto) 0.1 Puncture Site pCO2 pO2 35 HCO3 ABG pH ABG Total CO2 ABG O2 Saturation ABG Base Excess Marc Test ABG Potassium VBG pH 7.37 VBG pCO2 40 VBG HCO3 22.5 VBG Total CO2 24.3 VBG O2 Sat (Calc) 72.0 H VBG Base Excess -2.0 L VBG Potassium 3.6 A-a O2 Difference Respiratory Index Sodium 141.0 144 Chloride 111.0 H 110 H Glucose 89 Lactate 1.1 Liter Flow 4.0 FiO2 Crit Value Called To Dyan ruiz vocational horticulture instructor Crit Value Called By Dulce robert rt Crit Value Read Back Y Blood Gas Notified Time 120 Potassium 3.6 Carbon Dioxide 22 Anion Gap 15 BUN 10 Creatinine 0.7 Est GFR ( Amer) > 60 Est GFR (Non-Af Amer) > 60 POC Glucose (mg/dL) Random Glucose 84 Calcium 7.6 L Phosphorus 2.8 Magnesium 2.0 Total Bilirubin 0.6 AST 21 ALT 22 Alkaline Phosphatase 80 Total Protein 5.1 L Albumin 2.4 L Globulin 2.7 Albumin/Globulin Ratio 0.9 L Procalcitonin Cortisol AM Sample Arterial Blood Potassium Venous Blood Potassium 3.6 08/13/17 08/13/17 08/13/17 02:11 05:23 07:54 WBC RBC Hgb Hct MCV MCH MCHC RDW Plt Count MPV Neut % (Auto) Lymph % (Auto) [place] % (Auto) Eos % (Auto) Baso % (Auto) Neut # (Auto) Lymph # (Auto) [place] # (Auto) Eos # (Auto) Baso # (Auto) Puncture Site pCO2 pO2 HCO3 ABG pH ABG Total CO2 ABG O2 Saturation ABG Base Excess Marc Test ABG Potassium VBG pH VBG pCO2 VBG HCO3 VBG Total CO2 VBG O2 Sat (Calc) VBG Base Excess VBG Potassium A-a O2 Difference Respiratory Index Sodium Chloride Glucose Lactate Liter Flow FiO2 Crit Value Called To Crit Value Called By Crit Value Read Back Blood Gas Notified Time Potassium Carbon Dioxide Anion Gap BUN Creatinine Est GFR ( Amer) Est GFR (Non-Af Amer) POC Glucose (mg/dL) 88 135 H Random Glucose Calcium Phosphorus Magnesium Total Bilirubin AST ALT Alkaline Phosphatase Total Protein Albumin Globulin Albumin/Globulin Ratio Procalcitonin Cortisol AM Sample 12.8 Arterial Blood Potassium Venous Blood Potassium 08/13/17 10:57 WBC RBC Hgb Hct MCV MCH MCHC RDW Plt Count MPV Neut % (Auto) Lymph % (Auto) [place] % (Auto) Eos % (Auto) Baso % (Auto) Neut # (Auto) Lymph # (Auto) [place] # (Auto) Eos # (Auto) Baso # (Auto) Puncture Site pCO2 pO2 HCO3 ABG pH ABG Total CO2 ABG O2 Saturation ABG Base Excess Marc Test ABG Potassium VBG pH VBG pCO2 VBG HCO3 VBG Total CO2 VBG O2 Sat (Calc) VBG Base Excess VBG Potassium A-a O2 Difference Respiratory Index Sodium Chloride Glucose Lactate Liter Flow FiO2 Crit Value Called To Crit Value Called By Crit Value Read Back Blood Gas Notified Time Potassium Carbon Dioxide Anion Gap BUN Creatinine Est GFR ( Amer) Est GFR (Non-Af Amer) POC Glucose (mg/dL) 133 H Random Glucose Calcium Phosphorus Magnesium Total Bilirubin AST ALT Alkaline Phosphatase Total Protein Albumin Globulin Albumin/Globulin Ratio Procalcitonin Cortisol AM Sample Arterial Blood Potassium Venous Blood Potassium EKG/Cardiology Studies: Cardiology / EKG Studies 08/13/17 09:16 EKG [ELECTROCARDIOGRAM] Routine Comment: Mode Of Transportation: Reason For Exam: afib Fingerstick Blood Sugar Results: 133 Critical Care Progress Note - Nutrition Nutrition: Nutrition Category Date Time Status Diabetic [Consistent Carbohydrate] [DIET] Diets 08/13/17 Breakfast Active Assessment/Plan - Assessment and Plan (Free Text) Assessment: This is a 61 year old female with PMHx breast CA presenting for shortness of breath. This is likely due to both the pericardial and the bilateral pleural effusions. Patient is POD #2 from pericardial window. Neuro Awake, Verbal Cardio Patient underwent pericardial window in the OR 08/11/17 f/u ECHO results Pulm Extubated on 08/12/17 Saturating well on Nasal Cannula Duoneb Q6 [facility] GI Diabetic Diet diet Endocrine Regular ISS ACHS-low dose Accuchecks Infectious Diseases Cultures negative so far Vancomycin 1 gm Q12 started 08/12/17 in the evening Rocephin 1 gm daily started 08/13/17 Heme/onc Monitor H/H Ultrasound for edematous arm negative Psychiatry Patient is less agitated today. Will DC 1:1 sitter Overnight, the haldol 2 mg IM Q6 and Benadryl 25 mg IM Q6 prn agitation were discontinued f/u further psychiatry recommendations Seen and discussed with Dr. Worthington <Devon Worthington M - Last Filed: 08/13/17 12:48> CCU Objective - Vital Signs / Intake & Output Vital Signs (Last 4 hours): Vital Signs Pulse Resp BP Pulse Ox 08/13/17 12:00 95 H 15 08/13/17 11:55 91 H 26 H 101/53 L 97 08/13/17 11:30 94 H 20 93 L 08/13/17 11:00 92 H 32 H 94 L 08/13/17 10:55 92 H 14 96/47 L 100 08/13/17 10:32 95 H 12 93/51 L 97 08/13/17 10:30 96 H 20 08/13/17 10:00 95 H 22 97 08/13/17 09:55 93 H 21 93/39 L 97 08/13/17 09:30 97 H 30 H 98 08/13/17 09:00 99 H 33 H 97 08/13/17 08:55 99 H 22 105/44 L 97 Intake and Output (Last 8hrs): Intake & Output 08/12/17 08/13/17 08/13/17 22:59 06:59 14:59 Intake Total 615.6 2300 1150 Output Total 455 175 170 Balance 160.6 2125 980 Weight 165 lb 3.2 oz Intake: Intake, IV Amount 555.6 2300 600 Left Antecubital 5.6 350 Left Forearm 200 Left Forearm Y site 350 2300 200 Left Hand 50 Oral 60 550 Output: Chest Tube Drainage 180 Bilateral Upper Anterior 180 Chest Urine 275 175 170 Urethral ([place]) 275 175 170 Stool 0 Emesis 0 Other: # Bowel Movements 0 - Medications Active Medications: Active Medications Generic Name Dose Route Start Last Admin Trade Name Freq PRN Reason Stop Dose Admin Acetaminophen 650 mg 08/12/17 11:42 08/12/17 12:17 Tylenol 650 Mg Supp NE 650 mg Q6 PRN Administration Fever >100.4 F Albuterol/Ipratropium 3 ml 08/13/17 14:00 Duoneb 3 Mg/0.5 Mg (3 Ml) Ud INH RQ6 NELIDA Enoxaparin Sodium 40 mg 08/13/17 10:00 08/13/17 09:45 Lovenox SC 40 mg DAILY NELIDA Administration Sodium Chloride 1,000 mls @ 50 mls/hr 08/12/17 09:00 08/13/17 04:02 Sodium Chloride 0.9% IV Not Given .Q20H N[facility]IDA Ceftriaxone Sodium 1 gm/ 100 mls @ 100 mls/hr 08/13/17 10:00 08/13/17 09:45 Sodium Chloride IVPB 100 mls/hr DAILY NELIDA Administration Protocol Vancomycin/Sodium Chloride 1 gm in 200 mls @ 133 mls/hr 08/12/17 21:30 09:46 Vancomycin 1 Gm/Ns 200 Ml IVPB 08/17/17 21:31 133 mls/hr Q12H [facility] Administration Protocol Insulin Human Regular 0 unit 08/13/17 07:30 08/13/17 11:17 Novolin R SC Not Given ACHS [facility] Protocol Lorazepam 1 mg 08/13/17 14:00 Ativan PO 08/14/17 11:00 BID [facility] Lorazepam 0.5 mg 08/15/17 10:00 Ativan PO 08/16/17 10:00 DAILY [facility] Morphine Sulfate 2 mg 08/11/17 13:41 08/12/17 19:35 Morphine IV 2 mg Q4H PRN Administration Pain, moderate (4-7) Tramadol HCl 25 mg 08/10/17 23:56 08/13/17 08:56 Ultram PO 25 mg TID PRN Administration Pain, severe (8-10) - Patient Studies Lab Studies: Microbiology Studies 08/11/17 10:10 Gram Stain - Final Pleural Fluid Body Fluid Culture - Preliminary NO GROWTH AFTER 2 DAYS 08/11/17 10:10 Anaerobic Culture - Final Pleural Fluid NO ANAEROBES ISOLATED. 08/11/17 23:17 Urine Culture - Final Urine,Catheterized No Growth (<1,000 CFU/ML) 08/11/17 23:15 Blood Culture - Preliminary Blood-Venous NO GROWTH AFTER 24 HOURS 08/11/17 23:15 Blood Culture - Preliminary Blood-Venous NO GROWTH AFTER 24 HOURS 08/11/17 23:17 Gram Stain - Final Trachasp 08/10/17 23:18 MRSA Culture (Admit) - Final [place] MRSA NOT DETECTED 08/11/17 13:41 Urine Culture - Final Urine,[place] No Growth (<1,000 CFU/ML) Lab Studies 08/13/17 08/13/17 08/13/17 Range/Units 10:57 07:54 05:23 WBC (4.8-10.8) K/uL RBC (3.80-5.20) Mil/uL Hgb (11.0-16.0) g/dL Hct (34.0-47.0) % MCV (81.0-99.0) fL MCH (27.0-31.0) pg MCHC (33.0-37.0) g/dL RDW (11.5-14.5) % Plt Count (130-400) K/uL MPV (7.2-11.7) fL Neut % (Auto) (50.0-75.0) % Lymph % (Auto) (20.0-40.0) % [place] % (Auto) (0.0-10.0) % Eos % (Auto) (0.0-4.0) % Baso % (Auto) (0.0-2.0) % Neut # (Auto) (1.8-7.0) K/uL Lymph # (Auto) (1.0-4.3) K/uL [place] # (Auto) (0.0-0.8) K/uL Eos # (Auto) (0.0-0.7) K/uL Baso # (Auto) (0.0-0.2) K/uL Puncture Site pCO2 (35-45) mm/Hg pO2 (80-100) mm/Hg HCO3 (21-28) mmol/L ABG pH (7.35-7.45) ABG Total CO2 (22-28) mmol/L ABG O2 Saturation (95-98) % ABG Base Excess (-2.0-3.0) mmol/L Amrc Test ABG Potassium (3.6-5.2) mmol/L VBG pH (7.32-7.43) VBG pCO2 (40-60) mmHg VBG HCO3 mmol/L VBG Total CO2 (22-28) mmol/L VBG O2 Sat (Calc) (40-65) % VBG Base Excess (0.0-2.0) mmol/L VBG Potassium (3.6-5.2) mmol/L A-a O2 Difference mm/Hg Respiratory Index Sodium (132-148) mmol/l Chloride (98-107) mmol/L Glucose (65-105) mg/dl Lactate (0.7-2.1) mmol/L Liter Flow FiO2 % Crit Value Called To Crit Value Called By Crit Value Read Back Blood Gas Notified Time Potassium (3.6-5.2) mmol/L Carbon Dioxide (22-30) mmol/L Anion Gap (10-20) BUN (7-17) mg/dL Creatinine (0.7-1.2) mg/dL Est GFR ( Amer) Est GFR (Non-Af Amer) POC Glucose (mg/dL) 133 H 135 H 88 (65-110) mg/dL Random Glucose (65-105) mg/dL Calcium (8.6-10.4) mg/dl Phosphorus (2.5-4.5) mg/dL Magnesium (1.6-2.3) mg/dL Total Bilirubin (0.2-1.3) mg/dL AST (14-36) U/L ALT (9-52) U/L Alkaline Phosphatase (38-126) U/L Total Protein (6.3-8.3) g/dL Albumin (3.5-5.0) g/dL Globulin (2.2-3.9) gm/dL Albumin/Globulin Ratio (1.0-2.1) Procalcitonin (0.19-0.49) NG/ML Cortisol AM Sample (4.46-22.7) ug/dL Arterial Blood Potassium (3.6-5.2) mmol/L Venous Blood Potassium (3.6-5.2) mmol/L 08/13/17 08/13/17 08/13/17 Range/Units 02:11 01:33 01:33 WBC 8.0 (4.8-10.8) K/uL RBC 3.18 L (3.80-5.20) Mil/uL Hgb 8.5 L (11.0-16.0) g/dL Hct 26.0 L (34.0-47.0) % MCV 81.8 (81.0-99.0) fL MCH 26.8 L (27.0-31.0) pg MCHC 32.7 L (33.0-37.0) g/dL RDW 15.0 H (11.5-14.5) % Plt Count 233 (130-400) K/uL MPV 8.3 (7.2-11.7) fL Neut % (Auto) 73.5 (50.0-75.0) % Lymph % (Auto) 16.2 L (20.0-40.0) % [place] % (Auto) 7.8 (0.0-10.0) % Eos % (Auto) 1.7 (0.0-4.0) % Baso % (Auto) 0.8 (0.0-2.0) % Neut # (Auto) 5.9 (1.8-7.0) K/uL Lymph # (Auto) 1.3 (1.0-4.3) K/uL [place] # (Auto) 0.6 (0.0-0.8) K/uL Eos # (Auto) 0.1 (0.0-0.7) K/uL Baso # (Auto) 0.1 (0.0-0.2) K/uL Puncture Site pCO2 (35-45) mm/Hg pO2 (80-100) mm/Hg HCO3 (21-28) mmol/L ABG pH (7.35-7.45) ABG Total CO2 (22-28) mmol/L ABG O2 Saturation (95-98) % ABG Base Excess (-2.0-3.0) mmol/L Marc Test ABG Potassium (3.6-5.2) mmol/L VBG pH (7.32-7.43) VBG pCO2 (40-60) mmHg VBG HCO3 mmol/L VBG Total CO2 (22-28) mmol/L VBG O2 Sat (Calc) (40-65) % VBG Base Excess (0.0-2.0) mmol/L VBG Potassium (3.6-5.2) mmol/L A-a O2 Difference mm/Hg Respiratory Index Sodium 144 (132-148) mmol/l Chloride 110 H (98-107) mmol/L Glucose (65-105) mg/dl Lactate (0.7-2.1) mmol/L Liter Flow FiO2 % Crit Value Called To Crit Value Called By Crit Value Read Back Blood Gas Notified Time Potassium 3.6 (3.6-5.2) mmol/L Carbon Dioxide 22 (22-30) mmol/L Anion Gap 15 (10-20) BUN 10 (7-17) mg/dL Creatinine 0.7 (0.7-1.2) mg/dL Est GFR ( Amer) > 60 Est GFR (Non-Af Amer) > 60 POC Glucose (mg/dL) (65-110) mg/dL Random Glucose 84 (65-105) mg/dL Calcium 7.6 L (8.6-10.4) mg/dl Phosphorus 2.8 (2.5-4.5) mg/dL Magnesium 2.0 (1.6-2.3) mg/dL Total Bilirubin 0.6 (0.2-1.3) mg/dL AST 21 (14-36) U/L ALT 22 (9-52) U/L Alkaline Phosphatase 80 (38-126) U/L Total Protein 5.1 L (6.3-8.3) g/dL Albumin 2.4 L (3.5-5.0) g/dL Globulin 2.7 (2.2-3.9) gm/dL Albumin/Globulin Ratio 0.9 L (1.0-2.1) Procalcitonin (0.19-0.49) NG/ML Cortisol AM Sample 12.8 (4.46-22.7) ug/dL Arterial Blood Potassium (3.6-5.2) mmol/L Venous Blood Potassium (3.6-5.2) mmol/L 08/13/17 08/12/17 08/12/17 Range/Units 01:12 23:31 22:38 WBC (4.8-10.8) K/uL RBC (3.80-5.20) Mil/uL Hgb (11.0-16.0) g/dL Hct (34.0-47.0) % MCV (81.0-99.0) fL MCH (27.0-31.0) pg MCHC (33.0-37.0) g/dL RDW (11.5-14.5) % Plt Count (130-400) K/uL MPV (7.2-11.7) fL Neut % (Auto) (50.0-75.0) % Lymph % (Auto) (20.0-40.0) % [place] % (Auto) (0.0-10.0) % Eos % (Auto) (0.0-4.0) % Baso % (Auto) (0.0-2.0) % Neut # (Auto) (1.8-7.0) K/uL Lymph # (Auto) (1.0-4.3) K/uL [place] # (Auto) (0.0-0.8) K/uL Eos # (Auto) (0.0-0.7) K/uL Baso # (Auto) (0.0-0.2) K/uL Puncture Site pCO2 (35-45) mm/Hg pO2 35 (80-100) mm/Hg HCO3 (21-28) mmol/L ABG pH (7.35-7.45) ABG Total CO2 (22-28) mmol/L ABG O2 Saturation (95-98) % ABG Base Excess (-2.0-3.0) mmol/L Marc Test ABG Potassium (3.6-5.2) mmol/L VBG pH 7.37 (7.32-7.43) VBG pCO2 40 (40-60) mmHg VBG HCO3 22.5 mmol/L VBG Total CO2 24.3 (22-28) mmol/L VBG O2 Sat (Calc) 72.0 H (40-65) % VBG Base Excess -2.0 L (0.0-2.0) mmol/L VBG Potassium 3.6 (3.6-5.2) mmol/L A-a O2 Difference mm/Hg Respiratory Index Sodium 141.0 (132-148) mmol/l Chloride 111.0 H (98-107) mmol/L Glucose 89 (65-105) mg/dl Lactate 1.1 (0.7-2.1) mmol/L Liter Flow 4.0 FiO2 % Crit Value Called To Dyan ruiz vocational horticulture instructor Crit Value Called By Dulce jones rt Crit Value Read Back Y Blood Gas Notified Time 120 Potassium (3.6-5.2) mmol/L Carbon Dioxide (22-30) mmol/L Anion Gap (10-20) BUN (7-17) mg/dL Creatinine (0.7-1.2) mg/dL Est GFR ( Amer) Est GFR (Non-Af Amer) POC Glucose (mg/dL) 86 90 (65-110) mg/dL Random Glucose (65-105) mg/dL Calcium (8.6-10.4) mg/dl Phosphorus (2.5-4.5) mg/dL Magnesium (1.6-2.3) mg/dL Total Bilirubin (0.2-1.3) mg/dL AST (14-36) U/L ALT (9-52) U/L Alkaline Phosphatase (38-126) U/L Total Protein (6.3-8.3) g/dL Albumin (3.5-5.0) g/dL Globulin (2.2-3.9) gm/dL Albumin/Globulin Ratio (1.0-2.1) Procalcitonin (0.19-0.49) NG/ML Cortisol AM Sample (4.46-22.7) ug/dL Arterial Blood Potassium (3.6-5.2) mmol/L Venous Blood Potassium 3.6 (3.6-5.2) mmol/L 08/12/17 08/12/17 08/12/17 Range/Units 17:59 15:20 00:15 WBC (4.8-10.8) K/uL RBC (3.80-5.20) Mil/uL Hgb (11.0-16.0) g/dL Hct (34.0-47.0) % MCV (81.0-99.0) fL MCH (27.0-31.0) pg MCHC (33.0-37.0) g/dL RDW (11.5-14.5) % Plt Count (130-400) K/uL MPV (7.2-11.7) fL Neut % (Auto) (50.0-75.0) % Lymph % (Auto) (20.0-40.0) % [place] % (Auto) (0.0-10.0) % Eos % (Auto) (0.0-4.0) % Baso % (Auto) (0.0-2.0) % Neut # (Auto) (1.8-7.0) K/uL Lymph # (Auto) (1.0-4.3) K/uL [place] # (Auto) (0.0-0.8) K/uL Eos # (Auto) (0.0-0.7) K/uL Baso # (Auto) (0.0-0.2) K/uL Puncture Site Dede pCO2 29 L (35-45) mm/Hg pO2 82 (80-100) mm/Hg HCO3 23.3 (21-28) mmol/L ABG pH 7.46 H (7.35-7.45) ABG Total CO2 21.5 L (22-28) mmol/L ABG O2 Saturation 98.4 H (95-98) % ABG Base Excess -2.1 L (-2.0-3.0) mmol/L Marc Test Na ABG Potassium 3.3 L (3.6-5.2) mmol/L VBG pH (7.32-7.43) VBG pCO2 (40-60) mmHg VBG HCO3 mmol/L VBG Total CO2 (22-28) mmol/L VBG O2 Sat (Calc) (40-65) % VBG Base Excess (0.0-2.0) mmol/L VBG Potassium (3.6-5.2) mmol/L A-a O2 Difference 238.0 mm/Hg Respiratory Index 2.9 Sodium 141.0 (132-148) mmol/l Chloride 112.0 H (98-107) mmol/L Glucose 125 H (65-105) mg/dl Lactate 1.3 (0.7-2.1) mmol/L Liter Flow FiO2 50.0 % Crit Value Called To Crit Value Called By Crit Value Read Back Blood Gas Notified Time Potassium (3.6-5.2) mmol/L Carbon Dioxide (22-30) mmol/L Anion Gap (10-20) BUN (7-17) mg/dL Creatinine (0.7-1.2) mg/dL Est GFR ( Amer) Est GFR (Non-Af Amer) POC Glucose (mg/dL) 131 H (65-110) mg/dL Random Glucose (65-105) mg/dL Calcium (8.6-10.4) mg/dl Phosphorus (2.5-4.5) mg/dL Magnesium (1.6-2.3) mg/dL Total Bilirubin (0.2-1.3) mg/dL AST (14-36) U/L ALT (9-52) U/L Alkaline Phosphatase (38-126) U/L Total Protein (6.3-8.3) g/dL Albumin (3.5-5.0) g/dL Globulin (2.2-3.9) gm/dL Albumin/Globulin Ratio (1.0-2.1) Procalcitonin < 0.05 L (0.19-0.49) NG/ML Cortisol AM Sample (4.46-22.7) ug/dL Arterial Blood Potassium 3.3 L (3.6-5.2) mmol/L Venous Blood Potassium (3.6-5.2) mmol/L Laboratory Results - last 24 hr 04/12/18 04/12/18 04/12/18 00:15 15:20 17:59 WBC RBC Hgb Hct MCV MCH MCHC RDW Plt Count MPV Neut % (Auto) Lymph % (Auto) [place] % (Auto) Eos % (Auto) Baso % (Auto) Neut # (Auto) Lymph # (Auto) [place] # (Auto) Eos # (Auto) Baso # (Auto) Puncture Site Dede pCO2 29 L pO2 82 HCO3 23.3 ABG pH 7.46 H ABG Total CO2 21.5 L ABG O2 Saturation 98.4 H ABG Base Excess -2.1 L Marc Test Na ABG Potassium 3.3 L VBG pH VBG pCO2 VBG HCO3 VBG Total CO2 VBG O2 Sat (Calc) VBG Base Excess VBG Potassium A-a O2 Difference 238.0 Respiratory Index 2.9 Sodium 141.0 Chloride 112.0 H Glucose 125 H Lactate 1.3 Liter Flow FiO2 50.0 Crit Value Called To Crit Value Called By Crit Value Read Back Blood Gas Notified Time Potassium Carbon Dioxide Anion Gap BUN Creatinine Est GFR ( Amer) Est GFR (Non-Af Amer) POC Glucose (mg/dL) 131 H Random Glucose Calcium Phosphorus Magnesium Total Bilirubin AST ALT Alkaline Phosphatase Total Protein Albumin Globulin Albumin/Globulin Ratio Procalcitonin < 0.05 L Cortisol AM Sample Arterial Blood Potassium 3.3 L Venous Blood Potassium 08/12/17 08/12/17 08/13/17 22:38 23:31 01:12 WBC RBC Hgb Hct MCV MCH MCHC RDW Plt Count MPV Neut % (Auto) Lymph % (Auto) [place] % (Auto) Eos % (Auto) Baso % (Auto) Neut # (Auto) Lymph # (Auto) [place] # (Auto) Eos # (Auto) Baso # (Auto) Puncture Site pCO2 pO2 35 HCO3 ABG pH ABG Total CO2 ABG O2 Saturation ABG Base Excess Marc Test ABG Potassium VBG pH 7.37 VBG pCO2 40 VBG HCO3 22.5 VBG Total CO2 24.3 VBG O2 Sat (Calc) 72.0 H VBG Base Excess -2.0 L VBG Potassium 3.6 A-a O2 Difference Respiratory Index Sodium 141.0 Chloride 111.0 H Glucose 89 Lactate 1.1 Liter Flow 4.0 FiO2 Crit Value Called To Arjune kalawar vocational horticulture instructor Crit Value Called By Dulce jones rt Crit Value Read Back Y Blood Gas Notified Time 120 Potassium Carbon Dioxide Anion Gap BUN Creatinine Est GFR ( Amer) Est GFR (Non-Af Amer) POC Glucose (mg/dL) 90 86 Random Glucose Calcium Phosphorus Magnesium Total Bilirubin AST ALT Alkaline Phosphatase Total Protein Albumin Globulin Albumin/Globulin Ratio Procalcitonin Cortisol AM Sample Arterial Blood Potassium Venous Blood Potassium 3.6 08/13/17 08/13/17 08/13/17 01:33 01:33 02:11 WBC 8.0 RBC 3.18 L Hgb 8.5 L Hct 26.0 L MCV 81.8 MCH 26.8 L MCHC 32.7 L RDW 15.0 H Plt Count 233 MPV 8.3 Neut % (Auto) 73.5 Lymph % (Auto) 16.2 L [place] % (Auto) 7.8 Eos % (Auto) 1.7 Baso % (Auto) 0.8 Neut # (Auto) 5.9 Lymph # (Auto) 1.3 [place] # (Auto) 0.6 Eos # (Auto) 0.1 Baso # (Auto) 0.1 Puncture Site pCO2 pO2 HCO3 ABG pH ABG Total CO2 ABG O2 Saturation ABG Base Excess Marc Test ABG Potassium VBG pH VBG pCO2 VBG HCO3 VBG Total CO2 VBG O2 Sat (Calc) VBG Base Excess VBG Potassium A-a O2 Difference Respiratory Index Sodium 144 Chloride 110 H Glucose Lactate Liter Flow FiO2 Crit Value Called To Crit Value Called By Crit Value Read Back Blood Gas Notified Time Potassium 3.6 Carbon Dioxide 22 Anion Gap 15 BUN 10 Creatinine 0.7 Est GFR ( Amer) > 60 Est GFR (Non-Af Amer) > 60 POC Glucose (mg/dL) Random Glucose 84 Calcium 7.6 L Phosphorus 2.8 Magnesium 2.0 Total Bilirubin 0.6 AST 21 ALT 22 Alkaline Phosphatase 80 Total Protein 5.1 L Albumin 2.4 L Globulin 2.7 Albumin/Globulin Ratio 0.9 L Procalcitonin Cortisol AM Sample 12.8 Arterial Blood Potassium Venous Blood Potassium 08/13/17 08/13/17 08/13/17 05:23 07:54 10:57 WBC RBC Hgb Hct MCV MCH MCHC RDW Plt Count MPV Neut % (Auto) Lymph % (Auto) [place] % (Auto) Eos % (Auto) Baso % (Auto) Neut # (Auto) Lymph # (Auto) [place] # (Auto) Eos # (Auto) Baso # (Auto) Puncture Site pCO2 pO2 HCO3 ABG pH ABG Total CO2 ABG O2 Saturation ABG Base Excess Marc Test ABG Potassium VBG pH VBG pCO2 VBG HCO3 VBG Total CO2 VBG O2 Sat (Calc) VBG Base Excess VBG Potassium A-a O2 Difference Respiratory Index Sodium Chloride Glucose Lactate Liter Flow FiO2 Crit Value Called To Crit Value Called By Crit Value Read Back Blood Gas Notified Time Potassium Carbon Dioxide Anion Gap BUN Creatinine Est GFR ( Amer) Est GFR (Non-Af Amer) POC Glucose (mg/dL) 88 135 H 133 H Random Glucose Calcium Phosphorus Magnesium Total Bilirubin AST ALT Alkaline Phosphatase Total Protein Albumin Globulin Albumin/Globulin Ratio Procalcitonin Cortisol AM Sample Arterial Blood Potassium Venous Blood Potassium EKG/Cardiology Studies: Cardiology / EKG Studies 08/13/17 09:16 EKG [ELECTROCARDIOGRAM] Routine Comment: Mode Of Transportation: Reason For Exam: afib Critical Care Progress Note - Nutrition Nutrition: Nutrition Category Date Time Status Diabetic [Consistent Carbohydrate] [DIET] Diets 08/13/17 Breakfast Active Attending/Attestation - Attestation I have personally seen and examined this patient.: Yes I have fully participated in the care of the patient.: Yes I have reviewed all pertinent clinical information: Yes Notes (Text): 08/13/17 12:48 Today: Sunday, August 13, 2017 The Patient was seen and examined at the bedside, Medical records reviewed, and management issues were discussed and formulated with the house staff. I have reviewed all the relevant clinical, laboratory, hemodynamic, radiographic data and medications Events reviewed Pain issues, skin care, head of the bed elevation, glycemic control were addressed. Agree with above resident's assessment and treatment plans of care as transcribed in Dr. Yoanna Parker note.
--- NOTE | 2017-08-13 12:41 | PCM.PSYCH ---
Initial Psychiatric Evaluation - Initial Psychiatric Evaluation Type of Admission: Voluntary Legal Status: Capacity Chief Complaint (in patient's own words): I am feeling anxious.' History of Present Illness and Precipitating Events: This is 61 y/o F w/PMH sig for Right breast CA since Dec 2015, DM, HLD, Asthma was admitted because of SOB and Left sided chest pain. Today pt was consulted because of anxiety and agitation. Pt denies any history of inpatient psychiatric hospitalizations and denies any history of follow up with any psychiatrist. She reports agitation and anxiety. She reports irritable mood and difficulty in going to sleep. However she denies any feelings of hopelessness and helplessness. She denies any SI/HI or any AVH. She denies any manic symptoms. She denies any substance abuse. PMH: Right sided breast CA on Arimidex (12/2015), DM, HLD, Asthma Current Medications: Active Medications Generic Name Dose Route Start Last Admin Trade Name Freq PRN Reason Stop Dose Admin Acetaminophen 650 mg 08/12/17 11:42 08/12/17 12:17 Tylenol 650 Mg Supp HI 650 mg Q6 PRN Administration Fever >100.4 F Albuterol/Ipratropium 3 ml 08/13/17 14:00 Duoneb 3 Mg/0.5 Mg (3 Ml) Ud INH RQ6 NELIDA Enoxaparin Sodium 40 mg 08/13/17 10:00 08/13/17 09:45 Lovenox SC 40 mg DAILY NELIDA Administration Sodium Chloride 1,000 mls @ 50 mls/hr 08/12/17 09:00 08/13/17 04:02 Sodium Chloride 0.9% IV Not Given .Q20H NELIDA Ceftriaxone Sodium 1 gm/ 100 mls @ 100 mls/hr 08/13/17 10:00 08/13/17 09:45 Sodium Chloride IVPB 100 mls/hr DAILY NELIDA Administration Protocol Vancomycin/Sodium Chloride 1 gm in 200 mls @ 133 mls/hr 08/12/17 21:30 09:46 Vancomycin 1 Gm/Ns 200 Ml IVPB 08/17/17 21:31 133 mls/hr Q12H NELIDA Administration Protocol Insulin Human Regular 0 unit 08/13/17 07:30 08/13/17 11:17 Novolin R SC Not Given ACHS NELIDA Protocol Morphine Sulfate 2 mg 08/11/17 13:41 08/12/17 19:35 Morphine IV 2 mg Q4H PRN Administration Pain, moderate (4-7) Tramadol HCl 25 mg 08/10/17 23:56 08/13/17 08:56 Ultram PO 25 mg TID PRN Administration Pain, severe (8-10) Past Psychiatric History - Past Psychiatric History Previous Treatment History: None Pertinent Medical Hx (Current Medical&Sleep Prob, Allergies): Allergies Allergy/AdvReac Type Severity Reaction Status Date / Time No Known Allergies Allergy Verified 08/10/17 16:22 Anastrozole [Arimidex] 1 mg PO DAILY 08/10/17 Aspirin 325 mg PO DAILY 08/10/17 Atorvastatin [Lipitor] 40 mg PO DAILY 08/10/17 OLANZapine [Zyprexa Zydis] 10 mg PO DAILY 08/10/17 clonazePAM [clonAZEPAM] 0.5 mg PO TID 08/10/17 metFORMIN [glucOPHAGE] 500 mg PO DAILY 08/10/17 traMADol [Ultram] 25 mg PO QPM 08/10/17 Review of Systems - Review of Systems All systems: reviewed and no additional remarkable complaints except - Psychiatric Psychiatric: Anxiety, Irritability. absent: Suicidal Ideation Mental Status Examination - Personal Presentation Personal Presentation: Looks stated age - Affect Affect: Constricted - Motor Activity Motor Activity: Calm - Reliability in Providing Information Reliability in Providing Information: Fair - Speech Speech: Organized - Mood Mood: Depressed, Anxious - Formal Thought Process Formal Thought Process: No Impairment - Obsessions/Compulsions Obsessions: No Compulsions: No - Cognitive Functions Orientation: Person, Place, Situation, Time Sensorium: Alert Attention/Concentration: Attentive Abstract Thinking: [place]ats Estimate of Intelligence: Below average Judgement: Imparied, as evidence by: Poor judgement, Intact, as evidence by: Insight regarding need for hospitalization - Risk Risk: Diminished functioning DSM 5 DX - DSM 5 DSM 5 Diagnosis: Anxiety d/o NOD VICTORIANO - Recommended/Plan of Treatment Treatment Recommendations and Plan of Treatment: Start Hydroxyzine 25 mg PO Q6hr prn for anxiety Pt psychiatrically stable and clear for discharge - Smoking Cessation Smoking Cessation Initiated: No
[2017-08-13 13:20] LABS: BASO # 0.1 K/uL (0.0-0.2); BASO % 0.7 % (0.0-2.0); EOS # 0.4 K/uL (0.0-0.7); EOS % 4.7 % (0.0-4.0); HEMOGLOBIN 8.9 g/dL (11.0-16.0); LYMPH # 1.3 K/uL (1.0-4.3); LYMPH % 14.3 % (20.0-40.0); MEAN CELL VOLUME 81.7 fL (81.0-99.0); MEAN CORPUSCULAR HEMOGLOBIN 26.7 pg (27.0-31.0); MEAN CORPUSCULAR HGB CONC 32.7 g/dL (33.0-37.0); MEAN PLATELET VOLUME 8.2 fL (7.2-11.7); MONO # 0.8 K/uL (0.0-0.8); MONO % 8.9 % (0.0-10.0); NEUT # 6.4 K/uL (1.8-7.0); NEUT % 71.4 % (50.0-75.0); RBC 3.33 Mil/uL (3.80-5.20); RED CELL DISTRIBUTION WIDTH 15.2 % (11.5-14.5)
[2017-08-13 13:41] LABS: BLOOD UREA NITROGEN 13 mg/dL (7-17); CALCIUM 8.1 mg/dl (8.6-10.4); GFR AFRICAN-AMERICAN > 60; GFR NON-AFRICAN AMERICAN > 60
[2017-08-13] MEDS ORDERED: Sodium Chloride 0.9% 250 ML IV ONE (14:00)
[2017-08-13] MEDS ORDERED: Albuterol-Ipratrop 3 mg / 0.5 (3 ml) UD INH SCH (14:00)
--- NOTE | 2017-08-13 14:09 | CP.PCM.PN ---
Subjective - Date & Time of Evaluation Date of Evaluation: 08/13/17 Time of Evaluation: 10:00 - Subjective Subjective: Patient seen and examined at bedside. Patient self extubated yesterday. Now resting comfortably, greatly improved breathing and alertness. Patient spiked a fever of 101 this AM and was persistently above 99.4 with a high of 102.3 yesterday. 1. Pleural effusion s/p chest tube placement - Drainage has decreased - Pleural fluid analysis 08/11: WBC: 2435/ RBC 98072/ Neutros 68/ Lymphos 27/ Monocytes /macs 5/ few mesothelial and macs seen - pleural fluid LDH, total protein and culture results pending - cytology pending 2. Post-op Fever - 08/13 TMax 101 - periods of tachycardia HR high 80s-high 110's with max of 175 - CBC 08/13: WBC 8, no bands - vancomycin and rocephin added Objective - Vital Signs/Intake and Output Vital Signs (last 24 hours): Temp Pulse Resp BP Pulse Ox 98.5 F 90 20 94/54 L 99 08/13/17 08:00 08/13/17 13:30 08/13/17 13:30 08/13/17 13:20 08/13/17 13:30 Intake and Output: 08/13/17 08/13/17 06:59 18:59 Intake Total 2760 1350 Output Total 495 205 Balance 2265 1145 - Medications Medications: Current Medications Acetaminophen (Tylenol 650 Mg Supp) 650 mg WI Q6 PRN PRN Reason: Fever >100.4 F Last Admin: 08/12/17 12:17 Dose: 650 mg Albuterol/Ipratropium (Duoneb 3 Mg/0.5 Mg (3 Ml) Ud) 3 ml INH RQ6 NELIDA Enoxaparin Sodium (Lovenox) 40 mg SC DAILY NELIDA Last Admin: 08/13/17 09:45 Dose: 40 mg Sodium Chloride (Sodium Chloride 0.9%) 1,000 mls @ 50 mls/hr IV .Q20H NELIDA Last Admin: 08/13/17 04:02 Dose: Not Given Ceftriaxone Sodium 1 gm/ (Sodium Chloride) 100 mls @ 100 mls/hr IVPB DAILY NELIDA PRN Reason: Protocol Last Admin: 08/13/17 09:45 Dose: 100 mls/hr Vancomycin/Sodium Chloride (Vancomycin 1 Gm/Ns 200 Ml) 1 gm in 200 mls @ 133 mls/hr IVPB Q12H NELIDA PRN Reason: Protocol Stop: 08/17/17 21:31 Last Admin: 08/13/17 09:46 Dose: 133 mls/hr Sodium Chloride (Sodium Chloride 0.9%) 250 mls @ 1,000 mls/hr IV .Q15M ONE Stop: 08/13/17 14:14 Last Admin: 08/13/17 13:55 Dose: 1,000 mls/hr Insulin Human Regular (Novolin R) 0 unit SC ACHS NELIDA PRN Reason: Protocol Last Admin: 08/13/17 11:17 Dose: Not Given Lorazepam (Ativan) 1 mg PO BID NELIDA Stop: 08/14/17 11:00 Lorazepam (Ativan) 0.5 mg PO DAILY NELIDA Stop: 08/16/17 10:00 Morphine Sulfate (Morphine) 2 mg IV Q4H PRN PRN Reason: Pain, moderate (4-7) Last Admin: 08/12/17 19:35 Dose: 2 mg Tramadol HCl (Ultram) 25 mg PO TID PRN PRN Reason: Pain, severe (8-10) Last Admin: 08/13/17 08:56 Dose: 25 mg - Labs Labs: 08/13/17 13:13 08/13/17 13:13 PT 14.6 SECONDS (9.7-12.2) H 08/10/17 17:09 INR 1.3 08/10/17 17:09 APTT 29 SECONDS (21-34) 08/10/17 17:09 Assessment and Plan (1) Pleural effusion, bilateral Status: Acute (2) Pericardial effusion Status: Acute
--- NOTE | 2017-08-13 14:24 | CP.PCM.PN ---
Subjective - Date & Time of Evaluation Date of Evaluation: 08/13/17 Time of Evaluation: 14:22 - Subjective Subjective: Events reviewed Objective - Vital Signs/Intake and Output Vital Signs (last 24 hours): Temp Pulse Resp BP Pulse Ox 98.5 F 91 H 17 89/49 L 94 L 08/13/17 08:00 08/13/17 14:00 08/13/17 14:00 08/13/17 13:55 08/13/17 14:00 Intake and Output: 08/13/17 08/13/17 06:59 18:59 Intake Total 2760 1400 Output Total 495 245 Balance 2265 1155 - Medications Medications: Current Medications Acetaminophen (Tylenol 650 Mg Supp) 650 mg [place] Q6 PRN PRN Reason: Fever >100.4 F Last Admin: 08/12/17 12:17 Dose: 650 mg Albuterol/Ipratropium (Duoneb 3 Mg/0.5 Mg (3 Ml) Ud) 3 ml INH RQ6 NELIDA Enoxaparin Sodium (Lovenox) 40 mg SC DAILY [facility] Last Admin: 08/13/17 09:45 Dose: 40 mg Sodium Chloride (Sodium Chloride 0.9%) 1,000 mls @ 50 mls/hr IV .Q20H [facility] Last Admin: 08/13/17 04:02 Dose: Not Given Ceftriaxone Sodium 1 gm/ (Sodium Chloride) 100 mls @ 100 mls/hr IVPB DAILY NELIDA PRN Reason: Protocol Last Admin: 08/13/17 09:45 Dose: 100 mls/hr Vancomycin/Sodium Chloride (Vancomycin 1 Gm/Ns 200 Ml) 1 gm in 200 mls @ 133 mls/hr IVPB Q12H NELIDA PRN Reason: Protocol Stop: 08/17/17 21:31 Last Admin: 08/13/17 09:46 Dose: 133 mls/hr Insulin Human Regular (Novolin R) 0 unit SC ACHS NELIDA PRN Reason: Protocol Last Admin: 08/13/17 11:17 Dose: Not Given Lorazepam (Ativan) 1 mg PO BID [facility] Stop: 08/14/17 11:00 Last Admin: 08/13/17 14:11 Dose: 1 mg Lorazepam (Ativan) 0.5 mg PO DAILY [facility] Stop: 08/16/17 10:00 Morphine Sulfate (Morphine) 2 mg IV Q4H PRN PRN Reason: Pain, moderate (4-7) Last Admin: 08/12/17 19:35 Dose: 2 mg Tramadol HCl (Ultram) 25 mg PO TID PRN PRN Reason: Pain, severe (8-10) Last Admin: 08/13/17 08:56 Dose: 25 mg - Labs Labs: 08/13/17 13:13 08/13/17 13:13 PT 14.6 SECONDS (9.7-12.2) H 08/10/17 17:09 INR 1.3 08/10/17 17:09 APTT 29 SECONDS (21-34) 08/10/17 17:09 - Constitutional Appears: Well, Non-toxic - ENT Exam ENT Exam: Mucous Membranes Moist, Normal External Ear Exam - Respiratory Exam Respiratory Exam: Wheezes, NORMAL BREATHING PATTERN Additional comments: Reduced breath sounds - Cardiovascular Exam Cardiovascular Exam: REGULAR RHYTHM, RRR, +S1, +S2. absent: JVD Additional comments: No rub - GI/Abdominal Exam GI & Abdominal Exam: Normal Bowel Sounds. absent: Organomegaly Assessment and Plan - Assessment and Plan (Free Text) Assessment: Assessment: Hx of R. Breast CA SOB, hypoxia, lethargy > Large perical effusion on CT chest, B/L large pleural effusions > EKG initial: sinus tach, low voltage, non-specific ST changes > hx of R. breast CA Now s/p chest tube and pericardial window with drains: f/u cytology BP: ASX mild hypotension Lab: Mild anemia, normal creat, elevated sugars Continue to monitor drainage f/u repeat 2D echo Supportive care, DM control, DVT prophylaxis
--- NOTE | 2017-08-13 15:06 | VASCLAB ---
PROCEDURE: Right Upper Extremity Venous Duplex Exam HISTORY: swollen rt arm PRIORS: None. TECHNIQUE: Right upper extremity, internal jugular, subclavian, axillary, brachial, ulnar, radial, basilic and upper cephalic veins were evaluated. Flow was assessed with color Doppler, compressibility, assessment of phasic flow and augmentation response. Report prepared by HIRAM Muro, RVT FINDINGS: RIGHT: 1. Internal Jugular: 1.1. Compressibility - Fully compressible: Thrombus - None : Flow - Phasic: Augmentation -Normal: Reflux - None. 2. Subclavian: 2.1. Compressibility - Fully compressible: Thrombus - None : Flow - Phasic: Augmentation -Normal: Reflux - None. 3. Axillary: 3.1. Compressibility - Fully compressible: Thrombus - None : Flow - Phasic: Augmentation -Normal: Reflux - None. 4. Brachial: 4.1. Compressibility - Fully compressible: Thrombus - None: Flow - Phasic: Augmentation -Normal: Reflux - None. 5. Ulnar: 5.1. Compressibility - Fully compressible: Thrombus - None: Flow - Phasic: Augmentation -Normal: Reflux - None. 6. Radial: 6.1. Compressibility - Fully compressible: Thrombus - None: Flow - Phasic: Augmentation - Normal: Reflux - None. 7. Cephalic: 7.1. Compressibility - Fully compressible: Thrombus - None: Flow - Phasic: Augmentation -Normal: Reflux - None. 8. Basilic: 8.1. Compressibility - Fully compressible: Thrombus - None: Flow - Phasic: Augmentation -Normal: Reflux - None. OTHER FINDINGS: Right: None. IMPRESSION: Right: No evidence of vein thrombosis of the right upper extremity with excellent venous flow. Normal valve function noted of the right side. Normal venous flow noted in the left internal jugular and left subclavian veins.
--- NOTE | 2017-08-13 15:39 | CARD ---
APPROVED REPORT EXAM: Two-dimensional and M-mode echocardiogram with Doppler and color Doppler. Other Information Quality : TDSRhythm : INDICATION Pericardial Effusion 2D DIMENSIONS IVSd0.7 (0.7-1.1cm)LVDd3.6 (3.9-5.9cm) PWd0.9 (0.7-1.1cm)LVDs2.4 (2.5-4.0cm) FS (%) 34.2 %LVEF (%)64.2 (>50%) M-Mode DIMENSIONS Left Atrium (MM)3.71 (2.5-4.0cm)Aortic Root3.04 (2.2-3.7cm) Aortic Cusp Exc.2.19 (1.5-2.0cm) Mitral Valve MV E Euyuqwhm35.8cm/sMV A Xaksaavm26.9cm/s Tricuspid Valve TR Peak [id number]/sTR Peak Gr.16mmHg LEFT VENTRICLE The left ventricle is normal size. There is normal left ventricular wall thickness. The left ventricular function is normal. The left ventricular ejection fraction is within the normal range. There is normal LV segmental wall motion. The left ventricular diastolic function is normal. RIGHT VENTRICLE The right ventricle is normal size. ATRIA The left atrium size is normal. <Conclusion> Normal LV systolic function. Normal chamber size. Trace to small pericardial effusion in different viewes. No Tamponade physiology seen.
[2017-08-13] MEDS: Morphine 4 MG/ML VIAL IV PRN (16:11)
--- NOTE | 2017-08-13 16:33 | CP.PCM.PN ---
Subjective - Date & Time of Evaluation Date of Evaluation: 08/13/17 Time of Evaluation: 12:00 - Subjective Subjective: clinically same Objective - Vital Signs/Intake and Output Vital Signs (last 24 hours): Temp Pulse Resp BP Pulse Ox 98.7 F 98 H 23 110/56 L 97 08/13/17 16:00 08/13/17 16:06 08/13/17 16:06 08/13/17 16:06 08/13/17 16:06 Intake and Output: 08/13/17 08/13/17 06:59 18:59 Intake Total 2760 1870 Output Total 495 315 Balance 2265 1555 - Medications Medications: Current Medications Acetaminophen (Tylenol 650 Mg Supp) 650 mg MS Q6 PRN PRN Reason: Fever >100.4 F Last Admin: 08/12/17 12:17 Dose: 650 mg Enoxaparin Sodium (Lovenox) 40 mg SC DAILY [facility] Last Admin: 08/13/17 09:45 Dose: 40 mg Sodium Chloride (Sodium Chloride 0.9%) 1,000 mls @ 50 mls/hr IV .Q20H [facility] Last Admin: 08/13/17 04:02 Dose: Not Given Ceftriaxone Sodium 1 gm/ (Sodium Chloride) 100 mls @ 100 mls/hr IVPB DAILY NELIDA PRN Reason: Protocol Last Admin: 08/13/17 09:45 Dose: 100 mls/hr Vancomycin/Sodium Chloride (Vancomycin 1 Gm/Ns 200 Ml) 1 gm in 200 mls @ 133 mls/hr IVPB Q12H NELIDA PRN Reason: Protocol Stop: 08/17/17 21:31 Last Admin: 08/13/17 09:46 Dose: 133 mls/hr Insulin Human Regular (Novolin R) 0 unit SC ACHS NELIDA PRN Reason: Protocol Last Admin: 08/13/17 16:20 Dose: Not Given Lorazepam (Ativan) 1 mg PO BID NELIDA Stop: 08/14/17 11:00 Last Admin: 08/13/17 14:11 Dose: 1 mg Lorazepam (Ativan) 0.5 mg PO DAILY NELIDA Stop: 08/16/17 10:00 Morphine Sulfate (Morphine) 2 mg IV Q4H PRN PRN Reason: Pain, moderate (4-7) Last Admin: 08/13/17 16:11 Dose: 2 mg Tramadol HCl (Ultram) 25 mg PO TID PRN PRN Reason: Pain, severe (8-10) Last Admin: 08/13/17 08:56 Dose: 25 mg - Labs Labs: 08/13/17 13:13 08/13/17 13:13 PT 14.6 SECONDS (9.7-12.2) H 08/10/17 17:09 INR 1.3 08/10/17 17:09 APTT 29 SECONDS (21-34) 08/10/17 17:09 - Constitutional Appears: Well - Head Exam Head Exam: ATRAUMATIC, NORMAL INSPECTION, NORMOCEPHALIC - Eye Exam Eye Exam: EOMI, Normal appearance, PERRL Pupil Exam: NORMAL ACCOMODATION, PERRL - ENT Exam ENT Exam: Mucous Membranes Moist, Normal Exam - Neck Exam Neck Exam: Full ROM, Normal Inspection. absent: Lymphadenopathy - Respiratory Exam Respiratory Exam: Decreased Breath Sounds - Cardiovascular Exam Cardiovascular Exam: REGULAR RHYTHM, +S1, +S2 - GI/Abdominal Exam GI & Abdominal Exam: Soft, Diminished Bowel Sounds - Rectal Exam Rectal Exam: Deferred
--- NOTE | 2017-08-13 21:06 | CARD ---
APPROVED REPORT EKG Measurement Heart [id number] <Conclusion> Normal sinus rhythm Low voltage QRS Borderline ECG
[2017-08-14] MEDS: Sodium Chloride 0.9% 1,000 ML IV SCH ×2 (01:00→20:22)
[2017-08-14] MEDS: Tramadol 25 mg PO PRN ×4 (05:06→22:57)
[2017-08-14 06:36] LABS: ALB/GLOB RATIO 0.8 (1.0-2.1); ALBUMIN 2.6 g/dL (3.5-5.0); ALT/SGPT 25 U/L (9-52); AST/SGOT 35 U/L (14-36); BLOOD UREA NITROGEN 7 mg/dL (7-17); CALCIUM 7.7 mg/dl (8.6-10.4); GFR AFRICAN-AMERICAN > 60; GFR NON-AFRICAN AMERICAN > 60
--- NOTE | 2017-08-14 08:28 | CP.CCUPN ---
CCU Subjective - Physician Review Events Since Last Encounter (Free Text): 08/14/17 08:28 61-year-old female with a history of breast cancer, diabetes, high cholesterol and asthma admitted to the hospital with pleural effusion, large pericardial effusion. Patient underwent pericardial window on 08/11/2017. The patient was intubated and extubated Currently comfortable. Mild exertional dyspnea noted. Chest tube in place. Vital signs currently stable. Heartbeats and 97 Saturation 97 Chest bilateral good air entry, chest tube noted Regular heart sound Abdomen soft nontender. Edema 1+ Labs noted Hemoglobin 8.9 nonspecific otherwise Chest x-ray left-sided pleural effusion persistently noted, mild to moderate Assessment/recommendation: 61-year-old female with a history of breast cancer diabetes hypertension admitted with large pericardial effusion status post drainage. Chest he was still noted. We'll continue to monitor. Once the regarding tube is out the patient can be transferred. Clinical stable. We'll follow the patient CCU Objective - Vital Signs / Intake & Output Vital Signs (Last 4 hours): Vital Signs Pulse Resp BP Pulse Ox 08/14/17 07:00 93 H 26 H 95 08/14/17 06:55 93 H 18 104/55 L 96 08/14/17 06:30 93 H 24 95 08/14/17 06:00 96 H 30 H 95 08/14/17 05:55 100 H 22 113/65 93 L 08/14/17 05:30 93 H 25 H 97 08/14/17 05:02 94 H 21 105/55 L 96 08/14/17 05:00 94 H 95 08/14/17 04:35 101 H Intake and Output (Last 8hrs): Intake & Output 08/13/17 08/14/17 08/14/17 22:59 06:59 14:59 Intake Total 1265 604 50 Output Total 630 870 Balance 635 -266 50 Weight 171 lb Intake: Intake, IV Amount 775 484 50 Left Antecubital 0 Left Hand 775 484 50 Oral 490 120 Output: Chest Tube Drainage 270 270 Bilateral Upper Anterior 270 270 Chest Urine 360 600 Urethral ([place]) 360 Urine, Voided 600 Other: # Voids Urine, Voided 1 # Bowel Movements 0 0 - Physical Exam Head: Positive for: Atraumatic, Normocephalic Pupils: Positive for: PERRL Extroacular Muscles: Positive for: EOMI Conjunctiva: Positive for: Normal Mouth: Positive for: Moist Mucous Membranes Neck: Positive for: Normal Range of Motion Respiratory/Chest: Positive for: Clear to Auscultation, Other (portacath in place. Two chest tubes). Negative for: Wheezes, Rales, Rhonchi Cardiovascular: Positive for: Regular Rate and Rhythm, Normal S1, S2 Abdomen: Positive for: Normal Bowel Sounds. Negative for: Tenderness Upper Extremity: Positive for: Edema Lower Extremity: Positive for: Normal Inspection Neurological: Positive for: GCS=15 Skin: Positive for: Warm, Dry Psychiatric: Positive for: Alert, Oriented x 3 - Medications Active Medications: Active Medications Generic Name Dose Route Start Last Admin Trade Name Freq PRN Reason Stop Dose Admin Acetaminophen 650 mg 08/13/17 19:54 08/13/17 20:07 Tylenol 325mg Tab PO 650 mg Q6 PRN Administration temp 101 and above Enoxaparin Sodium 40 mg 08/13/17 10:00 08/13/17 09:45 Lovenox SC 40 mg DAILY NELIDA Administration Sodium Chloride 1,000 mls @ 50 mls/hr 08/12/17 09:00 08/14/17 01:00 Sodium Chloride 0.9% IV Not Given .Q20H NELIDA Ceftriaxone Sodium 1 gm/ 100 mls @ 100 mls/hr 08/13/17 10:00 08/13/17 09:45 Sodium Chloride IVPB 100 mls/hr DAILY NELIDA Administration Protocol Vancomycin/Sodium Chloride 1 gm in 200 mls @ 133 mls/hr 08/12/17 21:30 20:58 Vancomycin 1 Gm/Ns 200 Ml IVPB 08/17/17 21:31 133 mls/hr Q12H NELIDA Administration Protocol Insulin Human Regular 0 unit 08/13/17 07:30 08/13/17 21:11 Novolin R SC Not Given ACHS NELIDA Protocol Lorazepam 1 mg 08/13/17 14:00 08/13/17 17:38 Ativan PO 08/14/17 11:00 1 mg BID NELIDA Administration Lorazepam 0.5 mg 08/15/17 10:00 Ativan PO 08/16/17 10:00 DAILY NELIDA Morphine Sulfate 2 mg 08/11/17 13:41 08/14/17 00:00 Morphine IV 2 mg Q4H PRN Administration Pain, moderate (4-7) Tramadol HCl 25 mg 08/10/17 23:56 08/14/17 05:06 Ultram PO 25 mg TID PRN Administration Pain, severe (8-10) - Patient Studies Lab Studies: Microbiology Studies 08/11/17 23:15 Blood Culture - Preliminary Blood-Venous NO GROWTH AFTER 48 HOURS 08/11/17 10:10 Mycobacterial Culture - Preliminary Other: Please Indicate 08/11/17 10:10 Fungal Culture - Preliminary Pleural Fluid 08/11/17 10:10 Gram Stain - Final Pleural Fluid Body Fluid Culture - Preliminary NO GROWTH AFTER 2 DAYS 08/11/17 10:10 Anaerobic Culture - Final Pleural Fluid NO ANAEROBES ISOLATED. 08/11/17 23:17 Urine Culture - Final Urine,Catheterized No Growth (<1,000 CFU/ML) 08/11/17 23:15 Blood Culture - Preliminary Blood-Venous NO GROWTH AFTER 24 HOURS Lab Studies 08/14/17 08/13/17 08/13/17 Range/Units 06:07 20:59 16:03 WBC (4.8-10.8) K/uL RBC (3.80-5.20) Mil/uL Hgb (11.0-16.0) g/dL Hct (34.0-47.0) % MCV (81.0-99.0) fL MCH (27.0-31.0) pg MCHC (33.0-37.0) g/dL RDW (11.5-14.5) % Plt Count (130-400) K/uL MPV (7.2-11.7) fL Neut % (Auto) (50.0-75.0) % Lymph % (Auto) (20.0-40.0) % [place] % (Auto) (0.0-10.0) % Eos % (Auto) (0.0-4.0) % Baso % (Auto) (0.0-2.0) % Neut # (Auto) (1.8-7.0) K/uL Lymph # (Auto) (1.0-4.3) K/uL [place] # (Auto) (0.0-0.8) K/uL Eos # (Auto) (0.0-0.7) K/uL Baso # (Auto) (0.0-0.2) K/uL Sodium 137 (132-148) mmol/L Potassium 4.1 (3.6-5.2) mmol/L Chloride 107 (98-107) mmol/L Carbon Dioxide 18 L (22-30) mmol/L Anion Gap 16 (10-20) BUN 7 (7-17) mg/dL Creatinine 0.5 L (0.7-1.2) mg/dL Est GFR ( Amer) > 60 Est GFR (Non-Af Amer) > 60 POC Glucose (mg/dL) 152 H 136 H (65-110) mg/dL Random Glucose 114 H (65-105) mg/dL Calcium 7.7 L (8.6-10.4) mg/dl Phosphorus 2.3 L (2.5-4.5) mg/dL Magnesium 2.1 (1.6-2.3) mg/dL Total Bilirubin 0.5 (0.2-1.3) mg/dL AST 35 (14-36) U/L ALT 25 (9-52) U/L Alkaline Phosphatase 89 (38-126) U/L Total Protein 5.6 L (6.3-8.3) g/dL Albumin 2.6 L (3.5-5.0) g/dL Globulin 3.1 (2.2-3.9) gm/dL Albumin/Globulin Ratio 0.8 L (1.0-2.1) 08/13/17 08/13/17 08/13/17 Range/Units 13:13 13:13 10:57 WBC 9.0 (4.8-10.8) K/uL RBC 3.33 L (3.80-5.20) Mil/uL Hgb 8.9 L (11.0-16.0) g/dL Hct 27.2 L (34.0-47.0) % MCV 81.7 (81.0-99.0) fL MCH 26.7 L (27.0-31.0) pg MCHC 32.7 L (33.0-37.0) g/dL RDW 15.2 H (11.5-14.5) % Plt Count 237 (130-400) K/uL MPV 8.2 (7.2-11.7) fL Neut % (Auto) 71.4 (50.0-75.0) % Lymph % (Auto) 14.3 L (20.0-40.0) % [place] % (Auto) 8.9 (0.0-10.0) % Eos % (Auto) 4.7 H (0.0-4.0) % Baso % (Auto) 0.7 (0.0-2.0) % Neut # (Auto) 6.4 (1.8-7.0) K/uL Lymph # (Auto) 1.3 (1.0-4.3) K/uL [place] # (Auto) 0.8 (0.0-0.8) K/uL Eos # (Auto) 0.4 (0.0-0.7) K/uL Baso # (Auto) 0.1 (0.0-0.2) K/uL Sodium 137 (132-148) mmol/L Potassium 3.9 (3.6-5.2) mmol/L Chloride 107 (98-107) mmol/L Carbon Dioxide 23 (22-30) mmol/L Anion Gap 12 (10-20) BUN 13 (7-17) mg/dL Creatinine 0.5 L (0.7-1.2) mg/dL Est GFR ( Amer) > 60 Est GFR (Non-Af Amer) > 60 POC Glucose (mg/dL) 133 H (65-110) mg/dL Random Glucose 96 (65-105) mg/dL Calcium 8.1 L (8.6-10.4) mg/dl Phosphorus 2.3 L (2.5-4.5) mg/dL Magnesium 2.1 (1.6-2.3) mg/dL Total Bilirubin (0.2-1.3) mg/dL AST (14-36) U/L ALT (9-52) U/L Alkaline Phosphatase (38-126) U/L Total Protein (6.3-8.3) g/dL Albumin (3.5-5.0) g/dL Globulin (2.2-3.9) gm/dL Albumin/Globulin Ratio (1.0-2.1) Laboratory Results - last 24 hr 08/13/17 08/13/17 08/13/17 10:57 13:13 13:13 WBC 9.0 RBC 3.33 L Hgb 8.9 L Hct 27.2 L MCV 81.7 MCH 26.7 L MCHC 32.7 L RDW 15.2 H Plt Count 237 MPV 8.2 Neut % (Auto) 71.4 Lymph % (Auto) 14.3 L [place] % (Auto) 8.9 Eos % (Auto) 4.7 H Baso % (Auto) 0.7 Neut # (Auto) 6.4 Lymph # (Auto) 1.3 [place] # (Auto) 0.8 Eos # (Auto) 0.4 Baso # (Auto) 0.1 Sodium 137 Potassium 3.9 Chloride 107 Carbon Dioxide 23 Anion Gap 12 BUN 13 Creatinine 0.5 L Est GFR ( Amer) > 60 Est GFR (Non-Af Amer) > 60 POC Glucose (mg/dL) 133 H Random Glucose 96 Calcium 8.1 L Phosphorus 2.3 L Magnesium 2.1 Total Bilirubin AST ALT Alkaline Phosphatase Total Protein Albumin Globulin Albumin/Globulin Ratio 08/13/17 08/13/17 08/14/17 16:03 20:59 06:07 WBC RBC Hgb Hct MCV MCH MCHC RDW Plt Count MPV Neut % (Auto) Lymph % (Auto) [place] % (Auto) Eos % (Auto) Baso % (Auto) Neut # (Auto) Lymph # (Auto) [place] # (Auto) Eos # (Auto) Baso # (Auto) Sodium 137 Potassium 4.1 Chloride 107 Carbon Dioxide 18 L Anion Gap 16 BUN 7 Creatinine 0.5 L Est GFR ( Amer) > 60 Est GFR (Non-Af Amer) > 60 POC Glucose (mg/dL) 136 H 152 H Random Glucose 114 H Calcium 7.7 L Phosphorus 2.3 L Magnesium 2.1 Total Bilirubin 0.5 AST 35 ALT 25 Alkaline Phosphatase 89 Total Protein 5.6 L Albumin 2.6 L Globulin 3.1 Albumin/Globulin Ratio 0.8 L EKG/Cardiology Studies: Cardiology / EKG Studies 08/13/17 09:16 EKG [ELECTROCARDIOGRAM] Routine Comment: Mode Of Transportation: Reason For Exam: afib Fingerstick Blood Sugar Results: 152 Critical Care Progress Note - Nutrition Nutrition: Nutrition Category Date Time Status Diabetic [Consistent Carbohydrate] [DIET] Diets 08/13/17 Breakfast Active
--- NOTE | 2017-08-14 08:49 | CP.PCM.PN ---
Subjective - Date & Time of Evaluation Date of Evaluation: 08/14/17 Time of Evaluation: 08:46 - Subjective Subjective: Thoracic Surgery - Dr. Thomas Pt S&E NAEO. Pt states she is feeling better, pain is improving and SOb improved. She has been OOB to chair yesterday. Working with Incentive Spirometer. 500cc serosanguinous drainage from B/L Chest tubes. Objective - Vital Signs/Intake and Output Vital Signs (last 24 hours): Temp Pulse Resp BP Pulse Ox 98.5 F 93 H 26 H 104/55 L 95 08/14/17 04:00 08/14/17 07:00 08/14/17 07:00 08/14/17 06:55 08/14/17 07:00 Intake and Output: 08/14/17 08/14/17 06:59 18:59 Intake Total 1099 50 Output Total 1070 Balance 29 50 - Medications Medications: Current Medications Acetaminophen (Tylenol 325mg Tab) 650 mg PO Q6 PRN PRN Reason: temp 101 and above Last Admin: 08/13/17 20:07 Dose: 650 mg Enoxaparin Sodium (Lovenox) 40 mg SC DAILY [facility] Last Admin: 08/13/17 09:45 Dose: 40 mg Sodium Chloride (Sodium Chloride 0.9%) 1,000 mls @ 50 mls/hr IV .Q20H [facility] Last Admin: 08/14/17 01:00 Dose: Not Given Ceftriaxone Sodium 1 gm/ (Sodium Chloride) 100 mls @ 100 mls/hr IVPB DAILY NELIDA PRN Reason: Protocol Last Admin: 08/13/17 09:45 Dose: 100 mls/hr Vancomycin/Sodium Chloride (Vancomycin 1 Gm/Ns 200 Ml) 1 gm in 200 mls @ 133 mls/hr IVPB Q12H NELIDA PRN Reason: Protocol Stop: 08/17/17 21:31 Last Admin: 08/13/17 20:58 Dose: 133 mls/hr Insulin Human Regular (Novolin R) 0 unit SC ACHS NELIDA PRN Reason: Protocol Last Admin: 08/13/17 21:11 Dose: Not Given Lorazepam (Ativan) 1 mg PO BID NELIDA Stop: 08/14/17 11:00 Last Admin: 08/13/17 17:38 Dose: 1 mg Lorazepam (Ativan) 0.5 mg PO DAILY NELIDA Stop: 08/16/17 10:00 Morphine Sulfate (Morphine) 2 mg IV Q4H PRN PRN Reason: Pain, moderate (4-7) Last Admin: 08/14/17 00:00 Dose: 2 mg Tramadol HCl (Ultram) 25 mg PO TID PRN PRN Reason: Pain, severe (8-10) Last Admin: 08/14/17 05:06 Dose: 25 mg - Labs Labs: 08/13/17 13:13 08/14/17 06:07 PT 14.6 SECONDS (9.7-12.2) H 08/10/17 17:09 INR 1.3 08/10/17 17:09 APTT 29 SECONDS (21-34) 08/10/17 17:09 - Constitutional Appears: No Acute Distress - Head Exam Head Exam: ATRAUMATIC, NORMAL INSPECTION, NORMOCEPHALIC - Eye Exam Eye Exam: Normal appearance - Respiratory Exam Respiratory Exam: NORMAL BREATHING PATTERN. absent: Respiratory Distress Additional comments: CTs to wall suction - Cardiovascular Exam Cardiovascular Exam: REGULAR RHYTHM - Neurological Exam Neurological Exam: Alert, Oriented x3 - Skin Skin Exam: Dry, Intact Assessment and Plan - Assessment and Plan (Free Text) Assessment: 61F POD #3 s/p Anterior Thoracotomy, Pericardial Window, Insertion of B/L Chest tubes Plan: Monitor CT output, Dressing changed Continue Pain control OOB, Rotate to lateral decubitus positions while in bed to encourage drainage of any residual effusion Encourage Incentive Spirometer for improvement of atelectasis Will plan for CT removal tomorrow pending Xray DW attending
[2017-08-14] MEDS: (Novolin R) Insulin Human Regular 100 units/ml vial SC SCH ×4 (08:52→21:39)
[2017-08-14 08:56] LABS: BASO # 0.1 K/uL (0.0-0.2); BASO % 0.7 % (0.0-2.0); EOS # 0.4 K/uL (0.0-0.7); EOS % 5.5 % (0.0-4.0); HEMOGLOBIN 8.9 g/dL (11.0-16.0); LYMPH # 1.2 K/uL (1.0-4.3); MEAN CELL VOLUME 81.1 fL (81.0-99.0); MEAN CORPUSCULAR HGB CONC 33.3 g/dL (33.0-37.0); MEAN PLATELET VOLUME 8.1 fL (7.2-11.7); MONO # 0.6 K/uL (0.0-0.8); MONO % 7.9 % (0.0-10.0); NEUT # 5.3 K/uL (1.8-7.0); NEUT % 69.9 % (50.0-75.0); RBC 3.3 Mil/uL (3.80-5.20); RED CELL DISTRIBUTION WIDTH 15.6 % (11.5-14.5); WHITE BLOOD COUNT 7.6 K/uL (4.8-10.8)
[2017-08-14] MEDS: Enoxaparin 40 mg Syringe SC SCH (09:27)
[2017-08-14] MEDS: Morphine 4 MG/ML VIAL IV PRN ×4 (09:35→19:55)
[2017-08-14] MEDS: Vancomycin 1 gm/NS 200 ml 1 GM/200 ML BAG IVPB SCH ×2 (10:39→21:34)
--- NOTE | 2017-08-14 12:32 | CP.PCM.PN ---
Subjective - Date & Time of Evaluation Date of Evaluation: 08/14/17 Time of Evaluation: 11:00 - Subjective Subjective: clinically same Objective - Vital Signs/Intake and Output Vital Signs (last 24 hours): Temp Pulse Resp BP Pulse Ox 99.1 F 94 H 14 106/56 L 92 L 08/14/17 12:00 08/14/17 12:00 08/14/17 12:00 08/14/17 11:55 08/14/17 12:00 Intake and Output: 08/14/17 08/14/17 06:59 18:59 Intake Total 1099 500 Output Total 1070 Balance 29 500 - Medications Medications: Current Medications Acetaminophen (Tylenol 325mg Tab) 650 mg PO Q6 PRN PRN Reason: temp 101 and above Last Admin: 08/13/17 20:07 Dose: 650 mg Enoxaparin Sodium (Lovenox) 40 mg SC DAILY [facility] Last Admin: 08/14/17 09:27 Dose: 40 mg Sodium Chloride (Sodium Chloride 0.9%) 1,000 mls @ 50 mls/hr IV .Q20H [facility]ELIDA Last Admin: 08/14/17 01:00 Dose: Not Given Ceftriaxone Sodium 1 gm/ (Sodium Chloride) 100 mls @ 100 mls/hr IVPB DAILY NELIDA PRN Reason: Protocol Last Admin: 08/14/17 09:26 Dose: 100 mls/hr Vancomycin/Sodium Chloride (Vancomycin 1 Gm/Ns 200 Ml) 1 gm in 200 mls @ 133 mls/hr IVPB Q12H NELIDA PRN Reason: Protocol Stop: 08/17/17 21:31 Last Admin: 08/14/17 10:39 Dose: 133 mls/hr Insulin Human Regular (Novolin R) 0 unit SC ACHS NELIDA PRN Reason: Protocol Last Admin: 08/14/17 12:30 Dose: Not Given Lorazepam (Ativan) 0.5 mg PO DAILY NELIDA Stop: 08/16/17 10:00 Morphine Sulfate (Morphine) 2 mg IV Q4H PRN PRN Reason: Pain, moderate (4-7) Last Admin: 08/14/17 09:35 Dose: 2 mg Tramadol HCl (Ultram) 25 mg PO TID PRN PRN Reason: Pain, severe (8-10) Last Admin: 08/14/17 05:06 Dose: 25 mg - Labs Labs: 08/14/17 08:51 08/14/17 06:07 PT 14.6 SECONDS (9.7-12.2) H 08/10/17 17:09 INR 1.3 08/10/17 17:09 APTT 29 SECONDS (21-34) 08/10/17 17:09 - Constitutional Appears: Well - Head Exam Head Exam: ATRAUMATIC, NORMAL INSPECTION, NORMOCEPHALIC - Eye Exam Eye Exam: EOMI, Normal appearance, PERRL Pupil Exam: NORMAL ACCOMODATION, PERRL - ENT Exam ENT Exam: Mucous Membranes Moist, Normal Exam - Neck Exam Neck Exam: Full ROM, Normal Inspection. absent: Lymphadenopathy - Respiratory Exam Respiratory Exam: Decreased Breath Sounds - Cardiovascular Exam Cardiovascular Exam: REGULAR RHYTHM, +S1, +S2 - GI/Abdominal Exam GI & Abdominal Exam: Soft, Diminished Bowel Sounds - Rectal Exam Rectal Exam: Deferred
--- NOTE | 2017-08-14 17:41 | CP.PCM.PN ---
Subjective - Date & Time of Evaluation Date of Evaluation: 08/14/17 Time of Evaluation: 15:20 - Subjective Subjective: The patient seen and examined Sitting comfortably in no respiratory distress Total drainage from chest tubes 500 cc Afebrile Desaturates without oxygen Continue antibiotics Awaiting cytology and complete fluid analysis report Objective - Vital Signs/Intake and Output Vital Signs (last 24 hours): Temp Pulse Resp BP Pulse Ox 98.1 F 100 H 24 105/65 84 L 08/14/17 16:00 08/14/17 17:00 08/14/17 17:00 08/14/17 16:55 08/14/17 16:30 Intake and Output: 08/14/17 08/14/17 06:59 18:59 Intake Total 1099 990 Output Total 1070 500 Balance 29 490 - Medications Medications: Current Medications Acetaminophen (Tylenol 325mg Tab) 650 mg PO Q6 PRN PRN Reason: temp 101 and above Last Admin: 08/13/17 20:07 Dose: 650 mg Enoxaparin Sodium (Lovenox) 40 mg SC DAILY [facility] Last Admin: 08/14/17 09:27 Dose: 40 mg Sodium Chloride (Sodium Chloride 0.9%) 1,000 mls @ 50 mls/hr IV .Q20H [facility] Last Admin: 08/14/17 01:00 Dose: Not Given Ceftriaxone Sodium 1 gm/ (Sodium Chloride) 100 mls @ 100 mls/hr IVPB DAILY NELIDA PRN Reason: Protocol Last Admin: 08/14/17 09:26 Dose: 100 mls/hr Vancomycin/Sodium Chloride (Vancomycin 1 Gm/Ns 200 Ml) 1 gm in 200 mls @ 133 mls/hr IVPB Q12H NELIDA PRN Reason: Protocol Stop: 08/17/17 21:31 Last Admin: 08/14/17 10:39 Dose: 133 mls/hr Insulin Human Regular (Novolin R) 0 unit SC ACHS NELIDA PRN Reason: Protocol Last Admin: 08/14/17 16:15 Dose: Not Given Lorazepam (Ativan) 0.5 mg PO DAILY NELIDA Stop: 08/16/17 10:00 Morphine Sulfate (Morphine) 2 mg IV Q4H PRN PRN Reason: Pain, moderate (4-7) Last Admin: 08/14/17 14:32 Dose: 2 mg Tramadol HCl (Ultram) 25 mg PO TID PRN PRN Reason: Pain, severe (8-10) Last Admin: 08/14/17 17:34 Dose: 25 mg - Labs Labs: 08/14/17 08:51 08/14/17 06:07 PT 14.6 SECONDS (9.7-12.2) H 08/10/17 17:09 INR 1.3 08/10/17 17:09 APTT 29 SECONDS (21-34) 08/10/17 17:09 - Head Exam Head Exam: ATRAUMATIC, NORMOCEPHALIC - ENT Exam ENT Exam: Mucous Membranes Moist - Neck Exam Neck Exam: Normal Inspection - Respiratory Exam Respiratory Exam: Decreased Breath Sounds - Cardiovascular Exam Cardiovascular Exam: REGULAR RHYTHM - GI/Abdominal Exam GI & Abdominal Exam: Soft, Normal Bowel Sounds Assessment and Plan (1) Pleural effusion, bilateral Status: Acute (2) Pericardial effusion Status: Acute
--- NOTE | 2017-08-14 18:16 | RAD ---
HISTORY: post op, comparison COMPARISON: Comparison is made to 08/13/2017 FINDINGS: LUNGS: Interval [id number] improvement in the lungs since the previous study. Again seen is right-sided chest C tube in place. There is also tube extending to the left chest adjacent to the left heart border PLEURA: No significant pleural effusion identified, no pneumothorax apparent. CARDIOVASCULAR: No significant interval change noted since the previous exam. OSSEOUS STRUCTURES: No significant abnormalities. VISUALIZED UPPER ABDOMEN: Normal. OTHER FINDINGS: Left-sided Port-A-Cath is again seen in place. IMPRESSION: Interval improvement in the lungs since the previous exam. Stable support devices.
[2017-08-15 06:22] LABS: BASO % 0.8 % (0.0-2.0); EOS # 0.4 K/uL (0.0-0.7); EOS % 6.8 % (0.0-4.0); HEMOGLOBIN 9.2 g/dL (11.0-16.0); LYMPH # 1.2 K/uL (1.0-4.3); LYMPH % 20.4 % (20.0-40.0); MEAN CELL VOLUME 79.8 fL (81.0-99.0); MEAN CORPUSCULAR HEMOGLOBIN 26.4 pg (27.0-31.0); MEAN CORPUSCULAR HGB CONC 33.1 g/dL (33.0-37.0); MEAN PLATELET VOLUME 8.2 fL (7.2-11.7); MONO # 0.4 K/uL (0.0-0.8); MONO % 7.5 % (0.0-10.0); NEUT # 3.7 K/uL (1.8-7.0); NEUT % 64.5 % (50.0-75.0); RBC 3.46 Mil/uL (3.80-5.20); RED CELL DISTRIBUTION WIDTH 15.3 % (11.5-14.5); WHITE BLOOD COUNT 5.7 K/uL (4.8-10.8)
[2017-08-15 06:32] LABS: ALB/GLOB RATIO 0.9 (1.0-2.1); ALBUMIN 2.6 g/dL (3.5-5.0); ALT/SGPT 46 U/L (9-52); AST/SGOT 49 U/L (14-36); BLOOD UREA NITROGEN 5 mg/dL (7-17); CALCIUM 8.1 mg/dl (8.6-10.4); GFR AFRICAN-AMERICAN > 60; GFR NON-AFRICAN AMERICAN > 60
[2017-08-15] MEDS: Morphine 4 MG/ML VIAL IV PRN ×3 (07:51→20:15)
[2017-08-15] MEDS: (Novolin R) Insulin Human Regular 100 units/ml vial SC SCH ×4 (07:55→21:43)
--- NOTE | 2017-08-15 08:04 | CP.CCUPN ---
CCU Subjective - Physician Review Events Since Last Encounter (Free Text): 08/15/17 08:03 61-year-old female with a history of breast cancer, diabetes, high cholesterol and asthma admitted to the hospital with pleural effusion, large pericardial effusion. Patient underwent pericardial window on 08/11/2017. The patient was intubated and extubated Currently comfortable. Mild exertional dyspnea noted. Chest tube in place. Vital signs currently stable. patient is comfortable and lying down Chest bilateral good air entry, chest tube noted Regular heart sound Abdomen soft nontender. Edema 1+ Labs noted Hemoglobin 8.9 nonspecific otherwise Chest x-ray left-sided pleural effusion persistently noted, slight increase noted today Assessment/recommendation: 61-year-old female with a history of breast cancer diabetes hypertension admitted with large pericardial effusion status post drainage. Chest he was still noted. We'll continue to monitor. May need a thoracentesis for the left pleural effusion We will continue to watch. Chest tube and pericardial tube will be removed possibly tomorrow CCU Objective - Vital Signs / Intake & Output Vital Signs (Last 4 hours): Vital Signs Pulse Resp BP 08/15/17 06:01 93 H 30 H 105/52 L 08/15/17 05:00 86 20 08/15/17 04:06 97 H 26 H 100/56 L Intake and Output (Last 8hrs): Intake & Output 08/14/17 08/15/17 08/15/17 22:59 06:59 14:59 Intake Total 745 600 50 Output Total 820 1080 Balance -75 -480 50 Weight 164 lb 6.4 oz Intake: Intake, IV Amount 525 400 50 Left Hand 525 400 50 Oral 220 200 Output: Chest Tube Drainage 120 130 Bilateral Upper Anterior 120 130 Chest Urine 700 950 Urine, Voided 700 950 - Physical Exam Head: Positive for: Atraumatic, Normocephalic Pupils: Positive for: PERRL Extroacular Muscles: Positive for: EOMI Conjunctiva: Positive for: Normal Mouth: Positive for: Moist Mucous Membranes Neck: Positive for: Normal Range of Motion Respiratory/Chest: Positive for: Clear to Auscultation, Other (portacath in place. Two chest tubes). Negative for: Wheezes, Rales, Rhonchi Cardiovascular: Positive for: Regular Rate and Rhythm, Normal S1, S2 Abdomen: Positive for: Normal Bowel Sounds. Negative for: Tenderness Upper Extremity: Positive for: Edema Lower Extremity: Positive for: Normal Inspection Neurological: Positive for: GCS=15 Skin: Positive for: Warm, Dry Psychiatric: Positive for: Alert, Oriented x 3 - Medications Active Medications: Active Medications Generic Name Dose Route Start Last Admin Trade Name Freq PRN Reason Stop Dose Admin Acetaminophen 650 mg 08/13/17 19:54 08/13/17 20:07 Tylenol 325mg Tab PO 650 mg Q6 PRN Administration temp 101 and above Enoxaparin Sodium 40 mg 08/13/17 10:00 08/14/17 09:27 Lovenox SC 40 mg DAILY NELIDA Administration Haloperidol Lactate 5 mg 08/14/17 21:55 08/15/17 00:02 Haldol IVP 5 mg Q8H PRN Administration Agitation Sodium Chloride 1,000 mls @ 50 mls/hr 08/12/17 09:00 08/14/17 20:22 Sodium Chloride 0.9% IV 50 mls/hr .Q20H NLEIDA Administration Vancomycin/Sodium Chloride 1 gm in 200 mls @ 133 mls/hr 08/12/17 21:30 21:34 Vancomycin 1 Gm/Ns 200 Ml IVPB 08/17/17 21:31 133 mls/hr Q12H NELIDA Administration Protocol Ceftriaxone Sodium 50 mls @ 100 mls/hr 08/15/17 10:00 Rocephin Iv 1 Gm Duplex IVPB DAILY [facility] Protocol Insulin Human Regular 0 unit 08/13/17 07:30 08/15/17 07:55 Novolin R SC Not Given ACHS [facility] Protocol Lorazepam 0.5 mg 08/15/17 10:00 Ativan PO 08/16/17 10:00 DAILY [facility] Morphine Sulfate 2 mg 08/11/17 13:41 08/15/17 07:51 Morphine IV 2 mg Q4H PRN Administration Pain, moderate (4-7) Potassium Chloride 40 meq 08/15/17 07:52 Potassium Chloride Oral Soln PO 08/15/17 07:53 ONCE ONE Tramadol HCl 25 mg 08/10/17 23:56 08/14/17 22:57 Ultram PO 25 mg TID PRN Administration Pain, severe (8-10) - Patient Studies Lab Studies: Microbiology Studies 08/11/17 10:10 Gram Stain - Final Pleural Fluid Body Fluid Culture - Preliminary NO GROWTH AFTER 3 DAYS 08/11/17 23:17 Gram Stain - Final Trachasp Sputum Culture - Final NORMAL ORAL ARACELIS 08/11/17 23:15 Blood Culture - Preliminary Blood-Venous NO GROWTH AFTER 48 HOURS 08/11/17 23:15 Blood Culture - Preliminary Blood-Venous NO GROWTH AFTER 48 HOURS Lab Studies 08/15/17 08/15/17 08/15/17 Range/Units 07:27 06:10 06:10 WBC (4.8-10.8) K/uL RBC (3.80-5.20) Mil/uL Hgb (11.0-16.0) g/dL Hct (34.0-47.0) % MCV (81.0-99.0) fL MCH (27.0-31.0) pg MCHC (33.0-37.0) g/dL RDW (11.5-14.5) % Plt Count (130-400) K/uL MPV (7.2-11.7) fL Neut % (Auto) (50.0-75.0) % Lymph % (Auto) (20.0-40.0) % Cherry % (Auto) (0.0-10.0) % Eos % (Auto) (0.0-4.0) % Baso % (Auto) (0.0-2.0) % Neut # (Auto) (1.8-7.0) K/uL Lymph # (Auto) (1.0-4.3) K/uL Cherry # (Auto) (0.0-0.8) K/uL Eos # (Auto) (0.0-0.7) K/uL Baso # (Auto) (0.0-0.2) K/uL Sodium 138 (132-148) mmol/L Potassium 3.4 L (3.6-5.2) mmol/L Chloride 104 (98-107) mmol/L Carbon Dioxide 26 (22-30) mmol/L Anion Gap 12 (10-20) BUN 5 L (7-17) mg/dL Creatinine 0.5 L (0.7-1.2) mg/dL Est GFR ( Amer) > 60 Est GFR (Non-Af Amer) > 60 POC Glucose (mg/dL) 114 H (65-110) mg/dL Random Glucose 115 H (65-105) mg/dL Calcium 8.1 L (8.6-10.4) mg/dl Phosphorus 3.0 (2.5-4.5) mg/dL Magnesium 2.1 (1.6-2.3) mg/dL Total Bilirubin 0.4 (0.2-1.3) mg/dL AST 49 H D (14-36) U/L ALT 46 (9-52) U/L Alkaline Phosphatase 95 (38-126) U/L Total Protein 5.3 L (6.3-8.3) g/dL Albumin 2.6 L (3.5-5.0) g/dL Globulin 2.7 (2.2-3.9) gm/dL Albumin/Globulin Ratio 0.9 L (1.0-2.1) Vancomycin Trough (5.0-10.0) ug/mL Random Vancomycin 9.62 ug/mL 08/15/17 08/14/17 08/14/17 Range/Units 06:10 21:19 16:02 WBC 5.7 (4.8-10.8) K/uL RBC 3.46 L (3.80-5.20) Mil/uL Hgb 9.2 L (11.0-16.0) g/dL Hct 27.6 L (34.0-47.0) % MCV 79.8 L (81.0-99.0) fL MCH 26.4 L (27.0-31.0) pg MCHC 33.1 (33.0-37.0) g/dL RDW 15.3 H (11.5-14.5) % Plt Count 282 (130-400) K/uL MPV 8.2 (7.2-11.7) fL Neut % (Auto) 64.5 (50.0-75.0) % Lymph % (Auto) 20.4 (20.0-40.0) % Cherry % (Auto) 7.5 (0.0-10.0) % Eos % (Auto) 6.8 H (0.0-4.0) % Baso % (Auto) 0.8 (0.0-2.0) % Neut # (Auto) 3.7 (1.8-7.0) K/uL Lymph # (Auto) 1.2 (1.0-4.3) K/uL Cherry # (Auto) 0.4 (0.0-0.8) K/uL Eos # (Auto) 0.4 (0.0-0.7) K/uL Baso # (Auto) 0.0 (0.0-0.2) K/uL Sodium (132-148) mmol/L Potassium (3.6-5.2) mmol/L Chloride (98-107) mmol/L Carbon Dioxide (22-30) mmol/L Anion Gap (10-20) BUN (7-17) mg/dL Creatinine (0.7-1.2) mg/dL Est GFR ( Amer) Est GFR (Non-Af Amer) POC Glucose (mg/dL) 134 H 131 H (65-110) mg/dL Random Glucose (65-105) mg/dL Calcium (8.6-10.4) mg/dl Phosphorus (2.5-4.5) mg/dL Magnesium (1.6-2.3) mg/dL Total Bilirubin (0.2-1.3) mg/dL AST (14-36) U/L ALT (9-52) U/L Alkaline Phosphatase (38-126) U/L Total Protein (6.3-8.3) g/dL Albumin (3.5-5.0) g/dL Globulin (2.2-3.9) gm/dL Albumin/Globulin Ratio (1.0-2.1) Vancomycin Trough (5.0-10.0) ug/mL Random Vancomycin ug/mL 08/14/17 08/14/17 08/14/17 Range/Units 11:38 09:27 08:51 WBC 7.6 (4.8-10.8) K/uL RBC 3.30 L (3.80-5.20) Mil/uL Hgb 8.9 L (11.0-16.0) g/dL Hct 26.8 L (34.0-47.0) % MCV 81.1 (81.0-99.0) fL MCH 27.0 (27.0-31.0) pg MCHC 33.3 (33.0-37.0) g/dL RDW 15.6 H (11.5-14.5) % Plt Count 252 (130-400) K/uL MPV 8.1 (7.2-11.7) fL Neut % (Auto) 69.9 (50.0-75.0) % Lymph % (Auto) 16.0 L (20.0-40.0) % Cherry % (Auto) 7.9 (0.0-10.0) % Eos % (Auto) 5.5 H (0.0-4.0) % Baso % (Auto) 0.7 (0.0-2.0) % Neut # (Auto) 5.3 (1.8-7.0) K/uL Lymph # (Auto) 1.2 (1.0-4.3) K/uL Cherry # (Auto) 0.6 (0.0-0.8) K/uL Eos # (Auto) 0.4 (0.0-0.7) K/uL Baso # (Auto) 0.1 (0.0-0.2) K/uL Sodium (132-148) mmol/L Potassium (3.6-5.2) mmol/L Chloride (98-107) mmol/L Carbon Dioxide (22-30) mmol/L Anion Gap (10-20) BUN (7-17) mg/dL Creatinine (0.7-1.2) mg/dL Est GFR ( Amer) Est GFR (Non-Af Amer) POC Glucose (mg/dL) 130 H (65-110) mg/dL Random Glucose (65-105) mg/dL Calcium (8.6-10.4) mg/dl Phosphorus (2.5-4.5) mg/dL Magnesium (1.6-2.3) mg/dL Total Bilirubin (0.2-1.3) mg/dL AST (14-36) U/L ALT (9-52) U/L Alkaline Phosphatase (38-126) U/L Total Protein (6.3-8.3) g/dL Albumin (3.5-5.0) g/dL Globulin (2.2-3.9) gm/dL Albumin/Globulin Ratio (1.0-2.1) Vancomycin Trough < 5.0 L (5.0-10.0) ug/mL Random Vancomycin ug/mL 08/14/17 Range/Units 07:16 WBC (4.8-10.8) K/uL RBC (3.80-5.20) Mil/uL Hgb (11.0-16.0) g/dL Hct (34.0-47.0) % MCV (81.0-99.0) fL MCH (27.0-31.0) pg MCHC (33.0-37.0) g/dL RDW (11.5-14.5) % Plt Count (130-400) K/uL MPV (7.2-11.7) fL Neut % (Auto) (50.0-75.0) % Lymph % (Auto) (20.0-40.0) % Cherry % (Auto) (0.0-10.0) % Eos % (Auto) (0.0-4.0) % Baso % (Auto) (0.0-2.0) % Neut # (Auto) (1.8-7.0) K/uL Lymph # (Auto) (1.0-4.3) K/uL Cherry # (Auto) (0.0-0.8) K/uL Eos # (Auto) (0.0-0.7) K/uL Baso # (Auto) (0.0-0.2) K/uL Sodium (132-148) mmol/L Potassium (3.6-5.2) mmol/L Chloride (98-107) mmol/L Carbon Dioxide (22-30) mmol/L Anion Gap (10-20) BUN (7-17) mg/dL Creatinine (0.7-1.2) mg/dL Est GFR ( Amer) Est GFR (Non-Af Amer) POC Glucose (mg/dL) 115 H (65-110) mg/dL Random Glucose (65-105) mg/dL Calcium (8.6-10.4) mg/dl Phosphorus (2.5-4.5) mg/dL Magnesium (1.6-2.3) mg/dL Total Bilirubin (0.2-1.3) mg/dL AST (14-36) U/L ALT (9-52) U/L Alkaline Phosphatase (38-126) U/L Total Protein (6.3-8.3) g/dL Albumin (3.5-5.0) g/dL Globulin (2.2-3.9) gm/dL Albumin/Globulin Ratio (1.0-2.1) Vancomycin Trough (5.0-10.0) ug/mL Random Vancomycin ug/mL Laboratory Results - last 24 hr 08/14/17 08/14/17 08/14/17 07:16 08:51 09:27 WBC 7.6 RBC 3.30 L Hgb 8.9 L Hct 26.8 L MCV 81.1 MCH 27.0 MCHC 33.3 RDW 15.6 H Plt Count 252 MPV 8.1 Neut % (Auto) 69.9 Lymph % (Auto) 16.0 L Cherry % (Auto) 7.9 Eos % (Auto) 5.5 H Baso % (Auto) 0.7 Neut # (Auto) 5.3 Lymph # (Auto) 1.2 Cherry # (Auto) 0.6 Eos # (Auto) 0.4 Baso # (Auto) 0.1 Sodium Potassium Chloride Carbon Dioxide Anion Gap BUN Creatinine Est GFR ( Amer) Est GFR (Non-Af Amer) POC Glucose (mg/dL) 115 H Random Glucose Calcium Phosphorus Magnesium Total Bilirubin AST ALT Alkaline Phosphatase Total Protein Albumin Globulin Albumin/Globulin Ratio Vancomycin Trough < 5.0 L Random Vancomycin 08/14/17 08/14/17 08/14/17 11:38 16:02 21:19 WBC RBC Hgb Hct MCV MCH MCHC RDW Plt Count MPV Neut % (Auto) Lymph % (Auto) Cherry % (Auto) Eos % (Auto) Baso % (Auto) Neut # (Auto) Lymph # (Auto) Cherry # (Auto) Eos # (Auto) Baso # (Auto) Sodium Potassium Chloride Carbon Dioxide Anion Gap BUN Creatinine Est GFR ( Amer) Est GFR (Non-Af Amer) POC Glucose (mg/dL) 130 H 131 H 134 H Random Glucose Calcium Phosphorus Magnesium Total Bilirubin AST ALT Alkaline Phosphatase Total Protein Albumin Globulin Albumin/Globulin Ratio Vancomycin Trough Random Vancomycin 08/15/17 08/15/17 08/15/17 06:10 06:10 06:10 WBC 5.7 RBC 3.46 L Hgb 9.2 L Hct 27.6 L MCV 79.8 L MCH 26.4 L MCHC 33.1 RDW 15.3 H Plt Count 282 MPV 8.2 Neut % (Auto) 64.5 Lymph % (Auto) 20.4 Cherry % (Auto) 7.5 Eos % (Auto) 6.8 H Baso % (Auto) 0.8 Neut # (Auto) 3.7 Lymph # (Auto) 1.2 Cherry # (Auto) 0.4 Eos # (Auto) 0.4 Baso # (Auto) 0.0 Sodium 138 Potassium 3.4 L Chloride 104 Carbon Dioxide 26 Anion Gap 12 BUN 5 L Creatinine 0.5 L Est GFR ( Amer) > 60 Est GFR (Non-Af Amer) > 60 POC Glucose (mg/dL) Random Glucose 115 H Calcium 8.1 L Phosphorus 3.0 Magnesium 2.1 Total Bilirubin 0.4 AST 49 H D ALT 46 Alkaline Phosphatase 95 Total Protein 5.3 L Albumin 2.6 L Globulin 2.7 Albumin/Globulin Ratio 0.9 L Vancomycin Trough Random Vancomycin 9.62 08/15/17 07:27 WBC RBC Hgb Hct MCV MCH MCHC RDW Plt Count MPV Neut % (Auto) Lymph % (Auto) Cherry % (Auto) Eos % (Auto) Baso % (Auto) Neut # (Auto) Lymph # (Auto) Cherry # (Auto) Eos # (Auto) Baso # (Auto) Sodium Potassium Chloride Carbon Dioxide Anion Gap BUN Creatinine Est GFR ( Amer) Est GFR (Non-Af Amer) POC Glucose (mg/dL) 114 H Random Glucose Calcium Phosphorus Magnesium Total Bilirubin AST ALT Alkaline Phosphatase Total Protein Albumin Globulin Albumin/Globulin Ratio Vancomycin Trough Random Vancomycin Fingerstick Blood Sugar Results: 134 Critical Care Progress Note - Nutrition Nutrition: Nutrition Category Date Time Status Diabetic [Consistent Carbohydrate] [DIET] Diets 08/13/17 Breakfast Active
[2017-08-15] MEDS ORDERED: Potassium Chloride 20 mEq/15 ml LIQ UD PO ONE (08:30)
--- NOTE | 2017-08-15 09:48 | CP.PCM.PN ---
Subjective - Date & Time of Evaluation Date of Evaluation: 08/15/17 Time of Evaluation: 09:45 - Subjective Subjective: CT Surgery; Dr. Cerda Pt seen and examined. No acute events overnight. Pt doing well this AM, denies pain or SOB. Tolerating diet and getting out of bed to chair. Denies F/C. Objective - Vital Signs/Intake and Output Vital Signs (last 24 hours): Temp Pulse Resp BP Pulse Ox 99 F 111 H 18 109/60 94 L 08/15/17 08:00 08/15/17 09:03 08/15/17 09:00 08/15/17 09:00 08/15/17 09:00 Intake and Output: 08/15/17 08/15/17 06:59 18:59 Intake Total 1025 390 Output Total 1580 350 Balance -555 40 - Medications Medications: Current Medications Acetaminophen (Tylenol 325mg Tab) 650 mg PO Q6 PRN PRN Reason: temp 101 and above Last Admin: 08/13/17 20:07 Dose: 650 mg Enoxaparin Sodium (Lovenox) 40 mg SC DAILY [facility] Last Admin: 08/14/17 09:27 Dose: 40 mg Haloperidol Lactate (Haldol) 5 mg IVP Q8H PRN PRN Reason: Agitation Last Admin: 08/15/17 00:02 Dose: 5 mg Sodium Chloride (Sodium Chloride 0.9%) 1,000 mls @ 50 mls/hr IV .Q20H [facility] Last Admin: 08/14/17 20:22 Dose: 50 mls/hr Vancomycin/Sodium Chloride (Vancomycin 1 Gm/Ns 200 Ml) 1 gm in 200 mls @ 133 mls/hr IVPB Q12H NELIDA PRN Reason: Protocol Stop: 08/17/17 21:31 Last Admin: 08/14/17 21:34 Dose: 133 mls/hr Ceftriaxone Sodium (Rocephin Iv 1 Gm Duplex) 50 mls @ 100 mls/hr IVPB DAILY NELIDA PRN Reason: Protocol Insulin Human Regular (Novolin R) 0 unit SC ACHS NELIDA PRN Reason: Protocol Last Admin: 08/15/17 07:55 Dose: Not Given Lorazepam (Ativan) 0.5 mg PO DAILY [facility] Stop: 08/16/17 10:00 Morphine Sulfate (Morphine) 2 mg IV Q4H PRN PRN Reason: Pain, moderate (4-7) Last Admin: 08/15/17 07:51 Dose: 2 mg Tramadol HCl (Ultram) 25 mg PO TID PRN PRN Reason: Pain, severe (8-10) Last Admin: 08/14/17 22:57 Dose: 25 mg - Labs Labs: 08/15/17 06:10 08/15/17 06:10 PT 14.6 SECONDS (9.7-12.2) H 08/10/17 17:09 INR 1.3 08/10/17 17:09 APTT 29 SECONDS (21-34) 08/10/17 17:09 - Constitutional Appears: Well, No Acute Distress - Head Exam Head Exam: ATRAUMATIC, NORMOCEPHALIC - Eye Exam Eye Exam: Normal appearance - ENT Exam ENT Exam: Mucous Membranes Moist - Respiratory Exam Respiratory Exam: NORMAL BREATHING PATTERN Additional comments: R & L CT in place on suction with serosang drainage; 250cc/24hrs; dressings C/D/ I - Cardiovascular Exam Cardiovascular Exam: Tachycardia - GI/Abdominal Exam GI & Abdominal Exam: Soft. absent: Tenderness - Neurological Exam Neurological Exam: Alert, Awake - Skin Skin Exam: Dry, Warm Assessment and Plan - Assessment and Plan (Free Text) Assessment: 61F s/p L thoracotomy & pericardial window with CT x 2; POD#3 Plan: - cont CTs on suction; monitor output - CXR this AM looks worse compared to yesterday; will discuss possible CT chest with Dr. Cerda for further eval - encourage OBTC and ambulation - encourage IS Elly, PGY-3
[2017-08-15] MEDS: Enoxaparin 40 mg Syringe SC SCH (09:54)
[2017-08-15] MEDS: cefTRIAXone IV 1 gm in Dextros 50 ML IVPB SCH (09:55)
[2017-08-15] MEDS: Vancomycin 1 gm/NS 200 ml 1 GM/200 ML BAG IVPB SCH ×2 (09:58→21:30)
--- NOTE | 2017-08-15 16:44 | CP.PCM.PN ---
Subjective - Date & Time of Evaluation Date of Evaluation: 08/15/17 Time of Evaluation: 12:00 - Subjective Subjective: clinically same Objective - Vital Signs/Intake and Output Vital Signs (last 24 hours): Temp Pulse Resp BP Pulse Ox 98.2 F 93 H 24 98/60 L 95 08/15/17 12:00 08/15/17 13:22 08/15/17 13:22 08/15/17 13:22 08/15/17 13:22 Intake and Output: 08/15/17 08/15/17 06:59 18:59 Intake Total 1025 740 Output Total 1580 350 Balance -555 390 - Medications Medications: Current Medications Acetaminophen (Tylenol 325mg Tab) 650 mg PO Q6 PRN PRN Reason: temp 101 and above Last Admin: 08/13/17 20:07 Dose: 650 mg Enoxaparin Sodium (Lovenox) 40 mg SC DAILY [facility] Last Admin: 08/15/17 09:54 Dose: 40 mg Haloperidol Lactate (Haldol) 5 mg IVP Q8H PRN PRN Reason: Agitation Last Admin: 08/15/17 00:02 Dose: 5 mg Vancomycin/Sodium Chloride (Vancomycin 1 Gm/Ns 200 Ml) 1 gm in 200 mls @ 133 mls/hr IVPB Q12H NELIDA PRN Reason: Protocol Stop: 08/17/17 21:31 Last Admin: 08/15/17 09:58 Dose: 133 mls/hr Ceftriaxone Sodium (Rocephin Iv 1 Gm Duplex) 50 mls @ 100 mls/hr IVPB DAILY [facility] PRN Reason: Protocol Last Admin: 08/15/17 09:55 Dose: 100 mls/hr Insulin Human Regular (Novolin R) 0 unit SC ACHS NELIDA PRN Reason: Protocol Last Admin: 08/15/17 12:00 Dose: Not Given Lorazepam (Ativan) 0.5 mg PO DAILY [facility] Stop: 08/16/17 10:00 Last Admin: 08/15/17 09:54 Dose: 0.5 mg Morphine Sulfate (Morphine) 2 mg IV Q4H PRN PRN Reason: Pain, moderate (4-7) Last Admin: 08/15/17 13:11 Dose: 2 mg Tramadol HCl (Ultram) 25 mg PO TID PRN PRN Reason: Pain, severe (8-10) Last Admin: 08/14/17 22:57 Dose: 25 mg - Labs Labs: 08/15/17 06:10 08/15/17 06:10 PT 14.6 SECONDS (9.7-12.2) H 08/10/17 17:09 INR 1.3 08/10/17 17:09 APTT 29 SECONDS (21-34) 08/10/17 17:09 - Constitutional Appears: Well - Head Exam Head Exam: ATRAUMATIC, NORMAL INSPECTION, NORMOCEPHALIC - Eye Exam Eye Exam: EOMI, Normal appearance, PERRL Pupil Exam: NORMAL ACCOMODATION, PERRL - ENT Exam ENT Exam: Mucous Membranes Moist, Normal Exam - Neck Exam Neck Exam: Full ROM, Normal Inspection. absent: Lymphadenopathy - Respiratory Exam Respiratory Exam: Decreased Breath Sounds - Cardiovascular Exam Cardiovascular Exam: REGULAR RHYTHM, +S1, +S2 - GI/Abdominal Exam GI & Abdominal Exam: Soft, Diminished Bowel Sounds - Rectal Exam Rectal Exam: Deferred
[2017-08-15] MEDS: Tramadol 25 mg PO PRN ×2 (16:53→22:08)
--- NOTE | 2017-08-15 19:11 | RAD ---
HISTORY: comparison COMPARISON: Comparison is made to 08/14/2017 FINDINGS: LUNGS: Interval worsening of opacity at the mid and lower left lung since the previous study. PLEURA: There is suspicious for left pleural effusion. Left and right chest the tubes are again seen in place. CARDIOVASCULAR: The cardiac silhouette is enlarged. OSSEOUS STRUCTURES: No significant abnormalities. VISUALIZED UPPER ABDOMEN: Postsurgical changes noted at the left upper abdomen. OTHER FINDINGS: Left-sided Infusaport is seen in place. IMPRESSION: Interval worsening of heterogeneous opacity at the left chest since the previous exam.
[2017-08-16] MEDS: Morphine 4 MG/ML VIAL IV PRN ×5 (00:33→22:11)
[2017-08-16 06:32] LABS: BASO % 0.9 % (0.0-2.0); EOS # 0.5 K/uL (0.0-0.7); EOS % 9.2 % (0.0-4.0); HEMOGLOBIN 9.8 g/dL (11.0-16.0); LYMPH # 1.3 K/uL (1.0-4.3); LYMPH % 24.8 % (20.0-40.0); MEAN CELL VOLUME 80.4 fL (81.0-99.0); MEAN CORPUSCULAR HEMOGLOBIN 25.8 pg (27.0-31.0); MEAN CORPUSCULAR HGB CONC 32.1 g/dL (33.0-37.0); MONO # 0.4 K/uL (0.0-0.8); MONO % 7.7 % (0.0-10.0); NEUT # 3.1 K/uL (1.8-7.0); NEUT % 57.4 % (50.0-75.0); RBC 3.78 Mil/uL (3.80-5.20); RED CELL DISTRIBUTION WIDTH 15.4 % (11.5-14.5); WHITE BLOOD COUNT 5.4 K/uL (4.8-10.8)
[2017-08-16 06:50] LABS: ALB/GLOB RATIO 0.9 (1.0-2.1); ALBUMIN 2.7 g/dL (3.5-5.0); ALT/SGPT 81 U/L (9-52); AST/SGOT 84 U/L (14-36); BLOOD UREA NITROGEN 3 mg/dL (7-17); CALCIUM 8.4 mg/dl (8.6-10.4); GFR AFRICAN-AMERICAN > 60; GFR NON-AFRICAN AMERICAN > 60
--- NOTE | 2017-08-16 08:28 | RAD ---
HISTORY: has claire. chest tubes COMPARISON: 08/15/2017 FINDINGS: LUNGS: No infiltrate. Linear scar at left base. PLEURA: Small left pleural effusion. No right pleural effusion. Bilateral chest tubes. No change in position. No pneumothorax. Left IJ central venous infusion port. CARDIOVASCULAR: Normal. OSSEOUS STRUCTURES: No significant abnormalities. VISUALIZED UPPER ABDOMEN: Normal. OTHER FINDINGS: None. IMPRESSION: Bilateral chest tubes. Small left pleural effusion. No pneumothorax.
[2017-08-16] MEDS: Enoxaparin 40 mg Syringe SC SCH (10:52)
[2017-08-16] MEDS: (Novolin R) Insulin Human Regular 100 units/ml vial SC SCH ×4 (11:01→22:08)
[2017-08-16] MEDS: cefTRIAXone IV 1 gm in Dextros 50 ML IVPB SCH (11:01)
--- NOTE | 2017-08-16 12:46 | RAD ---
Chest x-ray single frontal view History: Chest tube. Comparison: 08/16/2017 Findings Interval removal of a right chest tube Persistent left chest tube in place. Left chest wall port in stable position. Moderate left pleural effusion. Moderate venous congestion. Biapical pleural thickening with upper lobe granulomatous changes. Cardiomegaly. Degenerative changes the spine and shoulders. Surgical clips in the left upper abdomen. Impression: Interval removal of a right-sided chest tube without evidence of residual pneumothorax.
--- NOTE | 2017-08-16 13:11 | CP.PCM.CON ---
History of Present Illness - History of Present Illness History of Present Illness: Palliative consult requested by Amirah Qureshi MD for goals of care discussion Patient is a 61 yo lady admitted from home with cough and SOB X few days. Upon admission, patient was diagnosed with pericardial effusion, pleural effusion and cardiac tamponade. Patient underwent pericardial window procedure and is taken care on ICU post procedure. Patient was successfully extubated. One chest tube still remains in place. Patient is on 1:1 safety watch. PMH: Right breast CA diagnosed 2016, DM, elevated cholesterol Soc. Hx: , lives with her uncle Fam> Hx: denies Hx of breast cancer, mother and siblings healthy Review of Systems - Constitutional Constitutional: Malaise, Weakness - EENT Eyes: absent: As Per HPI, Blind Spots, Blurred Vision, Change in Vision, Decreased Night Vision, Diplopia, Discharge, Dry Eye, Exophthalmos, Floaters, Irritation, Itchy Eyes, Loss of Peripheral Vision, Pain, Photophobia, Requires Corrective Lenses, Sees Flashes, Spots in Vision, Tunnel Vision, Other Visual Disturbances, Loss of Vision, Other Ears: absent: As Per HPI, Decreased Hearing, Ear Discharge, Ear Pain, Tinnitus, Abnormal Hearing, Disequilibrium, Dizziness, Other Nose/Mouth/Throat: absent: As Per HPI, Epistaxis, Nasal Congestion, Nasal Discharge, Nasal Obstruction, Nasal Trauma, Nose Pain, Post Nasal Drip, Sinus Pain, Sinus Pressure, Bleeding Gums, Change in Voice, Dental Pain, Dry Mouth, Dysphagia, Halitosis, Hoarsness, Lip Swelling, Mouth Lesions, Mouth Pain, Odynophagia, Sore Throat, Throat Swelling, Tongue Swelling, Facial Pain, Neck Pain, Neck Mass, Other - Breasts Breasts: absent: As Per HPI, Change in Shape, Mass, Pain, Nipple Discharge, Nipple Inversion, Skin Changes, Swelling, Other Additional comments: Hx Right breast cancer - Cardiovascular Cardiovascular: Dyspnea, Dyspnea on Exertion - Respiratory Respiratory: Cough Additional comments: left chest tube - Gastrointestinal Gastrointestinal: absent: As Per HPI, Abdominal Pain, Belching, Bloating, Change in Bowel Habits, Change in Stool Character, Coffee Ground Emesis, Constipation, Cramping, Diarrhea, Dyspepsia, Dysphagia, Early Satiety, Excessive Flatus, Fecal Incontinence, Heartburn, Hematemesis, Hematochezia, Loose Stools, Melena, Nausea, Odynophagia, Temesmus, Vomiting, Other - Reproductive: Female Reproductive:Female: Post Menopausal - Menstruation Menstruation: Post Menopausal - Musculoskeletal Musculoskeletal: absent: As Per HPI, Abnormal Gait, Arthralgias, Atrophy, Back Pain, Deformity, Joint Swelling, Limited Range of Motion, Loss of Height, Muscle Cramps, Muscle Weakness, Myalgias, Neck Pain, Numbness, Radiating Pain into Limb, Stiffness, Tingling, Other - Integumentary Integumentary: absent: As Per HPI, Acne, Alopecia, Bleeding Lesions, Change in Hair, Change in Nails, Change in Pigmentation, Changing Lesions, Dry Skin, Erythema, Furuncle, Hirsutism, Lesions, New Lesions, Non-Healing Lesions, Photosensitivity, Pruritus, Rash, Skin Pain, Skin Ulcer, Sores, Striae, Swelling , Unusual Bruising, Wounds, Jaundice, Other - Neurological Neurological: absent: As Per HPI, Abnormal Gait, Abnormal Hearing, Abnormal Movements, Abnormal Speech, Behavioral Changes, Burning Sensations, Confusion, Convulsions, Disequilibrium, Dizziness, Numbness, Focal Weakness, Frequent Falls , Headaches, Lack of Coordination, Loss of Vision, Memory Loss, Paresthesias, Radicular Pain, Restless Legs, Sensory Deficit, Syncope, Tingling, Tremor, Vertigo, Weakness, Other Visual Disturbances, Other - Psychiatric Psychiatric: Anxiety, Depression - Endocrine Endocrine: absent: As Per HPI, Change in Body Appearance, Change in Libido, Cold Intolorance, Deepening of Voice, Excessive Sweating, Fatigue, Flushing, Heat Intolorance, Increase in Ring/Shoe/Hat Size, Palpitations, Polydipsia, Polyphagia, Polyuria, Other - Hematologic/Lymphatic Hematologic: absent: As Per HPI, Easy Bleeding, Easy Bruising, Lymphadenopathy, Other Past Patient History - Infectious Disease Hx of Infectious Diseases: None - Past Medical History & Family History Past Medical History?: Yes - Past Social History Smoking Status: Light Smoker < 10 Cigarettes Daily Alcohol: Social Drugs: Denies Home Situation {Lives}: With Family - CARDIAC Hx Cardiac Disorders: Yes Hx Hypercholesterolemia: Yes - PULMONARY Hx Respiratory Disorders: Yes Hx Asthma: Yes - NEUROLOGICAL Hx Neurological Disorder: Yes - HEENT Hx HEENT Problems: Yes - RENAL Hx Chronic Kidney Disease: Yes - ENDOCRINE/METABOLIC Hx Endocrine Disorders: Yes Hx Diabetes Mellitus Type 2: Yes - HEMATOLOGICAL/ONCOLOGICAL Hx Cancer: Yes (breast) Hx Chemotherapy: Yes - INTEGUMENTARY Hx Dermatological Problems: No - MUSCULOSKELETAL/RHEUMATOLOGICAL Hx Falls: Yes - GASTROINTESTINAL Hx Gastrointestinal Disorders: No - GENITOURINARY/GYNECOLOGICAL Hx Genitourinary Disorders: No - PSYCHIATRIC Hx Substance Use: No - SURGICAL HISTORY Hx Surgeries: No - ANESTHESIA Hx Anesthesia: No Meds Allergies/Adverse Reactions: Allergies Allergy/AdvReac Type Severity Reaction Status Date / Time No Known Allergies Allergy Verified 08/10/17 16:22 - Medications Medications: Current Medications Acetaminophen (Tylenol 325mg Tab) 650 mg PO Q6 PRN PRN Reason: temp 101 and above Last Admin: 08/13/17 20:07 Dose: 650 mg Enoxaparin Sodium (Lovenox) 40 mg SC DAILY [facility] Last Admin: 08/16/17 10:52 Dose: 40 mg Haloperidol Lactate (Haldol) 5 mg IVP Q8H PRN PRN Reason: Agitation Last Admin: 08/15/17 22:09 Dose: 5 mg Ceftriaxone Sodium (Rocephin Iv 1 Gm Duplex) 50 mls @ 100 mls/hr IVPB DAILY [facility] PRN Reason: Protocol Last Admin: 08/16/17 11:01 Dose: 100 mls/hr Insulin Human Regular (Novolin R) 0 unit SC ACHS [facility] PRN Reason: Protocol Last Admin: 08/16/17 12:20 Dose: Not Given Morphine Sulfate (Morphine) 2 mg IV Q4H PRN PRN Reason: Pain, moderate (4-7) Last Admin: 08/16/17 10:55 Dose: 2 mg Tramadol HCl (Ultram) 25 mg PO TID PRN PRN Reason: Pain, severe (8-10) Last Admin: 08/15/17 22:08 Dose: 25 mg Physical Exam - Constitutional Appears: Chronically Ill - Head Exam Head Exam: ATRAUMATIC, NORMAL INSPECTION, NORMOCEPHALIC - Eye Exam Eye Exam: EOMI, Normal appearance, PERRL Pupil Exam: NORMAL ACCOMODATION, PERRL - ENT Exam ENT Exam: Mucous Membranes Moist, Normal Exam - Neck Exam Neck exam: Positive for: Normal Inspection - Respiratory Exam Respiratory Exam: Decreased Breath Sounds Additional comments: left chest tube - Cardiovascular Exam Cardiovascular Exam: Tachycardia, REGULAR RHYTHM - GI/Abdominal Exam GI & Abdominal Exam: Normal Bowel Sounds - Rectal Exam Rectal Exam: Deferred - Extremities Exam Extremities exam: Positive for: normal inspection - Back Exam Back exam: NORMAL INSPECTION - Neurological Exam Neurological exam: Alert, Oriented x3 - Psychiatric Exam Psychiatric exam: Anxious, Depressed - Skin Skin Exam: Normal Color, Warm Results - Vital Signs Recent Vital Signs: Last Vital Signs Temp 98.5 F 08/16/17 04:00 Pulse 98 H 08/16/17 08:00 Resp 14 08/16/17 08:00 BP 109/66 08/16/17 07:56 Pulse Ox 96 08/16/17 07:00 - Labs Result Diagrams: 08/16/17 06:29 08/16/17 06:29 Labs: Laboratory Results - last 24 hr 08/11/17 08/11/17 08/15/17 20:18 20:18 16:15 WBC RBC Hgb Hct MCV MCH MCHC RDW Plt Count MPV Neut % (Auto) Lymph % (Auto) [place] % (Auto) Eos % (Auto) Baso % (Auto) Neut # (Auto) Lymph # (Auto) [place] # (Auto) Eos # (Auto) Baso # (Auto) Sodium Potassium Chloride Carbon Dioxide Anion Gap BUN Creatinine Est GFR ( Amer) Est GFR (Non-Af Amer) POC Glucose (mg/dL) 124 H Random Glucose Calcium Phosphorus Magnesium Total Bilirubin AST ALT Alkaline Phosphatase Total Protein Albumin Globulin Albumin/Globulin Ratio Pleural Total Protein 3.3 Pleural LDH 2288 08/15/17 08/16/17 08/16/17 21:03 06:29 06:29 WBC 5.4 RBC 3.78 L Hgb 9.8 L Hct 30.4 L MCV 80.4 L MCH 25.8 L MCHC 32.1 L RDW 15.4 H Plt Count 330 MPV 8.0 Neut % (Auto) 57.4 Lymph % (Auto) 24.8 [place] % (Auto) 7.7 Eos % (Auto) 9.2 H Baso % (Auto) 0.9 Neut # (Auto) 3.1 Lymph # (Auto) 1.3 [place] # (Auto) 0.4 Eos # (Auto) 0.5 Baso # (Auto) 0.0 Sodium 137 Potassium 4.1 Chloride 103 Carbon Dioxide 26 Anion Gap 12 BUN 3 L Creatinine 0.5 L Est GFR ( Amer) > 60 Est GFR (Non-Af Amer) > 60 POC Glucose (mg/dL) 205 H Random Glucose 111 H Calcium 8.4 L Phosphorus 3.8 Magnesium 2.1 Total Bilirubin 0.5 AST 84 H D ALT 81 H D Alkaline Phosphatase 108 Total Protein 5.6 L Albumin 2.7 L Globulin 3.0 Albumin/Globulin Ratio 0.9 L Pleural Total Protein Pleural LDH 08/16/17 08/16/17 07:31 11:49 WBC RBC Hgb Hct MCV MCH MCHC RDW Plt Count MPV Neut % (Auto) Lymph % (Auto) [place] % (Auto) Eos % (Auto) Baso % (Auto) Neut # (Auto) Lymph # (Auto) [place] # (Auto) Eos # (Auto) Baso # (Auto) Sodium Potassium Chloride Carbon Dioxide Anion Gap BUN Creatinine Est GFR ( Amer) Est GFR (Non-Af Amer) POC Glucose (mg/dL) 142 H 112 H Random Glucose Calcium Phosphorus Magnesium Total Bilirubin AST ALT Alkaline Phosphatase Total Protein Albumin Globulin Albumin/Globulin Ratio Pleural Total Protein Pleural LDH Assessment & Plan - Assessment and Plan (Free Text) Assessment: Palliative consult Code status Full Code, there is no Advance directive on chart, PPS 30% I reviewed medical records, all diagnostic studies, examined and interviewed patient in the bed. Patient is alert, oriented X 3, with affect that is flat and depressed mood. Patient is alert, oriented X 3 , in no acute distress. Breath sounds diminished, there is occasional moist cough, chest tube to left chest attached to suction, drainage prachi. Patient denies pain to insertion site , but admits to discomfort and limited mobility. Morphine PRN and Tramadol PRN on board. Abdomen is flat, active bowel sounds, denies constipation, tolerates diet well. All 4 extremities mobile, there is no edema. BP 109/ 66, HR 80. Afebrile, WBC 5.6, Hb 9.8. Goals of care discussed with patient. I elicited patient's understanding of her condition and her expectations. Patient stated she was diagnosed with breast cancer in 2016 " due to high Estrogen level". Patient was fallowed as an outpatient by oncologist from [facility].( Patient could not recall his name at the moment) We discussed how the disease had affected her life. 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 Patient is looking forward going home and " sitting by the beach". She admits to depression, feeling down and losing interest in activities she used to enjoy. Patient was on antidepressant meds prior to hospitalization but stopped them as those meds made her sleep a lot. Patient wants to feel better and is asking what else she could do to fight depression. We discusses relaxation techniques, such listening relaxation music, engaging in creative activities that she enjoyed before such as crafting . I suggested that she is seen by psychiatrist while here and patient agreed. Further patient related to me her fear from lack of housing. She used to stay with her uncle, but feels if she lived alone she would be happier. I questioned her family support, what patient did not give straight answer to it. She asked to "be helped with housing". 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 Patient was on Zyprexa 10 mg at home * OT to engage patient in activities, provide patient with creative activities * Pastoral visit for spiritual support * SS to assist with discharge planing Palliative care will continue to offer emotional support to this very unfortunate lady
--- NOTE | 2017-08-16 14:15 | CP.PCM.PN ---
Subjective - Date & Time of Evaluation Date of Evaluation: 08/16/17 Time of Evaluation: 07:00 - Subjective Subjective: CT surgery progress note for Dr. Duncan Mittal, PGY-1 Pt S & E at bedside. Pt sitting up in bed, resting comfortable. Reports some discomfort at the CT insertion sites. Some SOB. Denies N & V, F & C. Is tolerating diet, getting OOBTC. Objective - Vital Signs/Intake and Output Vital Signs (last 24 hours): Temp Pulse Resp BP Pulse Ox 98.5 F 98 H 14 109/66 96 08/16/17 04:00 08/16/17 08:00 08/16/17 08:00 08/16/17 07:56 08/16/17 07:00 Intake and Output: 08/16/17 08/16/17 06:59 18:59 Intake Total 470 Output Total 1060 Balance -590 - Medications Medications: Current Medications Acetaminophen (Tylenol 325mg Tab) 650 mg PO Q6 PRN PRN Reason: temp 101 and above Last Admin: 08/13/17 20:07 Dose: 650 mg Enoxaparin Sodium (Lovenox) 40 mg SC DAILY [facility] Last Admin: 08/16/17 10:52 Dose: 40 mg Haloperidol Lactate (Haldol) 5 mg IVP Q8H PRN PRN Reason: Agitation Last Admin: 08/15/17 22:09 Dose: 5 mg Ceftriaxone Sodium (Rocephin Iv 1 Gm Duplex) 50 mls @ 100 mls/hr IVPB DAILY [facility] PRN Reason: Protocol Last Admin: 08/16/17 11:01 Dose: 100 mls/hr Insulin Human Regular (Novolin R) 0 unit SC ACHS [facility] PRN Reason: Protocol Last Admin: 08/16/17 12:20 Dose: Not Given Morphine Sulfate (Morphine) 2 mg IV Q4H PRN PRN Reason: Pain, moderate (4-7) Last Admin: 08/16/17 10:55 Dose: 2 mg Tramadol HCl (Ultram) 25 mg PO TID PRN PRN Reason: Pain, severe (8-10) Last Admin: 08/15/17 22:08 Dose: 25 mg - Labs Labs: 08/16/17 06:29 08/16/17 06:29 PT 14.6 SECONDS (9.7-12.2) H 04/10/18 17:09 INR 1.3 08/10/17 17:09 APTT 29 SECONDS (21-34) 08/10/17 17:09 - Constitutional Appears: Non-toxic, No Acute Distress - Head Exam Head Exam: ATRAUMATIC, NORMAL INSPECTION, NORMOCEPHALIC - Eye Exam Eye Exam: EOMI, Normal appearance - ENT Exam ENT Exam: Mucous Membranes Moist, Normal Exam - Neck Exam Neck Exam: Full ROM, Normal Inspection - Respiratory Exam Respiratory Exam: Chest Wall Tenderness (under left breast, at incision site), NORMAL BREATHING PATTERN - Cardiovascular Exam Cardiovascular Exam: REGULAR RHYTHM, +S1, +S2 - GI/Abdominal Exam GI & Abdominal Exam: Soft. absent: Distended, Tenderness - Extremities Exam Extremities Exam: Normal Inspection - Neurological Exam Neurological Exam: Alert, Awake, CN II-XII Intact, Oriented x3 - Psychiatric Exam Psychiatric exam: Normal Affect, Normal Mood - Skin Skin Exam: Dry, Intact, Normal Color, Warm Assessment and Plan - Assessment and Plan (Free Text) Assessment: 61F s/p L thoracotomy & pericardial window with CT x 2; POD#4, s/p R chest tube removal Plan: CXR post Right CT pull neg for pneumothorax Cont Serial CXRs Monitor L CT output OOBTC Encourage IS use Ambulate Will MITESH attending [place], PGY-1
--- NOTE | 2017-08-16 14:55 | CP.CCUPN ---
CCU Subjective - Physician Review Subjective (Free Text): 08/16/17 14:51 Patient seen and examined. Patient has no acute complaints at this time. She is breathing well and is much improved. CCU Objective - Vital Signs / Intake & Output Vital Signs (Last 4 hours): Vital Signs Temp Pulse Resp BP Pulse Ox 08/16/17 14:00 98 H 25 H 08/16/17 13:00 99 H 16 95 08/16/17 12:00 98.1 F 89 19 91 L 08/16/17 11:56 91 H 20 102/57 L 93 L 08/16/17 11:00 101 H 20 95 Intake and Output (Last 8hrs): Intake & Output 08/15/17 08/16/17 08/16/17 22:59 06:59 14:59 Intake Total 820 170 Output Total 525 860 Balance 295 -690 Weight 165 lb Intake: Intake, IV Amount 600 0 Left Hand 600 0 Oral 220 170 Output: Chest Tube Drainage 200 160 Bilateral Upper Anterior 200 160 Chest Urine 325 700 Urine, Voided 325 700 - Physical Exam Head: Positive for: Atraumatic, Normocephalic Pupils: Positive for: PERRL Extroacular Muscles: Positive for: EOMI Conjunctiva: Positive for: Normal Mouth: Positive for: Moist Mucous Membranes Neck: Positive for: Normal Range of Motion Respiratory/Chest: Positive for: Clear to Auscultation. Negative for: Wheezes, Rales, Rhonchi Cardiovascular: Positive for: Regular Rate and Rhythm, Normal S1, S2 Abdomen: Positive for: Normal Bowel Sounds. Negative for: Tenderness Upper Extremity: Positive for: Edema Lower Extremity: Positive for: Normal Inspection Neurological: Positive for: GCS=15 Skin: Positive for: Warm, Dry Psychiatric: Positive for: Alert, Oriented x 3 - Medications Active Medications: Active Medications Generic Name Dose Route Start Last Admin Trade Name Freq PRN Reason Stop Dose Admin Acetaminophen 650 mg 08/13/17 19:54 08/13/17 20:07 Tylenol 325mg Tab PO 650 mg Q6 PRN Administration temp 101 and above Enoxaparin Sodium 40 mg 08/13/17 10:00 08/16/17 10:52 Lovenox SC 40 mg DAILY [facility] Administration Haloperidol Lactate 5 mg 08/14/17 21:55 08/15/17 22:09 Haldol IVP 5 mg Q8H PRN Administration Agitation Ceftriaxone Sodium 50 mls @ 100 mls/hr 08/15/17 10:00 08/16/17 11:01 Rocephin Iv 1 Gm Duplex IVPB 100 mls/hr DAILY [facility] Administration Protocol Insulin Human Regular 0 unit 08/13/17 07:30 08/16/17 12:20 Novolin R SC Not Given ACHS [facility] Protocol Morphine Sulfate 2 mg 08/11/17 13:41 08/16/17 10:55 Morphine IV 2 mg Q4H PRN Administration Pain, moderate (4-7) Tramadol HCl 25 mg 08/10/17 23:56 08/15/17 22:08 Ultram PO 25 mg TID PRN Administration Pain, severe (8-10) - Patient Studies Lab Studies: Microbiology Studies 08/11/17 23:15 Blood Culture - Preliminary Blood-Venous NO GROWTH AFTER 4 DAYS 08/11/17 23:15 Blood Culture - Preliminary Blood-Venous NO GROWTH AFTER 4 DAYS 08/11/17 10:10 Gram Stain - Final Pleural Fluid Body Fluid Culture - Final NO GROWTH AFTER 4 DAYS Lab Studies 08/16/17 08/16/17 08/16/17 Range/Units 11:49 07:31 06:29 WBC (4.8-10.8) K/uL RBC (3.80-5.20) Mil/uL Hgb (11.0-16.0) g/dL Hct (34.0-47.0) % MCV (81.0-99.0) fL MCH (27.0-31.0) pg MCHC (33.0-37.0) g/dL RDW (11.5-14.5) % Plt Count (130-400) K/uL MPV (7.2-11.7) fL Neut % (Auto) (50.0-75.0) % Lymph % (Auto) (20.0-40.0) % [place] % (Auto) (0.0-10.0) % Eos % (Auto) (0.0-4.0) % Baso % (Auto) (0.0-2.0) % Neut # (Auto) (1.8-7.0) K/uL Lymph # (Auto) (1.0-4.3) K/uL [place] # (Auto) (0.0-0.8) K/uL Eos # (Auto) (0.0-0.7) K/uL Baso # (Auto) (0.0-0.2) K/uL Sodium 137 (132-148) mmol/L Potassium 4.1 (3.6-5.2) mmol/L Chloride 103 (98-107) mmol/L Carbon Dioxide 26 (22-30) mmol/L Anion Gap 12 (10-20) BUN 3 L (7-17) mg/dL Creatinine 0.5 L (0.7-1.2) mg/dL Est GFR ( Amer) > 60 Est GFR (Non-Af Amer) > 60 POC Glucose (mg/dL) 112 H 142 H (65-110) mg/dL Random Glucose 111 H (65-105) mg/dL Calcium 8.4 L (8.6-10.4) mg/dl Phosphorus 3.8 (2.5-4.5) mg/dL Magnesium 2.1 (1.6-2.3) mg/dL Total Bilirubin 0.5 (0.2-1.3) mg/dL AST 84 H D (14-36) U/L ALT 81 H D (9-52) U/L Alkaline Phosphatase 108 (38-126) U/L Total Protein 5.6 L (6.3-8.3) g/dL Albumin 2.7 L (3.5-5.0) g/dL Globulin 3.0 (2.2-3.9) gm/dL Albumin/Globulin Ratio 0.9 L (1.0-2.1) Pleural Total Protein g/dL Pleural LDH U/L 08/16/17 08/15/17 08/15/17 Range/Units 06:29 21:03 16:15 WBC 5.4 (4.8-10.8) K/uL RBC 3.78 L (3.80-5.20) Mil/uL Hgb 9.8 L (11.0-16.0) g/dL Hct 30.4 L (34.0-47.0) % MCV 80.4 L (81.0-99.0) fL MCH 25.8 L (27.0-31.0) pg MCHC 32.1 L (33.0-37.0) g/dL RDW 15.4 H (11.5-14.5) % Plt Count 330 (130-400) K/uL MPV 8.0 (7.2-11.7) fL Neut % (Auto) 57.4 (50.0-75.0) % Lymph % (Auto) 24.8 (20.0-40.0) % [place] % (Auto) 7.7 (0.0-10.0) % Eos % (Auto) 9.2 H (0.0-4.0) % Baso % (Auto) 0.9 (0.0-2.0) % Neut # (Auto) 3.1 (1.8-7.0) K/uL Lymph # (Auto) 1.3 (1.0-4.3) K/uL [place] # (Auto) 0.4 (0.0-0.8) K/uL Eos # (Auto) 0.5 (0.0-0.7) K/uL Baso # (Auto) 0.0 (0.0-0.2) K/uL Sodium (132-148) mmol/L Potassium (3.6-5.2) mmol/L Chloride (98-107) mmol/L Carbon Dioxide (22-30) mmol/L Anion Gap (10-20) BUN (7-17) mg/dL Creatinine (0.7-1.2) mg/dL Est GFR ( Amer) Est GFR (Non-Af Amer) POC Glucose (mg/dL) 205 H 124 H (65-110) mg/dL Random Glucose (65-105) mg/dL Calcium (8.6-10.4) mg/dl Phosphorus (2.5-4.5) mg/dL Magnesium (1.6-2.3) mg/dL Total Bilirubin (0.2-1.3) mg/dL AST (14-36) U/L ALT (9-52) U/L Alkaline Phosphatase (38-126) U/L Total Protein (6.3-8.3) g/dL Albumin (3.5-5.0) g/dL Globulin (2.2-3.9) gm/dL Albumin/Globulin Ratio (1.0-2.1) Pleural Total Protein g/dL Pleural LDH U/L 08/11/17 08/11/17 Range/Units 20:18 20:18 WBC (4.8-10.8) K/uL RBC (3.80-5.20) Mil/uL Hgb (11.0-16.0) g/dL Hct (34.0-47.0) % MCV (81.0-99.0) fL MCH (27.0-31.0) pg MCHC (33.0-37.0) g/dL RDW (11.5-14.5) % Plt Count (130-400) K/uL MPV (7.2-11.7) fL Neut % (Auto) (50.0-75.0) % Lymph % (Auto) (20.0-40.0) % [place] % (Auto) (0.0-10.0) % Eos % (Auto) (0.0-4.0) % Baso % (Auto) (0.0-2.0) % Neut # (Auto) (1.8-7.0) K/uL Lymph # (Auto) (1.0-4.3) K/uL [place] # (Auto) (0.0-0.8) K/uL Eos # (Auto) (0.0-0.7) K/uL Baso # (Auto) (0.0-0.2) K/uL Sodium (132-148) mmol/L Potassium (3.6-5.2) mmol/L Chloride (98-107) mmol/L Carbon Dioxide (22-30) mmol/L Anion Gap (10-20) BUN (7-17) mg/dL Creatinine (0.7-1.2) mg/dL Est GFR ( Amer) Est GFR (Non-Af Amer) POC Glucose (mg/dL) (65-110) mg/dL Random Glucose (65-105) mg/dL Calcium (8.6-10.4) mg/dl Phosphorus (2.5-4.5) mg/dL Magnesium (1.6-2.3) mg/dL Total Bilirubin (0.2-1.3) mg/dL AST (14-36) U/L ALT (9-52) U/L Alkaline Phosphatase (38-126) U/L Total Protein (6.3-8.3) g/dL Albumin (3.5-5.0) g/dL Globulin (2.2-3.9) gm/dL Albumin/Globulin Ratio (1.0-2.1) Pleural Total Protein 3.3 g/dL Pleural LDH 2288 U/L Laboratory Results - last 24 hr 08/11/17 08/11/17 08/15/17 20:18 20:18 16:15 WBC RBC Hgb Hct MCV MCH MCHC RDW Plt Count MPV Neut % (Auto) Lymph % (Auto) [place] % (Auto) Eos % (Auto) Baso % (Auto) Neut # (Auto) Lymph # (Auto) [place] # (Auto) Eos # (Auto) Baso # (Auto) Sodium Potassium Chloride Carbon Dioxide Anion Gap BUN Creatinine Est GFR ( Amer) Est GFR (Non-Af Amer) POC Glucose (mg/dL) 124 H Random Glucose Calcium Phosphorus Magnesium Total Bilirubin AST ALT Alkaline Phosphatase Total Protein Albumin Globulin Albumin/Globulin Ratio Pleural Total Protein 3.3 Pleural LDH 2288 08/15/17 08/16/17 08/16/17 21:03 06:29 06:29 WBC 5.4 RBC 3.78 L Hgb 9.8 L Hct 30.4 L MCV 80.4 L MCH 25.8 L MCHC 32.1 L RDW 15.4 H Plt Count 330 MPV 8.0 Neut % (Auto) 57.4 Lymph % (Auto) 24.8 [place] % (Auto) 7.7 Eos % (Auto) 9.2 H Baso % (Auto) 0.9 Neut # (Auto) 3.1 Lymph # (Auto) 1.3 [place] # (Auto) 0.4 Eos # (Auto) 0.5 Baso # (Auto) 0.0 Sodium 137 Potassium 4.1 Chloride 103 Carbon Dioxide 26 Anion Gap 12 BUN 3 L Creatinine 0.5 L Est GFR ( Amer) > 60 Est GFR (Non-Af Amer) > 60 POC Glucose (mg/dL) 205 H Random Glucose 111 H Calcium 8.4 L Phosphorus 3.8 Magnesium 2.1 Total Bilirubin 0.5 AST 84 H D ALT 81 H D Alkaline Phosphatase 108 Total Protein 5.6 L Albumin 2.7 L Globulin 3.0 Albumin/Globulin Ratio 0.9 L Pleural Total Protein Pleural LDH 08/16/17 08/16/17 07:31 11:49 WBC RBC Hgb Hct MCV MCH MCHC RDW Plt Count MPV Neut % (Auto) Lymph % (Auto) [place] % (Auto) Eos % (Auto) Baso % (Auto) Neut # (Auto) Lymph # (Auto) [place] # (Auto) Eos # (Auto) Baso # (Auto) Sodium Potassium Chloride Carbon Dioxide Anion Gap BUN Creatinine Est GFR ( Amer) Est GFR (Non-Af Amer) POC Glucose (mg/dL) 142 H 112 H Random Glucose Calcium Phosphorus Magnesium Total Bilirubin AST ALT Alkaline Phosphatase Total Protein Albumin Globulin Albumin/Globulin Ratio Pleural Total Protein Pleural LDH Fingerstick Blood Sugar Results: 205 Critical Care Progress Note - Nutrition Nutrition: Nutrition Category Date Time Status Diabetic [Consistent Carbohydrate] [DIET] Diets 08/13/17 Breakfast Active Assessment/Plan - Assessment and Plan (Free Text) Assessment: This is a 61 year old female with PMHx breast CA presenting for shortness of breath. This is likely due to both the pericardial and the bilateral pleural effusions. Patient is POD #5 from pericardial window. Neuro Awake, Verbal Cardio Patient underwent pericardial window in the OR 08/11/17 Pulm Extubated on 08/12/17 Saturating well on Nasal Cannula GI Diabetic Diet diet Endocrine Regular ISS ACHS-low dose Accuchecks Infectious Diseases Cultures negative so far Rocephin 1 gm daily started 08/13/17 Heme/onc Monitor H/H Ultrasound for edematous arm negative Prophylaxis Lovenox Pepcid 20 mg PO BID Discussed with Dr. Diana
--- NOTE | 2017-08-16 17:07 | CP.PCM.PN ---
Subjective - Date & Time of Evaluation Date of Evaluation: 08/16/17 Time of Evaluation: 11:00 - Subjective Subjective: patient seen and examined Sitting comfortably in no acute distress Patient states breathing is much improved but is slight cough One chest tube removed Afebrile Objective - Vital Signs/Intake and Output Vital Signs (last 24 hours): Temp Pulse Resp BP Pulse Ox 98.1 F 98 H 25 H 102/57 L 95 08/16/17 12:00 08/16/17 14:00 08/16/17 14:00 08/16/17 11:56 08/16/17 13:00 Intake and Output: 08/16/17 08/16/17 06:59 18:59 Intake Total 470 Output Total 1060 Balance -590 - Medications Medications: Current Medications Acetaminophen (Tylenol 325mg Tab) 650 mg PO Q6 PRN PRN Reason: temp 101 and above Last Admin: 08/13/17 20:07 Dose: 650 mg Enoxaparin Sodium (Lovenox) 40 mg SC DAILY [facility] Last Admin: 08/16/17 10:52 Dose: 40 mg Famotidine (Pepcid) 20 mg PO BID [facility] Haloperidol Lactate (Haldol) 5 mg IVP Q8H PRN PRN Reason: Agitation Last Admin: 08/15/17 22:09 Dose: 5 mg Ceftriaxone Sodium (Rocephin Iv 1 Gm Duplex) 50 mls @ 100 mls/hr IVPB DAILY [facility] PRN Reason: Protocol Last Admin: 08/16/17 11:01 Dose: 100 mls/hr Insulin Human Regular (Novolin R) 0 unit SC ACHS [facility] PRN Reason: Protocol Last Admin: 08/16/17 12:20 Dose: Not Given Morphine Sulfate (Morphine) 2 mg IV Q4H PRN PRN Reason: Pain, moderate (4-7) Last Admin: 08/16/17 10:55 Dose: 2 mg Tramadol HCl (Ultram) 25 mg PO TID PRN PRN Reason: Pain, severe (8-10) Last Admin: 08/15/17 22:08 Dose: 25 mg - Labs Labs: 08/16/17 06:29 08/16/17 06:29 PT 14.6 SECONDS (9.7-12.2) H 08/10/17 17:09 INR 1.3 04/10/18 17:09 APTT 29 SECONDS (21-34) 08/10/17 17:09 - Head Exam Head Exam: ATRAUMATIC, NORMOCEPHALIC - ENT Exam ENT Exam: Mucous Membranes Moist - Neck Exam Neck Exam: Normal Inspection - Respiratory Exam Respiratory Exam: Decreased Breath Sounds - Cardiovascular Exam Cardiovascular Exam: REGULAR RHYTHM Assessment and Plan (1) Pleural effusion, bilateral Assessment & Plan: Extremely high LDH in the pleural fluid consistent with either malignancy or infectious etiology Followup cytology in the pleural fluid Continue antibiotics Followup culture and sensitivity Status: Acute (2) Pericardial effusion Status: Acute
--- NOTE | 2017-08-16 19:18 | CP.PCM.PN ---
Subjective - Date & Time of Evaluation Date of Evaluation: 08/16/17 Time of Evaluation: 11:00 - Subjective Subjective: clinically same Objective - Vital Signs/Intake and Output Vital Signs (last 24 hours): Temp Pulse Resp BP Pulse Ox 98.0 F 113 H 12 102/57 L 92 L 08/16/17 18:00 08/16/17 18:00 08/16/17 18:00 08/16/17 11:56 08/16/17 18:00 Intake and Output: 08/16/17 08/17/17 18:59 06:59 Intake Total 820 Output Total 1300 Balance -480 - Medications Medications: Current Medications Acetaminophen (Tylenol 325mg Tab) 650 mg PO Q6 PRN PRN Reason: temp 101 and above Last Admin: 08/13/17 20:07 Dose: 650 mg Enoxaparin Sodium (Lovenox) 40 mg SC DAILY [facility] Last Admin: 08/16/17 10:52 Dose: 40 mg Famotidine (Pepcid) 20 mg PO BID [facility] Last Admin: 08/16/17 18:04 Dose: 20 mg Haloperidol Lactate (Haldol) 5 mg IVP Q8H PRN PRN Reason: Agitation Last Admin: 08/15/17 22:09 Dose: 5 mg Ceftriaxone Sodium (Rocephin Iv 1 Gm Duplex) 50 mls @ 100 mls/hr IVPB DAILY [facility] PRN Reason: Protocol Last Admin: 08/16/17 11:01 Dose: 100 mls/hr Insulin Human Regular (Novolin R) 0 unit SC ACHS [facility] PRN Reason: Protocol Last Admin: 08/16/17 18:24 Dose: Not Given Morphine Sulfate (Morphine) 2 mg IV Q4H PRN PRN Reason: Pain, moderate (4-7) Last Admin: 08/16/17 16:15 Dose: 2 mg Tramadol HCl (Ultram) 25 mg PO TID PRN PRN Reason: Pain, severe (8-10) Last Admin: 08/15/17 22:08 Dose: 25 mg - Labs Labs: 08/16/17 06:29 08/16/17 06:29 PT 14.6 SECONDS (9.7-12.2) H 08/10/17 17:09 INR 1.3 08/10/17 17:09 APTT 29 SECONDS (21-34) 08/10/17 17:09 - Constitutional Appears: Well - Head Exam Head Exam: ATRAUMATIC, NORMAL INSPECTION, NORMOCEPHALIC - Eye Exam Eye Exam: EOMI, Normal appearance, PERRL Pupil Exam: NORMAL ACCOMODATION, PERRL - ENT Exam ENT Exam: Mucous Membranes Moist, Normal Exam - Neck Exam Neck Exam: Full ROM, Normal Inspection. absent: Lymphadenopathy - Respiratory Exam Respiratory Exam: Decreased Breath Sounds - Cardiovascular Exam Cardiovascular Exam: REGULAR RHYTHM, +S1, +S2 - GI/Abdominal Exam GI & Abdominal Exam: Soft, Diminished Bowel Sounds - Rectal Exam Rectal Exam: Deferred
[2017-08-16] MEDS: Tramadol 25 mg PO PRN (20:52)
[2017-08-17 06:21] LABS: BASO # 0.1 K/uL (0.0-0.2); BASO % 0.9 % (0.0-2.0); EOS # 0.5 K/uL (0.0-0.7); EOS % 8.2 % (0.0-4.0); HEMOGLOBIN 10.2 g/dL (11.0-16.0); LYMPH # 1.5 K/uL (1.0-4.3); LYMPH % 25.1 % (20.0-40.0); MEAN CELL VOLUME 79.8 fL (81.0-99.0); MEAN CORPUSCULAR HEMOGLOBIN 26.6 pg (27.0-31.0); MEAN CORPUSCULAR HGB CONC 33.4 g/dL (33.0-37.0); MEAN PLATELET VOLUME 8.1 fL (7.2-11.7); MONO # 0.5 K/uL (0.0-0.8); MONO % 8.6 % (0.0-10.0); NEUT # 3.3 K/uL (1.8-7.0); NEUT % 57.2 % (50.0-75.0); RBC 3.83 Mil/uL (3.80-5.20); RED CELL DISTRIBUTION WIDTH 15.1 % (11.5-14.5); WHITE BLOOD COUNT 5.8 K/uL (4.8-10.8)
[2017-08-17 06:41] LABS: ALB/GLOB RATIO 0.9 (1.0-2.1); ALBUMIN 2.8 g/dL (3.5-5.0); ALT/SGPT 80 U/L (9-52); AST/SGOT 54 U/L (14-36); BLOOD UREA NITROGEN 4 mg/dL (7-17); CALCIUM 8.6 mg/dl (8.6-10.4); GFR AFRICAN-AMERICAN > 60; GFR NON-AFRICAN AMERICAN > 60
[2017-08-17] MEDS: (Novolin R) Insulin Human Regular 100 units/ml vial SC SCH ×4 (07:30→22:14)
[2017-08-17] MEDS: Morphine 4 MG/ML VIAL IV PRN ×2 (09:01→22:11)
[2017-08-17] MEDS: Enoxaparin 40 mg Syringe SC SCH (09:03)
[2017-08-17] MEDS: cefTRIAXone IV 1 gm in Dextros 50 ML IVPB SCH (09:04)
--- NOTE | 2017-08-17 10:26 | CP.PCM.PN ---
Subjective - Date & Time of Evaluation Date of Evaluation: 08/17/17 Time of Evaluation: 10:24 - Subjective Subjective: Thoracic Surgery - Dr. Cerda Pt S&E. [place]. Pt complains of mild pain from the chest tube, mild SOB, otherwise no complaints. She is tolerating regular diet. OOB to chair. Objective - Vital Signs/Intake and Output Vital Signs (last 24 hours): Temp Pulse Resp BP Pulse Ox 98.2 F 109 H 17 130/71 93 L 08/17/17 01:00 08/17/17 09:00 08/17/17 09:00 08/17/17 08:14 08/17/17 09:00 Intake and Output: 08/17/17 08/17/17 06:59 18:59 Intake Total 820 840 Output Total 1680 300 Balance -860 540 - Medications Medications: Current Medications Acetaminophen (Tylenol 325mg Tab) 650 mg PO Q6 PRN PRN Reason: temp 101 and above Last Admin: 08/13/17 20:07 Dose: 650 mg Enoxaparin Sodium (Lovenox) 40 mg SC DAILY [facility] Last Admin: 08/17/17 09:03 Dose: 40 mg Famotidine (Pepcid) 20 mg PO BID [facility] Last Admin: 08/17/17 09:04 Dose: 20 mg Haloperidol Lactate (Haldol) 5 mg IVP Q8H PRN PRN Reason: Agitation Last Admin: 08/15/17 22:09 Dose: 5 mg Ceftriaxone Sodium (Rocephin Iv 1 Gm Duplex) 50 mls @ 100 mls/hr IVPB DAILY [facility] PRN Reason: Protocol Last Admin: 08/17/17 09:04 Dose: 100 mls/hr Insulin Human Regular (Novolin R) 0 unit SC ACHS [facility] PRN Reason: Protocol Last Admin: 08/17/17 07:30 Dose: Not Given Morphine Sulfate (Morphine) 2 mg IV Q4H PRN PRN Reason: Pain, moderate (4-7) Last Admin: 08/17/17 09:01 Dose: 2 mg Tramadol HCl (Ultram) 25 mg PO TID PRN PRN Reason: Pain, severe (8-10) Last Admin: 08/16/17 20:52 Dose: 25 mg - Labs Labs: 08/17/17 06:12 08/17/17 06:14 PT 14.6 SECONDS (9.7-12.2) H 08/10/17 17:09 INR 1.3 08/10/17 17:09 APTT 29 SECONDS (21-34) 08/10/17 17:09 - Constitutional Appears: No Acute Distress - Head Exam Head Exam: NORMAL INSPECTION, NORMOCEPHALIC - Eye Exam Eye Exam: Normal appearance - Respiratory Exam Respiratory Exam: NORMAL BREATHING PATTERN. absent: Respiratory Distress - Neurological Exam Neurological Exam: Alert, Oriented x3 - Psychiatric Exam Psychiatric exam: Normal Affect, Normal Mood - Skin Skin Exam: Dry, Intact Assessment and Plan - Assessment and Plan (Free Text) Assessment: 61F s/p L thoracotomy & pericardial window with CT x 2; POD#5, s/p R chest tube removal Plan: Left Chest tube to waterseal OOBTC and rotate on sides Re-eval L effusion ~1pm, poss. chest tube removal later today Encourage IS use Ambulate
--- NOTE | 2017-08-17 15:18 | RAD ---
HISTORY: re-eval L effusion COMPARISON: Multiple serial examinations preceding the most recent study: August 16, 2017. FINDINGS: LUNGS: Stable consolidative changes at the left lung base. New atelectasis right lower lobe. PLEURA: Stable position of chest tube in the left pleural space. No pneumothorax. CARDIOVASCULAR: No radiographic findings to suggest acute or significant cardiovascular disease. Venous access catheter in stable, satisfactory position. OSSEOUS STRUCTURES: No significant abnormalities. VISUALIZED UPPER ABDOMEN: Normal. OTHER FINDINGS: None. IMPRESSION: New atelectasis/infiltrate right lower lobe. Otherwise no change.
--- NOTE | 2017-08-17 17:14 | CP.PCM.PN ---
Subjective - Date & Time of Evaluation Date of Evaluation: 08/17/17 Time of Evaluation: 10:20 - Subjective Subjective: clinically same Objective - Vital Signs/Intake and Output Vital Signs (last 24 hours): Temp Pulse Resp BP Pulse Ox 98 F 91 H 12 87/53 L 89 L 08/17/17 10:00 08/17/17 12:15 08/17/17 12:15 08/17/17 12:15 08/17/17 12:15 Intake and Output: 08/17/17 08/17/17 06:59 18:59 Intake Total 820 1600 Output Total 1680 1100 Balance -860 500 - Medications Medications: Current Medications Acetaminophen (Tylenol 325mg Tab) 650 mg PO Q6 PRN PRN Reason: temp 101 and above Last Admin: 08/13/17 20:07 Dose: 650 mg Enoxaparin Sodium (Lovenox) 40 mg SC DAILY [facility] Last Admin: 08/17/17 09:03 Dose: 40 mg Famotidine (Pepcid) 20 mg PO BID [facility] Last Admin: 08/17/17 09:04 Dose: 20 mg Haloperidol Lactate (Haldol) 5 mg IVP Q8H PRN PRN Reason: Agitation Last Admin: 08/17/17 13:27 Dose: 5 mg Ceftriaxone Sodium (Rocephin Iv 1 Gm Duplex) 50 mls @ 100 mls/hr IVPB DAILY [facility] PRN Reason: Protocol Last Admin: 08/17/17 09:04 Dose: 100 mls/hr Insulin Human Regular (Novolin R) 0 unit SC ACHS [facility] PRN Reason: Protocol Last Admin: 08/17/17 12:28 Dose: Not Given Morphine Sulfate (Morphine) 2 mg IV Q4H PRN PRN Reason: Pain, severe (8-10) Tramadol HCl (Ultram) 25 mg PO TID PRN PRN Reason: Pain, moderate (4-7) - Labs Labs: 08/17/17 06:12 08/17/17 06:14 PT 14.6 SECONDS (9.7-12.2) H 08/10/17 17:09 INR 1.3 08/10/17 17:09 APTT 29 SECONDS (21-34) 08/10/17 17:09 - Constitutional Appears: Well - Head Exam Head Exam: ATRAUMATIC, NORMAL INSPECTION, NORMOCEPHALIC - Eye Exam Eye Exam: EOMI, Normal appearance, PERRL Pupil Exam: NORMAL ACCOMODATION, PERRL - ENT Exam ENT Exam: Mucous Membranes Moist, Normal Exam - Neck Exam Neck Exam: Full ROM, Normal Inspection. absent: Lymphadenopathy - Respiratory Exam Respiratory Exam: Decreased Breath Sounds - Cardiovascular Exam Cardiovascular Exam: REGULAR RHYTHM, +S1, +S2 - GI/Abdominal Exam GI & Abdominal Exam: Soft, Diminished Bowel Sounds - Rectal Exam Rectal Exam: Deferred
[2017-08-17] MEDS: Tramadol 25 mg PO PRN (17:50)
[2017-08-18] MEDS: Morphine 4 MG/ML VIAL IV PRN ×4 (06:30→20:54)
[2017-08-18] MEDS: (Novolin R) Insulin Human Regular 100 units/ml vial SC SCH ×4 (08:28→21:51)
[2017-08-18] MEDS: Enoxaparin 40 mg Syringe SC SCH (10:04)
[2017-08-18] MEDS: cefTRIAXone IV 1 gm in Dextros 50 ML IVPB SCH (10:05)
--- NOTE | 2017-08-18 11:55 | CP.PCM.PN ---
Subjective - Date & Time of Evaluation Date of Evaluation: 08/18/17 Time of Evaluation: 11:53 - Subjective Subjective: Thoracic Surgery - Dr. Cerda Pt [facility]E. [place]. Pt complains of mild pain from the chest tube, mild SOB but improved since admission. She is OOB to chair. No F/C, Chest pain. Objective - Vital Signs/Intake and Output Vital Signs (last 24 hours): Temp Pulse Resp BP Pulse Ox 98.7 F 94 H 20 98/62 L 96 08/18/17 09:00 08/18/17 04:00 08/18/17 04:00 08/18/17 04:00 08/18/17 04:00 - Medications Medications: Current Medications Acetaminophen (Tylenol 325mg Tab) 650 mg PO Q6 PRN PRN Reason: temp 101 and above Last Admin: 08/13/17 20:07 Dose: 650 mg Enoxaparin Sodium (Lovenox) 40 mg SC DAILY [facility] Last Admin: 08/18/17 10:04 Dose: 40 mg Famotidine (Pepcid) 20 mg PO BID [facility] Last Admin: 08/18/17 10:04 Dose: 20 mg Haloperidol Lactate (Haldol) 5 mg IVP Q8H PRN PRN Reason: Agitation Last Admin: 08/17/17 13:27 Dose: 5 mg Ceftriaxone Sodium (Rocephin Iv 1 Gm Duplex) 50 mls @ 100 mls/hr IVPB DAILY [facility] PRN Reason: Protocol Last Admin: 08/18/17 10:05 Dose: 100 mls/hr Insulin Human Regular (Novolin R) 0 unit SC ACHS [facility] PRN Reason: Protocol Last Admin: 08/18/17 08:28 Dose: Not Given Morphine Sulfate (Morphine) 2 mg IV Q4H PRN PRN Reason: Pain, severe (8-10) Last Admin: 08/18/17 10:14 Dose: 2 mg Tramadol HCl (Ultram) 25 mg PO TID PRN PRN Reason: Pain, moderate (4-7) Last Admin: 08/17/17 17:50 Dose: 25 mg - Labs Labs: 08/17/17 06:12 08/17/17 06:14 PT 14.6 SECONDS (9.7-12.2) H 08/10/17 17:09 INR 1.3 08/10/17 17:09 APTT 29 SECONDS (21-34) 08/10/17 17:09 - Constitutional Appears: No Acute Distress - Head Exam Head Exam: ATRAUMATIC, NORMAL INSPECTION, NORMOCEPHALIC - Eye Exam Eye Exam: Normal appearance - Respiratory Exam Respiratory Exam: NORMAL BREATHING PATTERN. absent: Respiratory Distress - Neurological Exam Neurological Exam: Alert, Oriented x3 - Psychiatric Exam Psychiatric exam: Normal Affect, Normal Mood - Skin Skin Exam: Dry, Intact Assessment and Plan - Assessment and Plan (Free Text) Assessment: 61F s/p L thoracotomy & pericardial window; POD#6 Plan: -Left chest tube removed -F/U CXR 1PM -Continue care as per ICU/Primary teams -Clear for transfer out of ICU from our standpoint -Encourage OOB to chair and ambulation MITESH Cerda
--- NOTE | 2017-08-18 13:33 | RAD ---
HISTORY: S/P Chest tube removal COMPARISON: Chest radiograph dated 08/17/2017. FINDINGS: LUNGS: Bibasilar atelectasis. PLEURA: Small bilateral pleural effusions. No pneumothorax apparent. CARDIOVASCULAR: Cardiomediastinal silhouette stably prominent. OSSEOUS STRUCTURES: Unchanged. VISUALIZED UPPER ABDOMEN: Left upper quadrant skin terrence redemonstrated. OTHER FINDINGS: Removal of left-sided chest tube. Left internal jugular access chest port, unchanged. IMPRESSION: Interval removal of left-sided chest tube tube. No appreciable pneumothorax.
--- NOTE | 2017-08-18 14:47 | CP.PCM.PN ---
Subjective - Date & Time of Evaluation Date of Evaluation: 08/18/17 Time of Evaluation: 11:00 - Subjective Subjective: Patient complains of day time sleepiness Objective - Vital Signs/Intake and Output Vital Signs (last 24 hours): Temp Pulse Resp BP Pulse Ox 98.7 F 94 H 20 98/62 L 96 08/18/17 09:00 08/18/17 04:00 08/18/17 04:00 08/18/17 04:00 08/18/17 04:00 - Medications Medications: Current Medications Acetaminophen (Tylenol 325mg Tab) 650 mg PO Q6 PRN PRN Reason: temp 101 and above Last Admin: 08/13/17 20:07 Dose: 650 mg Enoxaparin Sodium (Lovenox) 40 mg SC DAILY [facility] Last Admin: 08/18/17 10:04 Dose: 40 mg Famotidine (Pepcid) 20 mg PO BID [facility] Last Admin: 08/18/17 10:04 Dose: 20 mg Haloperidol Lactate (Haldol) 5 mg IVP Q8H PRN PRN Reason: Agitation Last Admin: 08/17/17 13:27 Dose: 5 mg Ceftriaxone Sodium (Rocephin Iv 1 Gm Duplex) 50 mls @ 100 mls/hr IVPB DAILY [facility] PRN Reason: Protocol Last Admin: 08/18/17 10:05 Dose: 100 mls/hr Insulin Human Regular (Novolin R) 0 unit SC ACHS [facility] PRN Reason: Protocol Last Admin: 08/18/17 13:32 Dose: Not Given Morphine Sulfate (Morphine) 2 mg IV Q4H PRN PRN Reason: Pain, severe (8-10) Last Admin: 08/18/17 10:14 Dose: 2 mg Tramadol HCl (Ultram) 25 mg PO TID PRN PRN Reason: Pain, moderate (4-7) Last Admin: 08/17/17 17:50 Dose: 25 mg - Labs Labs: 08/17/17 06:12 08/17/17 06:14 PT 14.6 SECONDS (9.7-12.2) H 08/10/17 17:09 INR 1.3 08/10/17 17:09 APTT 29 SECONDS (21-34) 08/10/17 17:09 - Constitutional Appears: Chronically Ill - Head Exam Head Exam: ATRAUMATIC, NORMAL INSPECTION, NORMOCEPHALIC - Eye Exam Eye Exam: EOMI, Normal appearance, PERRL Pupil Exam: NORMAL ACCOMODATION, PERRL - ENT Exam ENT Exam: Mucous Membranes Moist, Normal Exam - Neck Exam Neck Exam: Full ROM, Normal Inspection - Respiratory Exam Respiratory Exam: Decreased Breath Sounds, NORMAL BREATHING PATTERN - Cardiovascular Exam Cardiovascular Exam: Tachycardia, REGULAR RHYTHM - GI/Abdominal Exam GI & Abdominal Exam: Soft, Normal Bowel Sounds - Rectal Exam Rectal Exam: Deferred - Extremities Exam Extremities Exam: Normal Inspection - Back Exam Back Exam: CVA tenderness (L) - Neurological Exam Neurological Exam: Alert, Oriented x3 Neuro motor strength exam: Left Upper Extremity: 2/1, Right Upper Extremity: 2/ , Left Lower Extremity: 2/, Right Lower Extremity: 2/ - Psychiatric Exam Psychiatric exam: Depressed, Flat Affect - Skin Skin Exam: Normal Color, Warm Assessment and Plan - Assessment and Plan (Free Text) Plan: Patient seen and examined in recliner, on 1:1 watch. Patient remembered me from the previous day. Patient looks sleepy and is trying hard to keep her eyes open. Patient is on Haldol 5 mg PRN and last dose was given yesterday. patient also complains of having bad dreams and not knowing where she is when she wakes up. Patient is aware of home meds lexapro and Clonopin, she used to take before coming to the hospital. I discussed with Doctor Sawnson option of discontinuing Haldol and order her home meds. Patient admits to feeling down but denies suicidal ideations. She wishes her life " had more sence" and is happy when family visits her. The chest tube is still in place, drainage yellow, plan is for tube removal today. Patient denies pain to tube site. Hb increased to 10.2, VS stable, afebrile. Impression * Patient is recovering slowly from the procedure * Breathing easy * Patient admits to daytime sleepiness and bad dreams at night, could be side effects of haldol and aslo cesation of patient antidepresants she is used to at home * Depression , no suicidal ideation * Patient is looking forward recovery and going home Suggestion * Spoke to Doctor Swanson about ordering patient's home meds, Lexapro and Clonidine and discontinuing Haldol 5 mg PRN * Continue safety watch * Transfer to floor * Patient does well when has company * Discharge planing to [facility]
--- NOTE | 2017-08-18 16:30 | CP.PCM.PN ---
Subjective - Date & Time of Evaluation Date of Evaluation: 08/18/17 Time of Evaluation: 09:45 - Subjective Subjective: clinically same Objective - Vital Signs/Intake and Output Vital Signs (last 24 hours): Temp Pulse Resp BP Pulse Ox 98.7 F 94 H 20 98/62 L 96 08/18/17 09:00 08/18/17 04:00 08/18/17 04:00 08/18/17 04:00 08/18/17 04:00 - Medications Medications: Current Medications Acetaminophen (Tylenol 325mg Tab) 650 mg PO Q6 PRN PRN Reason: temp 101 and above Last Admin: 08/13/17 20:07 Dose: 650 mg Enoxaparin Sodium (Lovenox) 40 mg SC DAILY [facility] Last Admin: 08/18/17 10:04 Dose: 40 mg Famotidine (Pepcid) 20 mg PO BID [facility] Last Admin: 08/18/17 10:04 Dose: 20 mg Haloperidol Lactate (Haldol) 5 mg IVP Q8H PRN PRN Reason: Agitation Last Admin: 08/17/17 13:27 Dose: 5 mg Ceftriaxone Sodium (Rocephin Iv 1 Gm Duplex) 50 mls @ 100 mls/hr IVPB DAILY [facility] PRN Reason: Protocol Last Admin: 08/18/17 10:05 Dose: 100 mls/hr Insulin Human Regular (Novolin R) 0 unit SC ACHS [facility] PRN Reason: Protocol Last Admin: 08/18/17 13:32 Dose: Not Given Morphine Sulfate (Morphine) 2 mg IV Q4H PRN PRN Reason: Pain, severe (8-10) Last Admin: 08/18/17 15:54 Dose: 2 mg Tramadol HCl (Ultram) 25 mg PO TID PRN PRN Reason: Pain, moderate (4-7) Last Admin: 08/17/17 17:50 Dose: 25 mg - Labs Labs: 08/17/17 06:12 08/17/17 06:14 PT 14.6 SECONDS (9.7-12.2) H 08/10/17 17:09 INR 1.3 08/10/17 17:09 APTT 29 SECONDS (21-34) 08/10/17 17:09 - Constitutional Appears: Well - Head Exam Head Exam: ATRAUMATIC, NORMAL INSPECTION, NORMOCEPHALIC - Eye Exam Eye Exam: EOMI, Normal appearance, PERRL Pupil Exam: NORMAL ACCOMODATION, PERRL - ENT Exam ENT Exam: Mucous Membranes Moist, Normal Exam - Neck Exam Neck Exam: Full ROM, Normal Inspection. absent: Lymphadenopathy - Respiratory Exam Respiratory Exam: Decreased Breath Sounds - Cardiovascular Exam Cardiovascular Exam: REGULAR RHYTHM, +S1, +S2 - GI/Abdominal Exam GI & Abdominal Exam: Soft, Diminished Bowel Sounds - Rectal Exam Rectal Exam: Deferred
--- NOTE | 2017-08-18 18:23 | CP.PCM.PN ---
Subjective - Date & Time of Evaluation Date of Evaluation: 08/18/17 Time of Evaluation: 11:00 - Subjective Subjective: patient seen and examined patient is sitting comfortably in no acute distress left chest tube removed today Awaiting for cytology report Continue present care Blood transfer to floor Objective - Vital Signs/Intake and Output Vital Signs (last 24 hours): Temp Pulse Resp BP Pulse Ox 98.4 F 99 H 15 125/81 96 08/18/17 16:00 08/18/17 16:00 08/18/17 16:00 08/18/17 16:00 08/18/17 16:00 Intake and Output: 08/18/17 08/18/17 06:59 18:59 Intake Total 550 Output Total 400 Balance 150 - Medications Medications: Current Medications Acetaminophen (Tylenol 325mg Tab) 650 mg PO Q6 PRN PRN Reason: temp 101 and above Last Admin: 08/13/17 20:07 Dose: 650 mg Enoxaparin Sodium (Lovenox) 40 mg SC DAILY [facility] Last Admin: 08/18/17 10:04 Dose: 40 mg Famotidine (Pepcid) 20 mg PO BID [facility] Last Admin: 08/18/17 10:04 Dose: 20 mg Haloperidol Lactate (Haldol) 5 mg IVP Q8H PRN PRN Reason: Agitation Last Admin: 08/17/17 13:27 Dose: 5 mg Ceftriaxone Sodium (Rocephin Iv 1 Gm Duplex) 50 mls @ 100 mls/hr IVPB DAILY [facility] PRN Reason: Protocol Last Admin: 08/18/17 10:05 Dose: 100 mls/hr Insulin Human Regular (Novolin R) 0 unit SC ACHS [facility] PRN Reason: Protocol Last Admin: 08/18/17 16:57 Dose: Not Given Morphine Sulfate (Morphine) 2 mg IV Q4H PRN PRN Reason: Pain, severe (8-10) Last Admin: 08/18/17 15:54 Dose: 2 mg Tramadol HCl (Ultram) 25 mg PO TID PRN PRN Reason: Pain, moderate (4-7) Last Admin: 08/17/17 17:50 Dose: 25 mg - Labs Labs: 08/17/17 06:12 08/17/17 06:14 PT 14.6 SECONDS (9.7-12.2) H 04/10/18 17:09 INR 1.3 08/10/17 17:09 APTT 29 SECONDS (21-34) 08/10/17 17:09 - Head Exam Head Exam: ATRAUMATIC, NORMOCEPHALIC - ENT Exam ENT Exam: Mucous Membranes Moist - Neck Exam Neck Exam: Normal Inspection - Respiratory Exam Respiratory Exam: Clear to Ausculation Bilateral - Cardiovascular Exam Cardiovascular Exam: REGULAR RHYTHM - GI/Abdominal Exam GI & Abdominal Exam: Soft, Normal Bowel Sounds Assessment and Plan (1) Pleural effusion, bilateral Assessment & Plan: Awaiting cytology report Continue present treatment Status: Acute (2) Pericardial effusion Status: Acute
[2017-08-19] MEDS: Tramadol 25 mg PO PRN (01:20)
[2017-08-19] MEDS: (Novolin R) Insulin Human Regular 100 units/ml vial SC SCH ×4 (07:41→22:13)
--- NOTE | 2017-08-19 08:57 | CP.PCM.PN ---
Subjective - Date & Time of Evaluation Date of Evaluation: 08/19/17 Time of Evaluation: 08:55 - Subjective Subjective: Thoracic Surgery - Dr. Cerda Pt S&E. [place]. Pt transferred to floor from ICu yesterday. She denies any complaints. Chest tubes have been removed. Dressings changed. Objective - Vital Signs/Intake and Output Vital Signs (last 24 hours): Temp Pulse Resp BP Pulse Ox 98.4 F 104 H 18 125/75 92 L 08/19/17 07:05 08/19/17 07:05 08/19/17 07:05 08/19/17 07:05 08/19/17 07:05 Intake and Output: 08/19/17 08/19/17 06:59 18:59 Intake Total 360 Balance 360 - Medications Medications: Current Medications Acetaminophen (Tylenol 325mg Tab) 650 mg PO Q6 PRN PRN Reason: temp 101 and above Last Admin: 08/13/17 20:07 Dose: 650 mg Enoxaparin Sodium (Lovenox) 40 mg SC DAILY [facility] Last Admin: 08/18/17 10:04 Dose: 40 mg Famotidine (Pepcid) 20 mg PO BID [facility] Last Admin: 08/18/17 19:10 Dose: 20 mg Haloperidol Lactate (Haldol) 5 mg IVP Q8H PRN PRN Reason: Agitation Last Admin: 08/17/17 13:27 Dose: 5 mg Ceftriaxone Sodium (Rocephin Iv 1 Gm Duplex) 50 mls @ 100 mls/hr IVPB DAILY [facility] PRN Reason: Protocol Last Admin: 08/18/17 10:05 Dose: 100 mls/hr Insulin Human Regular (Novolin R) 0 unit SC ACHS [facility] PRN Reason: Protocol Last Admin: 08/19/17 07:41 Dose: Not Given Morphine Sulfate (Morphine) 2 mg IV Q4H PRN PRN Reason: Pain, severe (8-10) Last Admin: 08/18/17 20:54 Dose: 2 mg Tramadol HCl (Ultram) 25 mg PO TID PRN PRN Reason: Pain, moderate (4-7) Last Admin: 08/19/17 01:20 Dose: 25 mg - Labs Labs: 08/17/17 06:12 08/17/17 06:14 PT 14.6 SECONDS (9.7-12.2) H 08/10/17 17:09 INR 1.3 08/10/17 17:09 APTT 29 SECONDS (21-34) 08/10/17 17:09 - Constitutional Appears: No Acute Distress - Head Exam Head Exam: ATRAUMATIC, NORMAL INSPECTION, NORMOCEPHALIC - Eye Exam Eye Exam: Normal appearance - Respiratory Exam Respiratory Exam: NORMAL BREATHING PATTERN. absent: Respiratory Distress - Neurological Exam Neurological Exam: Alert, Oriented x3 - Psychiatric Exam Psychiatric exam: Normal Affect, Normal Mood - Skin Skin Exam: Dry, Intact Assessment and Plan - Assessment and Plan (Free Text) Assessment: 61F s/p L thoracotomy & pericardial window; POD#7 Plan: -Continue care as per Primary -F/U Cytology, Pericardium with metastatic breast CA -Physical therapy/Rehab -F/U Pulm/Oncology reccs -No further surgical intervention at this time, will follow peripherally MITESH Cerda
[2017-08-19] MEDS: Morphine 4 MG/ML VIAL IV PRN ×3 (09:55→22:55)
[2017-08-19] MEDS: Enoxaparin 40 mg Syringe SC SCH (09:55)
[2017-08-19] MEDS: cefTRIAXone IV 1 gm in Dextros 50 ML IVPB SCH (09:56)
--- NOTE | 2017-08-19 14:26 | RAD ---
HISTORY: Left pleural pulmonary effusion COMPARISON: Comparison made with prior study 08/18/2017 FINDINGS: No change left IJ MediPort with tip in the brachiocephalic/SVC junction (with tip oriented at approximately 45 degrees to the long axis of the SVC). . LUNGS: Left lower lobe opacity likely representing some combination of residual atelectasis infiltrate and effusion. Mild right basilar atelectasis. . Tiny right-sided effusion not appears to have diminished slightly PLEURA: No apparent pneumothorax. CARDIOVASCULAR: Heart remains enlarged unchanged OSSEOUS STRUCTURES: No significant abnormalities. VISUALIZED UPPER ABDOMEN: Normal. OTHER FINDINGS: Metallic clips are again seen along the left lower alex thorax IMPRESSION: Left lower lobe opacity likely representing some combination of residual atelectasis infiltrate and effusion. Mild right basilar atelectasis. Tiny right-sided effusion appears to have diminished slightly bold
--- NOTE | 2017-08-19 16:37 | CP.PCM.PN ---
Subjective - Date & Time of Evaluation Date of Evaluation: 08/19/17 Time of Evaluation: 09:40 - Subjective Subjective: clinically same Objective - Vital Signs/Intake and Output Vital Signs (last 24 hours): Temp Pulse Resp BP Pulse Ox 98 F 101 H 20 123/80 95 08/19/17 15:40 08/19/17 15:40 08/19/17 15:40 08/19/17 15:40 08/19/17 15:40 Intake and Output: 08/19/17 08/19/17 06:59 18:59 Intake Total 360 450 Balance 360 450 - Medications Medications: Current Medications Acetaminophen (Tylenol 325mg Tab) 650 mg PO Q6 PRN PRN Reason: temp 101 and above Last Admin: 08/13/17 20:07 Dose: 650 mg Enoxaparin Sodium (Lovenox) 40 mg SC DAILY [facility] Last Admin: 08/19/17 09:55 Dose: 40 mg Famotidine (Pepcid) 20 mg PO BID [facility] Last Admin: 08/19/17 09:55 Dose: 20 mg Haloperidol Lactate (Haldol) 5 mg IVP Q8H PRN PRN Reason: Agitation Last Admin: 08/17/17 13:27 Dose: 5 mg Ceftriaxone Sodium (Rocephin Iv 1 Gm Duplex) 50 mls @ 100 mls/hr IVPB DAILY [facility] PRN Reason: Protocol Last Admin: 08/19/17 09:56 Dose: 100 mls/hr Insulin Human Regular (Novolin R) 0 unit SC ACHS [facility] PRN Reason: Protocol Last Admin: 08/19/17 12:30 Dose: Not Given Morphine Sulfate (Morphine) 2 mg IV Q4H PRN PRN Reason: Pain, severe (8-10) Last Admin: 08/19/17 14:08 Dose: 2 mg Tramadol HCl (Ultram) 25 mg PO TID PRN PRN Reason: Pain, moderate (4-7) Last Admin: 08/19/17 01:20 Dose: 25 mg - Labs Labs: 08/17/17 06:12 08/17/17 06:14 PT 14.6 SECONDS (9.7-12.2) H 08/10/17 17:09 INR 1.3 08/10/17 17:09 APTT 29 SECONDS (21-34) 08/10/17 17:09 - Constitutional Appears: Well - Head Exam Head Exam: ATRAUMATIC, NORMAL INSPECTION, NORMOCEPHALIC - Eye Exam Eye Exam: EOMI, Normal appearance, PERRL Pupil Exam: NORMAL ACCOMODATION, PERRL - ENT Exam ENT Exam: Mucous Membranes Moist, Normal Exam - Neck Exam Neck Exam: Full ROM, Normal Inspection. absent: Lymphadenopathy - Respiratory Exam Respiratory Exam: Decreased Breath Sounds - Cardiovascular Exam Cardiovascular Exam: REGULAR RHYTHM, +S1, +S2 - GI/Abdominal Exam GI & Abdominal Exam: Soft, Diminished Bowel Sounds - Rectal Exam Rectal Exam: Deferred
--- NOTE | 2017-08-19 17:02 | CP.PCM.PN ---
Subjective - Date & Time of Evaluation Date of Evaluation: 08/19/17 Time of Evaluation: 11:00 - Subjective Subjective: Patient seen and examined at bedside. Patient reports breathing well with no complaints. Pt was informed about her pericardial biopsy result and will be giving her oncologist's phone number to be contacted and informed of her findings. Assessment and Plan: 1. Pleural effusion s/p chest tube placement and removal - CXR 08/18: no pneumothorax, small bilateral pleural effusions, bibasilar atelectasis - Chest tubes removed - Desaturation to 92% this AM on RA 1. Metastatic breast cancer - Pericardial biopsy 08/11: fragments of metastatic carcinoma located in pericardial tissue consistent with primary breast tumor - Dr. Cerda, CT surgery aware - Pt will provide phone number of her oncologist in [place], [place] Objective - Vital Signs/Intake and Output Vital Signs (last 24 hours): Temp Pulse Resp BP Pulse Ox 98 F 101 H 20 123/80 95 08/19/17 15:40 08/19/17 15:40 08/19/17 15:40 08/19/17 15:40 08/19/17 15:40 Intake and Output: 08/19/17 08/19/17 06:59 18:59 Intake Total 360 450 Balance 360 450 - Medications Medications: Current Medications Acetaminophen (Tylenol 325mg Tab) 650 mg PO Q6 PRN PRN Reason: temp 101 and above Last Admin: 08/13/17 20:07 Dose: 650 mg Enoxaparin Sodium (Lovenox) 40 mg SC DAILY [facility] Last Admin: 08/19/17 09:55 Dose: 40 mg Famotidine (Pepcid) 20 mg PO BID [facility] Last Admin: 08/19/17 09:55 Dose: 20 mg Haloperidol Lactate (Haldol) 5 mg IVP Q8H PRN PRN Reason: Agitation Last Admin: 08/17/17 13:27 Dose: 5 mg Ceftriaxone Sodium (Rocephin Iv 1 Gm Duplex) 50 mls @ 100 mls/hr IVPB DAILY [facility] PRN Reason: Protocol Last Admin: 08/19/17 09:56 Dose: 100 mls/hr Insulin Human Regular (Novolin R) 0 unit SC ACHS [facility] PRN Reason: Protocol Last Admin: 08/19/17 12:30 Dose: Not Given Morphine Sulfate (Morphine) 2 mg IV Q4H PRN PRN Reason: Pain, severe (8-10) Last Admin: 08/19/17 14:08 Dose: 2 mg Tramadol HCl (Ultram) 25 mg PO TID PRN PRN Reason: Pain, moderate (4-7) Last Admin: 08/19/17 01:20 Dose: 25 mg - Labs Labs: 08/17/17 06:12 08/17/17 06:14 PT 14.6 SECONDS (9.7-12.2) H 08/10/17 17:09 INR 1.3 08/10/17 17:09 APTT 29 SECONDS (21-34) 08/10/17 17:09 Assessment and Plan (1) Pleural effusion, bilateral Status: Acute (2) Pericardial effusion Status: Acute
[2017-08-20] MEDS: (Novolin R) Insulin Human Regular 100 units/ml vial SC SCH ×4 (07:30→21:17)
[2017-08-20] MEDS: Morphine 4 MG/ML VIAL IV PRN ×3 (09:07→19:00)
[2017-08-20] MEDS: Enoxaparin 40 mg Syringe SC SCH (09:10)
[2017-08-20] MEDS: Tramadol 25 mg PO PRN (09:11)
[2017-08-20] MEDS: cefTRIAXone IV 1 gm in Dextros 50 ML IVPB SCH (09:32)
--- NOTE | 2017-08-20 12:40 | CP.PCM.PN ---
Subjective - Date & Time of Evaluation Date of Evaluation: 08/20/17 Time of Evaluation: 08:00 - Subjective Subjective: [id number] [id number] Patient seen and examined at bedside. Patient reports breathing well with no complaints. Patient is clear for discharge to subacute rehab, patient and social work are aware. Assessment and Plan: 1. Pleural effusion s/p chest tube placement and removal - CXR 08/18: no pneumothorax, small bilateral pleural effusions, bibasilar atelectasis - Chest tubes removed 1. Metastatic breast cancer - Pericardial biopsy 08/11: fragments of metastatic carcinoma located in pericardial tissue consistent with primary breast tumor - Dr. Cerda, CT surgery aware and recommending no surgical intervention at this time - Left number for call-back with Dr. Piyush Peoples of [place], [place] the patient's oncologist Objective - Vital Signs/Intake and Output Vital Signs (last 24 hours): Temp Pulse Resp BP Pulse Ox 98.7 F 77 18 116/62 95 08/20/17 07:05 08/20/17 07:05 08/20/17 07:05 08/20/17 07:05 08/20/17 07:05 Intake and Output: 08/20/17 08/20/17 06:59 18:59 Intake Total 510 Balance 510 - Medications Medications: Current Medications Acetaminophen (Tylenol 325mg Tab) 650 mg PO Q6 PRN PRN Reason: temp 101 and above Last Admin: 08/13/17 20:07 Dose: 650 mg Famotidine (Pepcid) 20 mg PO BID [facility] Last Admin: 08/20/17 09:10 Dose: 20 mg Haloperidol Lactate (Haldol) 5 mg IVP Q8H PRN PRN Reason: Agitation Last Admin: 08/17/17 13:27 Dose: 5 mg Insulin Human Regular (Novolin R) 0 unit SC ACHS [facility] PRN Reason: Protocol Last Admin: 08/20/17 12:09 Dose: Not Given Morphine Sulfate (Morphine) 2 mg IV Q4H PRN PRN Reason: Pain, severe (8-10) Last Admin: 08/20/17 09:07 Dose: 2 mg Tramadol HCl (Ultram) 25 mg PO TID PRN PRN Reason: Pain, moderate (4-7) Last Admin: 08/20/17 09:11 Dose: 25 mg - Labs Labs: 08/17/17 06:12 04/17/18 06:14 PT 14.6 SECONDS (9.7-12.2) H 08/10/17 17:09 INR 1.3 08/10/17 17:09 APTT 29 SECONDS (21-34) 08/10/17 17:09 Assessment and Plan (1) Pleural effusion, bilateral Status: Acute (2) Pericardial effusion Status: Acute
--- NOTE | 2017-08-20 15:37 | CP.PCM.PN ---
Subjective - Date & Time of Evaluation Date of Evaluation: 08/20/17 Time of Evaluation: 11:00 - Subjective Subjective: clinically same Objective - Vital Signs/Intake and Output Vital Signs (last 24 hours): Temp Pulse Resp BP Pulse Ox 98.7 F 77 18 116/62 95 08/20/17 07:05 08/20/17 07:05 08/20/17 07:05 08/20/17 07:05 08/20/17 07:05 Intake and Output: 08/20/17 08/20/17 06:59 18:59 Intake Total 510 300 Balance 510 300 - Medications Medications: Current Medications Acetaminophen (Tylenol 325mg Tab) 650 mg PO Q6 PRN PRN Reason: temp 101 and above Last Admin: 08/13/17 20:07 Dose: 650 mg Famotidine (Pepcid) 20 mg PO BID [facility] Last Admin: 08/20/17 09:10 Dose: 20 mg Haloperidol Lactate (Haldol) 5 mg IVP Q8H PRN PRN Reason: Agitation Last Admin: 08/17/17 13:27 Dose: 5 mg Insulin Human Regular (Novolin R) 0 unit SC ACHS [facility] PRN Reason: Protocol Last Admin: 08/20/17 12:09 Dose: Not Given Morphine Sulfate (Morphine) 2 mg IV Q4H PRN PRN Reason: Pain, severe (8-10) Last Admin: 08/20/17 15:00 Dose: 2 mg Tramadol HCl (Ultram) 25 mg PO TID PRN PRN Reason: Pain, moderate (4-7) Last Admin: 08/20/17 09:11 Dose: 25 mg - Labs Labs: 08/17/17 06:12 08/17/17 06:14 PT 14.6 SECONDS (9.7-12.2) H 08/10/17 17:09 INR 1.3 08/10/17 17:09 APTT 29 SECONDS (21-34) 08/10/17 17:09 - Constitutional Appears: Well - Head Exam Head Exam: ATRAUMATIC, NORMAL INSPECTION, NORMOCEPHALIC - Eye Exam Eye Exam: EOMI, Normal appearance, PERRL Pupil Exam: NORMAL ACCOMODATION, PERRL - ENT Exam ENT Exam: Mucous Membranes Moist, Normal Exam - Neck Exam Neck Exam: Full ROM, Normal Inspection. absent: Lymphadenopathy - Respiratory Exam Respiratory Exam: Decreased Breath Sounds - Cardiovascular Exam Cardiovascular Exam: REGULAR RHYTHM, +S1, +S2 - Rectal Exam Rectal Exam: Deferred
[2017-08-21] MEDS: (Novolin R) Insulin Human Regular 100 units/ml vial SC SCH ×4 (07:30→22:52)
--- NOTE | 2017-08-21 09:02 | CP.PCM.PN ---
Subjective - Date & Time of Evaluation Date of Evaluation: 08/21/17 - Subjective Subjective: The patient seen and examined Complaining of pain in the right arm Denies shortness of breath, denies chest pain Status post chest tube drainage and pericardial drainage of malignant effusion Oncology evaluation Subacute Objective - Vital Signs/Intake and Output Vital Signs (last 24 hours): Temp Pulse Resp BP Pulse Ox 98.3 F 82 20 100/63 95 08/21/17 07:00 08/21/17 07:05 08/21/17 07:00 08/21/17 07:00 08/21/17 07:00 Intake and Output: 08/21/17 08/21/17 06:59 18:59 Intake Total 520 Balance 520 - Medications Medications: Current Medications Acetaminophen (Tylenol 325mg Tab) 650 mg PO Q6 PRN PRN Reason: temp 101 and above Last Admin: 08/13/17 20:07 Dose: 650 mg Aspirin (Aspirin) 325 mg PO DAILY [facility] Famotidine (Pepcid) 20 mg PO BID [facility] Last Admin: 08/20/17 18:01 Dose: 20 mg Haloperidol Lactate (Haldol) 5 mg IVP Q8H PRN PRN Reason: Agitation Last Admin: 08/17/17 13:27 Dose: 5 mg Insulin Human Regular (Novolin R) 0 unit SC ACHS [facility] PRN Reason: Protocol Last Admin: 08/21/17 07:30 Dose: Not Given Metformin HCl (Glucophage) 500 mg PO DAILY [facility] Morphine Sulfate (Morphine) 2 mg IV Q4H PRN PRN Reason: Pain, severe (8-10) Last Admin: 08/20/17 19:00 Dose: 2 mg Tramadol HCl (Ultram) 25 mg PO TID PRN PRN Reason: Pain, moderate (4-7) Last Admin: 08/20/17 09:11 Dose: 25 mg Tramadol HCl (Ultram) 50 mg PO Q6 PRN PRN Reason: Pain, severe (8-10) Last Admin: 08/21/17 02:57 Dose: 50 mg - Labs Labs: 08/17/17 06:12 08/17/17 06:14 PT 14.6 SECONDS (9.7-12.2) H 08/10/17 17:09 INR 1.3 08/10/17 17:09 APTT 29 SECONDS (21-34) 08/10/17 17:09 Assessment and Plan (1) Pleural effusion, bilateral Status: Acute (2) Pericardial effusion Status: Acute
[2017-08-21] MEDS: Enoxaparin 30 mg Syringe SC SCH (10:11)
--- NOTE | 2017-08-21 15:15 | CP.PCM.PN ---
Subjective - Date & Time of Evaluation Date of Evaluation: 08/21/17 Time of Evaluation: 09:00 - Subjective Subjective: clinically same Objective - Vital Signs/Intake and Output Vital Signs (last 24 hours): Temp Pulse Resp BP Pulse Ox 98.3 F 82 20 100/63 95 08/21/17 07:00 08/21/17 07:05 08/21/17 07:00 08/21/17 07:00 08/21/17 07:00 Intake and Output: 08/21/17 08/21/17 06:59 18:59 Intake Total 520 450 Balance 520 450 - Medications Medications: Current Medications Acetaminophen (Tylenol 325mg Tab) 650 mg PO Q6 PRN PRN Reason: temp 101 and above Last Admin: 08/13/17 20:07 Dose: 650 mg Aspirin (Aspirin) 325 mg PO DAILY [facility] Last Admin: 08/21/17 10:11 Dose: 325 mg Enoxaparin Sodium (Lovenox) 30 mg SC DAILY [facility] Last Admin: 08/21/17 10:11 Dose: 30 mg Famotidine (Pepcid) 20 mg PO BID [facility] Last Admin: 08/21/17 10:11 Dose: 20 mg Haloperidol Lactate (Haldol) 5 mg IVP Q8H PRN PRN Reason: Agitation Last Admin: 08/17/17 13:27 Dose: 5 mg Insulin Human Regular (Novolin R) 0 unit SC [facility] PRN Reason: Protocol Last Admin: 08/21/17 11:30 Dose: Not Given Metformin HCl (Glucophage) 500 mg PO DAILY [facility] Last Admin: 08/21/17 10:11 Dose: 500 mg Tramadol HCl (Ultram) 25 mg PO TID PRN PRN Reason: Pain, moderate (4-7) Last Admin: 08/20/17 09:11 Dose: 25 mg Tramadol HCl (Ultram) 50 mg PO Q6 PRN PRN Reason: Pain, severe (8-10) Last Admin: 08/21/17 10:16 Dose: 50 mg - Labs Labs: 08/17/17 06:12 08/17/17 06:14 PT 14.6 SECONDS (9.7-12.2) H 08/10/17 17:09 INR 1.3 08/10/17 17:09 APTT 29 SECONDS (21-34) 08/10/17 17:09
--- NOTE | 2017-08-21 20:12 | CP.PCM.CON ---
History of Present Illness - History of Present Illness History of Present Illness: 61 year old female with a history of stage IV breast cancer on Arimidex ( followed by Dr. Peoples in [place]) dx 2016, admitted with shortness of breath secondary to malignant pericardial/pleural effusions s/p pericardial window and chest tube. The patient notes to progressive shortness of breath over several weeks which worsened and led her to come to the ER. She denies fevers and chills. She notes to breathing better and has no chest pain. Past medical history: Stage IV breast cancer Past surgical history: Breast biopsy Family history: Denies hematologic and oncologic problems. Social history: 1ppd x 20 year, social alcohol, denies illicit drug use. Allergies: NKA Review of systems: All remaining review of systems including HEENT, cardiovascular, respiratory, gastrointestinal, genitourinary, musculoskeletal, dermatologic, neurologic, and psychiatric are negative unless mentioned in the HPI. Past Patient History - Infectious Disease Hx of Infectious Diseases: None - Past Medical History & Family History Past Medical History?: Yes - Past Social History Smoking Status: Light Smoker < 10 Cigarettes Daily Alcohol: Social Drugs: Denies Home Situation {Lives}: With Family - CARDIAC Hx Cardiac Disorders: Yes Hx Hypercholesterolemia: Yes - PULMONARY Hx Respiratory Disorders: Yes Hx Asthma: Yes - NEUROLOGICAL Hx Neurological Disorder: Yes - HEENT Hx HEENT Problems: Yes - RENAL Hx Chronic Kidney Disease: Yes - ENDOCRINE/METABOLIC Hx Diabetes Mellitus Type 2: Yes - HEMATOLOGICAL/ONCOLOGICAL Hx Cancer: Yes (breast) Hx Chemotherapy: Yes - INTEGUMENTARY Hx Dermatological Problems: No - MUSCULOSKELETAL/RHEUMATOLOGICAL Hx Falls: Yes - GASTROINTESTINAL Hx Gastrointestinal Disorders: No - GENITOURINARY/GYNECOLOGICAL Hx Genitourinary Disorders: No - PSYCHIATRIC Hx Substance Use: No - SURGICAL HISTORY Hx Surgeries: No - ANESTHESIA Hx Anesthesia: No Meds Allergies/Adverse Reactions: Allergies Allergy/AdvReac Type Severity Reaction Status Date / Time No Known Allergies Allergy Verified 08/10/17 16:22 - Medications Medications: Current Medications Acetaminophen (Tylenol 325mg Tab) 650 mg PO Q6 PRN PRN Reason: temp 101 and above Last Admin: 08/13/17 20:07 Dose: 650 mg Aspirin (Aspirin) 325 mg PO DAILY [facility] Last Admin: 08/21/17 10:11 Dose: 325 mg Enoxaparin Sodium (Lovenox) 30 mg SC DAILY [facility] Last Admin: 08/21/17 10:11 Dose: 30 mg Famotidine (Pepcid) 20 mg PO BID [facility] Last Admin: 08/21/17 17:29 Dose: 20 mg Haloperidol Lactate (Haldol) 5 mg IVP Q8H PRN PRN Reason: Agitation Last Admin: 08/17/17 13:27 Dose: 5 mg Insulin Human Regular (Novolin R) 0 unit SC ACHS [facility] PRN Reason: Protocol Last Admin: 08/21/17 17:07 Dose: Not Given Metformin HCl (Glucophage) 500 mg PO DAILY [facility] Last Admin: 08/21/17 10:11 Dose: 500 mg Tramadol HCl (Ultram) 25 mg PO TID PRN PRN Reason: Pain, moderate (4-7) Last Admin: 08/20/17 09:11 Dose: 25 mg Tramadol HCl (Ultram) 50 mg PO Q6 PRN PRN Reason: Pain, severe (8-10) Last Admin: 08/21/17 16:37 Dose: 50 mg Physical Exam - Head Exam Head Exam: ATRAUMATIC - Eye Exam Eye Exam: Normal appearance - ENT Exam ENT Exam: Mucous Membranes Dry - Respiratory Exam Respiratory Exam: NORMAL BREATHING PATTERN - Cardiovascular Exam Cardiovascular Exam: +S1, +S2 - GI/Abdominal Exam GI & Abdominal Exam: Normal Bowel Sounds - Extremities Exam Extremities exam: Positive for: normal inspection - Neurological Exam Neurological exam: Oriented x3 - Psychiatric Exam Psychiatric exam: Normal Affect, Normal Mood - Skin Skin Exam: Warm Results - Vital Signs Recent Vital Signs: Last Vital Signs Temp 98.1 F 08/21/17 15:00 Pulse 113 H 08/21/17 16:00 Resp 20 08/21/17 15:00 BP 104/75 08/21/17 15:00 Pulse Ox 97 08/21/17 15:00 - Labs Result Diagrams: 08/17/17 06:12 08/17/17 06:14 Labs: Laboratory Results - last 24 hr 08/20/17 08/21/17 08/21/17 21:07 06:30 11:56 POC Glucose (mg/dL) 137 H 151 H 135 H 08/21/17 17:02 POC Glucose (mg/dL) 127 H Assessment & Plan (1) Breast cancer Assessment and Plan: stage IV breast cancer f/u ER/[place]/HER2 status has been on aromatase inhibitor therapy with Dr. Peoples in [place] outpatient f/u with her primary oncologist for further treatment recommendations Status: Acute (2) Pericardial effusion Assessment and Plan: malignant effusion s/p pericardial window Status: Acute (3) Pleural effusion Assessment and Plan: malignant s/p chest tube drainage Status: Acute (4) Anemia Assessment and Plan: chronic disease will check ferritin, retic count, b12, folate to further characterize Thank you for this interesting consult. Status: Acute
[2017-08-22] MEDS: Tramadol 25 mg PO PRN (03:22)
[2017-08-22] MEDS: (Novolin R) Insulin Human Regular 100 units/ml vial SC SCH ×4 (07:30→21:50)
[2017-08-22 08:37] LABS: FERRITIN 69.8 ng/mL
[2017-08-22] MEDS: Enoxaparin 30 mg Syringe SC SCH (09:04)
[2017-08-22 09:07] LABS: FOLATE 16.2 ng/mL
--- NOTE | 2017-08-22 13:54 | CP.PCM.PN ---
Subjective - Date & Time of Evaluation Date of Evaluation: 08/22/17 Time of Evaluation: 09:40 - Subjective Subjective: clinically same Objective - Vital Signs/Intake and Output Vital Signs (last 24 hours): Temp Pulse Resp BP Pulse Ox 98.2 F 82 20 105/66 95 08/22/17 07:00 08/22/17 07:00 08/22/17 07:00 08/22/17 07:00 08/22/17 07:00 Intake and Output: 08/22/17 08/22/17 06:59 18:59 Intake Total 240 Balance 240 - Medications Medications: Current Medications Acetaminophen (Tylenol 325mg Tab) 650 mg PO Q6 PRN PRN Reason: temp 101 and above Last Admin: 08/13/17 20:07 Dose: 650 mg Aspirin (Aspirin) 325 mg PO DAILY [facility] Last Admin: 08/22/17 09:04 Dose: 325 mg Enoxaparin Sodium (Lovenox) 30 mg SC DAILY [facility] Last Admin: 08/22/17 09:04 Dose: 30 mg Famotidine (Pepcid) 20 mg PO BID [facility] Last Admin: 08/22/17 09:04 Dose: 20 mg Haloperidol Lactate (Haldol) 5 mg IVP Q8H PRN PRN Reason: Agitation Last Admin: 08/17/17 13:27 Dose: 5 mg Insulin Human Regular (Novolin R) 0 unit SC [facility] PRN Reason: Protocol Last Admin: 08/22/17 11:51 Dose: Not Given Metformin HCl (Glucophage) 500 mg PO DAILY [facility] Last Admin: 08/22/17 09:04 Dose: 500 mg Tramadol HCl (Ultram) 25 mg PO TID PRN PRN Reason: Pain, moderate (4-7) Last Admin: 08/22/17 03:22 Dose: 25 mg Tramadol HCl (Ultram) 50 mg PO Q6 PRN PRN Reason: Pain, severe (8-10) Last Admin: 08/22/17 10:25 Dose: 50 mg - Labs Labs: 08/17/17 06:12 08/17/17 06:14 PT 14.6 SECONDS (9.7-12.2) H 08/10/17 17:09 INR 1.3 08/10/17 17:09 APTT 29 SECONDS (21-34) 04/10/18 17:09 - Constitutional Appears: Well - Head Exam Head Exam: ATRAUMATIC, NORMAL INSPECTION, NORMOCEPHALIC - Eye Exam Eye Exam: EOMI, Normal appearance, PERRL Pupil Exam: NORMAL ACCOMODATION, PERRL - ENT Exam ENT Exam: Mucous Membranes Moist, Normal Exam - Neck Exam Neck Exam: Full ROM, Normal Inspection. absent: Lymphadenopathy - Respiratory Exam Respiratory Exam: Decreased Breath Sounds - Cardiovascular Exam Cardiovascular Exam: REGULAR RHYTHM, +S1, +S2 - GI/Abdominal Exam GI & Abdominal Exam: Soft, Diminished Bowel Sounds - Rectal Exam Rectal Exam: Deferred
[2017-08-23] MEDS: Tramadol 25 mg PO PRN ×2 (02:58→19:22)
[2017-08-23] MEDS: (Novolin R) Insulin Human Regular 100 units/ml vial SC SCH ×3 (09:49→22:43)
[2017-08-23] MEDS: Enoxaparin 30 mg Syringe SC SCH (10:55)
--- NOTE | 2017-08-23 18:41 | CP.PCM.PN ---
Subjective - Date & Time of Evaluation Date of Evaluation: 08/23/17 Time of Evaluation: 09:00 - Subjective Subjective: clinically same Objective - Vital Signs/Intake and Output Vital Signs (last 24 hours): Temp Pulse Resp BP Pulse Ox 98.2 F 79 20 94/61 L 95 08/23/17 15:00 08/23/17 16:00 08/23/17 15:00 08/23/17 15:00 08/23/17 15:00 - Medications Medications: Current Medications Acetaminophen (Tylenol 325mg Tab) 650 mg PO Q6 PRN PRN Reason: temp 101 and above Last Admin: 08/13/17 20:07 Dose: 650 mg Aspirin (Aspirin) 325 mg PO DAILY [facility] Last Admin: 08/23/17 10:54 Dose: 325 mg Enoxaparin Sodium (Lovenox) 30 mg SC DAILY [facility] Last Admin: 08/23/17 10:55 Dose: 30 mg Famotidine (Pepcid) 20 mg PO BID [facility] Last Admin: 08/23/17 17:46 Dose: 20 mg Haloperidol Lactate (Haldol) 5 mg IVP Q8H PRN PRN Reason: Agitation Last Admin: 08/17/17 13:27 Dose: 5 mg Insulin Human Regular (Novolin R) 0 unit SC ACHS [facility] PRN Reason: Protocol Last Admin: 08/23/17 16:58 Dose: Not Given Metformin HCl (Glucophage) 500 mg PO DAILY [facility] Last Admin: 08/23/17 10:54 Dose: 500 mg Tramadol HCl (Ultram) 25 mg PO TID PRN PRN Reason: Pain, moderate (4-7) Last Admin: 08/23/17 02:58 Dose: 25 mg Tramadol HCl (Ultram) 50 mg PO Q6 PRN PRN Reason: Pain, severe (8-10) Last Admin: 08/23/17 17:46 Dose: 50 mg - Labs Labs: 08/17/17 06:12 08/17/17 06:14 PT 14.6 SECONDS (9.7-12.2) H 08/10/17 17:09 INR 1.3 08/10/17 17:09 APTT 29 SECONDS (21-34) 08/10/17 17:09 - Constitutional Appears: Well - Head Exam Head Exam: ATRAUMATIC, NORMAL INSPECTION, NORMOCEPHALIC - Eye Exam Eye Exam: EOMI, Normal appearance, PERRL Pupil Exam: NORMAL ACCOMODATION, PERRL - ENT Exam ENT Exam: Mucous Membranes Moist, Normal Exam - Neck Exam Neck Exam: Full ROM, Normal Inspection. absent: Lymphadenopathy - Respiratory Exam Respiratory Exam: Decreased Breath Sounds - Cardiovascular Exam Cardiovascular Exam: REGULAR RHYTHM, +S1, +S2 - GI/Abdominal Exam GI & Abdominal Exam: Soft, Diminished Bowel Sounds - Rectal Exam Rectal Exam: Deferred
--- NOTE | 2017-08-23 21:47 | CP.PCM.PN ---
Subjective - Date & Time of Evaluation Date of Evaluation: 08/23/17 Time of Evaluation: 19:20 - Subjective Subjective: Feels anxious Objective - Vital Signs/Intake and Output Vital Signs (last 24 hours): Temp Pulse Resp BP Pulse Ox 98.2 F 79 20 94/61 L 95 08/23/17 15:00 08/23/17 16:00 08/23/17 15:00 08/23/17 15:00 08/23/17 15:00 - Medications Medications: Current Medications Acetaminophen (Tylenol 325mg Tab) 650 mg PO Q6 PRN PRN Reason: temp 101 and above Last Admin: 08/13/17 20:07 Dose: 650 mg Aspirin (Aspirin) 325 mg PO DAILY [facility] Last Admin: 08/23/17 10:54 Dose: 325 mg Enoxaparin Sodium (Lovenox) 30 mg SC DAILY [facility] Last Admin: 08/23/17 10:55 Dose: 30 mg Famotidine (Pepcid) 20 mg PO BID [facility] Last Admin: 08/23/17 17:46 Dose: 20 mg Haloperidol Lactate (Haldol) 5 mg IVP Q8H PRN PRN Reason: Agitation Last Admin: 08/23/17 21:25 Dose: 5 mg Insulin Human Regular (Novolin R) 0 unit SC ACHS [facility] PRN Reason: Protocol Last Admin: 08/23/17 16:58 Dose: Not Given Metformin HCl (Glucophage) 500 mg PO DAILY [facility] Last Admin: 08/23/17 10:54 Dose: 500 mg Tramadol HCl (Ultram) 25 mg PO TID PRN PRN Reason: Pain, moderate (4-7) Last Admin: 08/23/17 19:22 Dose: 25 mg Tramadol HCl (Ultram) 50 mg PO Q6 PRN PRN Reason: Pain, severe (8-10) Last Admin: 08/23/17 17:46 Dose: 50 mg - Labs Labs: 08/17/17 06:12 08/17/17 06:14 PT 14.6 SECONDS (9.7-12.2) H 08/10/17 17:09 INR 1.3 08/10/17 17:09 APTT 29 SECONDS (21-34) 08/10/17 17:09 - Head Exam Head Exam: ATRAUMATIC - Eye Exam Eye Exam: Normal appearance - ENT Exam ENT Exam: Mucous Membranes Dry - Respiratory Exam Respiratory Exam: Decreased Breath Sounds - Cardiovascular Exam Cardiovascular Exam: +S1, +S2 - GI/Abdominal Exam GI & Abdominal Exam: Normal Bowel Sounds Assessment and Plan (1) Breast cancer Assessment & Plan: stage IV f/u ER/CT/HER2 status on cytology outpatient treatment Status: Acute (2) Pericardial effusion Assessment & Plan: malignant, s/p pericardial window Status: Acute (3) Pleural effusion Assessment & Plan: malignant, s/p chest tube drainage Status: Acute (4) Anemia Assessment & Plan: chronic disease Status: Acute
[2017-08-24] MEDS: (Novolin R) Insulin Human Regular 100 units/ml vial SC SCH ×4 (08:00→21:12)
[2017-08-24] MEDS: Tramadol 25 mg PO PRN (10:15)
[2017-08-24] MEDS: Enoxaparin 30 mg Syringe SC SCH (10:16)
--- NOTE | 2017-08-24 11:10 | PCM.PYCHPN ---
Psychiatric Progress Note - Psychiatric Progress Note Patient seen today, length of contact: 15 min Patient Chief Complaint: I am feeling anxious.' Problems Identified/Issues Discussed: Patient seen and evaluated, chart reviewed and discussed with the nurse. Patient remained irritable and agitated. She reports racing of thoughts and flight of ideas. She remained isolated, confined and withdrawn. Patient is compliant with medications and denies any side effects. Symptoms are improving but need more time to stabilize. Support and psychoeducation given. Medication Change: Yes (start depakote) Medical Record Reviewed: Yes Mental Status Examination - Cognitive Function Orientation: Person, Place, Situation, Time Memory: Intact Attention: WNL Concentration: WNL Association: WNL Fund of Knowledge: WNL - Mood Mood: Depressed, Anxious - Affect Affect: Constricted - Speech Speech: Appropriate - Formal Thought Process Formal Thought Process: No Impairment - Suicidal Ideation Suicidal Ideation: No - Homicidal Ideation Homicidal Ideation: No Goal/Treatment Plan - Goal/Treatment Plan Need for Continued Stay: Severe depression anxiety, Severe functional impairment Progress Toward Problem(s) and Goals/Treatment Plan: Hydroxyzine 25 mg PO Q6hr prn for anxiety Depakote DR 250 mg BID Trazodone 50 mg PO QHS - Smoking Cessation Smoking Cessation Initiated: No
[2017-08-24] MEDS: Divalproex 250 mg DR Tab PO SCH ×2 (12:15→17:11)
--- NOTE | 2017-08-24 13:10 | CP.PCM.PN ---
Subjective - Date & Time of Evaluation Date of Evaluation: 08/24/17 Time of Evaluation: 08:40 - Subjective Subjective: clinically same Objective - Vital Signs/Intake and Output Vital Signs (last 24 hours): Temp Pulse Resp BP Pulse Ox 98.1 F 97 H 20 104/67 95 08/24/17 07:05 08/24/17 07:05 08/24/17 07:05 08/24/17 07:05 08/24/17 07:05 Intake and Output: 08/24/17 08/24/17 06:59 18:59 Intake Total 500 Balance 500 - Medications Medications: Current Medications Acetaminophen (Tylenol 325mg Tab) 650 mg PO Q6 PRN PRN Reason: temp 101 and above Last Admin: 08/13/17 20:07 Dose: 650 mg Aspirin (Aspirin) 325 mg PO DAILY [facility] Last Admin: 08/24/17 10:15 Dose: 325 mg Divalproex Sodium (Depakote Dr) 250 mg PO BID [facility] Last Admin: 08/24/17 12:23 Dose: 250 mg Enoxaparin Sodium (Lovenox) 30 mg SC DAILY [facility] Last Admin: 08/24/17 10:16 Dose: Not Given Famotidine (Pepcid) 20 mg PO BID [facility] Last Admin: 08/24/17 10:15 Dose: 20 mg Haloperidol Lactate (Haldol) 5 mg IVP Q8H PRN PRN Reason: Agitation Last Admin: 08/24/17 08:08 Dose: 5 mg Hydroxyzine HCl (Atarax) 50 mg PO Q6 PRN PRN Reason: Anxiety Insulin Human Regular (Novolin R) 0 unit SC [facility] PRN Reason: Protocol Last Admin: 08/24/17 11:53 Dose: Not Given Metformin HCl (Glucophage) 500 mg PO DAILY [facility] Last Admin: 08/24/17 10:15 Dose: 500 mg Tramadol HCl (Ultram) 25 mg PO TID PRN PRN Reason: Pain, moderate (4-7) Last Admin: 08/24/17 10:15 Dose: 25 mg Tramadol HCl (Ultram) 50 mg PO Q6 PRN PRN Reason: Pain, severe (8-10) Last Admin: 08/24/17 02:10 Dose: 50 mg Trazodone HCl (Desyrel) 50 mg PO [facility] - Labs Labs: 08/17/17 06:12 08/17/17 06:14 PT 14.6 SECONDS (9.7-12.2) H 08/10/17 17:09 INR 1.3 08/10/17 17:09 APTT 29 SECONDS (21-34) 08/10/17 17:09 - Constitutional Appears: Well - Head Exam Head Exam: ATRAUMATIC, NORMAL INSPECTION, NORMOCEPHALIC - Eye Exam Eye Exam: EOMI, Normal appearance, PERRL Pupil Exam: NORMAL ACCOMODATION, PERRL - ENT Exam ENT Exam: Mucous Membranes Moist, Normal Exam - Neck Exam Neck Exam: Full ROM, Normal Inspection. absent: Lymphadenopathy - Respiratory Exam Respiratory Exam: Decreased Breath Sounds - Cardiovascular Exam Cardiovascular Exam: REGULAR RHYTHM, +S1, +S2 - GI/Abdominal Exam GI & Abdominal Exam: Soft, Diminished Bowel Sounds - Rectal Exam Rectal Exam: Deferred
--- NOTE | 2017-08-24 20:09 | CP.PCM.PN ---
Subjective - Date & Time of Evaluation Date of Evaluation: 08/24/17 Time of Evaluation: 14:00 - Subjective Subjective: Feels anxious Objective - Vital Signs/Intake and Output Vital Signs (last 24 hours): Temp Pulse Resp BP Pulse Ox 98.8 F 97 H 18 114/74 98 08/24/17 15:00 08/24/17 15:00 08/24/17 15:00 08/24/17 15:00 08/24/17 15:00 - Medications Medications: Current Medications Acetaminophen (Tylenol 325mg Tab) 650 mg PO Q6 PRN PRN Reason: temp 101 and above Last Admin: 08/13/17 20:07 Dose: 650 mg Aspirin (Aspirin) 325 mg PO DAILY [facility] Last Admin: 08/24/17 10:15 Dose: 325 mg Divalproex Sodium (Depakote Dr) 250 mg PO BID [facility] Last Admin: 08/24/17 17:11 Dose: 250 mg Enoxaparin Sodium (Lovenox) 30 mg SC DAILY [facility] Last Admin: 08/24/17 10:16 Dose: Not Given Famotidine (Pepcid) 20 mg PO BID [facility] Last Admin: 08/24/17 17:11 Dose: 20 mg Haloperidol Lactate (Haldol) 5 mg IVP Q8H PRN PRN Reason: Agitation Last Admin: 08/24/17 08:08 Dose: 5 mg Hydroxyzine HCl (Atarax) 50 mg PO Q6 PRN PRN Reason: Anxiety Last Admin: 08/24/17 15:29 Dose: 50 mg Insulin Human Regular (Novolin R) 0 unit SC [facility] PRN Reason: Protocol Last Admin: 08/24/17 16:34 Dose: Not Given Metformin HCl (Glucophage) 500 mg PO DAILY [facility] Last Admin: 08/24/17 10:15 Dose: 500 mg Tramadol HCl (Ultram) 25 mg PO TID PRN PRN Reason: Pain, moderate (4-7) Last Admin: 08/24/17 10:15 Dose: 25 mg Tramadol HCl (Ultram) 50 mg PO Q6 PRN PRN Reason: Pain, severe (8-10) Last Admin: 08/24/17 16:51 Dose: 50 mg Trazodone HCl (Desyrel) 50 mg PO [facility] - Labs Labs: 08/17/17 06:12 08/17/17 06:14 PT 14.6 SECONDS (9.7-12.2) H 08/10/17 17:09 INR 1.3 08/10/17 17:09 APTT 29 SECONDS (21-34) 08/10/17 17:09 - Head Exam Head Exam: ATRAUMATIC - Eye Exam Eye Exam: Normal appearance - ENT Exam ENT Exam: Mucous Membranes Dry - Respiratory Exam Respiratory Exam: Decreased Breath Sounds - Cardiovascular Exam Cardiovascular Exam: +S1, +S2 - GI/Abdominal Exam GI & Abdominal Exam: Normal Bowel Sounds - Extremities Exam Extremities Exam: Normal Inspection Assessment and Plan (1) Breast cancer Assessment & Plan: stage IV f/u ER/NE/HER2 status on cytology outpatient treatment Status: Acute (2) Pericardial effusion Assessment & Plan: malignant, s/p pericardial window Status: Acute (3) Pleural effusion Assessment & Plan: malignant, s/p chest tube drainage Status: Acute (4) Anemia Assessment & Plan: chronic disease Status: Acute
[2017-08-25] MEDS: (Novolin R) Insulin Human Regular 100 units/ml vial SC SCH ×4 (08:08→22:07)
[2017-08-25] MEDS: Divalproex 250 mg DR Tab PO SCH ×2 (09:13→17:03)
[2017-08-25] MEDS: Enoxaparin 30 mg Syringe SC SCH (09:13)
--- NOTE | 2017-08-25 17:22 | CP.PCM.PN ---
Subjective - Date & Time of Evaluation Date of Evaluation: 08/25/17 Time of Evaluation: 08:20 - Subjective Subjective: clinically same Objective - Vital Signs/Intake and Output Vital Signs (last 24 hours): Temp Pulse Resp BP Pulse Ox 98.3 F 98 H 18 98/65 L 97 08/25/17 15:00 08/25/17 15:00 08/25/17 15:00 08/25/17 15:00 08/25/17 15:00 Intake and Output: 08/25/17 08/25/17 06:59 18:59 Intake Total 120 280 Balance 120 280 - Medications Medications: Current Medications Acetaminophen (Tylenol 325mg Tab) 650 mg PO Q6 PRN PRN Reason: temp 101 and above Last Admin: 08/13/17 20:07 Dose: 650 mg Aspirin (Aspirin) 325 mg PO DAILY [facility] Last Admin: 08/25/17 09:13 Dose: 325 mg Divalproex Sodium (Depakote Dr) 250 mg PO BID [facility] Last Admin: 08/25/17 17:03 Dose: 250 mg Enoxaparin Sodium (Lovenox) 30 mg SC DAILY [facility] Last Admin: 08/25/17 09:13 Dose: 30 mg Famotidine (Pepcid) 20 mg PO BID [facility] Last Admin: 08/25/17 17:03 Dose: 20 mg Haloperidol Lactate (Haldol) 5 mg IVP Q8H PRN PRN Reason: Agitation Last Admin: 08/24/17 08:08 Dose: 5 mg Hydroxyzine HCl (Atarax) 50 mg PO Q6 PRN PRN Reason: Anxiety Last Admin: 08/25/17 12:28 Dose: 50 mg Insulin Human Regular (Novolin R) 0 unit SC [facility] PRN Reason: Protocol Last Admin: 08/25/17 17:02 Dose: Not Given Metformin HCl (Glucophage) 500 mg PO DAILY [facility] Last Admin: 08/25/17 09:13 Dose: 500 mg Tramadol HCl (Ultram) 25 mg PO TID PRN PRN Reason: Pain, moderate (4-7) Last Admin: 08/24/17 10:15 Dose: 25 mg Tramadol HCl (Ultram) 50 mg PO Q6 PRN PRN Reason: Pain, severe (8-10) Last Admin: 08/25/17 01:44 Dose: 50 mg Trazodone HCl (Desyrel) 50 mg PO HS [facility] Last Admin: 08/24/17 21:11 Dose: 50 mg - Labs Labs: 08/17/17 06:12 08/17/17 06:14 PT 14.6 SECONDS (9.7-12.2) H 08/10/17 17:09 INR 1.3 08/10/17 17:09 APTT 29 SECONDS (21-34) 08/10/17 17:09 - Constitutional Appears: Well - Head Exam Head Exam: ATRAUMATIC, NORMAL INSPECTION, NORMOCEPHALIC - Eye Exam Eye Exam: EOMI, Normal appearance, PERRL Pupil Exam: NORMAL ACCOMODATION, PERRL - ENT Exam ENT Exam: Mucous Membranes Moist, Normal Exam - Neck Exam Neck Exam: Full ROM, Normal Inspection. absent: Lymphadenopathy - Respiratory Exam Respiratory Exam: Decreased Breath Sounds - Cardiovascular Exam Cardiovascular Exam: REGULAR RHYTHM, +S1, +S2 - GI/Abdominal Exam GI & Abdominal Exam: Soft, Diminished Bowel Sounds - Rectal Exam Rectal Exam: Deferred
--- NOTE | 2017-08-25 21:18 | CP.PCM.PN ---
Subjective - Date & Time of Evaluation Date of Evaluation: 08/25/17 Time of Evaluation: 11:00 - Subjective Subjective: Has periods of anxiety Objective - Vital Signs/Intake and Output Vital Signs (last 24 hours): Temp Pulse Resp BP Pulse Ox 98.3 F 98 H 18 98/65 L 97 08/25/17 15:00 08/25/17 15:00 08/25/17 15:00 08/25/17 15:00 08/25/17 15:00 Intake and Output: 08/25/17 08/26/17 18:59 06:59 Intake Total 280 Balance 280 - Medications Medications: Current Medications Acetaminophen (Tylenol 325mg Tab) 650 mg PO Q6 PRN PRN Reason: temp 101 and above Last Admin: 08/13/17 20:07 Dose: 650 mg Aspirin (Aspirin) 325 mg PO DAILY [facility] Last Admin: 08/25/17 09:13 Dose: 325 mg Divalproex Sodium (Depakote Dr) 250 mg PO BID [facility] Last Admin: 08/25/17 17:03 Dose: 250 mg Enoxaparin Sodium (Lovenox) 30 mg SC DAILY [facility] Last Admin: 08/25/17 09:13 Dose: 30 mg Famotidine (Pepcid) 20 mg PO BID [facility] Last Admin: 08/25/17 17:03 Dose: 20 mg Haloperidol Lactate (Haldol) 5 mg IVP Q8H PRN PRN Reason: Agitation Last Admin: 08/24/17 08:08 Dose: 5 mg Hydroxyzine HCl (Atarax) 50 mg PO Q6 PRN PRN Reason: Anxiety Last Admin: 08/25/17 19:31 Dose: 50 mg Insulin Human Regular (Novolin R) 0 unit SC [facility] PRN Reason: Protocol Last Admin: 08/25/17 17:02 Dose: Not Given Metformin HCl (Glucophage) 500 mg PO DAILY [facility] Last Admin: 08/25/17 09:13 Dose: 500 mg Tramadol HCl (Ultram) 25 mg PO TID PRN PRN Reason: Pain, moderate (4-7) Last Admin: 08/24/17 10:15 Dose: 25 mg Tramadol HCl (Ultram) 50 mg PO Q6 PRN PRN Reason: Pain, severe (8-10) Last Admin: 08/25/17 01:44 Dose: 50 mg Trazodone HCl (Desyrel) 50 mg PO HS [facility] Last Admin: 08/24/17 21:11 Dose: 50 mg - Labs Labs: 08/17/17 06:12 08/17/17 06:14 PT 14.6 SECONDS (9.7-12.2) H 08/10/17 17:09 INR 1.3 08/10/17 17:09 APTT 29 SECONDS (21-34) 08/10/17 17:09 - Head Exam Head Exam: ATRAUMATIC - Eye Exam Eye Exam: Normal appearance - ENT Exam ENT Exam: Mucous Membranes Dry - Respiratory Exam Respiratory Exam: NORMAL BREATHING PATTERN - Cardiovascular Exam Cardiovascular Exam: +S1, +S2 - GI/Abdominal Exam GI & Abdominal Exam: Normal Bowel Sounds Assessment and Plan (1) Breast cancer Assessment & Plan: stage IV f/u ER/RI/HER2 status on cytology outpatient treatment Status: Acute (2) Pericardial effusion Assessment & Plan: malignant, s/p pericardial window Status: Acute (3) Pleural effusion Assessment & Plan: malignant, s/p chest tube drainage Status: Acute (4) Anemia Assessment & Plan: chronic disease Status: Acute
[2017-08-26 01:40] VITALS: RESP 20
[2017-08-26] MEDS: (Novolin R) Insulin Human Regular 100 units/ml vial SC SCH ×4 (07:44→22:05)
[2017-08-26] MEDS: Enoxaparin 30 mg Syringe SC SCH (09:04)
[2017-08-26] MEDS: Divalproex 250 mg DR Tab PO SCH ×2 (09:05→17:43)
--- NOTE | 2017-08-26 16:48 | CP.PCM.PN ---
Subjective - Date & Time of Evaluation Date of Evaluation: 08/26/17 Time of Evaluation: 09:00 - Subjective Subjective: clinically same Objective - Vital Signs/Intake and Output Vital Signs (last 24 hours): Temp Pulse Resp BP Pulse Ox 98.6 F 103 H 20 110/72 98 08/26/17 15:35 08/26/17 15:35 08/26/17 15:35 08/26/17 15:35 08/26/17 15:35 Intake and Output: 08/26/17 08/26/17 06:59 18:59 Intake Total 240 Balance 240 - Medications Medications: Current Medications Acetaminophen (Tylenol 325mg Tab) 650 mg PO Q6 PRN PRN Reason: temp 101 and above Last Admin: 08/13/17 20:07 Dose: 650 mg Aspirin (Aspirin) 325 mg PO DAILY [facility] Last Admin: 08/26/17 09:04 Dose: 325 mg Divalproex Sodium (Depakote Dr) 250 mg PO BID [facility] Last Admin: 08/26/17 09:05 Dose: 250 mg Enoxaparin Sodium (Lovenox) 30 mg SC DAILY [facility] Last Admin: 08/26/17 09:04 Dose: 30 mg Famotidine (Pepcid) 20 mg PO BID [facility] Last Admin: 08/26/17 09:04 Dose: 20 mg Hydroxyzine HCl (Atarax) 50 mg PO Q6 PRN PRN Reason: Anxiety Last Admin: 08/26/17 13:31 Dose: 50 mg Insulin Human Regular (Novolin R) 0 unit SC [facility] PRN Reason: Protocol Last Admin: 08/26/17 11:30 Dose: Not Given Metformin HCl (Glucophage) 500 mg PO DAILY [facility] Last Admin: 08/26/17 09:04 Dose: 500 mg Tramadol HCl (Ultram) 25 mg PO TID PRN PRN Reason: Pain, moderate (4-7) Last Admin: 08/24/17 10:15 Dose: 25 mg Tramadol HCl (Ultram) 50 mg PO Q6 PRN PRN Reason: Pain, severe (8-10) Last Admin: 08/26/17 00:38 Dose: 50 mg Trazodone HCl (Desyrel) [address] [facility] Last Admin: 08/25/17 22:04 Dose: 50 mg - Labs Labs: 08/17/17 06:12 08/17/17 06:14 PT 14.6 SECONDS (9.7-12.2) H 08/10/17 17:09 INR 1.3 08/10/17 17:09 APTT 29 SECONDS (21-34) 08/10/17 17:09 - Constitutional Appears: Well - Head Exam Head Exam: ATRAUMATIC, NORMAL INSPECTION, NORMOCEPHALIC - Eye Exam Eye Exam: EOMI, Normal appearance, PERRL Pupil Exam: NORMAL ACCOMODATION, PERRL - ENT Exam ENT Exam: Mucous Membranes Moist, Normal Exam - Neck Exam Neck Exam: Full ROM, Normal Inspection. absent: Lymphadenopathy - Respiratory Exam Respiratory Exam: Decreased Breath Sounds - Cardiovascular Exam Cardiovascular Exam: REGULAR RHYTHM, +S1, +S2 - GI/Abdominal Exam GI & Abdominal Exam: Soft, Diminished Bowel Sounds - Rectal Exam Rectal Exam: Deferred
[2017-08-27 01:00] VITALS: O2SAT 97
[2017-08-27] MEDS: (Novolin R) Insulin Human Regular 100 units/ml vial SC SCH ×3 (07:30→17:58)
[2017-08-27] MEDS: Divalproex 250 mg DR Tab PO SCH ×2 (09:58→17:57)
[2017-08-27] MEDS: Enoxaparin 30 mg Syringe SC SCH (09:59)
--- NOTE | 2017-08-27 12:50 | CP.PCM.PCO ---
Physician Communication Note - Physician Communication Note Physician Communication Note: Sharan removed at bedside. Appled dressing to left chest incision
--- NOTE | 2017-08-27 13:05 | CP.PCM.PN ---
Subjective - Date & Time of Evaluation Date of Evaluation: 08/26/17 Time of Evaluation: 12:15 - Subjective Subjective: No complaints. Objective - Vital Signs/Intake and Output Vital Signs (last 24 hours): Temp Pulse Resp BP Pulse Ox 98.0 F 92 H 20 94/56 L 97 08/27/17 08:09 08/27/17 08:09 08/27/17 08:09 08/27/17 08:09 08/27/17 08:09 Intake and Output: 08/27/17 08/27/17 06:59 18:59 Intake Total 540 Balance 540 - Medications Medications: Current Medications Acetaminophen (Tylenol 325mg Tab) 650 mg PO Q6 PRN PRN Reason: temp 101 and above Last Admin: 08/13/17 20:07 Dose: 650 mg Aspirin (Aspirin) 325 mg PO DAILY [facility] Last Admin: 08/27/17 09:58 Dose: 325 mg Divalproex Sodium (Depakote Dr) 250 mg PO BID [facility] Last Admin: 08/27/17 09:58 Dose: 250 mg Enoxaparin Sodium (Lovenox) 30 mg SC DAILY [facility] Last Admin: 08/27/17 09:59 Dose: 30 mg Famotidine (Pepcid) 20 mg PO BID [facility] Last Admin: 08/27/17 09:58 Dose: 20 mg Hydroxyzine HCl (Atarax) 50 mg PO Q6 PRN PRN Reason: Anxiety Last Admin: 08/26/17 13:31 Dose: 50 mg Insulin Human Regular (Novolin R) 0 unit SC [facility] PRN Reason: Protocol Last Admin: 08/27/17 12:00 Dose: Not Given Metformin HCl (Glucophage) 500 mg PO DAILY [facility] Last Admin: 08/27/17 09:58 Dose: 500 mg Tramadol HCl (Ultram) 25 mg PO TID PRN PRN Reason: Pain, moderate (4-7) Last Admin: 08/24/17 10:15 Dose: 25 mg Tramadol HCl (Ultram) 50 mg PO Q6 PRN PRN Reason: Pain, severe (8-10) Last Admin: 08/27/17 00:11 Dose: 50 mg Trazodone HCl (Desyrel) 50 mg PO HS [facility] Last Admin: 08/26/17 22:28 Dose: 50 mg - Labs Labs: 08/17/17 06:12 08/17/17 06:14 PT 14.6 SECONDS (9.7-12.2) H 08/10/17 17:09 INR 1.3 08/10/17 17:09 APTT 29 SECONDS (21-34) 08/10/17 17:09 - Head Exam Head Exam: ATRAUMATIC - Eye Exam Eye Exam: Normal appearance - ENT Exam ENT Exam: Mucous Membranes Dry - Respiratory Exam Respiratory Exam: NORMAL BREATHING PATTERN - Cardiovascular Exam Cardiovascular Exam: +S1, +S2 - GI/Abdominal Exam GI & Abdominal Exam: Normal Bowel Sounds Assessment and Plan (1) Breast cancer Assessment & Plan: stage IV outpatient treatment with primary oncologist. Status: Acute (2) Pericardial effusion Assessment & Plan: malignant s/p pericardial window Status: Acute (3) Pleural effusion Assessment & Plan: malignant s/p chest tube Status: Acute (4) Anemia Assessment & Plan: chronic disease Status: Acute
--- NOTE | 2017-08-27 13:06 | CP.PCM.PN ---
Subjective - Date & Time of Evaluation Date of Evaluation: 08/27/17 Time of Evaluation: 13:00 - Subjective Subjective: No complaints. Objective - Vital Signs/Intake and Output Vital Signs (last 24 hours): Temp Pulse Resp BP Pulse Ox 98.0 F 92 H 20 94/56 L 97 08/27/17 08:09 08/27/17 08:09 08/27/17 08:09 08/27/17 08:09 08/27/17 08:09 Intake and Output: 08/27/17 08/27/17 06:59 18:59 Intake Total 540 Balance 540 - Medications Medications: Current Medications Acetaminophen (Tylenol 325mg Tab) 650 mg PO Q6 PRN PRN Reason: temp 101 and above Last Admin: 08/13/17 20:07 Dose: 650 mg Aspirin (Aspirin) 325 mg PO DAILY [facility] Last Admin: 08/27/17 09:58 Dose: 325 mg Divalproex Sodium (Depakote Dr) 250 mg PO BID [facility] Last Admin: 08/27/17 09:58 Dose: 250 mg Enoxaparin Sodium (Lovenox) 30 mg SC DAILY [facility] Last Admin: 08/27/17 09:59 Dose: 30 mg Famotidine (Pepcid) 20 mg PO BID [facility] Last Admin: 08/27/17 09:58 Dose: 20 mg Hydroxyzine HCl (Atarax) 50 mg PO Q6 PRN PRN Reason: Anxiety Last Admin: 08/26/17 13:31 Dose: 50 mg Insulin Human Regular (Novolin R) 0 unit SC [facility] PRN Reason: Protocol Last Admin: 08/27/17 12:00 Dose: Not Given Metformin HCl (Glucophage) 500 mg PO DAILY [facility] Last Admin: 08/27/17 09:58 Dose: 500 mg Tramadol HCl (Ultram) 25 mg PO TID PRN PRN Reason: Pain, moderate (4-7) Last Admin: 08/24/17 10:15 Dose: 25 mg Tramadol HCl (Ultram) 50 mg PO Q6 PRN PRN Reason: Pain, severe (8-10) Last Admin: 08/27/17 00:11 Dose: 50 mg Trazodone HCl (Desyrel) 50 mg PO HS [facility] Last Admin: 08/26/17 22:28 Dose: 50 mg - Labs Labs: 08/17/17 06:12 08/17/17 06:14 PT 14.6 SECONDS (9.7-12.2) H 08/10/17 17:09 INR 1.3 08/10/17 17:09 APTT 29 SECONDS (21-34) 08/10/17 17:09 - Head Exam Head Exam: ATRAUMATIC - Eye Exam Eye Exam: Normal appearance - ENT Exam ENT Exam: Mucous Membranes Dry - Respiratory Exam Respiratory Exam: NORMAL BREATHING PATTERN - Cardiovascular Exam Cardiovascular Exam: +S1, +S2 Assessment and Plan (1) Breast cancer Assessment & Plan: stage IV outpatient treatment with primary oncologist Status: Acute (2) Pericardial effusion Assessment & Plan: malignant s/p pericardial window Status: Acute (3) Pleural effusion Assessment & Plan: malignant s/p chest tube Status: Acute (4) Anemia Assessment & Plan: chronic disease Status: Acute
[2017-08-27 16:33] VITALS: BP 99/69; PULSE 100; TEMP 97.7
--- NOTE | 2017-08-27 17:36 | CP.PCM.PN ---
Subjective - Date & Time of Evaluation Date of Evaluation: 08/27/17 Time of Evaluation: 08:20 - Subjective Subjective: clinically same Objective - Vital Signs/Intake and Output Vital Signs (last 24 hours): Temp Pulse Resp BP Pulse Ox 97.7 F 100 H 20 99/69 L 97 08/27/17 15:00 08/27/17 15:00 08/27/17 15:00 08/27/17 15:00 08/27/17 15:00 Intake and Output: 08/27/17 08/27/17 06:59 18:59 Intake Total 540 Balance 540 - Medications Medications: Current Medications Acetaminophen (Tylenol 325mg Tab) 650 mg PO Q6 PRN PRN Reason: temp 101 and above Last Admin: 08/13/17 20:07 Dose: 650 mg Aspirin (Aspirin) 325 mg PO DAILY [facility] Last Admin: 08/27/17 09:58 Dose: 325 mg Divalproex Sodium (Depakote Dr) 250 mg PO BID [facility] Last Admin: 08/27/17 09:58 Dose: 250 mg Enoxaparin Sodium (Lovenox) 30 mg SC DAILY [facility] Last Admin: 08/27/17 09:59 Dose: 30 mg Famotidine (Pepcid) 20 mg PO BID [facility] Last Admin: 08/27/17 09:58 Dose: 20 mg Hydroxyzine HCl (Atarax) 50 mg PO Q6 PRN PRN Reason: Anxiety Last Admin: 08/26/17 13:31 Dose: 50 mg Insulin Human Regular (Novolin R) 0 unit SC [facility] PRN Reason: Protocol Last Admin: 08/27/17 12:00 Dose: Not Given Metformin HCl (Glucophage) 500 mg PO DAILY [facility] Last Admin: 08/27/17 09:58 Dose: 500 mg Tramadol HCl (Ultram) 25 mg PO TID PRN PRN Reason: Pain, moderate (4-7) Last Admin: 08/24/17 10:15 Dose: 25 mg Tramadol HCl (Ultram) 50 mg PO Q6 PRN PRN Reason: Pain, severe (8-10) Last Admin: 08/27/17 00:11 Dose: 50 mg Trazodone HCl (Desyrel) 50 mg PO [facility] Last Admin: 08/26/17 22:28 Dose: 50 mg - Labs Labs: 08/17/17 06:12 08/17/17 06:14 PT 14.6 SECONDS (9.7-12.2) H 08/10/17 17:09 INR 1.3 08/10/17 17:09 APTT 29 SECONDS (21-34) 08/10/17 17:09 - Constitutional Appears: Well - Head Exam Head Exam: ATRAUMATIC, NORMAL INSPECTION, NORMOCEPHALIC - Eye Exam Eye Exam: EOMI, Normal appearance, PERRL Pupil Exam: NORMAL ACCOMODATION, PERRL - ENT Exam ENT Exam: Mucous Membranes Moist, Normal Exam - Neck Exam Neck Exam: Full ROM, Normal Inspection. absent: Lymphadenopathy - Respiratory Exam Respiratory Exam: Decreased Breath Sounds - Cardiovascular Exam Cardiovascular Exam: REGULAR RHYTHM, +S1, +S2 - GI/Abdominal Exam GI & Abdominal Exam: Soft, Diminished Bowel Sounds - Rectal Exam Rectal Exam: Deferred
[2017-08-27] MEDS: Tramadol 25 mg PO PRN (17:57)
== END 2017-08-27 20:30 | disposition home or self-care (01) | DRG 406 ==
LOC: C.ER 16:08 → C.9I 20:42 → C.9E 20:42 → C.6T 08-18 19:25
PROVIDERS: ADMIT Internal Medicine Nephrology; ATTEND Internal Medicine Nephrology
PROC: 02BN0ZX Excision of Pericardium, Open Approach, Diagnostic (ICD-10-PCS; 2017-08-11)
PROC: 0W9B00Z Drainage of Left Pleural Cavity with Drainage Device, Open Approach (ICD-10-PCS; 2017-08-11)
PROC: 0W9900Z Drainage of Right Pleural Cavity with Drainage Device, Open Approach (ICD-10-PCS; 2017-08-11)
PROC: 0W9D00Z Drainage of Pericardial Cavity with Drainage Device, Open Approach (ICD-10-PCS; principal; 2017-08-11 11:00)
DX: C79.89 Secondary malignant neoplasm of other specified sites (principal); E11.22 Type 2 diabetes mellitus with diabetic chronic kidney disease; R09.02 Hypoxemia; J98.11 Atelectasis; I31.4 Cardiac tamponade; N18.9 Chronic kidney disease, unspecified; C78.2 Secondary malignant neoplasm of pleura; C50.911 Malignant neoplasm of unspecified site of right female breast; D64.9 Anemia, unspecified; E78.00 Pure hypercholesterolemia, unspecified; F41.1 Generalized anxiety disorder; F17.210 Nicotine dependence, cigarettes, uncomplicated; I12.9 Hypertensive chronic kidney disease with stage 1 through stage 4 chronic kidney disease, or unspecified chronic kidney disease; Z79.4 Long term (current) use of insulin; F32.9 Major depressive disorder, single episode, unspecified; I48.91 Unspecified atrial fibrillation; Z59.0 Homelessness; Z51.5 Encounter for palliative care; R50.82 Postprocedural fever; R45.1 Restlessness and agitation; J45.909 Unspecified asthma, uncomplicated